=== PATIENT | male | born 1940 | race Caucasian/White ===

== ENCOUNTER 2017-02-10 19:49 | Inpatient (IN) | payer OTHER, MEDICARE ==
[~2017-02-10] VITALS: Ht 188 cm; Wt 81.6 kg
--- NOTE | 2017-02-10 19:53 | ED DYSPNEA/ASTHMA COMPLAINT ---
History of Present Illness General Chief Complaint: Dyspnea (COPD, CHF, Other) Stated Complaint: COPD EXACERBATION Source: patient, family, old records, EMS Exam Limitations: no limitations Vital Signs & Intake/Output Vital Signs & Intake/Output Vital Signs Date Time Temp Pulse Resp B/P B/P Pulse O2 O2 Flow FiO2 Mean Ox Delivery Rate 02/10 2235 99.1 92 22 131/69 96 Nasal 2.0L Cannula 02/10 2002 98 Nasal 2.0L Cannula 02/10 1954 98.5 108 20 142/77 96 Nasal 2.0L Cannula Allergies Coded Allergies: crab (SOFT SHELL CRAB - FACIAL SWELLING 02/10/17) Reconcile Medications Albuterol Sulfate 2.5 MG/3 ML (0.083 %) VIAL.NEB 1 Vial INH/SHERRY BID COPD ( Reported) Arformoterol Tartrate (Brovana) 15 MCG/2 ML VIAL.NEB 1 VIAL INH BID COPD ( Reported) Aspirin (Ecotrin*) 81 MG TABLET.DR 1 TAB PO DAILY HEART/BLOOD (Reported) Atorvastatin Calcium 40 MG TABLET 1 TAB PO DAILY CHOLESTEROL (Reported) Bisacodyl (Dulcolax) 5 MG TABLET.DR 3 TAB PO QPM GI (Reported) Budesonide 1 MG/2 ML AMPUL.NEB 1 VIAL INH BID COPD (Reported) Hydrocodone/Acetaminophen (Hydrocodon-Acetaminoph 7.5-325) 7.5 MG-325 MG TABLET 1 TAB PO PRN PAIN (Reported) Levofloxacin 500 MG TABLET 1 TAB PO DAILY ANTIBIOTIC (Reported) Oxybutynin Chloride (Unknown Strength) TABLET (Unknown Dose) PO AD UNKNOWN ( Reported) Pioglitazone HCl 45 MG TABLET 1 TAB PO DAILY DM (Reported) Prednisone 5 MG TABLET 1 TAB PO DAILY COPD (Reported) Roflumilast (Daliresp) 500 MCG TABLET 1 TAB PO DAILY COPD (Reported) Sitagliptin Phosphate (Januvia) 50 MG TABLET 1 TAB PO DAILY DM (Reported) Tiotropium [employer] (Spiriva) 18 MCG CAP.W.DEV 1 CAP INH DAILY COPD (Reported) Zolpidem Tartrate 10 MG TABLET 1 TAB PO QPM SLEEP (Reported) Triage Nurses Notes Reviewed? yes HPI: Patient has a known kidney stone and had a recent stent placed. Patient was prescribed Levaquin oxybutynin and Vicodin. Patient states that he read the information on the Vicodin and saw that it could cause difficulty breathing and he became concerned because he has COPD. Patient also noticed that he has been constipated and has had decreased urination. Patient also read the information on the Levaquin and saw that it can cause Achilles tendon rupture. Patient states his right Achilles tendon has been a little sore so that also made him concerned so he felt better if he stopped all of the medications that were prescribed. His last dose of anything was last night. Patient states his last bowel movement was 4 days ago. Patient is also noticed that he has had decreased urinary output. There is no nausea or vomiting. Patient does have a sharp stabbing pain in his left lower quadrant that is only present when he pushes on the area or when he coughs. There is no radiation. The pain is 0 out of 10 and less he coughs or presses on it at which point the pain increases to 6 out of 10. Patient uses oxygen at night. Patient has had increasing shortness of breath since yesterday. Patient denies any chest pain or chest tightness. There is no orthopnea. Today he needed his oxygen all day. Patient is complaining of dyspnea on exertion. Patient has been given 2 albuterol nebs as well as 125 mg of Solu-Medrol by EMS. Patient states that his breathing is much improved. Past History Travel History Traveled to [place] past 21 day No Medical History Any Pertinent Medical History? see below for history Respiratory: COPD Renal: nephrolithiasis Surgical History Surgical History: cystoscopy Psychosocial History Who do you live with Spouse What is your primary language Irish Tobacco Use: Quit >30 days ago ETOH Use: denies use Illicit Drug Use: denies illicit drug use Family History Hx Contributory? No Review of Systems Review of Systems Constitutional: Reports: see HPI, chills. EENTM: Reports: no symptoms. Respiratory: Reports: see HPI, short of breath, wheezing. Cardiovascular: Reports: no symptoms. GI: Reports: see HPI, abdominal pain, constipation. Genitourinary: Reports: no symptoms. Musculoskeletal: Reports: no symptoms. Skin: Reports: no symptoms. Neurological/Psychological: Reports: no symptoms. Hematologic/Endocrine: Reports: no symptoms. Immunologic/Allergic: Reports: no symptoms. All Other Systems: Reviewed and Negative Physical Exam Physical Exam General Appearance: well developed/nourished, alert, awake, anxious, moderate distress Head: atraumatic, normal appearance Eyes: Bilateral: PERRL, EOMI. Ears, Nose, Throat: normal pharynx, normal ENT inspection, hearing grossly normal Neck: normal inspection, supple, full range of motion, NO JVD Respiratory: decreased breath sounds, wheezing Cardiovascular: regular rate/rhythm, normal peripheral pulses Gastrointestinal: normal bowel sounds, soft, non-tender, no organomegaly Extremities: normal inspection, normal capillary refill, normal range of motion, no edema Neurologic/Psych: no motor/sensory deficits, awake, alert, oriented x 3, normal mood/affect Skin: intact, normal color, warm/dry Lymphatic: no anterior cervical thais Core Measures ACS in differential dx? No Severe Sepsis Present: No Septic Shock Present: No Progress Differential Diagnosis: AMI, bronchitis, COPD, pneumonia, pneumothorax Plan of Care: Orders Procedure Date/time Status Admit to inpatient 02/11 2352 Active Enema 02/10 2259 Active EKG 02/10 2017 Active ARTERIAL BLOOD GAS (GEN) 02/10 1954 Complete Telemetry/Saw Grinder 02/10 1954 Active URINALYSIS 02/10 1954 Complete TROPONIN LEVEL 02/10 1954 Complete LIPASE 02/10 1954 Complete COMPREHENSIVE METABOLIC PANEL 02/10 1954 Complete CBC WITHOUT DIFFERENTIAL 02/10 1954 Complete B-TYPE NATRIURETIC PEP (BNP) 02/10 1954 Complete AMYLASE 02/10 1954 Complete Current Medications Sig/Camille Start time Last Medication Dose Stop Time Status Admin Azithromycin 500 MG ONCE ONE 02/10 2345 UNVr (Zithromax) 02/11 0044 Sodium Chloride 250 ML (Normal Saline 0.9%) Ceftriaxone Sodium 1,000 MG ONCE ONE 02/10 2345 UNVr (Rocephin) 02/10 2346 Laboratory Tests 02/10/170: Urine Color BLDY H, Urine Clarity TURBD H, Urine pH 6.0, Ur Specific [place] 1.025, Urine Protein >=300 H, Urine Ketones TRACE H, Urine Nitrite NEG, Urine Bilirubin NEG@ICTO, Urine Urobilinogen 0.2, Ur Leukocyte Esterase MOD H, Ur Microscopic SEDIMENT EXAMINED, Urine RBC PACKD H, Urine WBC PACKD H, Ur Epithelial Cells MOD H, Urine Bacteria PACKD H, Urine Mucus MANY H, Micro UA Comment BUDDING YEAST H, Urine Hemoglobin LARGE H, Urine Glucose NEG 02/10/172004: Anion Gap 10, Estimated GFR > 60, BUN/Creatinine Ratio 16.0, Glucose 129 H, Calcium 8.7, Total Bilirubin 0.8, AST 33, ALT 39, Alkaline Phosphatase 87, Troponin I < 0.01, Urg-J-Ngqoigjitlf Pept 320 H, Total Protein 6.2 L, Albumin 3.5, Globulin 2.7, Albumin/Globulin Ratio 1.3, Amylase 30, Lipase 44, CBC w Diff NO MAN DIFF REQ, RBC 4.35 L, MCV 89.3, MCH 29.8, RDW 16.3 H, MPV 7.6, Gran % 78.4 H, Lymphocytes % 14.0 L, Monocytes % 6.1, Eosinophils % 1.1, Basophils % 0.4, Absolute Granulocytes 10.7 H, Absolute Lymphocytes 1.9, Absolute Monocytes 0.8 H, Absolute Eosinophils 0.2, Absolute Basophils 0.1, PUBS MCHC 33.3 02/10/17 2000: pH 7.42, pCO2 37, pO2 87, HCO3 24, ABG O2 Sat (Measured) 96.0, P-50 (Temp Corrected) N, Carboxyhemoglobin 0.3 L, O2 Concentration % 2L, Temperature 98.5, O2 Delivery Method NC, Phlebotomy Draw Site RIGHT RADIAL Diagnostic Imaging: Viewed by Me: Radiology Read. Discussed w/RAD: Radiology Read. CXR Impression: PATIENT: SONIDO HENRIQUEZ PRESENT AGE : 77 PATIENT ACCOUNT NO: [id number] : 39 LOCATION: [facility] ORDERING PHYSICIAN: KALANI DYSON MD SERVICE DATE: 02/10/17 EXAM TYPE: RAD - XRY-PORTABLE CHEST XRAY EXAMINATION: XR PORTABLE CHEST CLINICAL INFORMATION: Shortness of breath COMPARISON: Chest x-ray 04/10/2015 TECHNIQUE: Portable frontal portable view of the chest was obtained. 8:07 PM FINDINGS: Emphysematous hyperinflation of lungs. No acute change. No infiltrate. No pulmonary vascular congestion. No pneumothorax. The cardiac and the mediastinal contours are normal. There is vascular wall calcifications of aorta. IMPRESSION: Emphysematous hyperinflation of lungs. No acute abnormality. DICTATED BY: GUANAKO SOUZA MD DATE/TIME DICTATED:02/10/172051 AUTOMOTIVE BRAKE ADJUSTER:LORA DATE/ TIME TRANSCRIBED:02/10/172051 CONFIDENTIAL, DO NOT COPY WITHOUT APPROPRIATE AUTHORIZATION. <Electronically signed in Other Vendor System> SIGNED BY: GUANAKO SOUZA MD 02/10/172055 Initial ED EKG: NSR, nonspecific ST T wave chg Prior EKG: unchanged Rhythm Strip: normal sinus rhythm Comments: Patient became profoundly short of breath just moving to the commode. Patient's oxygen saturation dropped to 92% on 2 L and came back up to 95% on 3 L. Patient usually is only on oxygen at night. At this point patient will be admitted for COPD exacerbation. Departure Departure Disposition: STILL A PATIENT Condition: Guarded Clinical Impression Primary Impression: COPD exacerbation Secondary Impressions: Lower abdominal pain, unspecified Referrals: VINITA SIMMONS,SHANNON Bell Departure Forms: Customer Survey General Discharge Information Admission Note Spoke With: PABLITO CAMARILLO MD Documentation of Exam: Documentation of any treatments & extenuating circumstances including Concerns Regarding Discharge (functional status, medication knowledge or non-compliance, living conditions, etc.) that warrant an admission rather than observation: [IV steroids, nebulizers, IV antibiotics, pulmonary consultation] Critical Care Note Critical Care Note Critical Care Time: non-applicable
--- NOTE | 2017-02-10 20:00 | NUR ---
PT BIBA FROM HOME C/O COPD EXACERBATION. PER MEDIC PT WAS RESTING AT HOME WHEN HE FELT SOB. PT STATES THAT HE USES 2L NC AT HOME RESTING. PT ARRIVED ON 2L NC SAT 98%. PT STATES HE CANT WALK ANYWHERE WITHOUT GETTING SOB. PT ARRIVED A&OX3, PT STATES UNSTEADY ON FEET, FALL ABOUT 3 MONTHS AGO. RED WRIST BAND, SOCKS, AND SIGNED APPLIED TO PT AND RM. PT ARRIVED WITH [facility] IN WITH 125MG SOLU MEDROL IV ADMINISTERED ALONG WITH 2 ALBUTEROL TREATMENTS. THIS RN AND DR DYSON AT BEDSIDE FOR EVAL. RT BLANCHE AT BEDSIDE FOR ABG. PT PLACED ON MONITOR.
--- NOTE | 2017-02-10 20:17 | NUR ---
LABS DRAWN AND SENT BY THIS MST BLUE, SST X2, LAV X2, LAIRD
[2017-02-10 20:25] LABS: ABSOLUTE BASOPHIL COUNT 0.1 /CUMM (0.0-0.2); ABSOLUTE EOSINOPHIL COUNT 0.2 /CUMM (0.0-0.7); ABSOLUTE GRANULOCYTE CT 10.7 /CUMM (1.4-6.5); ABSOLUTE LYMPH COUNT 1.9 /CUMM (1.2-3.4); ABSOLUTE MONOCYTE COUNT 0.8 /CUMM (0.10-0.60); BASOPHIL % 0.4 % (0.0-2.0); EOSINOPHIL % 1.1 % (0-5); GRANULOCYTE % 78.4 % (42.2-75.2); HEMATOCRIT 38.9 % (42-52); MEAN CORPUSCULAR HGB 29.8 PG (27.0-31.0); MEAN CORPUSCULAR HGB CONC 33.3 G/DL (33.0-37.0); MEAN CORPUSCULAR VOLUME 89.3 FL (80.0-94.0); MEAN PLATELET VOLUME 7.6 FL (7.4-10.4); PLATELET COUNT 214 /CUMM (130-400); RBC DISTRIBUTION WIDTH 16.3 % (11.5-14.5); RED BLOOD CELL CT 4.35 /CUMM (4.70-6.10); WHITE BLOOD CELL COUNT 13.7 /CUMM (4.8-10.8)
--- NOTE | 2017-02-10 20:43 | NUR ---
PT GIVEN URINAL
--- NOTE | 2017-02-10 20:56 | RADIOLOGY REPORT ---
EXAMINATION: XR PORTABLE CHEST CLINICAL INFORMATION: Shortness of breath COMPARISON: Chest x-ray 04/10/2015 TECHNIQUE: Portable frontal portable view of the chest was obtained. 8:07 PM FINDINGS: Emphysematous hyperinflation of lungs. No acute change. No infiltrate. No pulmonary vascular congestion. No pneumothorax. The cardiac and the mediastinal contours are normal. There is vascular wall calcifications of aorta. IMPRESSION: Emphysematous hyperinflation of lungs. No acute abnormality.
[2017-02-10] MEDS ORDERED: ALBUTEROL2.5 MG/3 M INH/SOL (21:32)
[2017-02-10] MEDS ORDERED: SPIRIVA18 MCG INH (21:32)
[2017-02-10] MEDS ORDERED: BUDESONIDE1 MG/2 ML INH (21:33)
[2017-02-10] MEDS ORDERED: BROVANA15 MCG/21 INH (21:33)
[2017-02-10] MEDS ORDERED: DALIRESP500 MC1 PO (21:33)
[2017-02-10] MEDS ORDERED: PREDNISONE5 M1 PO (21:34)
[2017-02-10] MEDS ORDERED: PIOGLITAZONE HC45 M1 PO (21:34)
[2017-02-10] MEDS ORDERED: ATORVASTATIN CA40 M1 PO (21:34)
[2017-02-10] MEDS ORDERED: ZOLPIDEM TARTRA10 M1 PO (21:35)
[2017-02-10] MEDS ORDERED: DULCOLAX5 M1 PO (21:35)
[2017-02-10] MEDS ORDERED: ASPIRIN EC81 M1 PO (21:36)
[2017-02-10] MEDS ORDERED: DITROPAN XL5 M1 PO (21:37)
[2017-02-10] MEDS ORDERED: LEVOFLOXACIN500 M1 PO (21:38)
[2017-02-10] MEDS ORDERED: HYDROCODON-ACE1 EAC3 PO (21:40)
--- NOTE | 2017-02-10 21:40 | NUR ---
PT UNABLE TO URINATE AT THIS TIME. AWAITING URINE SPECIMEN
[2017-02-10] MEDS ORDERED: JANUVIA50 M1 PO (21:41)
--- NOTE | 2017-02-10 21:59 | NUR ---
PT MEDICATED WITH 1 TAB VICODIN PO PER EMAR ALONG WITH NS LITER #1 INFUSING A BOLUS
--- NOTE | 2017-02-10 22:29 | NUR ---
URINE TRIO SENT BY THIS RN
--- NOTE | 2017-02-10 22:57 | CT SCAN REPORT ---
EXAMINATION: CT ABDOMEN AND PELVIS WITH CONTRAST CLINICAL INFORMATION: Left lower quadrant pain. Hematuria. COMPARISON: Renal ultrasound 12/10/2016. CT scan abdomen and pelvis 08/21/2015. TECHNIQUE: Multidetector volumetric imaging was performed of the abdomen and pelvis before and after the IV administration of 95 mL of Optiray 320 intravenous contrast. Sagittal and coronal reformatted images were obtained on the technologist's workstation. DLP: 305.35 mGy-cm. FINDINGS: LUNG BASES: Emphysematous lucency of lungs. No infiltrate or pleural effusion. LIVER, GALLBLADDER, AND BILIARY TREE: The liver is normal in size, shape, and attenuation. No focal hepatic lesion or biliary ductal dilatation is present. The gallbladder is unremarkable with no evidence of radiopaque gallstones, gallbladder wall thickening, or obvious pericholecystic inflammatory changes. PANCREAS: Unremarkable. SPLEEN: Unremarkable. ADRENAL GLANDS: Unremarkable. KIDNEYS AND URETERS: Right Kidney: A 1 cm stone in the right ureteropelvic junction. The stone measures 1 cm. The stone measures 9.36 Hounsfield units. There is moderate hydronephrosis of the kidney with dilatation of renal pelvis and calyces. The distal right ureter is nondilated. No additional stone. There is a cortical cyst in the lower pole of right kidney measuring 1.8 cm. There is an adjacent 8 mm cortical cyst and 7 mm cortical cyst. Left Kidney: Double-J stent present in the left kidney. Stent extends from the upper pole calyx to the bladder. There is hydronephrosis of the left kidney with dilatation of renal pelvis and calyces in the left ureter. There is numerous stones in the left kidney. Largest in the lower pole measuring 1.7 cm. The stone has a density measurement of 878 Hounsfield units. There are multiple additional stones in the mid and lower pole of the kidney. There are a few tiny stones in the distal left ureter proximal to the ureterovesical junction. There were multiple cortical cysts in the left kidney. Largest in the mid lower pole posteriorly measuring 2 cm. There is thinning of the cortex at the lower pole of the left kidney. BLADDER: The bladder is distended. The bladder measures 17 x 12 x 14 cm. No stone in the bladder. There is a double-J stent in the left side of the dependent bladder. GASTROINTESTINAL TRACT: No acute change of the bowel. No bowel obstruction. No bowel wall thickening or edema. Moderate volume of stool in colon. The appendix is normal. Small bowel loops are unremarkable. ABDOMINAL WALL: No significant hernia is appreciated. LYMPH NODES: Normal. VASCULAR: Atherosclerotic vascular wall calcifications of the aorta, SMA and iliac vessels. PELVIC VISCERA: Prostate measures 4.9 cm transverse with coarse calcifications in the prostate. Prostate impresses into the bladder base. OSSEOUS STRUCTURES: Degenerative disc height narrowing lower thoracic, upper lumbar spine. Degenerative facet joint arthrosis at lower lumbar spine. IMPRESSION: There is hydronephrosis of both kidneys. There is a stone at the right ureteropelvic junction. Double-J stent present in the left kidney. Numerous stones in the left kidney and a few tiny stones in the distal left ureter proximal to the ureterovesical junction.
--- NOTE | 2017-02-10 23:00 | NUR ---
THIS RN ADMINISTERED A SOAP SUDS ENEMA, PT HAD SOME RELIEF AND WATERY STOOL, DR DYSON INFORMED.
--- NOTE | 2017-02-10 23:03 | NUR ---
DR DYSON IN FOR POC
--- NOTE | 2017-02-11 00:11 | NUR ---
THIS RN ESTABLISHED SITE #2 IV ACCESS IN RH #20. PT HAS 1G ROCEPHIN PER EMAR INFUSING AT 100ML/HR.
--- NOTE | 2017-02-11 00:18 | NUR ---
PT MEDICATED WITH 500MG ZITHRO INFUSING AT 250ML/HR. PT ALSO MEDICATED WITH 2MG MORPHINE PER EMAR INFUSING AT 150ML/HR IN A 50ML NS BAG.
--- NOTE | 2017-02-11 00:22 | NUR ---
2MG MORPHINE IV IN 50ML NS INFUSING AT 75ML/HR, STOPPED CURRENTLY FOR PT EXPERIENCING NAUSEA. PT MEDICATED WITH 4MG IV ZOFRAN PER EMAR. HOUSE STAFF IN FOR EVAL
--- NOTE | 2017-02-11 00:50 | NUR ---
THIS RN DISCUSSED THE CONTINUATION OF THE MORPHINE IV AND PT STATED HE WOULD RATHER NOT HAVE MORPHINE. THIS RN D/C'D MORPHINE INFUSION.
--- NOTE | 2017-02-11 00:50 | NUR ---
bed assignment 235-1
--- NOTE | 2017-02-11 01:06 | NUR ---
REPORT GIVEN TO ANTONINO LUNDY. PT READY FOR TRANSPORT.
[2017-02-11 01:56] VITALS: BP 130/60
--- NOTE | 2017-02-11 02:17 | History & Physical ---
JAIMIE MCMILLAN 02/11/17 0216: General Information and HPI MD Statement: I have seen and personally examined SONIDO HENRIQUEZ and documented this H&P. The patient is a 77 year old M who presented with a patient stated chief complaint of shortness of breath and left flank pain. Source of Information: patient, family Exam Limitations: no limitations History of Present Illness: This is a 77-year-old male with past medical history significant for nephrolithiasis, COPD on 2 L oxygen at night time, [id number] smoking history, constipation, type 2 diabetes mellitus, insomnia presented to emergency department with chief complaint of worsening shortness of breath and left low back pain for 5days. Of note patient reported history of bilateral kidney stones status post double J stent placement on left side for 16 mm stone on last Thursday02/06/17 at [facility]. He was discharged on Levaquin, oxybutynin, Vicodin. However he stopped taking Levaquin as he was scared about Achilles tendon rupture and he stopped Vicodin because of shortness of breath and constipation. Patient reported decreased urine output after stent placement. He also noticed blood in his urine since surgery. Also reported urgency and dysuria. Denied any fever, chills, nausea, vomiting. Also he complains left low back pain, 7 out of 10, increasing with cough, radiating to left lower quadrant. However left flank pain, dysuria, urgency has been subsiding since stent placement. He has follow-up appointment with urologist tomorrow morning 02/11/2017. And also reported worsening shortness of breath even with minimal exertion associated with cough and yellow colored sputum production. Denied any chest pain, racing of heart, fever and chills. Denies any sick contact or travel history. Off note patient completed prednisone taper the day before stent placement. Also patient received extra 40 mg IV steroid before the day of surgery. Patient complains of constipation from Vicodin. Last bowel movement was 4 days ago. He denies any nausea, vomiting, epigastric pain, headache, weakness or sensory changes, numbness or tingling sensation, gait changes. Denies any peripheral edema. Patient continues to smoke less than half pack per day. However he smoked one and half to 2 packs per day for 60 years. He quitted alcohol 10 years ago. Denies any illicit drug abuse. He lives with his and he is independent. [place] Dr. bah banquet steward and follows Dr. Lacy fonseca urologist at [facility]. Allergies/Medications Allergies: Coded Allergies: crab (SOFT SHELL CRAB - FACIAL SWELLING 02/10/17) Home Med list Albuterol Sulfate 2.5 MG/3 ML (0.083 %) VIAL.NEB 1 Vial INH/SHERRY BID COPD ( Reported) Arformoterol Tartrate (Brovana) 15 MCG/2 ML VIAL.NEB 1 VIAL INH BID COPD ( Reported) Aspirin (Ecotrin*) 81 MG TABLET.DR 1 TAB PO DAILY HEART/BLOOD (Reported) Atorvastatin Calcium 40 MG TABLET 1 TAB PO DAILY CHOLESTEROL (Reported) Bisacodyl (Dulcolax) 5 MG TABLET.DR 3 TAB PO QPM GI (Reported) Budesonide 1 MG/2 ML AMPUL.NEB 1 VIAL INH BID COPD (Reported) Hydrocodone/Acetaminophen (Hydrocodon-Acetaminoph 7.5-325) 7.5 MG-325 MG TABLET 1 TAB PO PRN PAIN (Reported) Levofloxacin 500 MG TABLET 1 TAB PO DAILY ANTIBIOTIC (Reported) Oxybutynin Chloride (Unknown Strength) TABLET (Unknown Dose) PO AD UNKNOWN ( Reported) Pioglitazone HCl 45 MG TABLET 1 TAB PO DAILY DM (Reported) Prednisone 5 MG TABLET 1 TAB PO DAILY COPD (Reported) Roflumilast (Daliresp) 500 MCG TABLET 1 TAB PO DAILY COPD (Reported) Sitagliptin Phosphate (Januvia) 50 MG TABLET 1 TAB PO DAILY DM (Reported) Tiotropium [place] (Spiriva) 18 MCG CAP.W.DEV 1 CAP INH DAILY COPD (Reported) Zolpidem Tartrate 10 MG TABLET 1 TAB PO QPM SLEEP (Reported) Compliance With Home Meds: GOOD Past History Travel History Traveled to [place] past 21 day No Medical History Blood Transfusion Hx: No Neurological: NONE EENT: allergies Cardiovascular: AFIB Respiratory: COPD Gastrointestinal: constipation Hepatic: NONE Renal: nephrolithiasis Musculoskeletal: falls Psychiatric: NONE Endocrine: diabetes Blood Disorders: NONE Cancer(s): basal cell carcinoma SQUAD LEADER/Reproductive: NONE Isolation History: Standard Surgical History Surgical History: cataract removal, cystoscopy Past Family/Social History Psychosocial History Where do you live? Home Services at Home: None Smoking Status: Current Everyday Smoker ETOH Use: denies use Illicit Drug Use: denies illicit drug use Review of Systems Review of Systems Constitutional: Denies: chills, diaphoresis, fever, malaise, weakness, unexplained weight loss. EENTM: Denies: see HPI. Cardiovascular: Denies: chest pain, edema, orthopena, palpitations, peripheral edema, syncope. Respiratory: Reports: cough, short of breath, sputum production. Denies: hemoptysis, orthopnea, stridor, wheezing. GI: Reports: abdominal pain, constipation, distention. Denies: bloating, diarrhea, bowel incontinence, melena, nausea, bloody stool, changes in stool, vomiting, steatorrhea. Genitourinary: Reports: dysuria, hematuria, pain, urgency. Denies: discharge, frequency. Musculoskeletal: Denies: back pain, gout, joint pain. Skin: Denies: see HPI. Neurological/Psychological: Denies: anxiety, ataxia, confusion, depressed, dementia, headache, numbness, tingling, tremors. Exam & Diagnostic Data Last 24 Hrs of Vital Signs/I&O Vital Signs Date Time Temp Pulse Resp B/P B/P Pulse O2 O2 Flow FiO2 Mean Ox Delivery Rate 02/11 0156 97.9 90 20 130/60 96 Nasal 2.0L Cannula 02/11 0146 95 Nasal 2.0L Cannula 02/11 0048 98.7 96 18 130/63 95 Nasal 2.0L Cannula 02/10 2235 99.1 92 22 131/69 96 Nasal 2.0L Cannula 02/10 2002 98 Nasal 2.0L Cannula 02/10 1954 98.5 108 20 142/77 96 Nasal 2.0L Cannula Intake & Output 02/11 0800 02/11 0000 02/10 1600 Intake Total Output Total Balance Patient 81.647 kg 81.193 kg Weight Weight Reported by Patient Reported by Patient Measurement Method Physical Exam General Appearance Alert, Oriented X3, Cooperative, No Acute Distress Skin No Rashes, No Breakdown HEENT Atraumatic, PERRLA, EOMI, Mucous Membr. moist/pink Neck Supple, No JVD Lymphatic Cervical nl Cardiovascular Regular Rate, Normal S1, Normal S2, No Murmurs Lungs decreased air entry bilaterally Abdomen Normal Bowel Sounds, Soft, left cva tenderness llq and suprapubic tenderness on palpation Neurological Strength at 5/5 X4 Ext, Normal Tone, Sensation Intact, Cranial Nerves 3-12 NL, Reflexes 2+ Extremities No Clubbing, No Cyanosis, No Edema Vascular Normal Pulses, Pulses Symmetrical Last 24 Hrs of Labs/Arsenio: Laboratory Tests 02/10/170: Urine Color BLDY H, Urine Clarity TURBD H, Urine pH 6.0, Ur Specific Moore 1.025, Urine Protein >=300 H, Urine Ketones TRACE H, Urine Nitrite NEG, Urine Bilirubin NEG@ICTO, Urine Urobilinogen 0.2, Ur Leukocyte Esterase MOD H, Ur Microscopic SEDIMENT EXAMINED, Urine RBC PACKD H, Urine WBC PACKD H, Ur Epithelial Cells MOD H, Urine Bacteria PACKD H, Urine Mucus MANY H, Micro UA Comment BUDDING YEAST H, Urine Hemoglobin LARGE H, Urine Glucose NEG 02/10/172004: Anion Gap 10, Estimated GFR > 60, BUN/Creatinine Ratio 16.0, Glucose 129 H, Calcium 8.7, Total Bilirubin 0.8, AST 33, ALT 39, Alkaline Phosphatase 87, Troponin I < 0.01, Tow-J-Nrkgqeuxfzs Pept 320 H, Total Protein 6.2 L, Albumin 3.5, Globulin 2.7, Albumin/Globulin Ratio 1.3, Amylase 30, Lipase 44, CBC w Diff NO MAN DIFF REQ, RBC 4.35 L, MCV 89.3, MCH 29.8, RDW 16.3 H, MPV 7.6, Gran % 78.4 H, Lymphocytes % 14.0 L, Monocytes % 6.1, Eosinophils % 1.1, Basophils % 0.4, Absolute Granulocytes 10.7 H, Absolute Lymphocytes 1.9, Absolute Monocytes 0.8 H, Absolute Eosinophils 0.2, Absolute Basophils 0.1, PUBS MCHC 33.3 02/10/171999: pH 7.42, pCO2 37, pO2 87, HCO3 24, ABG O2 Sat (Measured) 96.0, P-50 (Temp Corrected) N, Carboxyhemoglobin 0.3 L, O2 Concentration % 2L, Temperature 98.5, O2 Delivery Method NC, Phlebotomy Draw Site RIGHT RADIAL Microbiology 02/12 216 URINE ROUT: Urine Culture - ORD Assessment/Plan Assessment: This is a 77-year-old male with past medical history significant for nephrolithiasis, COPD on 2 L oxygen at night time, 80-bwrt-[id number] smoking history, constipation, type 2 diabetes mellitus, insomnia presented to emergency department with chief complaint of worsening shortness of breath and left low back pain for 5days. Of note patient reported history of bilateral kidney stones status post double J stent placement on left side for 16 mm stone on last Thursday02/06/17 at [facility]. Vitals on admission- afebrile, heart rate 18, respiratory rate 20, blood pressure 142/77, saturating at 96 on 2 L oxygen. Labs on admission- Leukocytosis 13.7, BEP normal. Urine analysis showed moderate esterases, packed WBC, RBC, bacteria and budding yeast, hemoglobin. ABGs-7.42/24/37. Chest x-ray showed emphysematous changes and hyperinflation of lungs CAT scan abdomen There is hydronephrosis of both kidneys. There is a stone at the right ureteropelvic junction. Double-J stent present in the left kidney. Numerous stones in the left kidney and a few tiny stones in the distal left ureter proximal to the ureterovesical junction. Problem list 1. COPD exacerbation 2. Urinary tract infection 3. Bilateral hydronephrosis with renal stones 4. Diabetes mellitus 5. Constipation 6. Insomnia 7. History of atrial fibrillation status post ablation. COPD exacerbation Patient presented with worsening shortness of breath associated with cough and sputum production. Denied any fever, chills, sick contacts, pleuritic chest pain. He is afebrile with WBC count 13,000 on admission. Chest x-ray showed emphysematous changes. No effusion, no consolidation. Off note patient completed prednisone taper the day before stent placement. Also patient received extra 40 mg IV steroid before the day of surgery. * Admit to general medical floor for further management. * Maintain oxygen saturation a bone 90% * Provide supplemental oxygen, patient is on oxygen at home 2 L at nighttime * Monitor vitals every shift * Total respiratory care * Albuterol and Atrovent as scheduled and needed * IV antibiotics-ceftriaxone both for COPD exacerbation and urine infection * IV methylprednisolone 40 mg every 12 hours * Mucinex for cough 600 mg twice a day * Incentive spirometry * Follow-up blood cultures * Sputum cultures * Notify Melissa Johnson MD about admission * smoking cessation counselled. Urinary tract infection Patient presented with bilateral kidney stones status post left double-J stent placement 5days ago. Patient complains of frequency, dysuria, blood in urine. Urine analysis positive for esterases, packed WBC, RBC, hemoglobin, bacteria and budding yeast. Afebrile with Leukocyte count 13,000 on admission. * Monitor vitals closely * Gentle IV hydration * Monitor kidney function tests * IV antibiotics ceftriaxone daily * Follow-up urine cultures * We'll consult ID Angelito Medina MD. Bilateral hydronephrosis with kidney stones Of note patient reported history of bilateral kidney stones status post double J stent placement on left side for 16 mm stone on last Thursday02/06/17 at [facility]. * CAT scan abdomen- There is hydronephrosis of both kidneys. There is a stone at the right ureteropelvic junction. Double-J stent present in the left kidney. Numerous stones in the left kidney and a few tiny stones in the distal left ureter proximal to the ureterovesical junction. * Urology consult. * Patient is nothing by mouth pending urologic procedure if necessary * obtain records from [facility] regarding urologic procedure * Patient was started on Levaquin however he discontinued it by himself as he was scared about achilles tendon rupture * We will place him on Foleys catheter to monitor urine output Diabetes mellitus Patient is on pioglitazone and Januvia at home We'll hold oral medications for now Accu-Cheks before meals and at bedtime On insulin sliding scale Insomnia Continue home medication zolpedam Constipation Bowel regimen with senna and docusate Continue home medication aspirin and statin Patient is DNR/DNI Pain pathway Tylenol, Dilaudid Patient is nothing by mouth DVT prophylaxis alps As Ranked By This Provider Problem List: 1. COPD exacerbation 2. Lower abdominal pain, unspecified Core Measures/Miscellaneous Acute Coronary Syndrome ACS Diagnosis: No Cerebrovascular Accident CVA/TIA Diagnosis: No Congestive Heart Failure CHF Diagnosis: No Venous Thromboembolism VTE Risk Factors: Age > 40 No [facility] VTE prophylaxis d/t: No contraindications No VTE Pharm Prophylaxis d/t: No contraindications VTE Diagnosis: No VTE Type: NONE VTE Confirmed by (Test): NONE Severe Sepsis Severe Sepsis Present: No Septic Shock Septic Shock Present: No Miscellaneous Documentation Attending Case Discussed With: PABLITO CAMARILLO MD Primary Care Physician: Melissa JOHNSON MD Patient sees these Specialists banquet steward urologist Level of Patient Care: General Medicine PABLITO CAMARILLO 02/11/17 0418: Attending Review Statement Attending Statement Attending MD Statement: examined this patient, discuss w/resident/PA/BATTER SCALER, agreed w/resident/PA/BATTER SCALER, reviewed EMR data (avail), reviewed images, amended to note Attending Assessment/Plan: CC: Shortness of breath PMH: COPD on nocturnal O2, multiple renal stone, DM, history of A. fib S/P ablation Patient underwent left ureteral stenting and stone removal 7 days back, was prescribed Levaquin and Vicodin. He was looking up the side effects, and he did not tolerate this medications were and stopped it by himself. Later on he started to notice worsening of shortness of breath, usually he has dyspnea on exertion but now he was getting shortness of breath at rest, requiring daytime oxygen. It was associated with cough and yellow sputum production. He recently finished short-term prednisone course and on chronically small dose prednisone. He was also noticing constipation after Vicodin and left lower quadrant and left flank pain, blood in urine and decreased urine output. Abdominal pain is much better after he received edema in ER. Vitals: Afebrile, tachycardic at presentation, RR 20, blood pressure 142/77, requiring 2 L by NC to saturate at 96%. On examination: A O 3, cooperative, thin built, mild respiratory distress, neck supple, JVD normal, no lymphadenopathy, mucosa moist, tongue coated, no focal neurological deficit, no dependent edema, no obvious skin rashes or inflammation CVS: S1-S2, RRR. RS: Diminished air entry bilaterally with prolonged expiration. Abdomen: Soft, mild tenderness left lower quadrant, mild tenderness left flank, ND, bowel sounds present. Labs: WBC 13.7, neutrophils 78%, hemoglobin 13.0, platelet 214, sodium 132, chloride 93, bicarbonate 28, BUN 16, creatinine 1.0, glucose 129, calcium 8.7, LFT unremarkable, proBNP 320 UA positive for moderate leukocyte esterase, packed WBC, RBC, budding yeast. AB.42/37/87/24 on 2 L CXR:Emphysematous hyperinflation of lungs. No acute abnormality. CT abdomen and pelvis:There is hydronephrosis of both kidneys. There is a stone at the right ureteropelvic junction. Double-J stent present in the left kidney. Numerous stones in the left kidney and a few tiny stones in the distal left ureter proximal to the ureterovesical junction. A and P Patient has increased oxygen use, not requiring daytime oxygen, desaturated while ambulating in ER. ABG does not show any CO2 retention. Probably patient having shallow breathing because of abdominal and flank pain. He received an enema for constipation in ER and symptomatically better for abdominal pain. Patient recently had urological procedure and now has budding yeast in urine. # COPD exacerbation # Complicated UTI # Bilateral hydronephrosis with bilateral renal stones # Constipation # History of diabetes # History of A. fib S/P ablation - Admit to general medicine floor - Urine culture - Continue O2 by nasal cannula - Continue IV ceftriaxone 1 g daily - Continue methylprednisolone 40 mg IV twice a day - TRC and albuterol Atrovent nebulizations scheduled and as required - Mucinex 600 mg by mouth twice a day - Bowel regimen with senna and docusate - Check d-dimer - Consult ID for budding yeast in urine and recent urological procedure - Consult urology for bilateral hydronephrosis and multiple calculi - Obtain records from his previous urology procedure - Nothing by mouth after midnight - Continue gentle hydration - Adequate pain control - Inform Dr. Johnson patient being here - Bah catheter, strict outputs - Continue sliding scale insulin for DM and hold pioglitazone and Januvia - Alps for DVT prophylaxis. MU MILLER 02/11/17 0452: Resident Review Statement Resident Statement: examined this patient, discussed with global marketing intern, agreed with global marketing intern, discussed with family Other Findings: Mr. Henriquez is a 77-year-old male with a significant past medical history of emphysema on 2 L of oxygen nocturnally [falls up with Dr. Johnson], type 2 diabetes, hyperlipidemia, bladder status post ablation approximately 30 years ago, recurrent nephrolithiasis who presents to [facility] department for dyspnea. Of note, the patient had a left ureteral stent placed on Thursday with Dr. Jose Armando Dennison ([facility]) at [facility] for a 16 mm left sided stone. He was placed on levofloxacin, oxybutynin and Vicodin, and as the patient was reading about the the possible side effects at home including Achilles tendon rupture and respiratory depression he became worried and came to the hospital emergency department as he does have a history of COPD. In addition to his dyspnea, he also complained of abdominal pain worse in the left lower quadrant, worse with deep inspiration and palpation, 4 days of constipation and decreased urinary output. He also complained of dysuria and urgency over the last 4 days which have been improving. Additionally since the ureteral stent placement, he has been complaining of hematuria. The remainder of the review of systems and physical exam as dictated above with focus on suprapubic enlargement (bladder) and tenderness to palpation, left lower quadrant tenderness on deep palpation and left CVA tenderness. Lung exam showed decreased air entry bilaterally, with some faint expiratory wheezes, loudest in the right lung base. Vitals temperature 98.5, heart rate 108, respiratory rate 20, BP 142/77 saturating 96% on 2 L. EKG revealed sinus tachycardia at 101 bpm. No other significant acute changes. [place] interval 152. QTC 446 ms. [place] was 90. Labs significant for an elevated white blood cell count of 13,700, H&H 13/30.9, platelets 214. Basic metabolic panel was unremarkable, BUNs/creatinine 16/1.0. ABG 7.42/37/87/24. Urinalysis was bloody and turbid, nitrite negative, leukocyte esterase positive, had multiple RBCs, white blood cells and had budding yeast. Chest x-ray revealed emphysematous changes without any acute abnormality. Abdominal pelvis CT revealed bilateral hydronephrosis with a 1cm right UPJ stone , multiple left stones with a double-J stent in the left ureter. Problem list/assessment and plan We will admit the patient to the general medicine floor for treatment of the following problems: Acute hypoxemic respiratory failure secondary to COPD exacerbation * At home, patient does not require [id number] oxygen therapy however is significantly dyspneic on exertion and is hypoxemic at rest in the hospital. * We will treat with TRC/Nebs with insentive spirometry * The patient was dosed with 125 mg of IV Solu-Medrol and we will continue 40mg BID with plan to taper to PO prednisone. * WE will also give mucinex 600mg BID. * Consider sputum cultures. * Continue O2 via nasal canula, and titrate down as tolerated with a goal oxygen saturation of greater than 92% * Please inform Dr. Johnson of the Mr. Ware admission in the am. Bilateral hydronephrosis and cystitis/funguria * 1 cm UPJ right without distal ureteral dilation and multiple stones in the left kidney, largest 1.7 cm in the lower pole with stent in place and multiple smaller stones with left ureter dilation. * The patient's prostate is not enlarged based on imaging, however does impress into the bladder base. * The patient's bladder is also distended, most likely secondary to his prostate , and we will place a Bah catheter to relieve his bladder outlet obstruction and hopefully some of the hydronephrosis. Of note, his BUN/creatinine are within normal limits. * We will also obtain a urology consult in the morning for possible right 1 cm nephrolithiasis intervention/ureteral stent placement. We will keep the patient nothing by mouth at midnight and avoid any NSAIDs/anticoagulants * The patient did not complete his course of antibiotics and given his recent instrumentation and leukocytosis, we will treat with IV ceftriaxone, 1 g daily. * We will also give tamsulosin and hydration with normal saline. * Also, given the finding of budding yeast on UA - ?candiduria, we will obtain an ID consult. Normally this finding wouldn't be worriesome, as or require treatment, but given his risk factors - recent instrumentation, DM and questionable obstruction with the finding of BL hydronephrosis, the risk of progression to candidemia is higher than patients w/o these risk factors. Given his recent instrumentation there is a grade IIIB recommendation by the IDSA to treat - consider PO fluconazole/flucytosine, or irrigation of the bladder with amphotericin B/IV amphotericin B. DM * we will hold the patient PO antihyperglycemics and start novolog sliding scale with TIDACHS FSGs. NPO DNR/DNI ALPS for dvt ppx pain pathway
--- NOTE | 2017-02-11 03:30 | NUR ---
NURSING NOTE: MULTIPLE FAILED ATTEMPTS TO INSERT HESS BY TWO RN'S. EXTREMELY PAINFUL FOR PATIENT. PT REFUSING THIRD ATTEMPT. MD WINSTON AWARE. PER , OK TO RETRY IN AM.
--- NOTE | 2017-02-11 04:19 | Admission Certification ---
Admission Certification Certification Statement - As attending physician, I certify that at the time of - admission, based on clinical presentation, severity of - symptoms, need for further diagnostic testing and - therapeutic interventions, and risk of adverse outcomes - without in-hospital treatment, in my clinical assessment, - this patient requires an acute hospital stay for a minimum - of two nights or longer. I have also considered psychsocial - factors such as support system, advanced age, financial - issues, cognitive issues, and failed out-patient treatments, - past re-admission history, safety of patient, and lack of - compliance as applicable. Specific rationale supporting this admission is: COPD exacerbation, complicated UTI
[2017-02-11 06:38] VITALS: BP 126/60
[2017-02-11 07:51] LABS: ABSOLUTE BASOPHIL COUNT 0 /CUMM (0.0-0.2); ABSOLUTE EOSINOPHIL COUNT 0 /CUMM (0.0-0.7); ABSOLUTE MONOCYTE COUNT 0.1 /CUMM (0.10-0.60); MEAN CORPUSCULAR HGB 29.8 PG (27.0-31.0)
[2017-02-11 08:26] LABS: ABSOLUTE GRANULOCYTE CT 8.5 /CUMM (1.4-6.5); ABSOLUTE LYMPH COUNT 0.4 /CUMM (1.2-3.4); BASOPHIL % 0 % (0.0-2.0); EOSINOPHIL % 0 % (0-5); MEAN CORPUSCULAR HGB CONC 33.7 G/DL (33.0-37.0); MEAN CORPUSCULAR VOLUME 88.4 FL (80.0-94.0); MEAN PLATELET VOLUME 7.9 FL (7.4-10.4); PLATELET COUNT 172 /CUMM (130-400); RBC DISTRIBUTION WIDTH 16.1 % (11.5-14.5); RED BLOOD CELL CT 3.67 /CUMM (4.70-6.10); WHITE BLOOD CELL COUNT 8.9 /CUMM (4.8-10.8)
[2017-02-11 08:30] LABS: HEMATOCRIT 32.5 % (42-52)
[2017-02-11 09:13] LABS: GRANULOCYTE % 95.3 % (42.2-75.2)
--- NOTE | 2017-02-11 10:52 | Cons- Pulmonary ---
PIETRO LEAL,DHARA 02/11/17 1052: General Information and HPI Consulting Request Date of Consult: 02/11/17 Requested By: Dr. Aponte Reason for Consult: COPD exacerbation Source of Information: patient, family, old records Exam Limitations: no limitations History of Present Illness: Mr. Henriquez is a 77-year-old gentleman whose medical issues include COPD requiring 2 L of oxygen at bedtime, continued nicotine use with a 60+ pack year smoking history, type 2 diabetes mellitus the presented to the emergency room yesterday for evaluation of shortness of breath. On Thursday, he underwent double ureteral stent placement for nephrolithiasis at [facility]. States that he went home the same day and since the weekend he has been having some suprapubic pain and tenderness in conjunction with hematuria. He was given Levaquin and hydrocodone by his urologist and he stopped it secondary to leg cramps as he read the contraindications which were Achilles tendinopathy and constipation respectively. States that at present he smokes about 5-6 cigarettes per day. And also complains of increased dyspnea since Thursday requiring him to use his oxygen at all times. Denies any fevers or chills however does admit to yellow productive sputum. He does have a sick contact at home, his is currently ill with a double ear infection. Is brought to the emergency room by ambulance, while in the emergency room he received 2 DuoNeb treatments and 125 mg IV Solu-Medrol. He had 2 unsuccessful Bah catheter placement attempts in the emergency room. At present his only complaint is suprapubic tenderness. Allergies/Medications Allergies: Coded Allergies: crab (SOFT SHELL CRAB - FACIAL SWELLING 02/10/17) Home Med List: Albuterol Sulfate 2.5 MG/3 ML (0.083 %) VIAL.NEB 1 Vial INH/SHERRY BID COPD ( Reported) Arformoterol Tartrate (Brovana) 15 MCG/2 ML VIAL.NEB 1 VIAL INH BID COPD ( Reported) Aspirin (Ecotrin*) 81 MG TABLET.DR 1 TAB PO DAILY HEART/BLOOD (Reported) Atorvastatin Calcium 40 MG TABLET 1 TAB PO DAILY CHOLESTEROL (Reported) Bisacodyl (Dulcolax) 5 MG TABLET.DR 3 TAB PO QPM GI (Reported) Budesonide 1 MG/2 ML AMPUL.NEB 1 VIAL INH BID COPD (Reported) Hydrocodone/Acetaminophen (Hydrocodon-Acetaminoph 7.5-325) 7.5 MG-325 MG TABLET 1 TAB PO PRN PAIN (Reported) Levofloxacin 500 MG TABLET 1 TAB PO DAILY ANTIBIOTIC (Reported) Oxybutynin Chloride (Unknown Strength) TABLET (Unknown Dose) PO AD UNKNOWN ( Reported) Pioglitazone HCl 45 MG TABLET 1 TAB PO DAILY DM (Reported) Prednisone 5 MG TABLET 1 TAB PO DAILY COPD (Reported) Roflumilast (Daliresp) 500 MCG TABLET 1 TAB PO DAILY COPD (Reported) Sitagliptin Phosphate (Januvia) 50 MG TABLET 1 TAB PO DAILY DM (Reported) Tiotropium [place] (Spiriva) 18 MCG CAP.W.DEV 1 CAP INH DAILY COPD (Reported) Zolpidem Tartrate 10 MG TABLET 1 TAB PO QPM SLEEP (Reported) Review of Systems Review of Systems Constitutional: Reports: see HPI. 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 Home Services at Home: None Smoking Status: Current Everyday Smoker ETOH Use: denies use Illicit Drug Use: denies illicit drug use Exam & Diagnostic Data Last 24 Hrs of Vital Signs/I&O Vital Signs Date Time Temp Pulse Resp B/P B/P Pulse O2 O2 Flow FiO2 Mean Ox Delivery Rate 02/11 1036 95 Nasal 2.0L Cannula 02/11 0947 97.9 82 20 126/60 02/11 0800 95 Nasal 2.0L Cannula 02/11 0638 97.9 82 20 126/60 97 Nasal 2.0L Cannula 02/11 0156 97.9 90 20 130/60 96 Nasal 2.0L Cannula 02/11 0146 95 Nasal 2.0L Cannula 02/11 0048 98.7 96 18 130/63 95 Nasal 2.0L Cannula 02/10 2235 99.1 92 22 131/69 96 Nasal 2.0L Cannula 02/10 2002 98 Nasal 2.0L Cannula 02/10 1954 98.5 108 20 142/77 96 Nasal 2.0L Cannula Intake & Output 02/11 1600 02/11 0800 02/11 0000 Intake Total 430 Output Total 50 Balance 380 Intake, IV 430 Number 0 Bowel Movements Output, Urine 50 Patient 180 lb 179 lb Weight Weight Reported by Patient Reported by Patient Measurement Method Physical Exam General Appearance: well developed/nourished, no apparent distress, alert Head: atraumatic, normal appearance Eyes: Bilateral: normal appearance, PERRL, EOMI. Ears, Nose, Throat: normal pharynx, normal ENT inspection Respiratory: expiratory wheezing bilaterally Cardiovascular: regular rate/rhythm Gastrointestinal: normal bowel sounds, soft, non-tender Back: normal inspection, normal range of motion Last 48 Hrs of Labs/Arsenio: Laboratory Tests 02/11/17 0635: Anion Gap 9, Estimated GFR > 60, BUN/Creatinine Ratio 23.3, D-Dimer 841 H, CBC w Diff NO MAN DIFF REQ, RBC 3.67 L, MCV 88.4, MCH 29.8, RDW 16.1 H, MPV 7.9, Gran % 95.3 H, Lymphocytes % 4.1 L, Monocytes % 0.6 L, Eosinophils % 0, Basophils % 0 L, Absolute Granulocytes 8.5 H, Absolute Lymphocytes 0.4 L, Absolute Monocytes 0.1 L, Absolute Eosinophils 0, Absolute Basophils 0, PUBS MCHC 33.7 02/10/172229: Urine Color BLDY H, Urine Clarity TURBD H, Urine pH 6.0, Ur Specific [place] 1.025, Urine Protein >=300 H, Urine Ketones TRACE H, Urine Nitrite NEG, Urine Bilirubin NEG@ICTO, Urine Urobilinogen 0.2, Ur Leukocyte Esterase MOD H, Ur Microscopic SEDIMENT EXAMINED, Urine RBC PACKD H, Urine WBC PACKD H, Ur Epithelial Cells MOD H, Urine Bacteria PACKD H, Urine Mucus MANY H, Micro UA Comment [place] H, Urine Hemoglobin LARGE H, Urine Glucose NEG 02/10/172004: Anion Gap 10, Estimated GFR > 60, BUN/Creatinine Ratio 16.0, Glucose 129 H, Calcium 8.7, Total Bilirubin 0.8, AST 33, ALT 39, Alkaline Phosphatase 87, Troponin I < 0.01, Rqj-P-Dwoqfecyxfx Pept 320 H, Total Protein 6.2 L, Albumin 3.5, Globulin 2.7, Albumin/Globulin Ratio 1.3, Amylase 30, Lipase 44, CBC w Diff NO MAN DIFF REQ, RBC 4.35 L, MCV 89.3, MCH 29.8, RDW 16.3 H, MPV 7.6, Gran % 78.4 H, Lymphocytes % 14.0 L, Monocytes % 6.1, Eosinophils % 1.1, Basophils % 0.4, Absolute Granulocytes 10.7 H, Absolute Lymphocytes 1.9, Absolute Monocytes 0.8 H, Absolute Eosinophils 0.2, Absolute Basophils 0.1, PUBS MCHC 33.3 02/10/17 2000: pH 7.42, pCO2 37, pO2 87, HCO3 24, ABG O2 Sat (Measured) 96.0, P-50 (Temp Corrected) N, Carboxyhemoglobin 0.3 L, O2 Concentration % 2L, Temperature 98.5, O2 Delivery Method NC, Phlebotomy Draw Site RIGHT RADIAL Diagnostic Data CXR Results PATIENT: SONIDO HENRIQUEZ PRESENT AGE: 77 PATIENT ACCOUNT NO: [id number] : 39 LOCATION: ER ORDERING PHYSICIAN: KALANI DYSON MD SERVICE DATE: 02/10/17 EXAM TYPE: RAD - XRY-PORTABLE CHEST XRAY EXAMINATION: XR PORTABLE CHEST CLINICAL INFORMATION: Shortness of breath COMPARISON: Chest x-ray 04/10/2015 TECHNIQUE: Portable frontal portable view of the chest was obtained. 8:07 PM FINDINGS: Emphysematous hyperinflation of lungs. No acute change. No infiltrate. No pulmonary vascular congestion. No pneumothorax. The cardiac and the mediastinal contours are normal. There is vascular wall calcifications of aorta. IMPRESSION: Emphysematous hyperinflation of lungs. No acute abnormality. DICTATED BY: GUANAKO SOUZA MD DATE/TIME DICTATED:02/10/172051 POCKET SETTER:LORA DATE/TIME TRANSCRIBED:02/10/172051 CONFIDENTIAL, DO NOT COPY WITHOUT APPROPRIATE AUTHORIZATION. <Electronically signed in Other Vendor System> SIGNED BY: GUANAKO SOUZA MD 02/10/172055 Other Results PATIENT: SONIDO HENRIQUEZ PRESENT AGE: 77 PATIENT ACCOUNT NO: [id number] : 39 LOCATION: ER ORDERING PHYSICIAN: KALANI DYSON MD SERVICE DATE: 02/10/17 EXAM TYPE: CAT - CT ABD & PELVIS W IV CONTRAST EXAMINATION: CT ABDOMEN AND PELVIS WITH CONTRAST CLINICAL INFORMATION: Left lower quadrant pain. Hematuria. COMPARISON: Renal ultrasound 12/10/2016. CT scan abdomen and pelvis 08/21/2015. TECHNIQUE: Multidetector volumetric imaging was performed of the abdomen and pelvis before and after the IV administration of 95 mL of Optiray 320 intravenous contrast. Sagittal and coronal reformatted images were obtained on the technologist's workstation. DLP: 305.35 mGy-cm. FINDINGS: LUNG BASES: Emphysematous lucency of lungs. No infiltrate or pleural effusion. LIVER, GALLBLADDER, AND BILIARY TREE: The liver is normal in size, shape, and attenuation. No focal hepatic lesion or biliary ductal dilatation is present. The gallbladder is unremarkable with no evidence of radiopaque gallstones, gallbladder wall thickening, or obvious pericholecystic inflammatory changes. PANCREAS: Unremarkable. SPLEEN: Unremarkable. ADRENAL GLANDS: Unremarkable. KIDNEYS AND URETERS: Right Kidney: A 1 cm stone in the right ureteropelvic junction. The stone measures 1 cm. The stone measures 9.36 Hounsfield units. There is moderate hydronephrosis of the kidney with dilatation of renal pelvis and calyces. The distal right ureter is nondilated. No additional stone. There is a cortical cyst in the lower pole of right kidney measuring 1.8 cm. There is an adjacent 8 mm cortical cyst and 7 mm cortical cyst. Left Kidney: Double-J stent present in the left kidney. Stent extends from the upper pole calyx to the bladder. There is hydronephrosis of the left kidney with dilatation of renal pelvis and calyces in the left ureter. There is numerous stones in the left kidney. Largest in the lower pole measuring 1.7 cm. The stone has a density measurement of 878 Hounsfield units. There are multiple additional stones in the mid and lower pole of the kidney. There are a few tiny stones in the distal left ureter proximal to the ureterovesical junction. There were multiple cortical cysts in the left kidney. Largest in the mid lower pole posteriorly measuring 2 cm. There is thinning of the cortex at the lower pole of the left kidney. BLADDER: The bladder is distended. The bladder measures 17 x 12 x 14 cm. No stone in the bladder. There is a double-J stent in the left side of the dependent bladder. GASTROINTESTINAL TRACT: No acute change of the bowel. No bowel obstruction. No bowel wall thickening or edema. Moderate volume of stool in colon. The appendix is normal. Small bowel loops are unremarkable. ABDOMINAL WALL: No significant hernia is appreciated. LYMPH NODES: Normal. VASCULAR: Atherosclerotic vascular wall calcifications of the aorta, SMA and iliac vessels. PELVIC VISCERA: Prostate measures 4.9 cm transverse with coarse calcifications in the prostate. Prostate impresses into the bladder base. OSSEOUS STRUCTURES: Degenerative disc height narrowing lower thoracic, upper lumbar spine. Degenerative facet joint arthrosis at lower lumbar spine. IMPRESSION: There is hydronephrosis of both kidneys. There is a stone at the right ureteropelvic junction. Double-J stent present in the left kidney. Numerous stones in the left kidney and a few tiny stones in the distal left ureter proximal to the ureterovesical junction. DICTATED BY: GUANAKO SOUZA MD DATE/TIME DICTATED:02/10/172231 POCKET SETTER:LORA DATE/TIME TRANSCRIBED:02/10/172231 CONFIDENTIAL, DO NOT COPY WITHOUT APPROPRIATE AUTHORIZATION. <Electronically signed in Other Vendor System> SIGNED BY: GUANAKO SOUZA MD 02/10/17 1112 Assessment/Plan Impression/Plan: Assessment- 1. COPD exacerbation, acute 2. Urinary retention, likely 2/2 recent urological surgery with double-J stent placement versus BPH 3. Bilateral hydronephrosis 4. Urinary tract infection 5. Leukocytosis, resolved 6. Hypertension 7. Hyperlipidemia 8. Diabetes mellitus 9. Nicotine dependance Plan- - Urgent urological consultation for Bah catheter placement - Follow urine culture - Continue IV Solu-Medrol 40 mg every 12 hrs - Accu-Cheks, given that he is on IV steroids and also does have a history of diabetes - Continue IV ceftriaxone for now - Continue Spiriva 1 puff daily - Obtain sputum culture if able to expectorate - Nicotine patch, cessation counseled - Albuterol nebulizer therapy every 4 hours while awake - Continue guaifenesin 600 mg by mouth every 12 - Aggressive bowel regiment as he is on narcotics - DVT prophylaxis at all times Consult Acknowledgment - Thank you for your consult request. JIMMIE LEAL,Melissa GRANDA 02/11/17 2271: Assessment/Plan Other Findings/Comments: I have personally seen and examined the patient and agree with the resident's assessment and plan as detailed above. The patient is a 77-year-old male well- known to me from outpatient visits. He has severe COPD requiring 2 L of nocturnal oxygen, with an active smoking history. He also has type 2 diabetes as well as a double ureteral stent placement for nephrolithiasis recently. The patient had been having suprapubic pain in conjunction with hematuria. He was prescribed Levaquin and hydrocodone by his urologist but stopped it secondary to side effects. In the emergency room, the patient was noted to have increased shortness of breath as well as increased wheezing. He had 2 unsuccessful Bah catheter placement attempts in the emergency room. He has had persistent suprapubic tenderness. At present, the patient has ongoing abdominal distention and superior tenderness. He has shortness of breath which is at his baseline. The plan will be for an urgent urological consultation for Bah catheter placement and management. We will continue IV Solu-Medrol 40 mg every 12 hours. We will monitor Accu-Cheks while on IV steroids. We will continue ceftriaxone for now. Stop Spiriva (causes urinary retention). Sputum cultures if able. Nicotine patch provided. We will continue albuterol neb treatments/TRC. Continue aggressive bowel regimen. DVT prophylaxis at all times. Thank you for the consult. Please call with any issues. Consult Acknowledgment - Thank you for your consult request.
--- NOTE | 2017-02-11 13:08 | PN- Att Addend ---
Attending Addendum Attending Brief Note Patient seen and examined. Lying in bed. Complain of lower abdominal pain. He complains of shortness of breath. He admits that his COPD has progressive the point where he is short of breath even at rest on occasion. He presented for evaluation overnight due to worsening of his respiratory symptoms. He reports feeling somewhat better this morning after therapy overnight. Presently fully catheter could not be placed by nursing staff despite different attempts. Vital Signs Date Time Temp Pulse Resp B/P B/P Pulse O2 O2 Flow FiO2 Mean Ox Delivery Rate 02/11 1051 Nasal 2.0L Cannula 02/11 1036 95 Nasal 2.0L Cannula 02/11 0947 97.9 82 20 126/60 02/11 0800 95 Nasal 2.0L Cannula 02/11 0638 97.9 82 20 126/60 97 Nasal 2.0L Cannula 02/11 0156 97.9 90 20 130/60 96 Nasal 2.0L Cannula 02/11 0146 95 Nasal 2.0L Cannula 02/11 0048 98.7 96 18 130/63 95 Nasal 2.0L Cannula 02/10 2235 99.1 92 22 131/69 96 Nasal 2.0L Cannula 02/10 2002 98 Nasal 2.0L Cannula 02/10 1954 98.5 108 20 142/77 96 Nasal 2.0L Cannula Gen. appearance: Well-developed Heart: S1-S2 regular Lungs: Diminished breath sounds bilaterally with mild expiratory rhonchi Abdomen: Distended particularly in the lower abdomen, firm to touch in the lower abdomen with what appears to be palpable urinary bladder, lower abdominal tenderness with no rebound, no guarding, normal bowel sounds Extremities: No pedal edema Laboratory Tests 02/11/17 0635: Anion Gap 9, Estimated GFR > 60, BUN/Creatinine Ratio 23.3, D-Dimer 841 H, CBC w Diff NO MAN DIFF REQ, RBC 3.67 L, MCV 88.4, MCH 29.8, RDW 16.1 H, MPV 7.9, Gran % 95.3 H, Lymphocytes % 4.1 L, Monocytes % 0.6 L, Eosinophils % 0, Basophils % 0 L, Absolute Granulocytes 8.5 H, Absolute Lymphocytes 0.4 L, Absolute Monocytes 0.1 L, Absolute Eosinophils 0, Absolute Basophils 0, PUBS MCHC 33.7 02/10/17 2230: Urine Color BLDY H, Urine Clarity TURBD H, Urine pH 6.0, Ur Specific [place] 1.025, Urine Protein >=300 H, Urine Ketones TRACE H, Urine Nitrite NEG, Urine Bilirubin NEG@ICTO, Urine Urobilinogen 0.2, Ur Leukocyte Esterase MOD H, Ur Microscopic SEDIMENT EXAMINED, Urine RBC PACKD H, Urine WBC PACKD H, Ur Epithelial Cells MOD H, Urine Bacteria PACKD H, Urine Mucus MANY H, Micro UA Comment [place] H, Urine Hemoglobin LARGE H, Urine Glucose NEG 02/10/172004: Anion Gap 10, Estimated GFR > 60, BUN/Creatinine Ratio 16.0, Glucose 129 H, Calcium 8.7, Total Bilirubin 0.8, AST 33, ALT 39, Alkaline Phosphatase 87, Troponin I < 0.01, [place]-F-Lizwdjfgzau Pept 320 H, Total Protein 6.2 L, Albumin 3.5, Globulin 2.7, Albumin/Globulin Ratio 1.3, Amylase 30, Lipase 44, CBC w Diff NO MAN DIFF REQ, RBC 4.35 L, MCV 89.3, MCH 29.8, RDW 16.3 H, MPV 7.6, Gran % 78.4 H, Lymphocytes % 14.0 L, Monocytes % 6.1, Eosinophils % 1.1, Basophils % 0.4, Absolute Granulocytes 10.7 H, Absolute Lymphocytes 1.9, Absolute Monocytes 0.8 H, Absolute Eosinophils 0.2, Absolute Basophils 0.1, PUBS MCHC 33.3 02/10/171999: pH 7.42, pCO2 37, pO2 87, HCO3 24, ABG O2 Sat (Measured) 96.0, P-50 (Temp Corrected) N, Carboxyhemoglobin 0.3 L, O2 Concentration % 2L, Temperature 98.5, O2 Delivery Method NC, Phlebotomy Draw Site RIGHT RADIAL Microbiology 02/12 216 URINE ROUT: Urine Culture - COLB Problems: 1. COPD exacerbation 2. Acute on chronic respiratory failure; patient is on intermittent oxygen at home. 3. Bladder outlet obstruction 4. Bilateral hydronephrosis status post placement of double-J stents in the left kidney. There is a stone at the right UPJ junction. 5. Anemia. Plan: -Portable bronchodilator therapy. He is currently on IV Solu-Medrol every 2 hours will continue this dose for now. -Urgent urology consultation has been placed for his urinary retention. -Analgesic therapy with IV Dilaudid for severe pain, IV Tylenol [id number] for moderate pain. He may also utilize oxycodone for breakthrough pain. -While Patient is on narcotics for pain control recommend a bowel regimen around -the-clock. Continue empiric antibody therapy with IV Rocephin. Hold off treatment for his pending urology evaluation. -His hemoglobin is acutely low compared to last month. He has no evidence of active bleeding. Check iron studies and stool guaiac.
[2017-02-11 14:26] VITALS: BP 140/82
--- NOTE | 2017-02-11 17:11 | Cons- Urology ---
General Information and HPI Consulting Request Date of Consult: 02/11/17 Requested By: KATHY MOSQUEDA M.D Reason for Consult: urinary retention Source of Information: patient, old records Exam Limitations: no limitations History of Present Illness: This is a 77-year-old male with a hx of COPD on 2 L oxygen at night, 90-pack- year smoking history, constipation, type 2 diabetes mellitus, insomnia and kidney stones who presented to [facility] ER with chief complaint of SOB and LLQ pain. Patient had had a left stent placed at [facility] for multiple stones on the left side on 02/06/17. He has had no pain on the right side. He was discharged on Levaquin, oxybutynin and vicodin. He self discontinued levaquin and vicodin. "Patient reported decreased urine output after stent placement. He also noticed blood in his urine since surgery. Also reported urgency and dysuria. Denied any fever, chills, nausea, vomiting. Also he complains left low back pain, 7 out of 10, increasing with cough, radiating to left lower quadrant. However left flank pain, dysuria, urgency has been subsiding since stent placement. He has follow-up appointment with urologist tomorrow morning 02/11/2017." He has only been able to void small amounts since his admission. Ane he continues to be constipated. Allergies/Medications Allergies: Coded Allergies: crab (SOFT SHELL CRAB - FACIAL SWELLING 02/10/17) Home Med List: Albuterol Sulfate 2.5 MG/3 ML (0.083 %) VIAL.NEB 1 Vial INH/SHERRY BID COPD ( Reported) Arformoterol Tartrate (Brovana) 15 MCG/2 ML VIAL.NEB 1 VIAL INH BID COPD ( Reported) Aspirin (Ecotrin*) 81 MG TABLET.DR 1 TAB PO DAILY HEART/BLOOD (Reported) Atorvastatin Calcium 40 MG TABLET 1 TAB PO DAILY CHOLESTEROL (Reported) Bisacodyl (Dulcolax) 5 MG TABLET.DR 3 TAB PO QPM GI (Reported) Budesonide 1 MG/2 ML AMPUL.NEB 1 VIAL INH BID COPD (Reported) Hydrocodone/Acetaminophen (Hydrocodon-Acetaminoph 7.5-325) 7.5 MG-325 MG TABLET 1 TAB PO PRN PAIN (Reported) Levofloxacin 500 MG TABLET 1 TAB PO DAILY ANTIBIOTIC (Reported) Oxybutynin Chloride (Unknown Strength) TABLET (Unknown Dose) PO AD UNKNOWN ( Reported) Pioglitazone HCl 45 MG TABLET 1 TAB PO DAILY DM (Reported) Prednisone 5 MG TABLET 1 TAB PO DAILY COPD (Reported) Roflumilast (Daliresp) 500 MCG TABLET 1 TAB PO DAILY COPD (Reported) Sitagliptin Phosphate (Januvia) 50 MG TABLET 1 TAB PO DAILY DM (Reported) Tiotropium [place] (Spiriva) 18 MCG CAP.W.DEV 1 CAP INH DAILY COPD (Reported) Zolpidem Tartrate 10 MG TABLET 1 TAB PO QPM SLEEP (Reported) Current Medications: Current Medications Sig/Camille Start time Last Medication Dose Route Stop Time Status Admin Acetaminophen 1,000 MG Q8 02/11 1400 AC 02/11 IV 1414 Acetaminophen 650 MG Q6P PRN 02/11 0215 DC PO Acetaminophen 1,000 MG Q6P PRN 02/11 0215 DC IV Acetaminophen/ 1 TAB ONCE ONE 02/10 2200 DC 02/10 Hydrocodone Bitart PO 02/10 2201 2200 Acetaminophen/ 0 .STK-MED ONE 02/10 2159 DC Hydrocodone Bitart PO Albuterol Sulfate 3 ML BID 02/11 1000 AC 02/11 INH 1034 Atorvastatin Calcium 40 MG 1700 02/11 1700 AC 02/11 PO 1647 Azithromycin 500 MG ONCE ONE 02/10 2345 DC 02/11 Sodium Chloride 250 ML IV 02/11 0044 0017 Bisacodyl 15 MG QPM 02/11 2200 AC PO Ceftriaxone Sodium 1,000 MG DAILY 02/11 1000 AC 02/11 IV 0947 Ceftriaxone Sodium 0 .STK-MED ONE 02/11 0001 DC .ROUTE Ceftriaxone Sodium 1,000 MG ONCE ONE 02/10 2345 DC 02/11 IV 02/10 2346 0013 Docusate Sodium 100 MG DAILY NEEDED PRN 02/12 0430 AC PO Docusate Sodium 100 MG DAILY NEEDED PRN 02/11 0430 AC 02/11 PO 02/12 0429 1647 Guaifenesin 600 MG Q12 02/11 0300 AC 02/11 PO 0947 Hydromorphone HCl 0.6 MG Q4P PRN 02/11 1015 AC 02/11 IV 1228 Hydromorphone HCl 1 MG ONCE ONE 02/11 0800 DC 02/11 IV 02/11 0801 0822 Hydromorphone HCl 0.4 MG ONCE ONE 02/11 0600 DC 0503 IV 02/11 0601 0631 Insulin Aspart 0 TIDAC 02/11 0800 AC 02/11 SC 1647 Lidocaine 10 ML ONCE ONE 02/11 1315 DC TOP 02/11 1316 Melatonin 3 MG ONCE ONE 02/11 0015 DC 05/03 PO 02/11 0016 0254 Methylprednisolone 40 MG BID 05/ 1000 AC 02/11 IV 0947 Morphine Sulfate 2 MG ONCE ONE 02/11 0015 DC 05 IV 02/11 0016 0017 Morphine Sulfate 0 .STK-MED ONE 02/11 0007 DC .ROUTE Nicotine 7 MG DAILY 02/11 1119 AC 02/11 TOP 1230 Ondansetron HCl 4 MG Q6P PRN 02/11 0215 AC IV Ondansetron HCl 4 MG ONCE ONE 02/11 0030 DC 02/11 IV 02/11 0031 0035 Ondansetron HCl 0 .STK-MED ONE 02/11 0024 DC .ROUTE Oxycodone HCl 5 MG Q6 PRN 02/11 1000 AC 02/11 PO 1033 Oxycodone/ 1 TAB Q6P PRN 02/11 0215 DC 02/11 Acetaminophen PO 0315 Patient Medication 1 ED .STK-MED ONE 02/11 1413 DC Teaching ED 02/11 1414 Senna/Docusate Sodium 2 TAB DAILY 02/12 1000 AC PO Senna/Docusate Sodium 2 TAB DAILY PRN 02/11 0430 AC PO 02/12 0959 Sodium Chloride 1,000 ML .[id number] 02/11 0200 DC 02/11 IV 02/11 1206 0254 Sodium Chloride 1,000 ML BOLUS ONE 02/10 2200 DC 05 IV 02/10 2259 2200 Tamsulosin HCl 0.4 MG DAILY 02/11 1000 AC 02/11 PO 0947 Tiotropium [place] 1 PUF DAILY 02/11 1000 DC 02/11 INH 0948 Zolpidem Tartrate 10 MG QPM 02/11 2200 AC PO Past History Medical History Blood Transfusion Hx: No Neurological: NONE EENT: allergies Cardiovascular: AFIB Respiratory: COPD Gastrointestinal: constipation Hepatic: NONE Renal: nephrolithiasis Musculoskeletal: falls Psychiatric: NONE Endocrine: diabetes Blood Disorders: NONE Cancer(s): 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 Home Who Do You Live With? spouse Services at Home: None Primary Language: Estonian Smoking Status: Current Everyday Smoker ETOH Use: denies use Illicit Drug Use: denies illicit drug use Functional Ability ADLs Independent: dressing. Ambulation: independent IADLs Independent: shopping, housework, finances, food prep, telephone, transportation , medication admin. Employment History Employment: Retired Review of Systems Review of Systems Constitutional: Denies: no symptoms. EENTM: Denies: no symptoms. Cardiovascular: Denies: no symptoms. Respiratory: Reports: short of breath. GI: Reports: constipation. Genitourinary: Reports: dysuria, frequency, hesitation, pain, urgency. Musculoskeletal: Reports: back pain. Skin: Denies: no symptoms. Neurological/Psychological: Denies: no symptoms. Hematologic/Endocrine: Denies: no symptoms. Immunologic/Allergic: Denies: no symptoms. Exam & Diagnostic Data Vital Signs and I&O Vital Signs Date Time Temp Pulse Resp B/P B/P Pulse O2 O2 Flow FiO2 Mean Ox Delivery Rate 02/11 1600 95 Nasal 2.0L Cannula 02/11 1426 97.8 68 20 140/82 97 02/11 1051 Nasal 2.0L Cannula 02/11 1036 95 Nasal 2.0L Cannula 02/11 0947 97.9 82 20 126/60 05/ 0800 95 Nasal 2.0L Cannula 02/11 0638 97.9 82 20 126/60 97 Nasal 2.0L Cannula 02/11 0156 97.9 90 20 130/60 96 Nasal 2.0L Cannula 02/11 0146 95 Nasal 2.0L Cannula / 0048 98.7 96 18 130/63 95 Nasal 2.0L Cannula 02/10 2235 99.1 92 22 131/69 96 Nasal 2.0L Cannula 02/10 2002 98 Nasal 2.0L Cannula 02/10 1954 98.5 108 20 142/77 96 Nasal 2.0L Cannula Intake & Output 02/11 1600 05/ 0800 05/03 0000 05/ 1600 / 0800 05/02 0000 Intake Total 720 430 Output Total 300 50 Balance 420 380 Intake, IV 600 430 Intake, Oral 120 Number 0 Bowel Movements Output, Urine 300 50 Patient 81.647 kg 81.193 kg Weight Weight Reported by Patient Reported by Patient Measurement Method Physical Exam: attempting to urinate and pass BMs. Abd distended. scout descended testes with no masses palpable. circ phallus with no abnormalities. no nunez in place. Procedure at bedside: Placed an 18fr coude catheter from the office Inserted without difficulty. Drained cola colored urine 1200cc. Physical Exam General Appearance: well developed/nourished, no apparent distress, alert, awake , comfortable Head: atraumatic, normal appearance Eyes: Bilateral: normal appearance. Ears, Nose, Throat: normal ENT inspection Neck: normal inspection Respiratory: no respiratory distress Gastrointestinal: normal bowel sounds, soft, non-tender, distention Rectal: deferred Back: normal inspection Extremities: normal inspection Neurologic/Psych: awake, alert, oriented x 3 Cranial Nerves: normal hearing, normal speech Skin: intact, normal color, warm/dry Reproductive: Normal male genitalia Last 24 Hours of Labs: Laboratory Tests 02/11 02/10 0635 2230 Chemistry Sodium (137 - 145 mmol/L) 135 L Potassium (3.5 - 5.1 mmol/L) 4.4 Chloride (98 - 107 mmol/L) 100 Carbon Dioxide (22 - 30 mmol/L) 25 Anion Gap (5 - 16) 9 BUN (9 - 20 mg/dL) 21 H Creatinine (0.7 - 1.2 mg/dL) 0.9 Estimated GFR (>60 ml/min) > 60 BUN/Creatinine Ratio (7 - 25 %) 23.3 Iron (49 - 181 ug/dL) 22 L TIBC (261 - 462 ug/dL) 218 L Ferritin (17.9 - 464 ng/mL) 114.0 Coagulation D-Dimer (70 - 232 ng/ml) 841 H Hematology CBC w Diff NO MAN DIFF REQ WBC (4.8 - 10.8 /CUMM) 8.9 RBC (4.70 - 6.10 /CUMM) 3.67 L Hgb (14.0 - 18.0 G/DL) 10.9 L Hct (42 - 52 %) 32.5 L MCV (80.0 - 94.0 FL) 88.4 MCH (27.0 - 31.0 PG) 29.8 RDW (11.5 - 14.5 %) 16.1 H Plt Count (130 - 400 /CUMM) 172 MPV (7.4 - 10.4 FL) 7.9 Gran % (42.2 - 75.2 %) 95.3 H Lymphocytes % (20.5 - 51.1 %) 4.1 L Monocytes % (1.7 - 9.3 %) 0.6 L Eosinophils % (0 - 5 %) 0 Basophils % (0.0 - 2.0 %) 0 L Absolute Granulocytes (1.4 - 6.5 /CUMM) 8.5 H Absolute Lymphocytes (1.2 - 3.4 /CUMM) 0.4 L Absolute Monocytes (0.10 - 0.60 /CUMM) 0.1 L Absolute Eosinophils (0.0 - 0.7 /CUMM) 0 Absolute Basophils (0.0 - 0.2 /CUMM) 0 PUBS MCHC (33.0 - 37.0 G/DL) 33.7 Urines Urine Color (YEL,AMB,STR) BLDY H Urine Clarity (CLEAR) TURBD H Urine pH (5.0 - 8.0) 6.0 Ur Specific [place] (1.001 - 1.035) 1.025 Urine Protein (NEG,<30 MG/DL) >=300 H Urine Ketones (NEG) TRACE H Urine Nitrite (NEG) NEG Urine Bilirubin (NEG) NEG@ICTO Urine Urobilinogen (0.1 - 1.0 EU/dl) 0.2 Ur Leukocyte Esterase (NEG) MOD H Ur Microscopic SEDIMENT EXAMINED Urine RBC (0 - 5 /HPF) PACKD H Urine WBC (0 - 2 /HPF) PACKD H Ur Epithelial Cells (NONE,FEW) MOD H Urine Bacteria (NEG/NONE) PACKD H Urine Mucus (FEW,NONE) MANY H Micro UA Comment BUDDING YEAST H Urine Hemoglobin (NEG) LARGE H Urine Glucose (N MG/DL) NEG 02 02/10 Blood Gas pH (7.35 - 7.45 PH) 7.42 pCO2 (35 - 45 TORR) 37 pO2 (80 - 100 TORR) 87 HCO3 (21 - 28 MEQ/L) 24 ABG O2 Sat (Measured) (>96.0 %) 96.0 P-50 (Temp Corrected) N Carboxyhemoglobin (1.5 - 5.0 %) 0.3 L O2 Concentration % 2L Temperature (97.0 - 100.0 FARH) 98.5 O2 Delivery Method NC Chemistry Sodium (137 - 145 mmol/L) 132 L Potassium (3.5 - 5.1 mmol/L) 3.7 Chloride (98 - 107 mmol/L) 93 L Carbon Dioxide (22 - 30 mmol/L) 28 Anion Gap (5 - 16) 10 BUN (9 - 20 mg/dL) 16 Creatinine (0.7 - 1.2 mg/dL) 1.0 Estimated GFR (>60 ml/min) > 60 BUN/Creatinine Ratio (7 - 25 %) 16.0 Glucose (65 - 99 mg/dL) 129 H Calcium (8.4 - 10.2 mg/dL) 8.7 Total Bilirubin (0.2 - 1.3 mg/dL) 0.8 AST (17 - 59 U/L) 33 ALT (21 - 72 U/L) 39 Alkaline Phosphatase (< 127 U/L) 87 Troponin I (<0.11 ng/ml) < 0.01 Aaf-L-Pdqeunktypk Pept (<125 pg/mL) 320 H Total Protein (6.3 - 8.2 g/dL) 6.2 L Albumin (3.5 - 5.0 g/dL) 3.5 Globulin (1.9 - 4.2 gm/dL) 2.7 Albumin/Globulin Ratio (1.1 - 2.2 %) 1.3 Amylase (30 - 110 U/L) 30 Lipase (23 - 300 U/L) 44 Hematology CBC w Diff NO MAN DIFF REQ WBC (4.8 - 10.8 /CUMM) 13.7 H RBC (4.70 - 6.10 /CUMM) 4.35 L Hgb (14.0 - 18.0 G/DL) 13.0 L Hct (42 - 52 %) 38.9 L MCV (80.0 - 94.0 FL) 89.3 MCH (27.0 - 31.0 PG) 29.8 RDW (11.5 - 14.5 %) 16.3 H Plt Count (130 - 400 /CUMM) 214 MPV (7.4 - 10.4 FL) 7.6 Gran % (42.2 - 75.2 %) 78.4 H Lymphocytes % (20.5 - 51.1 %) 14.0 L Monocytes % (1.7 - 9.3 %) 6.1 Eosinophils % (0 - 5 %) 1.1 Basophils % (0.0 - 2.0 %) 0.4 Absolute Granulocytes (1.4 - 6.5 /CUMM) 10.7 H Absolute Lymphocytes (1.2 - 3.4 /CUMM) 1.9 Absolute Monocytes (0.10 - 0.60 /CUMM) 0.8 H Absolute Eosinophils (0.0 - 0.7 /CUMM) 0.2 Absolute Basophils (0.0 - 0.2 /CUMM) 0.1 PUBS MCHC (33.0 - 37.0 G/DL) 33.3 Miscellaneous Phlebotomy Draw Site RIGHT RADIAL Imaging Results: KIDNEYS AND URETERS: Right Kidney: A 1 cm stone in the right ureteropelvic junction. The stone measures 1 cm. The stone measures 9.36 Hounsfield units. There is moderate hydronephrosis of the kidney with dilatation of renal pelvis and calyces. The distal right ureter is nondilated. No additional stone. There is a cortical cyst in the lower pole of right kidney measuring 1.8 cm. There is an adjacent 8 mm cortical cyst and 7 mm cortical cyst. Left Kidney: Double-J stent present in the left kidney. Stent extends from the upper pole calyx to the bladder. There is hydronephrosis of the left kidney with dilatation of renal pelvis and calyces in the left ureter. There is numerous stones in the left kidney. Largest in the lower pole measuring 1.7 cm. The stone has a density measurement of 878 Hounsfield units. There are multiple additional stones in the mid and lower pole of the kidney. There are a few tiny stones in the distal left ureter proximal to the ureterovesical junction. There were multiple cortical cysts in the left kidney. Largest in the mid lower pole posteriorly measuring 2 cm. There is thinning of the cortex at the lower pole of the left kidney. BLADDER: The bladder is distended. The bladder measures 17 x 12 x 14 cm. No stone in the bladder. There is a double-J stent in the left side of the dependent bladder. Assessment/Plan Assessment/Plan 77yo male with multiple med problems with bilateral kidney stones and BPH with LUTsx. PLaced a nunez catheter and drained 1200cc of cola colored urine. Cont nunez to gravity. Start flomax. Stent discomfort. No need for right stent at this time. He will follow up with his Urologist as an outpt. Discharge with nunez for trial of void with urologist and cont flomax. Consult Acknowledgment - Thank you for your consult request.
[2017-02-11 22:43] VITALS: BP 120/60
[2017-02-12 06:50] VITALS: BP 118/56
[2017-02-12 08:01] LABS: ABSOLUTE BASOPHIL COUNT 0 /CUMM (0.0-0.2); ABSOLUTE EOSINOPHIL COUNT 0 /CUMM (0.0-0.7); ABSOLUTE GRANULOCYTE CT 12.3 /CUMM (1.4-6.5); ABSOLUTE LYMPH COUNT 0.5 /CUMM (1.2-3.4); ABSOLUTE MONOCYTE COUNT 0.3 /CUMM (0.10-0.60); BASOPHIL % 0.1 % (0.0-2.0); EOSINOPHIL % 0 % (0-5); GRANULOCYTE % 94.1 % (42.2-75.2); HEMATOCRIT 32.7 % (42-52); MEAN CORPUSCULAR HGB 30.1 PG (27.0-31.0); MEAN CORPUSCULAR VOLUME 88.7 FL (80.0-94.0); MEAN PLATELET VOLUME 7.8 FL (7.4-10.4); PLATELET COUNT 187 /CUMM (130-400); RBC DISTRIBUTION WIDTH 15.6 % (11.5-14.5); RED BLOOD CELL CT 3.69 /CUMM (4.70-6.10)
--- NOTE | 2017-02-12 08:28 | PN- Student ---
Subjective Subjective: Patient notes that he is doing better today after catheter insertion. Notes shortness of breath on exertion when using commode. Is only getting out of bed to use commode. Denies shortness of breath at rest. Had bowel movement yesterday and this morning. Notes mild suprapubic pain. Denies fevers/chills. Current Medications Sig/Camille Start time Last Medication Dose Route Stop Time Status Admin Acetaminophen 1,000 MG Q8 02/11 1400 AC 02/12 IV 0600 Albuterol Sulfate 3 ML EVERY 4 HRS/AWAKE 02/11 2000 AC 02/12 INH 0807 Albuterol Sulfate 3 ML BID 02/11 1000 DC 02/11 INH 1034 Atorvastatin Calcium 40 MG 1700 02/11 1700 AC 02/11 PO 1647 Bisacodyl 15 MG QPM 02/11 2200 AC 02/11 PO 2206 Ceftriaxone Sodium 1,000 MG DAILY 02/11 1000 AC 02/12 IV 1022 Docusate Sodium 100 MG DAILY NEEDED PRN 02/12 0430 AC PO Docusate Sodium 100 MG DAILY NEEDED PRN 02/11 0430 DC 02/11 PO 02/12 0429 1647 Guaifenesin 600 MG Q12 02/11 0300 AC 02/12 PO 1021 Hydromorphone HCl 0.6 MG Q4P PRN 02/11 1015 AC 02/11 IV 1228 Insulin Aspart 0 TIDAC 02/11 0800 AC 02/12 SC 0815 Lidocaine 10 ML ONCE ONE 02/11 1315 DC TOP / 1316 Methylprednisolone 40 MG BID 02/11 1000 AC 02/12 IV 1021 Nicotine 7 MG DAILY 02/11 1119 AC 02/12 TOP 1022 Ondansetron HCl 4 MG Q6P PRN 02/11 0215 AC IV Oxycodone HCl 5 MG Q6 PRN 02/11 1000 AC 02/11 PO 1947 Patient Medication 1 ED .STK-MED ONE 02/11 1413 DC Teaching ED 02/11 1414 Senna/Docusate Sodium 2 TAB DAILY 02/12 1000 AC 02/12 PO 1021 Senna/Docusate Sodium 2 TAB DAILY PRN 02/11 0430 DC PO 02/12 0959 Sodium Chloride 1,000 ML .[id number] 02/11 0200 DC 0503 IV 03 1206 0254 Tamsulosin HCl 0.4 MG DAILY 02/11 1806 DC PO Tamsulosin HCl 0.4 MG DAILY 02/11 1000 AC 02/12 PO 1021 Tiotropium Jermyn 1 PUF DAILY 02/11 1000 DC 02/11 INH 0948 Zolpidem Tartrate 10 MG QPM 02/11 2200 AC 02/11 PO 2211 Objective Objective: Vital Signs Date Time Temp Pulse Resp B/P B/P Pulse O2 O2 Flow FiO2 Mean Ox Delivery Rate 02/12 0814 95 Nasal 2.0L Cannula 02/12 0650 97.4 107 20 118/56 95 05/ 0000 96 Nasal 2.0L Cannula 02/11 2243 97.9 101 20 120/60 96 Nasal Cannula 02/11 1825 94 Nasal 2.0L Cannula 02/11 1600 95 Nasal 2.0L Cannula 02/11 1426 97.8 68 20 140/82 97 Intake & Output 02/12 1600 02/12 0800 02/12 0000 Intake Total 360 840 Output Total 864 501 4167 Balance -100 -215 -1210 Intake, IV 120 120 Intake, Oral 240 720 Number 1 0 Bowel Movements Output, Urine 290 060 2215 Physical exam: General: alert and oriented, cooperative, in no acute distress, appears short of breath Heart: S1, S2, no murmurs, rubs, or gallops Lungs: rhonchi heard diffusely bilaterally, decreased air entry throughout, no wheezes heard Abdomen: soft, non-distended, mild suprapubic tenderness on palpation Extremities: no clubbing, cyanosis, edema Hematuria noted in Bah catheter. Results Results: Laboratory Tests 02/12/17 0618: CBC w Diff NO MAN DIFF REQ, RBC 3.69 L, MCV 88.7, MCH 30.1, RDW 15.6 H, MPV 7.8, Gran % 94.1 H, Lymphocytes % 3.7 L, Monocytes % 2.1, Eosinophils % 0, Basophils % 0.1, Absolute Granulocytes 12.3 H, Absolute Lymphocytes 0.5 L, Absolute Monocytes 0.3, Absolute Eosinophils 0, Absolute Basophils 0, PUBS MCHC 34.0 02/11/17 1800: Urinalysis LIGHT H, Urine Color BLDY H, Urine Clarity TURBD H, Urine pH 6.0, Ur Specific [place] 1.025, Urine Protein 100 H, Urine Ketones TRACE H, Urine Nitrite NEG, Urine Bilirubin NEG, Urine Urobilinogen 0.2, Ur Leukocyte Esterase MOD H, Ur Microscopic SEDIMENT EXAMINED, Urine RBC PACKD H, Urine WBC > 75 H, Ur Epithelial Cells FEW, Urine Bacteria MANY H, Granular Casts 10-15 H, Urine Mucus FEW, Micro UA Comment BUDDING YEAST H, Urine Hemoglobin LARGE H, Urine Glucose NEG 02/11/17 0635: Anion Gap 9, Estimated GFR > 60, BUN/Creatinine Ratio 23.3, Iron 22 L, TIBC 218 L, Ferritin 114.0, D-Dimer 841 H, CBC w Diff NO MAN DIFF REQ, RBC 3.67 L, MCV 88.4, MCH 29.8, RDW 16.1 H, MPV 7.9, Gran % 95.3 H, Lymphocytes % 4.1 L, Monocytes % 0.6 L, Eosinophils % 0, Basophils % 0 L, Absolute Granulocytes 8.5 H, Absolute Lymphocytes 0.4 L, Absolute Monocytes 0.1 L, Absolute Eosinophils 0, Absolute Basophils 0, PUBS MCHC 33.7 02/10/17 2230: Urine Color BLDY H, Urine Clarity TURBD H, Urine pH 6.0, Ur Specific [place] 1.025, Urine Protein >=300 H, Urine Ketones TRACE H, Urine Nitrite NEG, Urine Bilirubin NEG@ICTO, Urine Urobilinogen 0.2, Ur Leukocyte Esterase MOD H, Ur Microscopic SEDIMENT EXAMINED, Urine RBC PACKD H, Urine WBC PACKD H, Ur Epithelial Cells MOD H, Urine Bacteria PACKD H, Urine Mucus MANY H, Micro UA Comment BUDDING YEAST H, Urine Hemoglobin LARGE H, Urine Glucose NEG 02/10/172004: Anion Gap 10, Estimated GFR > 60, BUN/Creatinine Ratio 16.0, Glucose 129 H, Calcium 8.7, Total Bilirubin 0.8, AST 33, ALT 39, Alkaline Phosphatase 87, Troponin I < 0.01, Axy-O-Mwqkutjywww Pept 320 H, Total Protein 6.2 L, Albumin 3.5, Globulin 2.7, Albumin/Globulin Ratio 1.3, Amylase 30, Lipase 44, CBC w Diff NO MAN DIFF REQ, RBC 4.35 L, MCV 89.3, MCH 29.8, RDW 16.3 H, MPV 7.6, Gran % 78.4 H, Lymphocytes % 14.0 L, Monocytes % 6.1, Eosinophils % 1.1, Basophils % 0.4, Absolute Granulocytes 10.7 H, Absolute Lymphocytes 1.9, Absolute Monocytes 0.8 H, Absolute Eosinophils 0.2, Absolute Basophils 0.1, PUBS MCHC 33.3 02/10/17 2000: pH 7.42, pCO2 37, pO2 87, HCO3 24, ABG O2 Sat (Measured) 96.0, P-50 (Temp Corrected) N, Carboxyhemoglobin 0.3 L, O2 Concentration % 2L, Temperature 98.5, O2 Delivery Method NC, Phlebotomy Draw Site RIGHT RADIAL Microbiology 02/12 216 URINE ROUT: Urine Culture - COLB Chest x-ray: hyperinflation of lungs, with no acute changes, no infiltrate, no pulmonary vascular congestion. Abdomen/pelvis CT: hydronephrosis of both kidneys, a stone at the right ureteropelvic junction, numerous stones in the left kidney and a few small stones in the distal left ureter proximal to the ureterovesical junction. Assessment/Plan Assessment: This is a 77 year-old patient with PMH significant for nephrolithiasis s/p double J stent placement for 16mm stone on left side on 02/06/17 at [facility], COPD on 2L oxygen at night, 90 pack year smoking history, constipation, type II DM, and insomnia, who presented to the ED 2 days ago with a chief complaint of worsening shortness of breath and left flank pain for 5 days. After patient had stent placement on 02/06/17, had decreased urine output and hematuria, urgency, and dysuria. Urologist placed an 18fr coude catheter yesterday and drained cola-colored urine 1200cc. Since that time, patient notes decreased suprapubic pain. Patient continues to have shortness of breath on exertion, which is his baseline. Plan: For shortness of breath: -Continue IV methylprednisolone 40mg q12hrs -Continue tiotropium bromide 1 puff daily -Obtain sputum culture if able to expectorate -Albuterol nebulizer therapy q4hrs while awake -Continue guaifenesin 600mg q12 hours -Start high-flow oxygen via nasal cannula -Follow pulmonology recommendations For UTI and kidney stones: -Urine culture sent this morning -For pain: IV dilaudid 0.6mg as needed for severe pain, IV acetaminophen 1000mgmg q8hrs [id number]. Oxycodone 5mg q6hrs as needed for breakthrough pain. -Continue Bah catheter to gravity -Continue ceftriaxone 1000mg IV daily -Tamsulosin 0.4mg daily started -Follow urology recommendations. They currently recommend no need for right stent at this time. -Follow-up with urologist outpatient For constipation: -Qhxflp-hxi-qeutz bowel regimen started Home medications: zolpidem 10mg qpm, and atorvastatin 40mg daily.
--- NOTE | 2017-02-12 08:29 | PN- Housestaff ---
Subjective Follow-up For: Acute hypoxemic respiratory failure secondary to COPD exacerbation Bilateral hydronephrosis Hematuria Subjective: Seen and examined patient, after his nunez place he feels his pain from yesterday has improved tremendously. He continues to feel short of breath on minimal excertion. Denies fevers, chest pain. Review of Systems Constitutional: Denies: chills, diaphoresis, fever, malaise, weakness, unexplained weight loss. Cardiovascular: Denies: chest pain, edema, orthopena, palpitations, peripheral edema, syncope. Respiratory: Reports: short of breath. Denies: cough, hemoptysis, orthopnea, sputum production, stridor, wheezing. Objective Last 24 Hrs of Vital Signs/I&O Vital Signs Date Time Temp Pulse Resp B/P B/P Pulse O2 O2 Flow FiO2 Mean Ox Delivery Rate 02/12 0814 95 Nasal 2.0L Cannula 02/12 0650 97.4 107 20 118/56 95 05/ 0000 96 Nasal 2.0L Cannula 02/11 2243 97.9 101 20 120/60 96 Nasal Cannula 02/11 1825 94 Nasal 2.0L Cannula 02/11 1600 95 Nasal 2.0L Cannula 02/11 1426 97.8 68 20 140/82 97 Intake & Output 02/12 1600 02/12 0800 02/12 0000 Intake Total 360 840 Output Total 669 755 3309 Balance -100 -215 -1210 Intake, IV 120 120 Intake, Oral 240 720 Number 1 0 Bowel Movements Output, Urine [phone] Physical Exam General Appearance: Alert, Oriented X3, Cooperative, Mild Distress Cardiovascular: Regular Rate, Normal S1, Normal S2 Lungs: b/l decreased air entry Current Medications: Current Medications Sig/Camille Start time Last Medication Dose Route Stop Time Status Admin Acetaminophen 1,000 MG Q8 / 1400 AC 05/04 IV 0600 Albuterol Sulfate 3 ML EVERY 4 HRS/AWAKE / 2000 AC 02/12 INH 1144 Albuterol Sulfate 3 ML BID 02/11 1000 DC 02/11 INH 1034 Atorvastatin Calcium 40 MG 1700 05/03 1700 AC 05/03 PO 1647 Bisacodyl 15 MG QPM / 2200 AC 05/03 PO 2206 Ceftriaxone Sodium 1,000 MG DAILY / 1000 AC 05/04 IV 1022 Docusate Sodium 100 MG DAILY NEEDED PRN 02/12 0430 AC PO Docusate Sodium 100 MG DAILY NEEDED PRN 02/11 0430 DC 02/11 PO 02/12 0429 1647 Guaifenesin 600 MG Q12 02/11 0300 AC 02/12 PO 1021 Hydromorphone HCl 0.6 MG Q4P PRN 02/11 1015 AC 02/11 IV 1228 Insulin Aspart 0 TIDAC 02/11 0800 AC 02/12 SC 0815 Lidocaine 10 ML ONCE ONE 02/11 1315 DC TOP 02/11 1316 Methylprednisolone 40 MG BID 02/11 1000 AC 02/12 IV 1021 Nicotine 7 MG DAILY 02/11 1119 AC 02/12 TOP 1022 Ondansetron HCl 4 MG Q6P PRN 02/11 0215 AC IV Oxycodone HCl 5 MG Q6 PRN 02/11 1000 AC 02/11 PO 1947 Patient Medication 1 ED .STK-MED ONE 02/11 1413 DC Teaching ED 02/11 1414 Senna/Docusate Sodium 2 TAB DAILY 02/12 1000 AC 02/12 PO 1021 Senna/Docusate Sodium 2 TAB DAILY PRN 02/11 0430 DC PO 02/12 0959 Sodium Chloride 1,000 ML .[id number] 02/11 0200 DC 02/11 IV 02/11 1206 0254 Tamsulosin HCl 0.4 MG DAILY 02/11 1806 DC PO Tamsulosin HCl 0.4 MG DAILY 02/11 1000 AC 02/12 PO 1021 Tiotropium [place] 1 PUF DAILY 02/11 1000 DC 02/11 INH 0948 Zolpidem Tartrate 10 MG QPM 02/11 2200 AC 02/11 PO 2211 Last 24 Hrs of Lab/Arsenio Results Last 24 Hrs of Labs/Mics: Laboratory Tests 02/12/17 0618: CBC w Diff NO MAN DIFF REQ, RBC 3.69 L, MCV 88.7, MCH 30.1, RDW 15.6 H, MPV 7.8, Gran % 94.1 H, Lymphocytes % 3.7 L, Monocytes % 2.1, Eosinophils % 0, Basophils % 0.1, Absolute Granulocytes 12.3 H, Absolute Lymphocytes 0.5 L, Absolute Monocytes 0.3, Absolute Eosinophils 0, Absolute Basophils 0, PUBS MCHC 34.0 05/03/17 1800: Urinalysis LIGHT H, Urine Color BLDY H, Urine Clarity TURBD H, Urine pH 6.0, Ur Specific [place] 1.025, Urine Protein 100 H, Urine Ketones TRACE H, Urine Nitrite NEG, Urine Bilirubin NEG, Urine Urobilinogen 0.2, Ur Leukocyte Esterase MOD H, Ur Microscopic SEDIMENT EXAMINED, Urine RBC PACKD H, Urine WBC > 75 H, Ur Epithelial Cells FEW, Urine Bacteria MANY H, Granular Casts 10-15 H, Urine Mucus FEW, Micro UA Comment BUDDING YEAST H, Urine Hemoglobin LARGE H, Urine Glucose NEG Assessment/Plan Assessment: 77-year-old gentleman with past medical history of emphysema on 2 L of oxygen nocturnally, type 2 diabetes, hyperlipidemia, bladder ca status post ablation approximately 30 years ago, recurrent nephrolithiasis who presents [facility] for dyspnea. Had a left ureteral stent placed on Thursday with Dr. Jose Armando Dennison ([place]) at [facility] for a 16 mm left sided stone. Was given levofloxacin, oxybutynin and Vicodin. Stopped Levofloxacin on his own. Hospital day 2 Pain is better after nunez placement, continues to have hematuria. Shortness of breath on minimal excertion. problem list: acute on chronic respiratory failure ALTAMIRANO b/l hydronephrosis s/p left ureteral stent hematuria plan will place on high flow oxygen continue TRC with nebs, on IV solumedrol today Pulm on board, apprec recommendations continue with IV ceftriaxone day 2,UC sent today will f/up per urology no further stent placement at this time continue to monitor fingersticks, on SS continue home meds of ambien,lipitor,flomax, diabetic diet dvt ppx with mechanical alps DNR/DNI. Problem List: 1. COPD exacerbation 2. Lower abdominal pain, unspecified Pain Ratin Pain Location: na Pain Goal: Pain 4 or less Pain Plan: current regimen Tomorrow's Labs & Rationales: cbc
[2017-02-12 08:55] LABS: WHITE BLOOD CELL COUNT 13.1 /CUMM (4.8-10.8)
--- NOTE | 2017-02-12 09:02 | PN- Pulmonary ---
PIETRO LEAL,DHARA 02/12/17 0854: Subjective HPI/Critical Care Issues: Patient seen and examined. States that he is doing a lot better since the Nunez catheter was placed in by Dr. Zimmerman yesterday. His lower abdominal pain is much alleviated. He continues to be short of breath even while moving in bed. Objective Current Medications: Current Medications Sig/Camille Start time Last Medication Dose Route Stop Time Status Admin Acetaminophen 1,000 MG Q8 02/11 1400 AC 02/12 IV 0600 Acetaminophen 650 MG Q6P PRN 02/11 0215 DC PO Acetaminophen 1,000 MG Q6P PRN 02/11 0215 DC IV Albuterol Sulfate 3 ML EVERY 4 HRS/AWAKE 02/11 2000 AC 02/12 INH 0807 Albuterol Sulfate 3 ML BID 02/11 1000 DC 02/11 INH 1034 Atorvastatin Calcium 40 MG 1700 / 1700 AC 05/03 PO 1647 Bisacodyl 15 MG QPM / 2200 AC 02/11 PO 2206 Ceftriaxone Sodium 1,000 MG DAILY / 1000 AC 02/11 IV 0947 Docusate Sodium 100 MG DAILY NEEDED PRN 02/12 0430 AC PO Docusate Sodium 100 MG DAILY NEEDED PRN 02/11 0430 DC 05/03 PO 04 0429 1647 Guaifenesin 600 MG Q12 02/11 0300 AC 02/11 PO 2204 Hydromorphone HCl 0.6 MG Q4P PRN / 1015 AC 02/11 IV 1228 Insulin Aspart 0 TIDAC / 0800 AC 02/12 SC 0815 Lidocaine 10 ML ONCE ONE 02/11 1315 DC TOP 05 1316 Methylprednisolone 40 MG BID /03 1000 AC 05/03 IV 2203 Nicotine 7 MG DAILY / 1119 AC 02/11 TOP 1230 Ondansetron HCl 4 MG Q6P PRN 02/11 0215 AC IV Oxycodone HCl 5 MG Q6 PRN / 1000 AC / PO 1947 Oxycodone/ 1 TAB Q6P PRN 02/11 0215 DC 05/03 Acetaminophen PO 0315 Patient Medication 1 ED .STK-MED ONE 02/11 1413 DC Teaching ED 02/11 1414 Senna/Docusate Sodium 2 TAB DAILY 02/12 1000 AC PO Senna/Docusate Sodium 2 TAB DAILY PRN 02/11 0430 AC PO 02/12 0959 Sodium Chloride 1,000 ML .[id number] 02/11 0200 DC 02/11 IV 02/11 1206 0254 Tamsulosin HCl 0.4 MG DAILY 02/11 1806 DC PO Tamsulosin HCl 0.4 MG DAILY 02/11 1000 AC 02/11 PO 0947 Tiotropium [place] 1 PUF DAILY 02/11 1000 DC 02/11 INH 0948 Zolpidem Tartrate 10 MG QPM 02/11 2200 AC 02/11 PO 2211 Vital Signs & I&O Last 24 Hrs of Vitals and I&O: Vital Signs Date Time Temp Pulse Resp B/P B/P Pulse O2 O2 Flow FiO2 Mean Ox Delivery Rate 02/12 0814 95 Nasal 2.0L Cannula 02/12 0650 97.4 107 20 118/56 95 02/12 0000 96 Nasal 2.0L Cannula 02/11 2243 97.9 101 20 120/60 96 Nasal Cannula 02/11 1825 94 Nasal 2.0L Cannula 02/11 1600 95 Nasal 2.0L Cannula 02/11 1426 97.8 68 20 140/82 97 02/11 1051 Nasal 2.0L Cannula 02/11 1036 95 Nasal 2.0L Cannula 02/11 0947 97.9 82 20 126/60 Intake & Output 02/12 1600 02/12 0800 02/12 0000 Intake Total 360 840 Output Total 873 568 6381 Balance -100 -215 -1210 Intake, IV 120 120 Intake, Oral 240 720 Number 1 0 Bowel Movements Output, Urine [phone] Exam General Appearance: well developed/nourished, alert, awake, comfortable Head: atraumatic, normal appearance Ears, Nose, Throat: normal pharynx, normal ENT inspection Respiratory: chest non-tender, rhonchi, wheezing Cardiovascular: regular rate/rhythm Abdomen: normal bowel sounds, soft, non-tender Other Physical Findings: Nunez catheter in place, draining dark colored urine Impression/Plan Impression/Plan Impression/Plan: Assessment- 1. COPD exacerbation, acute 2. Urinary retention, currently a Nunez catheter is in place as per urology 3. Persistent dyspnea, his in office PFTs show severe obstructive lung disease, air-trapping, increased residual volume 4. Urinary tract infection 5. Leukocytosis 6. Hypertension 7. Hyperlipidemia 8. Diabetes mellitus 9. Nicotine dependance Plan- - Continue Nunez catheter as recommended by urology - Please ensure the urine culture is sent - Continue IV Solu-Medrol 40 mg every 12 hrs - Fasting blood sugar this morning was 193, ensure adequate insulin coverage - Continue IV ceftriaxone for now - Obtain sputum culture if able to expectorate - Nicotine patch, cessation counseled - Albuterol nebulizer therapy every 4 hours while awake - Continue guaifenesin 600 mg by mouth every 12 - Discontinue Spiriva - Aggressive bowel regiment as he is on narcotics - DVT prophylaxis at all times - In light of his persistent dyspnea, severe COPD, increased residual volume; he may benefit from high flow oxygen and closer monitoring in the ICU. This will be further discussed with Dr. Johnson. JIMMIE LEAL,Melissa [facility] 02/12/17 1147: Impression/Plan Impression/Plan Recommendations: I have personally seen and examined the patient and agree with the assessment and plan as detailed above. The patient has increased dyspnea and respiratory distress. He is short of breath with any exertion. He has no sigificant cough or sputum production. His abdominal pain is improved post nunez cath placement. Because of the patients WOB, we will start high flow oxygen to see if this helps. Otherwise, we will continue all supportive care.
[2017-02-12] MEDS ORDERED: FLOMAX0.4 M1 PO (09:44)
--- NOTE | 2017-02-12 10:59 | Discharge Summary ---
Visit Information Visit Dates Admission Date: 02/10/17 Discharge Date: 02/16/17 Hospital Course Course Attending Physician: KATHY MOSQUEDA M.D [facility]: Mr. Mathews is a 77-year-old gentleman whose medical issues include COPD requiring 2 L of oxygen at bedtime, continued nicotine use with a 60+ pack year smoking history, type 2 diabetes mellitus the presented to the emergency room yesterday for evaluation of shortness of breath. On Thursday, he underwent double ureteral stent placement for nephrolithiasis at [facility]. States that he went home the same day and since the weekend he has been having some suprapubic pain and tenderness in conjunction with hematuria. He was given Levaquin and hydrocodone by his urologist and he stopped it secondary to leg cramps as he read the contraindications which were Achilles tendinopathy and constipation respectively. States that at present he smokes about 5-6 cigarettes per day. And also complains of increased dyspnea since Thursday requiring him to use his oxygen at all times. Denies any fevers or chills however does admit to yellow productive sputum. He does have a sick contact at home, his is currently ill with a double ear infection. Is brought to the emergency room by ambulance, while in the emergency room he received 2 DuoNeb treatments and 125 mg IV Solu-Medrol. He had 2 unsuccessful Nunez catheter placement attempts in the emergency room. Urology eventually placed a nunez catheter, despite hematuria they did not opt to remove stent or begin CBI. He was treated with iv steroids, and inhalers. Switched to prednisone , with goal to slow taper down to his daily doseage of prednisone 5mg qd, that should continue indefinitely as per his analyst competitive intelligence. He was treated with ceftriaxone for a uti, and no longer requires antibiotics. He has severe endstage COPD, and redquired hi-eduardo oxygen for a short time. Now he is back at his baseline. 1. COPD exacerbation, acute on chronic respiratory failure 2. Urinary retention, likely 2/2 recent urological surgery with double-J stent placement versus BPH 3. Bilateral hydronephrosis 4. Urinary tract infection 5. Leukocytosis, resolved 6. Hypertension 7. Hyperlipidemia 8. Diabetes mellitus 9. Nicotine dependance Allergies: Coded Allergies: crab (SOFT SHELL CRAB - FACIAL SWELLING 02/10/17) Disposition Summary Disposition Principal Diagnosis: see above Additional Diagnosis: see above Discharge Disposition: str Discharge Instructions General Discharge Information Code Status: Do Not Resucitate/Intubat Patient's Diet: regular Patient's Activity: self limtied Follow-Up Instructions/Appts: Gena Johnson MD Medications at Discharge Discharge Medications: Stop taking the following medications: Tiotropium [place] (Spiriva) 18 MCG CAP.W.DEV Inhale through mouth DAILY Qty = 30 Levofloxacin (Levofloxacin) 500 MG TABLET ORAL DAILY Qty = 10 Continue taking these medications: Albuterol Sulfate (Albuterol Sulfate) 2.5 MG/3 ML (0.083 %) VIAL.NEB 1 Vial Inhale Solution TWICE DAILY Qty = 75 Comments: Last Taken:02/16/17 Time:11:47A.M Arformoterol Tartrate (Brovana) 15 MCG/2 ML VIAL.NEB 1 VIAL Inhale through mouth TWICE DAILY Qty = 120 Comments: NOT GIVEN THIS ADMISSION Budesonide (Budesonide) 1 MG/2 ML AMPUL.NEB 1 VIAL Inhale through mouth TWICE DAILY Qty = 60 Comments: Last Taken:NOT GIVEN THIS ADMISSION Time: Roflumilast (Daliresp) 500 MCG TABLET 1 Tablet ORAL DAILY Qty = 30 Comments: NOT GIVEN THIS ADMISSION Prednisone (Prednisone) 5 MG TABLET 1 Tablet ORAL DAILY Qty = 180 Comments: Last Taken:02/16/17 Time:9:53A.M Atorvastatin Calcium (Atorvastatin Calcium) 40 MG TABLET 1 Tablet ORAL DAILY Qty = 90 Comments: Last Taken:02/15/17 Time:4:31P.M Pioglitazone HCl (Pioglitazone HCl) 45 MG TABLET 1 Tablet ORAL DAILY Qty = 90 Comments: Last Taken:NOT GIVEN THIS ADMISSION Time: Zolpidem Tartrate (Zolpidem Tartrate) 10 MG TABLET 1 Tablet ORAL Every night Qty = 90 Comments: Last Taken:02/15/17 Time:10P.M Bisacodyl (Dulcolax) 5 MG TABLET. 3 Tablet ORAL Every night Comments: Last Taken:02/15/17 Time:10P.M Aspirin (Ecotrin*) 81 MG TABLET.DR 1 Tablet ORAL DAILY Comments: Last Taken:NOT GIVEN THIS ADMISSION Time: Oxybutynin Chloride (Ditropan XL) 5 MG TAB.ER.24 1 Tablet ORAL DAILY Comments: Last Taken:NOT GIVEN THIS ADMISSION Time: Hydrocodone/Acetaminophen (Hydrocodon-Acetaminoph 7.5-325) 7.5 MG-325 MG TABLET 1 Tablet ORAL as needed for PAIN Qty = 20 Comments: Last Taken:NOT GIVEN THIS ADMISSION Time: Sitagliptin Phosphate (Januvia) 50 MG TABLET 1 Tablet ORAL DAILY Qty = 30 Comments: Last Taken:NOT GIVEN THIS ADMISSION Time: Start taking the following new medications: Tamsulosin HCl (Flomax) 0.4 MG CAP.ER.24H 0.4 Milligram ORAL DAILY Qty = 30 No Refills Prednisone (Prednisone) 10 MG TABLET 0 ORAL TAPER Qty = 20 No Refills Instructions: TAPER BELOW: 4 TABS FOR 2 DAYS, 3 TABS FOR 2 DAYS, 2 TABS FOR 2 DAYS, 1 TAB FOR 2 DAYS; THEN STOP Comments: Last Taken:02/16/17 Time:9:53A.M Copies To: JIMMIE LEAL,Melissa GRANDA Attending MD Review Statement Documenting Attending: KATHY MOSQUEDA M.D Other Findings: I have reviewed the discharge summary
--- NOTE | 2017-02-12 11:57 | PN- Att Addend ---
Attending Addendum Attending Brief Note Patient seen and examined. Lying in bed. Not in any distress while at rest. He continues report dyspnea with mild exertion. Denies cough. Denies chest pain. Abdominal discomfort has markedly improved following placement of Bah catheter yesterday. Vital Signs Date Time Temp Pulse Resp B/P B/P Pulse O2 O2 Flow FiO2 Mean Ox Delivery Rate 02/12 0814 95 Nasal 2.0L Cannula 02/12 0650 97.4 107 20 118/56 95 02/12 0000 96 Nasal 2.0L Cannula 02/11 2243 97.9 101 20 120/60 96 Nasal Cannula 02/11 1825 94 Nasal 2.0L Cannula 02/11 1600 95 Nasal 2.0L Cannula 02/11 1426 97.8 68 20 140/82 97 Gen. appearance: Not in any respiratory distress while at rest. Heart: S1-S2 regular Lungs: Poor air entry bilaterally with mild rhonchi. Abdomen: Soft, nontender with normal bowel sounds. Foleycatheter in place. Extremities: No pedal edema neurologic: Alert and oriented 3 Laboratory Tests 02/12/17 0618: CBC w Diff NO MAN DIFF REQ, RBC 3.69 L, MCV 88.7, MCH 30.1, RDW 15.6 H, MPV 7.8, Gran % 94.1 H, Lymphocytes % 3.7 L, Monocytes % 2.1, Eosinophils % 0, Basophils % 0.1, Absolute Granulocytes 12.3 H, Absolute Lymphocytes 0.5 L, Absolute Monocytes 0.3, Absolute Eosinophils 0, Absolute Basophils 0, PUBS MCHC 34.0 02/11/17 1800: Urinalysis LIGHT H, Urine Color BLDY H, Urine Clarity TURBD H, Urine pH 6.0, Ur Specific [place] 1.025, Urine Protein 100 H, Urine Ketones TRACE H, Urine Nitrite NEG, Urine Bilirubin NEG, Urine Urobilinogen 0.2, Ur Leukocyte Esterase MOD H, Ur Microscopic SEDIMENT EXAMINED, Urine RBC PACKD H, Urine WBC > 75 H, Ur Epithelial Cells FEW, Urine Bacteria MANY H, Granular Casts 10-15 H, Urine Mucus FEW, Micro UA Comment BUDDING YEAST H, Urine Hemoglobin LARGE H, Urine Glucose NEG Problems: 1. COPD exacerbation 2. Acute on chronic respiratory failure; patient is on intermittent oxygen at home. 3. Bladder outlet obstruction 4. Bilateral hydronephrosis status post placement of double-J stents in the left kidney. There is a stone at the right UPJ junction. 5. Anemia. Plan: -His discussed in detail with patient's serging machine operator automatic Melissa Johnson MD. Due to evidence of air trapping on his prior pulmonary function tests, will receive a trial of positive pressure ventilation. ---We'll continue bronchodilator therapy. Follow-up with the pulmonary service regarding tapering his steroid therapy. -Bah catheter is currently draining grossly bloody urine. Urology service is currently not recommending continues bladder irrigation. Recommendations are for patient to follow-up with the urology service as an outpatient. Urology service has currently not recommended placing the stent in the right renal system. -Patient reports progressive worsening of his long-standing COPD. He reports a baseline be winded with only mild activity. Recommend consideration of goals of care discussion with the patient and his family by the pulmonary service. His CODE STATUS is currently DNR/DNI. -
[2017-02-12 14:06] VITALS: BP 140/80
[2017-02-12 22:14] VITALS: BP 128/50
[2017-02-13 06:37] VITALS: BP 130/50
--- NOTE | 2017-02-13 06:50 | PN- Housestaff ---
MANUELA ROQUE 02/13/17 0650: Subjective Follow-up For: Acute hypoxemic respiratory failure secondary to COPD exacerbation Bilateral hydronephrosis Hematuria Subjective: Seen and examined patient, endorses some minimal improvement on high flow oxgen. Has some abdominal pain. Did not have a bowel movement despite po senna and ducolax. Denies fevers, chest pain, palpitations. Review of Systems Constitutional: Denies: chills, diaphoresis, fever, malaise, weakness, unexplained weight loss. Cardiovascular: Denies: chest pain, edema, orthopena, palpitations, peripheral edema, syncope. Respiratory: Denies: cough, hemoptysis, orthopnea, short of breath, sputum production, stridor, wheezing. Objective Last 24 Hrs of Vital Signs/I&O Vital Signs Date Time Temp Pulse Resp B/P B/P Pulse O2 O2 Flow FiO2 Mean Ox Delivery Rate 02/13 0637 98.5 89 20 130/50 96 Nasal Cannula 02/13 0424 Nasal 30% Cannula 02/13 0058 95 Nasal 30% Cannula 02/13 0000 94 Nasal 30% Cannula 02/12 2221 94 Nasal 30% Cannula 02/12 2214 98.6 96 20 128/50 95 05/04 1935 97 Nasal 35% Cannula 02/12 1625 97 Nasal 35% Cannula 02/12 1600 Nasal 35% Cannula 02/12 1406 98.4 97 20 140/80 94 Room Air Intake & Output 02/13 1600 02/13 0800 02/13 0000 Intake Total 370 390 Output Total 900 575 Balance -530 -185 Intake, IV 130 150 Intake, Oral 240 240 Output, Urine 900 575 Physical Exam General Appearance: Alert, Oriented X3, Cooperative, No Acute Distress Cardiovascular: Regular Rate, Normal S1, Normal S2 Lungs: Clear to Auscultation, improved air entry b/l Abdomen: Normal Bowel Sounds, Soft, No Tenderness Extremities: No Cyanosis, No Edema Current Medications: Current Medications Sig/Camille Start time Last Medication Dose Route Stop Time Status Admin Acetaminophen 1,000 MG Q8 02/11 1400 AC 02/13 IV 0535 Albuterol Sulfate 3 ML EVERY 4 HRS/AWAKE 02/12 2000 AC 02/12 INH 2050 Atorvastatin Calcium 40 MG 1700 02/11 1700 AC 05/ PO 1705 Bisacodyl 10 MG ONCE ONE 05/05 0830 DC MD 02/13 0831 Bisacodyl 15 MG QPM 02/11 2200 AC 02/12 PO 2158 Ceftriaxone Sodium 1,000 MG DAILY 02/11 1000 AC 02/12 IV 1022 Docusate Sodium 100 MG DAILY NEEDED PRN 02/12 0430 AC 02/12 PO 2158 Guaifenesin 600 MG Q12 02/11 0300 AC 02/12 PO 2158 Hydromorphone HCl 0.6 MG Q4P PRN 02/11 1015 AC 02/11 IV 1228 Insulin Aspart 0 TIDAC 02/11 0800 AC 02/13 SC 0815 Methylprednisolone 40 MG BID 02/11 1000 AC 02/12 IV 2158 Nicotine 7 MG DAILY 02/11 1119 AC 02/12 TOP 1022 Ondansetron HCl 4 MG Q6P PRN 02/11 0215 AC IV Oxycodone HCl 5 MG Q6 PRN 02/11 1000 AC 02/12 PO 1203 Senna/Docusate Sodium 2 TAB DAILY 02/12 1000 AC 02/12 PO 1021 Senna/Docusate Sodium 2 TAB DAILY PRN 02/11 0430 DC PO 02/12 0959 Sodium Chloride 2 SPRAY Q4P PRN 02/12 2300 AC 02/13 LOS 0535 Tamsulosin HCl 0.4 MG DAILY 02/11 1000 AC 02/12 PO 1021 Zolpidem Tartrate 10 MG QPM 02/11 2200 AC 02/12 PO 2158 Last 24 Hrs of Lab/Arsenio Results Last 24 Hrs of Labs/Mics: Laboratory Tests 02/13/17 0623: CBC w Diff Pending, WBC Pending, RBC Pending, Hgb Pending, Hct Pending, MCV Pending, MCH Pending, RDW Pending, Plt Count Pending, MPV Pending, PUBS MCHC Pending Assessment/Plan Assessment: 77-year-old gentleman with past medical history of emphysema on 2 L of oxygen nocturnally, type 2 diabetes, hyperlipidemia, bladder ca status post ablation approximately 30 years ago, recurrent nephrolithiasis who presents to [facility] for dyspnea. Had a left ureteral stent placed on Thursday with Dr. Jose Armando Dennison ([place]) at [facility] for a 16 mm left sided stone. Was given levofloxacin, oxybutynin and Vicodin. Stopped Levofloxacin on his own. Hospital day 3 afebrile, stable VSS, on high flow Ox at 31%, continues to have hematuria. Reports constipation. problem list: acute on chronic respiratory failure ALTAMIRANO b/l hydronephrosis s/p left ureteral stent hematuria plan continue high flow oxygen continue TRC with nebs, on IV solumedrol today will transition to PO prednisone Pulm on board, apprec recommendations IV ceftriaxone day 3, afebrile, no uti symptoms, will follow off abx per urology no further stent placement at this time continue to monitor fingersticks, on SS continue home meds of ambien,lipitor,flomax, diabetic diet will give suppository ducolax dvt ppx with mechanical alps DNR/DNI. Problem List: 1. Lower abdominal pain, unspecified 2. COPD exacerbation Pain Ratin Pain Location: na Pain Goal: Pain 4 or less Pain Plan: current regimen Tomorrow's Labs & Rationales: CBC BOBBI LEAL,MIHAI 02/13/17 1535: Attending MD Review Statement Attending Statement Attending MD Statement: examined this patient, discuss w/resident/PA/ENGINEERING INSTRUCTOR, agreed w/resident/PA/ENGINEERING INSTRUCTOR, reviewed EMR data (avail) Attending Assessment/Plan: Patient appears well at rest but still becoming severely dyspneic with any activity. He reports being constipated with no BM in several days since his last enema. Still with hematuria. Hemodynamically stable, examined at bedside, labs reviewed. Plan - Continue Prednisone - Continue high flow oxygen, taper down as tolerated - Give single dose Lactulose for constipation, if no BM, then order enema - Follow pulmonary and urology recommendations - Continue CPAP PRN - Continue home medications - DVT PPx
--- NOTE | 2017-02-13 07:31 | PN- Student ---
Subjective Subjective: Patient notes that he is doing okay today, notes that he feels about the same compared to yesterday. He notes no shortness of breath at rest, but notes shortness of breath when using commode. Has not had a bowel movement since yesterday morning. Denies chest pain, fevers/chills. Current Medications Sig/Camille Start time Last Medication Dose Route Stop Time Status Admin Acetaminophen 1,000 MG Q8 02/11 1400 AC 02/13 IV 0535 Albuterol Sulfate 3 ML EVERY 4 HRS/AWAKE 02/11 2000 AC 02/13 INH 0838 Atorvastatin Calcium 40 MG 1700 02/11 1700 AC 02/12 PO 1705 Bisacodyl 10 MG ONCE ONE 02/13 0830 DC AL 02/13 0831 Bisacodyl 15 MG QPM 02/11 2200 AC 02/12 PO 2158 Ceftriaxone Sodium 1,000 MG DAILY 02/11 1000 AC 02/12 IV 1022 Docusate Sodium 100 MG DAILY NEEDED PRN 02/12 0430 AC 02/12 PO 2158 Guaifenesin 600 MG Q12 02/11 0300 AC 02/12 PO 2158 Hydromorphone HCl 0.6 MG Q4P PRN 02/11 1015 AC 02/11 IV 1228 Insulin Aspart 0 TIDAC 02/11 0800 AC 02/13 SC 0815 Methylprednisolone 40 MG BID 02/11 1000 AC 02/12 IV 2158 Nicotine 7 MG DAILY 02/11 1119 AC 02/12 TOP 1022 Ondansetron HCl 4 MG Q6P PRN 02/11 0215 AC IV Oxycodone HCl 5 MG Q6 PRN 02/11 1000 AC 02/12 PO 1203 Senna/Docusate Sodium 2 TAB DAILY 02/12 1000 AC 02/12 PO 1021 Senna/Docusate Sodium 2 TAB DAILY PRN 02/11 0430 DC PO 02/12 0959 Sodium Chloride 2 SPRAY Q4P PRN 02/12 2300 AC 02/13 LOS 0535 Tamsulosin HCl 0.4 MG DAILY 02/11 1000 AC 02/12 PO 1021 Zolpidem Tartrate 10 MG QPM 02/11 2200 AC 02/12 PO 2158 Objective Objective: Vital Signs Date Time Temp Pulse Resp B/P B/P Pulse O2 O2 Flow FiO2 Mean Ox Delivery Rate 02/13 0839 94 Nasal 30% Cannula 02/13 0637 98.5 89 20 130/50 96 Nasal Cannula 02/13 0424 Nasal 30% Cannula 02/13 0058 95 Nasal 30% Cannula 02/13 0000 94 Nasal 30% Cannula 02/12 2221 94 Nasal 30% Cannula 02/12 2214 98.6 96 20 128/50 95 02/12 1935 97 Nasal 35% Cannula 02/12 1625 97 Nasal 35% Cannula 02/12 1600 Nasal 35% Cannula 02/12 1406 98.4 97 20 140/80 94 Room Air Intake & Output 02/13 1600 02/13 0800 05 0000 Intake Total 370 390 Output Total 900 575 Balance -530 -185 Intake, IV 130 150 Intake, Oral 240 240 Output, Urine 900 575 Patient 180 lb Weight Physical Exam: General: alert and oriented, cooperative, in no acute distress Heart: S1, S1, no murmurs, rubs, or gallops Lung: rhonchi heard diffusely, decreased breath sounds bilaterally Abdomen: soft, no masses, mild suprapubic tenderness on palpation Back: mild tenderness of right flank on palpation Extremities: no clubbing, cyanosis, edema Currently on high-flow oxygen via nasal cannula at 31% Results Results: Laboratory Tests 02/13/17 0623: CBC w Diff Pending, WBC Pending, RBC Pending, Hgb Pending, Hct Pending, MCV Pending, MCH Pending, RDW Pending, Plt Count Pending, MPV Pending, PUBS MCHC Pending 02/12/17 0618: CBC w Diff NO MAN DIFF REQ, RBC 3.69 L, MCV 88.7, MCH 30.1, RDW 15.6 H, MPV 7.8, Gran % 94.1 H, Lymphocytes % 3.7 L, Monocytes % 2.1, Eosinophils % 0, Basophils % 0.1, Absolute Granulocytes 12.3 H, Absolute Lymphocytes 0.5 L, Absolute Monocytes 0.3, Absolute Eosinophils 0, Absolute Basophils 0, PUBS MCHC 34.0 02/11/17 1800: Urinalysis LIGHT H, Urine Color BLDY H, Urine Clarity TURBD H, Urine pH 6.0, Ur Specific [place] 1.025, Urine Protein 100 H, Urine Ketones TRACE H, Urine Nitrite NEG, Urine Bilirubin NEG, Urine Urobilinogen 0.2, Ur Leukocyte Esterase MOD H, Ur Microscopic SEDIMENT EXAMINED, Urine RBC PACKD H, Urine WBC > 75 H, Ur Epithelial Cells FEW, Urine Bacteria MANY H, Granular Casts 10-15 H, Urine Mucus FEW, Micro UA Comment [place] H, Urine Hemoglobin LARGE H, Urine Glucose NEG 02/11/17 0635: Anion Gap 9, Estimated GFR > 60, BUN/Creatinine Ratio 23.3, Iron 22 L, TIBC 218 L, Ferritin 114.0, D-Dimer 841 H, CBC w Diff NO MAN DIFF REQ, RBC 3.67 L, MCV 88.4, MCH 29.8, RDW 16.1 H, MPV 7.9, Gran % 95.3 H, Lymphocytes % 4.1 L, Monocytes % 0.6 L, Eosinophils % 0, Basophils % 0 L, Absolute Granulocytes 8.5 H, Absolute Lymphocytes 0.4 L, Absolute Monocytes 0.1 L, Absolute Eosinophils 0, Absolute Basophils 0, PUBS MCHC 33.7 02/10/17 2230: Urine Color BLDY H, Urine Clarity TURBD H, Urine pH 6.0, Ur Specific [place] 1.025, Urine Protein >=300 H, Urine Ketones TRACE H, Urine Nitrite NEG, Urine Bilirubin NEG@ICTO, Urine Urobilinogen 0.2, Ur Leukocyte Esterase MOD H, Ur Microscopic SEDIMENT EXAMINED, Urine RBC PACKD H, Urine WBC PACKD H, Ur Epithelial Cells MOD H, Urine Bacteria PACKD H, Urine Mucus MANY H, Micro UA Comment [place] H, Urine Hemoglobin LARGE H, Urine Glucose NEG 02/10/172004: Anion Gap 10, Estimated GFR > 60, BUN/Creatinine Ratio 16.0, Glucose 129 H, Calcium 8.7, Total Bilirubin 0.8, AST 33, ALT 39, Alkaline Phosphatase 87, Troponin I < 0.01, [id number]-[id number] Pept 320 H, Total Protein 6.2 L, Albumin 3.5, Globulin 2.7, Albumin/Globulin Ratio 1.3, Amylase 30, Lipase 44, CBC w Diff NO MAN DIFF REQ, RBC 4.35 L, MCV 89.3, MCH 29.8, RDW 16.3 H, MPV 7.6, Gran % 78.4 H, Lymphocytes % 14.0 L, Monocytes % 6.1, Eosinophils % 1.1, Basophils % 0.4, Absolute Granulocytes 10.7 H, Absolute Lymphocytes 1.9, Absolute Monocytes 0.8 H, Absolute Eosinophils 0.2, Absolute Basophils 0.1, PUBS MCHC 33.3 02/10/171999: pH 7.42, pCO2 37, pO2 87, HCO3 24, ABG O2 Sat (Measured) 96.0, P-50 (Temp Corrected) N, Carboxyhemoglobin 0.3 L, O2 Concentration % 2L, Temperature 98.5, O2 Delivery Method NC, Phlebotomy Draw Site RIGHT RADIAL Microbiology 02/12 216 URINE ROUT: Urine Culture - RECD -Urine culture growing >100,000 gram-positive cocci per microbiology lab Chest x-ray: hyperinflation of lungs with no acute changes and no infiltrate. No pulmonary vascular congestion. CT abdomen/pelvis: hydronephrosis of both kidneys, stone at right ureteropelvic junction, double-J stent present in left kidney. Numerous stones in the left kidney and small stones present in the distal left ureter proximal to the ureterovsical junction. Assessment/Plan Assessment: This is a 77 year-old patient with PMH significant for nephrolithiasis s/p double-J stent placement for 16mm stone on left side on 02/06/17 at [facility], COPD on 2L oxygen at night, 90 pack year smoking history, constipation, type II DM, and insomnia, who presented to the ED 3 days ago with a chief complaint of worsening shortness of breath and left flank pain for 5 days. After patient had stent placement, had decreased urine output and hematuria, urgency, and dysuria. Urologist placed an 18fr coude catheter 2 days ago and drained cola-colored urine 1200cc. Since that time, patient notes decreased suprapubic pain. Started on high-flow oxygen via nasal cannula yesterday. Patient's shortness of breath on exertion is his baseline- he notes that at home he gets short of breath when shaving and bathing. Plan: For shortness of breath: -Started on high-flow oxygen via nasal cannula at 31% -Continue IV methylprednisolone 40mg q12hrs -Obtain sputum culture if able to expectorate -Continue tiotropium bromide 1 puff daily -Albuterol nebulizer therapy q4hrs while awake -Continue guaifenesin 600mg q12hrs -Follow pulmonology recommendations For UTI and kidney stones: -Microbiology lab was called today regarding urine culture- growing >100,000 gram-positive cocci -On IV ceftriaxone 1000mg daily- consider discontinuing -Tamsulosin 0.4mg daily -For pain: IV dilaudid 0.6mg prn for severe pain, IV acetaminophen 1000mg q8hrs, oxycodone 5mg q6hrs prn. -Follow-up with urology outpatient For consitpation: [id number] bowel regimen. Suppository ordered this morning. DVT prophylaxis at all times. Continue home medications: zolpidem 10mg qpm, atorvastatin 40mg daily.
--- NOTE | 2017-02-13 07:51 | PN- Pulmonary ---
Subjective HPI/Critical Care Issues: Patient resting comfortably on high flow oxygen FiO2 0.3. Objective Current Medications: Current Medications Sig/Camille Start time Last Medication Dose Route Stop Time Status Admin Acetaminophen 1,000 MG Q8 02/11 1400 AC 02/13 IV 0535 Albuterol Sulfate 3 ML EVERY 4 HRS/AWAKE 02/11 2000 AC 02/12 INH 2050 Atorvastatin Calcium 40 MG 1700 / 1700 AC 02/12 PO 1705 Bisacodyl 15 MG QPM 02/11 2200 AC 02/12 PO 2158 Ceftriaxone Sodium 1,000 MG DAILY 02/11 1000 AC 02/12 IV 1022 Docusate Sodium 100 MG DAILY NEEDED PRN 02/12 0430 AC 02/12 PO 2158 Guaifenesin 600 MG Q12 02/11 0300 AC 02/12 PO 2158 Hydromorphone HCl 0.6 MG Q4P PRN 02/11 1015 AC 02/11 IV 1228 Insulin Aspart 0 TIDAC 02/11 0800 AC 02/12 SC 1705 Methylprednisolone 40 MG BID 02/11 1000 AC 02/12 IV 2158 Nicotine 7 MG DAILY 02/11 1119 AC 02/12 TOP 1022 Ondansetron HCl 4 MG Q6P PRN 02/11 0215 AC IV Oxycodone HCl 5 MG Q6 PRN 02/11 1000 AC 02/12 PO 1203 Senna/Docusate Sodium 2 TAB DAILY 02/12 1000 AC 02/12 PO 1021 Senna/Docusate Sodium 2 TAB DAILY PRN 02/11 0430 DC PO 02/12 0959 Sodium Chloride 2 SPRAY Q4P PRN 02/12 2300 AC 02/13 LOS 0535 Tamsulosin HCl 0.4 MG DAILY 02/11 1000 AC 02/12 PO 1021 Zolpidem Tartrate 10 MG QPM 02/11 2200 AC 02/12 PO 2158 Vital Signs & I&O Last 24 Hrs of Vitals and I&O: Vital Signs Date Time Temp Pulse Resp B/P B/P Pulse O2 O2 Flow FiO2 Mean Ox Delivery Rate 02/13 0637 98.5 89 20 130/50 96 Nasal Cannula 02/13 0424 Nasal 30% Cannula 02/13 0058 95 Nasal 30% Cannula 02/13 0000 94 Nasal 30% Cannula 02/12 2221 94 Nasal 30% Cannula 02/12 2214 98.6 96 20 128/50 95 05/04 1935 97 Nasal 35% Cannula / 1625 97 Nasal 35% Cannula / 1600 Nasal 35% Cannula / 1406 98.4 97 20 140/80 94 Room Air / 0814 95 Nasal 2.0L Cannula / 0800 Nasal 2.0L Cannula Intake & Output 02/13 0800 05/05 0000 05/04 1600 Intake Total 370 390 320 Output Total 900 575 850 Balance -530 -185 -530 Intake, IV 130 150 20 Intake, Oral 240 240 300 Number 2 Bowel Movements Output, Urine 900 575 850 Since saturation 95-96% exam of his chest shows diminished breath sounds there are no wheezes or crackles cardiac exam shows a regular S1 and S2 Bah remains in place with clear urine Impression/Plan Impression/Plan Impression/Plan: 77-year-old gentleman with severe oxygen-dependent COPD improved after decompression of his bladder with obstructive uropathy. Recommendations: Continue high flow oxygen for comfort FiO2 can be tapered. If he remains stable consider oral prednisone today. Physical therapy evaluation for possible need for short-term rehabilitation. Complete course of antibiotics.
[2017-02-13 08:46] LABS: ABSOLUTE BASOPHIL COUNT 0 /CUMM (0.0-0.2); ABSOLUTE EOSINOPHIL COUNT 0 /CUMM (0.0-0.7); ABSOLUTE GRANULOCYTE CT 7.8 /CUMM (1.4-6.5); ABSOLUTE LYMPH COUNT 0.4 /CUMM (1.2-3.4); ABSOLUTE MONOCYTE COUNT 0.3 /CUMM (0.10-0.60); BASOPHIL % 0 % (0.0-2.0); EOSINOPHIL % 0 % (0-5); HEMATOCRIT 31.3 % (42-52); MEAN CORPUSCULAR HGB 29.9 PG (27.0-31.0); MEAN CORPUSCULAR HGB CONC 33.6 G/DL (33.0-37.0); MEAN CORPUSCULAR VOLUME 88.9 FL (80.0-94.0); MEAN PLATELET VOLUME 7.8 FL (7.4-10.4); PLATELET COUNT 171 /CUMM (130-400); RBC DISTRIBUTION WIDTH 15.6 % (11.5-14.5); RED BLOOD CELL CT 3.52 /CUMM (4.70-6.10); WHITE BLOOD CELL COUNT 8.4 /CUMM (4.8-10.8)
[2017-02-13] MEDS ORDERED: PREDNISONE10 M2 PO (09:44)
--- NOTE | 2017-02-13 09:53 | Patient Discharge Instructions ---
Discharge Instructions General Discharge Information You were seen/treated for: SEVERE COPD Watch for these problems: WORSENING SHORTNESS OF BREATHE, CHEST PAIN, FEVER Diet Recommended Diet: Diabetic, Heart Healthy Activity Activity Self Limited: Yes Acute Coronary Syndrome Inclusion Criteria At DC or during hospital stay patient has or had the following: ACS DIAGNOSIS No Discharge Core Measures Meds if any: Prescribed or Continued at Discharge Meds if any: NOT Prescribed or Continued at Discharge Congestive Heart Failure Inclusion Criteria At DC or during hospital stay patient has or had the following: CHF DIAGNOSIS No Discharge Core Measures Meds if any: Prescribed or Continued at Discharge Meds if any: NOT Prescribed or Continued at Discharge Cerebrovascular accident Inclusion Criteria At DC or during hospital stay patient has or had the following: CVA/TIA Diagnosis No Discharge Core Measures Meds if any: Prescribed or Continued at Discharge Meds if any: NOT Prescribed or Continued at Discharge Venous thromboembolism Inclusion Criteria VTE Diagnosis No VTE Type NONE VTE Confirmed by (Test) NONE Discharge Core Measures - Per Current guidelines, there needs to be overlap - treatment for the first 5 days of Warfarin therapy. - If discharged on Warfarin prior to 5 days of - overlap therapy, the patient will need to be - assessed for post discharge needs including - *Post discharge parental anticoagulation - *Warfarin and/or parental anticoagulation education - *Follow up date to check INR post discharge At least 5 days overlap therapy as Inpatient No Meds if any: Prescribed or Continued at Discharge Note: Overlap Therapy is Warfarin and Anticoagulant Meds if any: NOT Prescribed or Continued at Discharge
--- NOTE | 2017-02-13 11:58 | NUR ---
Physical Therapy: Consult received and chart reviewed. Pt's is able to perform bed mobility, sit <> stand, and close commode transfers with supervision. Ambulation limited by respirtory status at this point. Acute skilled PT is not indicated. Pt will benefit from STR/Pulmonary rehab to maximize his endurance. Will not continue to follow. Thank you.
[2017-02-13 13:42] VITALS: BP 140/80
[2017-02-13 22:52] VITALS: BP 130/50
[2017-02-14 06:53] VITALS: BP 112/58
--- NOTE | 2017-02-14 08:15 | PN- Housestaff ---
Subjective Follow-up For: Shortness of breath Abdominal pain Subjective: seen and examined patient. Continues to feel very short of breath on minimal excertion. Denies fevers, chill, chest pain or abdominal pain. Had a bowel movement yesterday. Review of Systems Constitutional: Denies: chills, diaphoresis, fever, malaise, weakness, unexplained weight loss. Cardiovascular: Denies: chest pain, edema, orthopena, palpitations, peripheral edema, syncope. Respiratory: Reports: short of breath. Denies: cough, hemoptysis, orthopnea, sputum production, stridor, wheezing. Gastrointestinal: Denies: abdominal pain, bloating, constipation, diarrhea, distention, bowel incontinence, melena, nausea, bloody stool, changes in stool, vomiting, steatorrhea. Objective Last 24 Hrs of Vital Signs/I&O Vital Signs Date Time Temp Pulse Resp B/P B/P Pulse O2 O2 Flow FiO2 Mean Ox Delivery Rate / 0859 60 112/58 05/ 0836 93 Nasal 30% Cannula 02/14 0653 98.0 60 24 112/58 95 Nasal Cannula /06 0147 94 Nasal 30% Cannula 05/06 0000 93 Nasal 30% Cannula 05/05 2252 98.1 91 20 130/50 93 05/05 2224 96 Nasal 30% Cannula 05/05 1950 96 Nasal 30% Cannula 05/05 1602 94 Nasal 30% Cannula 05/05 1600 Nasal 30% Cannula 05/05 1342 97.7 68 20 140/80 98 05/05 1235 Nasal 30% Cannula 05/05 1225 Nasal 30% Cannula Intake & Output / 1600 /06 0800 05/06 0000 Intake Total 460 840 Output Total 1500 700 Balance -1040 140 Intake, IV 220 120 Intake, Oral 240 720 Number 0 1 Bowel Movements Output, Urine 1500 700 Physical Exam General Appearance: Alert, Oriented X3, Cooperative, No Acute Distress Cardiovascular: Regular Rate, Normal S1, Normal S2 Lungs: b/l decreased air entry with scattered wheezing Abdomen: Normal Bowel Sounds, Soft, No Tenderness Extremities: No Edema Current Medications: Current Medications Sig/Camille Start time Last Medication Dose Route Stop Time Status Admin Acetaminophen 1,000 MG Q8 02/11 1400 AC 05/06 IV 0543 Albuterol Sulfate 3 ML EVERY 4 HRS/AWAKE 02/11 2000 AC 02/14 INH 0834 Atorvastatin Calcium 40 MG 1700 05/03 1700 AC 05 PO 1747 Bisacodyl 15 MG QPM 05/ 2200 AC 05 PO 2143 Ceftriaxone Sodium 1,000 MG DAILY 05 1000 DC 05/04 IV 1022 Docusate Sodium 100 MG .STK-MED ONE 02/13 1148 DC PO 02/13 1149 Docusate Sodium 100 MG DAILY NEEDED PRN 02/12 0430 AC 02/13 PO 1157 Guaifenesin 600 MG Q12 02/11 0300 AC 05 PO 0859 Hydromorphone HCl 0.6 MG Q4P PRN 05 1015 DC 05 IV 1228 Insulin Aspart 0 TIDAC 02/11 0800 AC 02/13 SC 1746 Lactulose 20 GM ONCE ONE 02/13 1545 DC 02/13 PO 02/13 1546 1747 Methylprednisolone 40 MG BID / 1000 DC 05 IV 2158 Nicotine 7 MG DAILY 02/11 1119 AC 02/14 TOP 0859 Ondansetron HCl 4 MG Q6P PRN 02/11 0215 AC IV Oxycodone HCl 5 MG Q6 PRN 05/ 1000 AC 05 PO 0856 Patient Medication 1 ED .STK-MED ONE 02/13 1250 DC Teaching ED 02/13 1251 Polyethylene Glycol 17 GM DAILY 02/13 1545 AC 05 PO 0859 Prednisone 50 MG DAILY 02/13 1000 AC 05/ PO 0900 Senna/Docusate Sodium 2 TAB DAILY / 1000 AC 05 PO 0857 Sodium Chloride 2 SPRAY Q4P PRN 02/12 2300 AC 02/13 LOS 0535 Sodium Phosphate 1 UNIT ONCE PRN 02/13 1545 AC NE Tamsulosin HCl 0.4 MG DAILY 02/11 1000 AC 05/ PO 0859 Zolpidem Tartrate 10 MG QPM 02/11 2200 AC 05 PO 2145 Assessment/Plan Assessment: 77-year-old gentleman with past medical history of emphysema on 2 L of oxygen nocturnally, type 2 diabetes, hyperlipidemia, bladder ca status post ablation approximately 30 years ago, recurrent nephrolithiasis who [facility] for dyspnea. Had a left ureteral stent placed on Thursday with Dr. Jose Armando Dennison ([place]) at [facility] for a 16 mm left sided stone. Was given levofloxacin, oxybutynin and Vicodin. Stopped Levofloxacin on his own. Hospital day 4 afebrile, stable VSS, on high flow Ox at 31%, hematuria continuing to clear up, continues to be short of breath on very minimal activity problem list: acute on chronic respiratory failure Severe COPD ALTAMIRANO b/l hydronephrosis s/p left ureteral stent hematuria plan continue high flow oxygen continue TRC with nebs, on IV solumedrol today will transition to PO prednisone Pulm on board, apprec recommendations following off abx per urology no further stent placement at this time continue to monitor fingersticks, on SS continue home meds of ambien,lipitor,flomax, diabetic diet dvt ppx with mechanical alps DNR/DNI. Problem List: 1. Lower abdominal pain, unspecified 2. COPD exacerbation Pain Ratin Pain Location: Not applicable Pain Goal: Pain 4 or less Pain Plan: Current regimen Tomorrow's Labs & Rationales: cbc
--- NOTE | 2017-02-14 13:55 | PN- Att Addend ---
Attending Addendum Attending Brief Note Patient seen and examined. Lying in bed slowly eating his meal. He continues to complain of shortness of breath with minimal exertion. A report shortness of breath even while eating. His oral intake is diminished due to this. He reports shortness of breath even when moving to the cord. He states that he would rather be constipated than having to deal with moving to the commode and moving his bowels. On examination he has markedly diminished breath sounds bilaterally. No significant wheezing. Abdomen is soft and nontender. No peripheral edema. Bah catheter is in place draining pinkish urine. Problems: 1. Advanced COPD. 2. Acute on chronic respiratory failure; patient is on intermittent oxygen at home. 3. Bladder outlet obstruction 4. Bilateral hydronephrosis status post placement of double-J stents in the left kidney. There is a stone at the right UPJ junction. 5. Anemia. Plan: -His hematuria has markedly improved compared to earlier on this week. He is now draining pinkish urine. He is hemodynamically stable. He did drop his hemoglobin from baseline of about 13 down to 10. He currently appears stable. Repeat CBCs a.m. -Respiratory standpoint his markedly deconditioned. He does not appear to be in an acute flare of COPD are present. There is a possibility that this is his new baseline. He reports no significant improvement despite use of high flow oxygen. -We'll hold off discharge for now as patient does not appear medically stable to be transported to a retirement facility. -Continue supportive care. Continue bronchodilator therapy. Continue systemic steroid therapy with prednisone. -Patient wishes to have goals of care discussion with his traffic observer Dr. Marilyn Johnson.
[2017-02-14 15:21] VITALS: BP 128/62
[2017-02-14 22:30] VITALS: BP 115/75
[2017-02-15 06:30] VITALS: BP 142/78
--- NOTE | 2017-02-15 07:51 | PN- Housestaff ---
MANUELA ROQUE 02/15/17 0751: Subjective Follow-up For: Shortness of breath Abdominal pain Subjective: Seen and examined patient. His breathing remains the same. Minimal excertion makes him moderately short of breath. Denies fevers, chills, abdominal pain. In terms of his discharge he is expressing the wish to go home with services if possible rather than to [facility]. Explained that I would discuss with case management and let him know his options. Review of Systems Constitutional: Denies: chills, diaphoresis, fever, malaise, weakness, unexplained weight loss. Cardiovascular: Denies: chest pain, edema, orthopena, palpitations, peripheral edema, syncope. Respiratory: Reports: short of breath. Denies: cough, hemoptysis, orthopnea, sputum production, stridor, wheezing. Objective Last 24 Hrs of Vital Signs/I&O Vital Signs Date Time Temp Pulse Resp B/P B/P Pulse O2 O2 Flow FiO2 Mean Ox Delivery Rate 02/15 0851 80 142/78 02/15 0844 95 Nasal 1.5L Cannula 02/15 0630 98.2 80 20 142/78 96 Nasal 1.5L Cannula 02/15 0000 Nasal 1.5L Cannula 02/14 2230 98.8 86 20 115/75 95 Nasal 2.0L Cannula 02/14 1842 94 Nasal 1.5L Cannula 02/14 1700 97 Nasal 30% Cannula 02/14 1521 97.7 95 20 128/62 96 / 1206 93 Nasal 30% Cannula Intake & Output 02/15 1600 02/15 0800 05/ 0000 Intake Total 220 450 Output Total 1000 250 Balance -780 200 Intake, IV 100 Intake, Oral 120 450 Output, Urine 1000 250 Physical Exam General Appearance: Alert, Oriented X3, Cooperative, No Acute Distress Cardiovascular: Regular Rate, Normal S1, Normal S2 Lungs: b/l decreased breath sounds Abdomen: Normal Bowel Sounds, Soft, No Tenderness Current Medications: Current Medications Sig/Camille Start time Last Medication Dose Route Stop Time Status Admin Acetaminophen 1,000 MG Q8 05/03 1400 AC 05/07 IV 0544 Albuterol Sulfate 3 ML EVERY 4 HRS/AWAKE / 2000 AC 05/ INH 0842 Atorvastatin Calcium 40 MG 1700 05/ 1700 AC 05/06 PO 1759 Bisacodyl 15 MG QPM 02/11 2200 AC 02/14 PO 2148 Docusate Sodium 100 MG DAILY NEEDED PRN 02/12 0430 AC 02/13 PO 1157 Guaifenesin 600 MG Q12 02/11 0300 AC 02/15 PO 0851 Insulin Aspart 0 TIDAC 02/11 0800 AC 02/14 SC 1759 Nicotine 7 MG DAILY 02/11 1119 AC 02/15 TOP 0851 Ondansetron HCl 4 MG Q6P PRN 02/11 0215 AC IV Oxycodone HCl 5 MG Q6 PRN 02/11 1000 AC 02/15 PO 0901 Polyethylene Glycol 17 GM DAILY 02/13 1545 AC 02/14 PO 0859 Prednisone 50 MG DAILY 02/13 1000 AC 02/15 PO 0850 Senna/Docusate Sodium 2 TAB DAILY 02/12 1000 AC 02/14 PO 0857 Sodium Chloride 2 SPRAY Q4P PRN 02/12 2300 AC 02/13 LOS 0535 Sodium Phosphate 1 UNIT ONCE PRN 02/13 1545 AC MN Tamsulosin HCl 0.4 MG DAILY 02/11 1000 AC 02/15 PO 0851 Zolpidem Tartrate 10 MG QPM 02/11 2200 AC 02/14 PO 2149 Last 24 Hrs of Lab/Arsenio Results Last 24 Hrs of Labs/Mics: Laboratory Tests 02/15/17 0815: CBC w Diff Pending, WBC Pending, RBC Pending, Hgb Pending, Hct Pending, MCV Pending, MCH Pending, RDW Pending, Plt Count Pending, MPV Pending, PUBS MCHC Pending Assessment/Plan Assessment: 77-year-old gentleman with past medical history of emphysema on 2 L of oxygen nocturnally, type 2 diabetes, hyperlipidemia, bladder ca status post ablation approximately 30 years ago, recurrent nephrolithiasis who [facility] for dyspnea. Had a left ureteral stent placed on Thursday with Dr. Jose Armando Dennison ([place]) at [facility] for a 16 mm left sided stone. Was given levofloxacin, oxybutynin and Vicodin. Stopped Levofloxacin on his own. Hospital day 6 afebrile, stable VSS, on NC, continues to have hematuria, continues to be short of breath on very minimal activity problem list: acute on chronic respiratory failure End stage COPD ALTAMIRANO b/l hydronephrosis s/p left ureteral stent hematuria plan Continue supplemental Ox continue TRC with nebs, on PO prednisone 3 day taper Pulm on board, apprec recommendations following off abx per urology no further stent placement at this time continue to monitor fingersticks, on SS continue home meds of ambien,lipitor,flomax, diabetic diet dvt ppx with mechanical alps DNR/DNI. Problem List: 1. Lower abdominal pain, unspecified 2. COPD exacerbation Pain Ratin Pain Location: na Pain Goal: Pain 4 or less Pain Plan: current regimen Tomorrow's Labs & Rationales: none required KATHY MOSQUEDA MD 02/15/17 1213: Attending MD Review Statement Attending Statement Attending MD Statement: examined this patient, discuss w/resident/PA/WINDERMAN, agreed w/resident/PA/WINDERMAN, reviewed EMR data (avail), discussed with nursing, amended to note Attending Assessment/Plan: Patient seen and examined. Lying in bed and appears comfortable at rest. Continues complain of significant dyspnea with minimal exertion. He reports being significantly short of breath requiring about 20 minutes to recover after he got up to use the commode. He is currently maintaining saturation on nasal cannula. On examination and she remains very poor bilaterally with no added sounds. Patient is now reluctance to be discharged to long term facility as he does not believe there'll be any benefit from going there. He realizes that his disease process is quite advanced, likely to improve significantly more than his current baseline. He wishes to discuss further with his own boat washer Dr. Johnson. Recommendations: -Continue bronchodilator therapy. Continue prednisone therapy. -Patient to have goals of care discussion with his boat washer tomorrow -Disposition will be determined after above discussion.
[2017-02-15 09:29] LABS: ABSOLUTE BASOPHIL COUNT 0 /CUMM (0.0-0.2); ABSOLUTE EOSINOPHIL COUNT 0.3 /CUMM (0.0-0.7); ABSOLUTE GRANULOCYTE CT 10.1 /CUMM (1.4-6.5); ABSOLUTE MONOCYTE COUNT 0.8 /CUMM (0.10-0.60); BASOPHIL % 0.3 % (0.0-2.0); EOSINOPHIL % 2.5 % (0-5); GRANULOCYTE % 76.1 % (42.2-75.2); MEAN CORPUSCULAR HGB 29.7 PG (27.0-31.0); MEAN CORPUSCULAR HGB CONC 33.5 G/DL (33.0-37.0); MEAN CORPUSCULAR VOLUME 88.6 FL (80.0-94.0); MEAN PLATELET VOLUME 7.6 FL (7.4-10.4); PLATELET COUNT 229 /CUMM (130-400); RBC DISTRIBUTION WIDTH 15.5 % (11.5-14.5)
--- NOTE | 2017-02-15 09:58 | PN- Pulmonary ---
Subjective HPI/Critical Care Issues: Patient feels less short of breath is comfortable on nasal oxygen Objective Current Medications: Current Medications Sig/Camille Start time Last Medication Dose Route Stop Time Status Admin Acetaminophen 1,000 MG Q8 02/11 1400 AC 02/15 IV 0544 Albuterol Sulfate 3 ML EVERY 4 HRS/AWAKE 02/11 2000 AC 02/15 INH 0842 Atorvastatin Calcium 40 MG 1700 /03 1700 AC 02/14 PO 1759 Bisacodyl 15 MG QPM 02/11 2200 AC 02/14 PO 2148 Docusate Sodium 100 MG DAILY NEEDED PRN 02/12 0430 AC 02/13 PO 1157 Guaifenesin 600 MG Q12 02/11 0300 AC 02/15 PO 0851 Insulin Aspart 0 TIDAC 02/11 0800 AC 02/14 SC 1759 Nicotine 7 MG DAILY 02/11 1119 AC 02/15 TOP 0851 Ondansetron HCl 4 MG Q6P PRN 02/11 0215 AC IV Oxycodone HCl 5 MG Q6 PRN 02/11 1000 AC 02/15 PO 0901 Polyethylene Glycol 17 GM DAILY 02/13 1545 AC 02/14 PO 0859 Prednisone 50 MG DAILY 02/13 1000 AC 02/15 PO 0850 Senna/Docusate Sodium 2 TAB DAILY 02/12 1000 AC 02/14 PO 0857 Sodium Chloride 2 SPRAY Q4P PRN 02/12 2300 AC 02/13 LOS 0535 Sodium Phosphate 1 UNIT ONCE PRN 02/13 1545 AC ND Tamsulosin HCl 0.4 MG DAILY 02/11 1000 AC 02/15 PO 0851 Zolpidem Tartrate 10 MG QPM 02/11 2200 AC 02/14 PO 2149 Vital Signs & I&O Last 24 Hrs of Vitals and I&O: Vital Signs Date Time Temp Pulse Resp B/P B/P Pulse O2 O2 Flow FiO2 Mean Ox Delivery Rate 02/15 0851 80 142/78 05/ 0844 95 Nasal 1.5L Cannula 02/15 0630 98.2 80 20 142/78 96 Nasal 1.5L Cannula 02/15 0000 Nasal 1.5L Cannula 02/14 2230 98.8 86 20 115/75 95 Nasal 2.0L Cannula 02/14 1842 94 Nasal 1.5L Cannula 02/14 1700 97 Nasal 30% Cannula 02/14 1521 97.7 95 20 128/62 96 02/14 1206 93 Nasal 30% Cannula Intake & Output 02/15 1600 02/15 0800 02/15 0000 Intake Total 220 450 Output Total 1000 250 Balance -780 200 Intake, IV 100 Intake, Oral 120 450 Output, Urine 1000 250 Since saturation 1.5 L 95% exam of his chest diminished breath sounds cardiac exam regular S1 and S2 without murmurs Impression/Plan Impression/Plan Impression/Plan: 77-year-old gentleman with severe oxygen-dependent COPD improved after decompression of his bladder with obstructive uropathy. Recommendations: FiO2 can be tapered slow prednisone taper. Physical therapy evaluation for possible need for short-term rehabilitation. Complete course of antibiotics.
[2017-02-15 11:53] LABS: RED BLOOD CELL CT 4.41 /CUMM (4.70-6.10); WHITE BLOOD CELL COUNT 13.2 /CUMM (4.8-10.8)
[2017-02-15 11:54] LABS: HEMATOCRIT 39.1 % (42-52)
[2017-02-15 14:58] VITALS: BP 118/74
[2017-02-15 22:36] VITALS: BP 122/70
--- NOTE | 2017-02-16 06:33 | PN- Housestaff ---
MANUELA ROQUE 02/16/17 0633: Subjective Follow-up For: Shortness of breath Abdominal pain Review of Systems Constitutional: Denies: chills, diaphoresis, fever, malaise, weakness, unexplained weight loss. Objective Last 24 Hrs of Vital Signs/I&O Vital Signs Date Time Temp Pulse Resp B/P B/P Pulse O2 O2 Flow FiO2 Mean Ox Delivery Rate 02/16 0658 98.2 88 16 138/70 95 Nasal 2.0L Cannula 02/16 0000 Nasal 2.0L Cannula 02/15 2236 98.3 86 20 122/70 94 Room Air 02/15 1615 94 Nasal 1.5L Cannula 02/15 1600 Nasal 2.0L Cannula 02/15 1458 98.1 94 20 118/74 94 02/15 0851 80 142/78 02/15 0844 95 Nasal 1.5L Cannula 02/15 0800 95 Nasal 1.5L Cannula Intake & Output 02/16 0800 05/ 0000 02/15 1600 Intake Total 450 Output Total 700 801 700 Balance -700 -351 -700 Intake, Oral 450 Output, Stool 1 Output, Urine 700 800 700 Physical Exam General Appearance: Oriented X3, Cooperative, Mild Distress Cardiovascular: Normal S1, Normal S2 Lungs: b/l decreased air entry Current Medications: Current Medications Sig/Camille Start time Last Medication Dose Route Stop Time Status Admin Acetaminophen 1,000 MG Q8 / 1400 AC 02/16 IV 0635 Albuterol Sulfate 3 ML EVERY 4 HRS/AWAKE / 2000 AC 02/16 INH 1147 Atorvastatin Calcium 40 MG 1700 05/ 1700 AC 02/15 PO 1631 Bisacodyl 15 MG QPM / 2200 AC 02/15 PO 2201 Docusate Sodium 100 MG DAILY NEEDED PRN 02/12 0430 AC 02/13 PO 1157 Guaifenesin 600 MG Q12 / 0300 AC 02/16 PO 0953 Insulin Aspart 0 TIDAC 05/ 0800 AC 02/16 SC 1156 Nicotine 7 MG DAILY 02/11 1119 AC 02/16 TOP 0954 Ondansetron HCl 4 MG Q6P PRN / 0215 AC IV Oxycodone HCl 5 MG Q6 PRN 02/11 1000 AC 02/16 PO 0408 Polyethylene Glycol 17 GM DAILY 05/05 1545 AC 02/14 PO 0859 Prednisone 40 MG DAILY 02/16 1000 AC 02/16 PO 02/19 0000 0953 Prednisone 50 MG DAILY 02/13 1000 DC 02/15 PO 02/16 0000 0850 Senna/Docusate Sodium 2 TAB DAILY 02/12 1000 AC 02/16 PO 0953 Sodium Chloride 2 SPRAY Q4P PRN 02/12 2300 AC 02/13 LOS 0535 Sodium Phosphate 1 UNIT ONCE PRN 02/13 1545 AC NM Tamsulosin HCl 0.4 MG DAILY 02/11 1000 AC 02/16 PO 0954 Zolpidem Tartrate 10 MG QPM 02/11 2200 AC 02/15 PO 2201 Assessment/Plan Assessment: 77-year-old gentleman with past medical history of emphysema on 2 L of oxygen nocturnally, type 2 diabetes, hyperlipidemia, bladder ca status post ablation approximately 30 years ago, recurrent nephrolithiasis who [facility] for dyspnea. Had a left ureteral stent placed on Thursday with Dr. Jose Armando Dennison ([place]) at [facility] for a 16 mm left sided stone. Was given levofloxacin, oxybutynin and Vicodin. Stopped Levofloxacin on his own. Hospital day 7 afebrile, stable VSS, on NC, continues to have hematuria, continues to be short of breath on very minimal activity problem list: acute on chronic respiratory failure End stage COPD ALTAMIRANO b/l hydronephrosis s/p left ureteral stent hematuria plan Continue supplemental Ox continue TRC with nebs, on PO prednisone 3 day taper Pulm on board, apprec recommendations following off abx per urology no further stent placement at this time continue to monitor fingersticks, on SS continue home meds of ambien,lipitor,flomax, diabetic diet dvt ppx with mechanical alps DNR/DNI. Problem List: 1. COPD exacerbation 2. Lower abdominal pain, unspecified Pain Ratin Pain Location: NA Pain Goal: Pain 4 or less Pain Plan: current regimen Tomorrow's Labs & Rationales: none required KATHY MOSQUEDA MD 02/16/17 1207: Attending MD Review Statement Attending Statement Attending MD Statement: examined this patient, discuss w/resident/PA/POLE SHAVER, agreed w/resident/PA/POLE SHAVER, reviewed EMR data (avail), discussed with nursing, discussed with case mgmt, amended to note Attending Assessment/Plan: Resting comfortably. Not in acute distress at rest. No change from previous. Patient is currently willing to be discharged to retirement facility to optimize his health as much as possible. He has been encouraged to follow-up with his controls engineer Melissa Johnson MD as an outpatient when she returns for further discussion of goals of care. Patient will benefit from palliative care evaluation and future if he does not improve from his current status. He is to follow-up with the urology service as an outpatient for voiding trial per recommendations of urologist Dr. Zimmerman. He'll be discharged with Bah catheter in place due to his ongoing hematuria which is currently improving.
[2017-02-16 06:58] VITALS: BP 138/70
--- NOTE | 2017-02-16 09:34 | PN- Pulmonary ---
Subjective HPI/Critical Care Issues: Patient continues to have dyspnea on exertion is now willing to go to short-term rehabilitation Objective Current Medications: Current Medications Sig/Camille Start time Last Medication Dose Route Stop Time Status Admin Acetaminophen 1,000 MG Q8 02/11 1400 AC 02/16 IV 0635 Albuterol Sulfate 3 ML EVERY 4 HRS/AWAKE 02/11 2000 AC 02/16 INH 0811 Atorvastatin Calcium 40 MG 1700 05/ 1700 AC 02/15 PO 1631 Bisacodyl 15 MG QPM 02/11 2200 AC 02/15 PO 2201 Docusate Sodium 100 MG DAILY NEEDED PRN 02/12 0430 AC 02/13 PO 1157 Guaifenesin 600 MG Q12 02/11 0300 AC 02/15 PO 2201 Insulin Aspart 0 TIDAC 02/11 0800 AC 02/15 SC 1759 Nicotine 7 MG DAILY 02/11 1119 AC 02/15 TOP 0851 Ondansetron HCl 4 MG Q6P PRN 02/11 0215 AC IV Oxycodone HCl 5 MG Q6 PRN 02/11 1000 AC 02/16 PO 0408 Polyethylene Glycol 17 GM DAILY 02/13 1545 AC 02/14 PO 0859 Prednisone 40 MG DAILY 02/16 1000 AC PO 02/19 0000 Prednisone 50 MG DAILY 02/13 1000 DC 02/15 PO 02/16 0000 0850 Senna/Docusate Sodium 2 TAB DAILY 02/12 1000 AC 02/14 PO 0857 Sodium Chloride 2 SPRAY Q4P PRN 02/12 2300 AC 02/13 LOS 0535 Sodium Phosphate 1 UNIT ONCE PRN 02/13 1545 AC NV Tamsulosin HCl 0.4 MG DAILY 02/11 1000 AC 02/15 PO 0851 Zolpidem Tartrate 10 MG QPM 02/11 2200 AC 02/15 PO 2201 Vital Signs & I&O Last 24 Hrs of Vitals and I&O: Vital Signs Date Time Temp Pulse Resp B/P B/P Pulse O2 O2 Flow FiO2 Mean Ox Delivery Rate 02/16 0814 98 Nasal 2.0L Cannula 02/16 0658 98.2 88 16 138/70 95 Nasal 2.0L Cannula 02/16 0000 Nasal 2.0L Cannula 02/15 2236 98.3 86 20 122/70 94 Room Air 02/15 1615 94 Nasal 1.5L Cannula 02/15 1600 Nasal 2.0L Cannula 02/15 1458 98.1 94 20 118/74 94 Intake & Output 02/16 1600 02/16 0800 02/16 0000 Intake Total 320 450 Output Total 700 801 Balance -380 -351 Intake, IV 120 Intake, Oral 200 450 Output, Stool 1 Output, Urine 700 800 Oxygen saturation 2 L 98% exam of his chest shows diminished breath sounds are no wheezes cardiac exam shows regular S1 and S2 without murmurs Impression/Plan Impression/Plan Impression/Plan: 77-year-old gentleman with severe oxygen-dependent COPD improved after decompression of his bladder with obstructive uropathy. Recommendations: FiO2 can be tapered slow prednisone taper. Complete course of antibiotics. Patient willing to go to short-term rehabilitation with follow-up post discharge with Dr. Johnson
[2017-02-16 13:40] VITALS: BP 138/70
[2017-02-16 14:10] VITALS: BP 128/58
== END 2017-02-16 14:35 | DRG 189 ==
LOC: ERH 19:49 → ERHI 23:52 → 2NA 23:52 → ENRESERV 02-11 00:45 → 2NA 02-11 01:30 → ENPENDDIS 02-16 12:12 → 2NA 02-16 14:35
PROVIDERS: Emergency Medicine; Internal Medicine; Internal Medicine Cardiovascular Disease; ADMIT Internal Medicine
DX: J96.21 Acute and chronic respiratory failure with hypoxia (principal); N13.2 Hydronephrosis with renal and ureteral calculous obstruction; N39.0 Urinary tract infection, site not specified; J44.1 Chronic obstructive pulmonary disease with (acute) exacerbation; D64.9 Anemia, unspecified; E11.9 Type 2 diabetes mellitus without complications; R31.9 Hematuria, unspecified; Z79.84 Long term (current) use of oral hypoglycemic drugs; F17.210 Nicotine dependence, cigarettes, uncomplicated; N40.1 Benign prostatic hyperplasia with lower urinary tract symptoms; Z85.51 Personal history of malignant neoplasm of bladder; R39.15 Urgency of urination
CPT/HCPCS: 2NASP; ERO; 74177; 81001; 82436; 87086; 87088; 93005; 93010; 96361; 96374; 96375; J0131; J0696; J2405; J2920

== ENCOUNTER 2017-05-07 03:36 | Inpatient (IN) | payer OTHER, MEDICARE ==
[~2017-05-07] VITALS: Ht 190.5 cm; Wt 74.8 kg
[~2017-05-07 03:36] MED LIST: ALBUTEROL2.5 MG/3 M INH/SOL; ASPIRIN EC81 M1 PO; ATORVASTATIN CA40 M1 PO; BROVANA15 MCG/21 INH; BUDESONIDE1 MG/2 ML INH; DALIRESP500 MC1 PO; DITROPAN XL5 M1 PO; DULCOLAX5 M1 PO; FLOMAX0.4 M1 PO; HYDROCODON-ACE1 EAC3 PO; JANUVIA50 M1 PO; LEVOFLOXACIN500 M1 PO; PIOGLITAZONE HC45 M1 PO; PREDNISONE10 M2 PO; PREDNISONE5 M1 PO; SPIRIVA18 MCG INH; ZOLPIDEM TARTRA10 M1 PO
--- NOTE | 2017-05-07 03:44 | ED DYSPNEA/ASTHMA COMPLAINT ---
History of Present Illness General Chief Complaint: Dyspnea (COPD, CHF, Other) Stated Complaint: BIBA, DIFF BREATHING Source: patient Exam Limitations: clinical condition Vital Signs & Intake/Output Vital Signs & Intake/Output Vital Signs Date Time Temp Pulse Resp B/P B/P Pulse O2 O2 Flow FiO2 Mean Ox Delivery Rate 05/07 0513 100 Non 45% ReBreather 05/07 0349 98.2 111 24 101/51 100 Non 100% ReBreather Allergies Coded Allergies: crab (SOFT SHELL CRAB - FACIAL SWELLING 02/10/17) Reconcile Medications Albuterol Sulfate 2.5 MG/3 ML (0.083 %) VIAL.NEB 1 Vial INH/SHERRY BID COPD ( Reported) Arformoterol Tartrate (Brovana) 15 MCG/2 ML VIAL.NEB 1 VIAL INH BID COPD ( Reported) Aspirin (Ecotrin*) 81 MG TABLET.DR 1 TAB PO DAILY HEART/BLOOD (Reported) Atorvastatin Calcium 40 MG TABLET 1 TAB PO DAILY CHOLESTEROL (Reported) Bisacodyl (Dulcolax) 5 MG TABLET.DR 3 TAB PO QPM GI (Reported) Budesonide 1 MG/2 ML AMPUL.NEB 1 VIAL INH BID COPD (Reported) Hydrocodone/Acetaminophen (Hydrocodon-Acetaminoph 7.5-325) 7.5 MG-325 MG TABLET 1 TAB PO PRN PAIN (Reported) Oxybutynin Chloride (Ditropan XL) 5 MG TAB.ER.24 1 TAB PO DAILY INCONTINENCE (Reported) Pioglitazone HCl 45 MG TABLET 1 TAB PO DAILY DM (Reported) Prednisone 5 MG TABLET 1 TAB PO DAILY COPD (Reported) Prednisone 10 MG TABLET 0 PO TAPER copd TAPER BELOW: 4 TABS FOR 2 DAYS, 3 TABS FOR 2 DAYS, 2 TABS FOR 2 DAYS, 1 TAB FOR 2 DAYS; THEN STOP Roflumilast (Daliresp) 500 MCG TABLET 1 TAB PO DAILY COPD (Reported) Sitagliptin Phosphate (Januvia) 50 MG TABLET 1 TAB PO DAILY DM (Reported) Tamsulosin HCl (Flomax) 0.4 MG CAP.ER.24H 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 Zolpidem Tartrate 10 MG TABLET 1 TAB PO QPM SLEEP (Reported) Triage Nurses Notes Reviewed? yes Onset: Gradual Duration: hour(s): Timing: single episode today Severity: moderate Activities at Onset: none Prior Episodes/Possible Cause: occasional episodes Modifying Factors: Improves With: other (better w/ nebs). Associated Symptoms: cough, wheezing HPI: 77-year-old gentleman history of diabetes and COPD presents with several hours of cough wheezing and dyspnea. He called 911 as his dyspnea worsened. When the medics arrived they found him tripoding, cyanotic, unable to speak in complete sentences, with an O2 sat of 83%. His respiratory rate was in the 40s. He received Solu-Medrol 125 mg IV in the field as well as magnesium sulfate 2 g IV, and was placed on CPAP. Upon arrival to the emergency department, he states that he is feeling better. Past History Travel History Traveled to [facility] past 21 day No Medical History Any Pertinent Medical History? see below for history Neurological: NONE EENT: allergies Cardiovascular: AFIB Respiratory: COPD Gastrointestinal: constipation Hepatic: NONE Renal: nephrolithiasis Musculoskeletal: falls Psychiatric: NONE Endocrine: diabetes Blood Disorders: NONE Cancer(s): basal cell carcinoma RESEARCH SPEC/Reproductive: NONE History of MRSA: No History of VRE: No History of CDIFF: No Surgical History Surgical History: cataract removal, cystoscopy, N (stent placement for obstructio) Psychosocial History Who do you live with Spouse Services at Home None What is your primary language Yoruba Family History Hx Contributory? No Review of Systems Review of Systems Constitutional: Reports: no symptoms. EENTM: Reports: no symptoms. Respiratory: Reports: no symptoms. Cardiovascular: Reports: no symptoms. GI: Reports: no symptoms. Genitourinary: Reports: no symptoms. Musculoskeletal: Reports: no symptoms. Skin: Reports: no symptoms. Neurological/Psychological: Reports: no symptoms. Hematologic/Endocrine: Reports: no symptoms. Immunologic/Allergic: Reports: no symptoms. All Other Systems: Reviewed and Negative Physical Exam Physical Exam General Appearance: well developed/nourished, moderate distress Head: atraumatic, normal appearance Eyes: Bilateral: normal appearance. Ears, Nose, Throat: normal pharynx, normal ENT inspection Neck: normal inspection, supple, full range of motion Respiratory: respiratory distress, bilateral wheezing, accessory muscle use, prolonged expiratory phase. Cardiovascular: regular rate/rhythm Gastrointestinal: normal bowel sounds, soft, non-tender, no organomegaly Extremities: normal inspection Neurologic/Psych: no motor/sensory deficits, awake, alert, oriented x 3 Skin: intact, normal color, warm/dry Core Measures ACS in differential dx? No Severe Sepsis Present: No Septic Shock Present: No Progress Differential Diagnosis: asthma, bronchitis, CHF, COPD, pneumonia Plan of Care: Orders Procedure Date/time Status Nothing by Mouth 05/07 B Active Patient Data 05/07 515 Active Saline Lock 05/07 510 Active Misc Message 05/07 510 Active ED Holding Orders 05/07 510 Active Admit to inpatient 05/07 510 Active Vital Signs 05/07 510 Active Code Status 05/07 510 Active ARTERIAL BLOOD GAS (GEN) 05/07 348 Complete BLOOD CULTURE 05/07 345 Active LACTIC ACID 05/07 345 Complete BLOOD CULTURE 05/07 344 Active TROPONIN LEVEL 05/07 344 Complete COMPREHENSIVE METABOLIC PANEL 05/07 344 Complete CBC WITHOUT DIFFERENTIAL 05/07 344 Complete B-TYPE NATRIURETIC PEP (BNP) 05/07 344 Complete EKG 05/07 344 Active Laboratory Tests 05/07/17 0430: pH 7.40, pCO2 40, pO2 115 H, HCO3 24, ABG O2 Sat (Measured) 98.0, P-50 (Temp Corrected) Y, Carboxyhemoglobin 0.1 L, O2 Concentration % 45%, Temperature 98.2 , O2 Delivery Method V/M, Phlebotomy Draw Site RIGHT BRACHIAL 05/07/17334: Lactic Acid 1.9 05/07/17334: Anion Gap 12, Estimated GFR 42 L, BUN/Creatinine Ratio 18.1, Glucose 161 H, Calcium 8.6, Total Bilirubin 0.9, AST 29, ALT 31, Alkaline Phosphatase 188 H, Troponin I 0.02, Yav-S-Iiogxavnmbk Pept 872 H, Total Protein 6.1 L, Albumin 3.0 L, Globulin 3.1, Albumin/Globulin Ratio 1.0 L, CBC w Diff MAN DIFF ORDERED , RBC 4.68 L, MCV 88.2, MCH 28.6, RDW 16.1 H, MPV 7.9, Gran % 95.1 H, Lymphocytes % 3.2 L, Monocytes % 1.1 L, Eosinophils % 0.5, Basophils % 0.1, Absolute Granulocytes 20.1 H, Segmented Neutrophils 94 H, Band Neutrophils 3, Absolute Lymphocytes 0.7 L, Lymphocytes 1 L, Monocytes 2, Absolute Monocytes 0.2, Absolute Eosinophils 0.1, Absolute Basophils 0, Platelet Estimate ADEQUATE, Polychromasia 1+, Hypochromic-Microcytic 1+, Ovalocytes FEW, Elliptocytes FEW, PUBS MCHC 32.4 L, Fld Total RBCs Counted 100 Microbiology 05/07 350 BLOOD: Blood Culture - RECD 05/07 335 BLOOD: Blood Culture - RECD Diagnostic Imaging: Viewed by Me: Radiology Read. Discussed w/RAD: Radiology Read. CXR Impression: copd exacerbation... full report below Initial ED EKG: sinus tachycardia... background aberration. Comments: PATIENT: SONIDO HENRIQUEZ PRESENT AGE: 77 PATIENT ACCOUNT NO: [id number] : 39 LOCATION: [facility] ORDERING PHYSICIAN: ADELA GUARDADO MD SERVICE DATE: 05/07/17 EXAM TYPE: RAD - XRY-PORTABLE CHEST XRAY EXAMINATION: XR PORTABLE CHEST CLINICAL INFORMATION: Dyspnea COMPARISON: 02/10/2017 TECHNIQUE: Portable frontal view of the chest was obtained. FINDINGS: The lungs are hyperinflated, suspicious for underlying COPD. No focal consolidation is seen. No evidence of pneumothorax, pleural effusion, or overt pulmonary edema. Cardiac size is within normal limits. Calcification is present at the aortic arch. No acute osseous findings are seen. IMPRESSION: Hyperinflated lungs suspicious for underlying COPD. No acute findings identified. DICTATED BY: ALEXIS ARANA MD DATE/TIME DICTATED:05/07/17439 BLOWN FILM EXTRUSION OPERATOR:LORA DATE/TIME TRANSCRIBED:05/07/17439 CONFIDENTIAL, DO NOT COPY WITHOUT APPROPRIATE AUTHORIZATION. <Electronically signed in Other Vendor System> SIGNED BY: ALEXIS ARANA MD 05/07/17444 Departure Departure Disposition: STILL A PATIENT Condition: Stable Clinical Impression Primary Impression: Respiratory distress Secondary Impressions: COPD exacerbation Referrals: COURTNEY GAY MD (PCP/Family) Departure Forms: Customer Survey General Discharge Information Admission Note Spoke With: PABLITO CAMARILLO MD Documentation of Exam: Documentation of any treatments & extenuating circumstances including Concerns Regarding Discharge (functional status, medication knowledge or non-compliance, living conditions, etc.) that warrant an admission rather than observation: pt with hypoxia to 83% on room air, tachypnea, now improving after cpap/ solumedrol/magnesium in the field... pt improving, but still with 02 requirement. Pt merits 02 support, admission, iv steroinds/nebs/abx. Critical Care Note Critical Care Note Critical Care Time: 30-74 min Comments: CPAP continued in the ED for several minutes. He was successfully weaned off of CPAP to supplemental oxygen.
--- NOTE | 2017-05-07 03:45 | NUR ---
PT PLACED ON NRB AT 60%. O2 SAT REMAINS 100%. PT REPORTS "FEELING BETTER". SECOND IV EST #20 IN LAC. BLOOD OBTAINED AND SENT TO LAB -2 SETS OF CX, SST, LAV,BLUE,BUSH
--- NOTE | 2017-05-07 03:52 | NUR ---
PT BIBA C/O INCREASED DIFFICULTY BREATHING. PER EMS PT WOKE UP, WEARS 2L OF OXYGEN FOR SLEEP. UPON EMS ARRIVAL PT WAS TRIPODING, RR IN THE 40'S, GASPING FOR AIR, UPON EMS ARRIVAL PT 02 SAT IN THE 80'S. PT RECIEVED 125MG SOLUMEDROL, 2 DUO NEB TREATMENTS, 2 GRAMS OF MAGNESIUM. PT ARRIVES 100% ON C-PAP. AND RESPIRATORY AT BEDSIDE. PT SINUS TACH AT 125 ON RECORDING STUDIO SETUP WORKER.
--- NOTE | 2017-05-07 03:58 | NUR ---
RESPIRATORY THERAPY NOTE: CALLED TO ED FOR POSSIBLE BIPAP SETUP, PATIENT BIBA ON CPAP FOR INCREASED WOB & SOB, PLACED PATIENT ON 100% FIO2 VIA NRB & WENT TO RETRIEVE FFM/L INTERFACE, UPON RETURNING POX = 100% & PATIENT APPEARED MORE COMFORTABLE, FIO2 DECREASED TO 60% VIA PRB & THEN 45% VIA V/M, POX REMAINS @ 100%, ABG PENDING
--- NOTE | 2017-05-07 04:00 | NUR ---
PT PLACED ON 45% BY RESPIRATORY, CONTINUES TO READ 100% O2 SAT
[2017-05-07 04:08] LABS: ABSOLUTE BASOPHIL COUNT 0 /CUMM (0.0-0.2); ABSOLUTE EOSINOPHIL COUNT 0.1 /CUMM (0.0-0.7); ABSOLUTE GRANULOCYTE CT 20.1 /CUMM (1.4-6.5); ABSOLUTE LYMPH COUNT 0.7 /CUMM (1.2-3.4); ABSOLUTE MONOCYTE COUNT 0.2 /CUMM (0.10-0.60); BASOPHIL % 0.1 % (0.0-2.0); EOSINOPHIL % 0.5 % (0-5); GRANULOCYTE % 95.1 % (42.2-75.2); HEMATOCRIT 41.3 % (42-52); MEAN CORPUSCULAR HGB 28.6 PG (27.0-31.0); MEAN CORPUSCULAR HGB CONC 32.4 G/DL (33.0-37.0); MEAN CORPUSCULAR VOLUME 88.2 FL (80.0-94.0); MEAN PLATELET VOLUME 7.9 FL (7.4-10.4); PLATELET COUNT 238 /CUMM (130-400); RBC DISTRIBUTION WIDTH 16.1 % (11.5-14.5); RED BLOOD CELL CT 4.68 /CUMM (4.70-6.10); WHITE BLOOD CELL COUNT 21.2 /CUMM (4.8-10.8)
--- NOTE | 2017-05-07 04:14 | NUR ---
PT MEDICATED WITH 1G ROCEPHIN PER EMAR
--- NOTE | 2017-05-07 04:45 | RADIOLOGY REPORT ---
EXAMINATION: XR PORTABLE CHEST CLINICAL INFORMATION: Dyspnea COMPARISON: 02/10/2017 TECHNIQUE: Portable frontal view of the chest was obtained. FINDINGS: The lungs are hyperinflated, suspicious for underlying COPD. No focal consolidation is seen. No evidence of pneumothorax, pleural effusion, or overt pulmonary edema. Cardiac size is within normal limits. Calcification is present at the aortic arch. No acute osseous findings are seen. IMPRESSION: Hyperinflated lungs suspicious for underlying COPD. No acute findings identified.
--- NOTE | 2017-05-07 05:12 | NUR ---
PT MEDICATED WITH ZITHROMAX PER EMAR
--- NOTE | 2017-05-07 05:24 | History & Physical ---
KALANI MIGUEL MD 05/07/17 0524: General Information and HPI MD Statement: I have seen and personally examined SONIDO HENRIQUEZ and documented this H&P. The patient is a 77 year old M who presented with a patient stated chief complaint of [SOB]. Source of Information: patient, old records Exam Limitations: no limitations History of Present Illness: Pt is a 77 yo M BIBA to the ED for SOB. Pt has a pmh significant for a 90 pack year smoking hx, COPD on 2L of O2 at bedtime, DM, HLD, neprholithiasis s/p cystoscopy and stent placement, afib s/p ablation over 20 yrs ago. The pt repots that he went to bed at around 10 PM and woke up around 1230 AM (05/07/17), feeling extremely SOB. When EMS arrived they reported that the pt was tripoding, cyanotic, unable to speak in complete sentences, had a RR in the 40s, and had an O2 sat of 83%. He received solumedrol 125mg IV and mag sulfate 2g IV in the field and was placed on CPAP. He denies and chest pain, palpitation, cough, diziness, or lightheadedness while any of this was happenening, and states that by the time he reached the ED he was feeling much better. 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 spouse Services at Home: None Primary Language: Wallisian Functional Ability ADLs Independent: dressing. Ambulation: independent IADLs Independent: shopping, housework, finances, food prep, telephone, transportation , medication admin. Review of Systems Review of Systems Constitutional: Denies: chills, diaphoresis, fever. EENTM: Denies: blurred vision, visual changes, eye pain. Cardiovascular: Denies: chest pain, palpitations, syncope. Respiratory: Reports: short of breath, wheezing. Denies: cough. GI: Denies: abdominal pain, melena, nausea, bloody stool, vomiting. Genitourinary: Denies: dysuria, hematuria. Exam & Diagnostic Data Last 24 Hrs of Vital Signs/I&O Vital Signs Date Time Temp Pulse Resp B/P B/P Pulse O2 O2 Flow FiO2 Mean Ox Delivery Rate 05/07 0513 100 Non 45% ReBreather 05/07 0349 98.2 111 24 101/51 100 Non 100% ReBreather Intake & Output 05/07 0800 05/07 0000 05/06 1600 Intake Total 300 Output Total Balance 300 Intake, IV 300 Patient 135 lb Weight Weight Estimated Measurement Method Physical Exam General Appearance Alert, Oriented X3, Cooperative, No Acute Distress Skin No Rashes, No Breakdown, No Significant Lesion Skin Temp/Moisture Exam: Warm/Dry Sepsis Skin Exam (color): Normal for Ethnicity HEENT Atraumatic, PERRLA, EOMI, Mucous Membr. moist/pink Neck Supple, No LAD Cardiovascular Regular Rate, Normal S1, Normal S2, No Murmurs Lungs Clear to Auscultation, on nonrebreather mask, pt is using accessory muscles to breath Abdomen Normal Bowel Sounds, Soft, No Hepatospenomegaly, No Masses, mild ttp RUQ , negative mitchell's sign Neurological Normal Speech, Strength at 5/5 X4 Ext, Cranial Nerves 3-12 NL Extremities No Clubbing, No Cyanosis, No Edema, Normal Pulses, No Tenderness/ Swelling Vascular Normal Pulses, Pulses Symmetrical Sepsis Peripheral Pulse Location: Dorsalis Pedis Sepsis Peripheral Pulse Exam: Normal Sepsis Cap Refill Exam: <2 Sec Diagnostic Data EKG Results sinus tachycardia: 124 CXR Results Hyperinflated lungs suspicious for underlying COPD. No acute findings identified. Assessment/Plan Assessment: Pt is a 77 yo M BIBA to the ED for SOB. Pt has a pmh significant for a 90 pack year smoking hx, COPD on 2L of O2 at bedtime, DM, HLD, neprholithiasis s/p cystoscopy and stent placement, afib s/p ablation over 20 yrs ago. Treated with solumedrol 125mg IV and mag sulfate 2g IV in the field and was placed on CPAP. In the ED he was given IV rocephin and Zithromax. #acute COPD exacerbation ekg with sinus tachycardia makes ACS unlikely - admit to gen med - consult Pulm, Dr. Munguia - fu EKG and trop - trc/nebs - c/w IV azithromycin, solumedrol and rocephin - gentle IVF hydration #DM - [place] sliding scale - Diabetic diet #HLD - c/w lipitor #DVT prophylaxis - lovenox #code status full code As Ranked By This Provider Problem List: 1. COPD exacerbation Core Measures/Miscellaneous Acute Coronary Syndrome ACS Diagnosis: No Cerebrovascular Accident CVA/TIA Diagnosis: No Congestive Heart Failure CHF Diagnosis: No VTE (View Protocol) VTE Risk Factors: Age > 40, Smoking No Mech VTE prophylaxis d/t: No contraindications No VTE Pharm Prophylaxis d/t: No contraindications VTE Diagnosis: No VTE Type: NONE VTE Confirmed by (Test): NONE Sepsis (View Protocol) Severe Sepsis Present: No Septic Shock Septic Shock Present: No Miscellaneous Documentation Attending Case Discussed With: PABLITO CAMARILLO MD Primary Care Physician: COURTNEY GAY MD Patient sees these Specialists Dr. Johnson Level of Patient Care: General Medicine JASSI LEAL,DUSTIN 05/07/17 0632: Resident Review Statement Resident Statement: examined this patient, discussed with international organizer, agreed with international organizer, reviewed EMR data (avail), discussed with nursing, reviewed images Other Findings: 77-year-old male with past medical history of COPD on 2 L oxygen at home and 5 mg oral prednisone daily, actively smoking until 2 weeks ago 2 packs per day (60 +pack year history), diabetes mellitus type 2, hypertension, hyperlipidemia, history of atrial fibrillation status post ablation (>20 yrs ago) now in sinus rhythm, was brought in by ambulance after waking up this morning at 0030 hrs with complaints of shortness of breath. According to the EMS, he was unable to speak in full sentences and was in severe respiratory distress, tripoding, cyanotic, with oxygen saturation at 83% with RR in 40s. On route he was given oxygen, IV Solu-Medrol 125 mg, IV magnesium sulfate 2 g, and was placed on CPAP. In the ED, ABG was done which shows pH 7.4, pCo2 40, pO2 115, HCO3 24, sat 98%, while on O2 conc 45% via non-rebreather mask, temp 98.2 F. Patient's respiratory status had significantly improved in the ED, and during the course of interview he was able to speak in full sentences while on the mask, and seemed very comfortable. Of note, he was hospitalized 3 times in last 12 months, last one being in February, he has never been intubated or admitted in the ICU, and follows Melissa Johnson MD for pulmonary disease. On physical examination, he was comfortable, alert, oriented, speaking in full sentences, not in respiratory distress, no JVD, moist mucous membranes, barrel shaped chest, bilateral breath sounds heard equally, no wheeze was audible over lung cash, regular heart sounds appreciated, no murmur present, no leg swelling, and rest of examination was within normal limit. His EKG showed sinus tachycardia at 126, T-wave morphology was typical suggestive of ectopic foci, but was regular, WI 124, QRS 82, QTC 452, no ST-T changes. Laboratory value was significant for leukocytosis at 21.2 with 95% granulocytes, BUN/creatinine 29/1.6 baseline is 0.8, estimated GFR 42, trop 0.02 , proBNP 872, albumin 3.0, and rest of the lab values were within normal limit. Chest x-ray showed hyperinflated lungs suspicious for underlying COPD and no acute findings. He is currently being admitted in the general medical floor for management of following issues: #Acute exacerbation of COPD Patient's history along with acute development of symptoms is suggestive of AE of COPD. Although other differentials need to be ruled out as well. * Admit in general medical floor * Regular vitals and saturation monitoring * I&O charting * TRC nebulizations, to maintain saturation above 90% * Continue Roflumilast 500 g daily for COPD * IV ceftriaxone and IV azithromycin, considering infective cause of acute exacerbation * Follow blood culture, sputum culture, urinary legionella and strep antigens * IV Solu-Medrol 40 mg every 8 hours for now * Please consult Dr. Mago Johnson, which is his vending machine refiller * To rule out ACS, please follow-up troponin and EKG at 9:30 AM #VITALIY * Gentle hydration at 75 mL per hour, 1 L for now. * BladderScan to assess any obstruction/urinary retention * Renal ultrasound * Avoid nephrotoxic drugs #Diabetes mellitus Holding patient's home medication of pioglitazone and sitagliptin. Her CBC in BEP or near or very close to normal limits. Him on low-dose insulin sliding scale for now, and Accu-Cheks 3 times a day before meals and at bedtime. The need for long-acting insulin can be assessed after looking at his initial few glucose levels. #Will continue home meds, statin, oxybutinin, tamsulosin. #ASA was held since 3 weeks by Urologist for Hematuria. Need to reassess the situation to continue. #Patient doesn't take Bisacodyl anymore, so not continuing it. #Diet: Diabetic diet, consisting carbohydrate #DVT prophylaxis: subcutaneous heparin #CODE STATUS: full code PABLO LEAL,RENEE 05/07/17 1410: General Information and HPI Allergies/Medications Home Med list Albuterol Sulfate 2.5 MG/3 ML (0.083 %) VIAL.NEB 1 Vial INH/SHERRY BID COPD ( Reported) Arformoterol Tartrate (Brovana) 15 MCG/2 ML VIAL.NEB 1 VIAL INH BID COPD ( Reported) Atorvastatin Calcium 40 MG TABLET 1 TAB PO DAILY CHOLESTEROL (Reported) Bisacodyl (Dulcolax) 5 MG TABLET.DR 3 TAB PO QPM GI (Reported) Budesonide 1 MG/2 ML AMPUL.NEB 1 VIAL INH BID COPD (Reported) Hydrocodone/Acetaminophen (Hydrocodon-Acetaminoph 7.5-325) 7.5 MG-325 MG TABLET 1 TAB PO PRN PAIN (Reported) Oxybutynin Chloride (Ditropan XL) 5 MG TAB.ER.24 1 TAB PO DAILY INCONTINENCE (Reported) Pioglitazone HCl 45 MG TABLET 1 TAB PO DAILY DM (Reported) Prednisone 5 MG TABLET 1 TAB PO DAILY COPD (Reported) Prednisone 10 MG TABLET 0 PO TAPER copd TAPER BELOW: 4 TABS FOR 2 DAYS, 3 TABS FOR 2 DAYS, 2 TABS FOR 2 DAYS, 1 TAB FOR 2 DAYS; THEN STOP Prednisone 20 MG TABLET 1 TAB PO SEE ADMIN CRITERIA COPD Roflumilast (Daliresp) 500 MCG TABLET 1 TAB PO DAILY COPD (Reported) Sitagliptin Phosphate (Januvia) 50 MG TABLET 1 TAB PO DAILY DM (Reported) Tamsulosin HCl (Flomax) 0.4 MG CAP.ER.24H 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 Zolpidem Tartrate 10 MG TABLET 1 TAB PO QPM SLEEP (Reported) Attending MD Review Statement Attending Statement Attending MD Statement: examined this patient, discuss w/resident/PA/MARIONETTE PERFORMER, agreed w/resident/PA/MARIONETTE PERFORMER, reviewed EMR data (avail), discussed with nursing, reviewed images, amended to note Attending Assessment/Plan: 77-year-old male with past medical history significant for COPD on 2L of O2 at bedtime, DM, HLD, neprholithiasis s/p cystoscopy and stent placement, afib s/p ablation over 20 yrs ago, chronic resp failure, presented with increasing shortness of breath that started last night. He went to bed okay last night but then in the middle of the night he woke up feeling very short of breath. Patient uses breathing treatments with no effect. He called EMS and then arrived he was tripoding and was unable to speak in full sentences. Enroute to the emergency room, patient received IV steroids and magnesium. Patient denies having any fevers or chills. He denies any colored sputum production. Currently he is feeling much better. Chest x-ray negative for any infiltrate. Vital Signs Date Time Temp Pulse Resp B/P B/P Pulse O2 O2 Flow FiO2 Mean Ox Delivery Rate 05/07 0952 97.7 86 20 110/50 99 Venti Mask 45% 05/07 0930 96 Venti Mask 45% 05/07 0835 98.2 82 20 114/68 99 Venti Mask 45% 05/07 0712 84 22 111/61 98 Venti Mask 05/07 0513 100 Non 45% ReBreather 05/07 0349 98.2 111 24 101/51 100 Non 100% ReBreather on exam; aox3, nad. cv; s1,s2 rrr resp; decreased bs overall. abd; soft, nt, bs+ ext; no edema Laboratory Tests 05/07 05/07 05/07 05/07 0659 0645 0430 0335 Blood Gas pH (7.35 - 7.45 PH) 7.40 pCO2 (35 - 45 TORR) 40 pO2 (80 - 100 TORR) 115 H HCO3 (21 - 28 MEQ/L) 24 ABG O2 Sat (Measured) (>96.0 %) 98.0 P-50 (Temp Corrected) Y Carboxyhemoglobin (1.5 - 5.0 %) 0.1 L O2 Concentration % 45% Temperature (97.0 - 100.0 FARH) 98.2 O2 Delivery Method V/M Chemistry Lactic Acid (0.7 - 2.1 mmol/L) Cancelled 1.9 Troponin I (<0.11 ng/ml) 0.02 Miscellaneous Phlebotomy Draw Site RIGHT BRACHIAL 05/07 033 Chemistry Sodium (137 - 145 mmol/L) 139 Potassium (3.5 - 5.1 mmol/L) 3.8 Chloride (98 - 107 mmol/L) 100 Carbon Dioxide (22 - 30 mmol/L) 27 Anion Gap (5 - 16) 12 BUN (9 - 20 mg/dL) 29 H Creatinine (0.7 - 1.2 mg/dL) 1.6 H Estimated GFR (>60 ml/min) 42 L BUN/Creatinine Ratio (7 - 25 %) 18.1 Glucose (65 - 99 mg/dL) 161 H Calcium (8.4 - 10.2 mg/dL) 8.6 Total Bilirubin (0.2 - 1.3 mg/dL) 0.9 AST (17 - 59 U/L) 29 ALT (21 - 72 U/L) 31 Alkaline Phosphatase (< 127 U/L) 188 H Troponin I (<0.11 ng/ml) 0.02 Hot-O-Vyuvmxdwirp Pept (<125 pg/mL) 872 H Total Protein (6.3 - 8.2 g/dL) 6.1 L Albumin (3.5 - 5.0 g/dL) 3.0 L Globulin (1.9 - 4.2 gm/dL) 3.1 Albumin/Globulin Ratio (1.1 - 2.2 %) 1.0 L Hematology CBC w Diff MAN DIFF ORDERED WBC (4.8 - 10.8 /CUMM) 21.2 H RBC (4.70 - 6.10 /CUMM) 4.68 L Hgb (14.0 - 18.0 G/DL) 13.4 L Hct (42 - 52 %) 41.3 L MCV (80.0 - 94.0 FL) 88.2 MCH (27.0 - 31.0 PG) 28.6 RDW (11.5 - 14.5 %) 16.1 H Plt Count (130 - 400 /CUMM) 238 MPV (7.4 - 10.4 FL) 7.9 Gran % (42.2 - 75.2 %) 95.1 H Lymphocytes % (20.5 - 51.1 %) 3.2 L Monocytes % (1.7 - 9.3 %) 1.1 L Eosinophils % (0 - 5 %) 0.5 Basophils % (0.0 - 2.0 %) 0.1 Absolute Granulocytes (1.4 - 6.5 /CUMM) 20.1 H Segmented Neutrophils (42.2 - 75.2 %) 94 H Band Neutrophils (0.0 - 5.0 %) 3 Absolute Lymphocytes (1.2 - 3.4 /CUMM) 0.7 L Lymphocytes (20.5 - 51.1 %) 1 L Monocytes (1.7 - 9.3 %) 2 Absolute Monocytes (0.10 - 0.60 /CUMM) 0.2 Absolute Eosinophils (0.0 - 0.7 /CUMM) 0.1 Absolute Basophils (0.0 - 0.2 /CUMM) 0 Platelet Estimate (ADEQUATE) ADEQUATE Polychromasia 1+ Hypochromic-Microcytic 1+ Ovalocytes FEW Elliptocytes FEW PUBS MCHC (33.0 - 37.0 G/DL) 32.4 L Other Body Source Fld Total RBCs Counted (%) 100 CXR: IMPRESSION: Hyperinflated lungs suspicious for underlying COPD. No acute findings identified. Renal US: IMPRESSION: 1. Persistent mild left-sided hydronephrosis, most prominently affecting the lower pole calyces. Associated multiple calculi are seen in the lower pole of the left kidney. 2. Previously seen right-sided hydronephrosis has resolved. 3. Bilateral renal cysts. 4. Bladder calculi. 5. Enlarged and heterogeneous prostate gland. A/P; 77-year-old male with past medical history significant for COPD on 2L of O2 at bedtime, DM, HLD, neprholithiasis s/p cystoscopy and stent placement, afib s/ p ablation over 20 yrs ago, chronic resp failure, admitted with acute COPD exacerbation and acute bronchitis. Patient denies any urinary symptoms. Urinalysis is pending. Patient admitted to medicine floor. Will continue IV steroids, azithromycin TRC nebs. We'll follow-up on urinalysis. Pulm consult with Dr. Johnson. Continue the rest of the home medications and inhalers. DVT prophylaxis: Heparin subcutaneous. full code.
--- NOTE | 2017-05-07 05:52 | NUR ---
HOUSE STAFF AT BEDSIDE FOR PT EVAL
--- NOTE | 2017-05-07 06:15 | NUR ---
PT ASLEEP AT THIS TIME W/RR NOTED. NO COMPLAINTS OF SOB AT THIS TIME. PT REMAINS NSR ON BENCH ASSEMBLER BATTERY. 02 SAT 99% ON 45% MASK. WILL CTM.
--- NOTE | 2017-05-07 07:04 | NUR ---
REPEAT TROPONIN OBTAINED AND SENT TO LAB
--- NOTE | 2017-05-07 07:11 | NUR ---
PT MEDICATED WITH NS INFUSING PER EMAR
--- NOTE | 2017-05-07 07:22 | NUR ---
DIETARY CALLED FOR STAT CONSISTENT CARB 3 DIET
--- NOTE | 2017-05-07 08:36 | NUR ---
PT GIVEN BREAKFAST TRAY AND MEDICATED WITH I UNIT INSULIN DOCUMENTED
--- NOTE | 2017-05-07 09:02 | PN- Housestaff ---
Subjective Follow-up For: COPD exacerbation Subjective: I have seen and examined the patient. The patient was in ED lying in the bed watching television. He just had breakfast. He does not have any current complaints. He denies any fever, chest pain, palpitations. He wanted to know when you will be shifted upstairs to the medical floor. Review of Systems Constitutional: Denies: chills, fever, malaise. Cardiovascular: Denies: chest pain, palpitations. Gastrointestinal: Reports: no symptoms. Genitourinary: Reports: no symptoms. Objective Last 24 Hrs of Vital Signs/I&O Vital Signs Date Time Temp Pulse Resp B/P B/P Pulse O2 O2 Flow FiO2 Mean Ox Delivery Rate 05/07 0952 97.7 86 20 110/50 99 Venti Mask 45% 05/07 0930 96 Venti Mask 45% 05/07 0835 98.2 82 20 114/68 99 Venti Mask 45% 05/07 0712 84 22 111/61 98 Venti Mask 05/07 0513 100 Non 45% ReBreather 05/07 0349 98.2 111 24 101/51 100 Non 100% ReBreather Intake & Output 05/07 1600 05/07 0800 05/07 0000 Intake Total 300 Output Total Balance 300 Intake, IV 300 Patient 165 lb 135 lb Weight Weight Reported by Patient Estimated Measurement Method Physical Exam General Appearance: Alert, Oriented X3, Cooperative Skin: No Rashes, No Breakdown HEENT: Atraumatic Cardiovascular: Normal S1, Normal S2, No Murmurs Lungs: Clear to Auscultation, Normal Air Movement, barrel chest, decreased breath sounds no wheezing Abdomen: Normal Bowel Sounds, Soft, No Tenderness Neurological: Normal Speech Assessment/Plan Assessment: Assesment Pt is a 77 yo who presented the ED for SOB. Pt has a pmh significant for a 90 pack year smoking hx, COPD on 2L of O2 at bedtime, DM, HLD, neprholithiasis s/p cystoscopy and stent placement, afib s/p ablation over 20 yrs ago. Treated with solumedrol 125mg IV and mag sulfate 2g IV in the field and was placed on CPAP. ED workup Vitals 98.2, 101, 24, 101/51,100 Nonbreather Laboratory value was significant for leukocytosis at 21.2 with 95% granulocytes, BUN/creatinine 29/1.6 baseline is 0.8, estimated GFR 42, trop 0.02, proBNP 872, albumin 3.0, and rest of the lab values were within normal limit. Trops negative Chest x-ray showed hyperinflated lungs suspicious for underlying COPD and no acute findings. EKG showed sinus tachycardia at 126, T-wave morphology was typical suggestive of ectopic foci, but was regular, MA 124, QRS 82, QTC 452, no ST-T changes Plan: Acute exacerbation of COPD Patient's history along with acute development of symptoms is suggestive of AE of COPD. * TRC nebulizations, to maintain saturation above 90% * Continue Roflumilast 500 g daily for COPD * Discontinue IV ceftriaxone * Continue IV azithromycin * IV Solu-Medrol 40 mg every 8 hours for now, will shift to PO prednisone tomorrow * Consult placed with Dr. Mago Johnson awaiting recommendations * Blood culture, sputum culture, urinary legionella and strep antigens pending Increassed BUN n Cr patient came with BUN of 29 and creatinine of 1.6. His baseline is 0.9 * Renal U/s Persistent mild left-sided hydronephrosis, most prominently affecting the lower pole calyces. Associated multiple calculi are seen in the lower pole of the left kidney.Previously seen right-sided hydronephrosis has resolved.Bilateral renal cysts.Bladder calculi. Enlarged and heterogeneous prostate gland. * Will consider Uro consult tomorrow * Monitor BEP * Avoid nephrotoxic drugs * Gentle IV hydration NS 75ml/h 1 bag Diabetes mellitus Holding patient's home medication of pioglitazone and sitagliptin. His glucose in bep is very close to normal limits. * Low-dose insulin sliding scale for now * Accu-Cheks 3 times a day before meals and at bedtime. * The need for long-acting insulin can be assessed after looking at his initial few glucose levels. Hyperlipidemia * Continue lipitor Continue home medication * Continue oxybutinin * Continue tamsulosin. * ASA was held since 3 weeks by Urologist for Hematuria. Need to reassess the situation to continue. Problem List: 1. COPD exacerbation Pain Ratin Pain Location: none Pain Goal: Pain 4 or less Pain Plan: none Tomorrow's Labs & Rationales: cbc bep DVT/Prophylaxis: pharmacological, lovenox
[2017-05-07 09:52] VITALS: BP 110/50
--- NOTE | 2017-05-07 11:07 | ULTRASOUND REPORT ---
EXAMINATION: US RETROPERITONEAL COMPLETE (RENAL) CLINICAL INFORMATION: Acute kidney insufficiency. Rule out obstruction or kidney pathology. COMPARISON: CT scan of the abdomen and pelvis dated 02/10/2017. Renal ultrasound dated 12/10/2016. TECHNIQUE: Real-time imaging of the kidneys and bladder. FINDINGS: RIGHT KIDNEY: 13.9 x 7.1 x 6.5 cm (SAG x AP x TRV). The kidney is normal in size, contour, and echogenicity. Renal cortical thickness is normal. No calculi or suspicious focal parenchymal lesions. There is a partially exophytic 2.0 x 1.6 x 1.7 cm simple cyst in the lower pole of the right kidney. As seen on the CT scan, there is moderate right-sided hydronephrosis with dilatation of the renal collecting system, renal pelvis and proximal right ureter. The previously seen proximal right ureteral stone is not appreciated on this ultrasound. LEFT KIDNEY: 15.3 x 5.7 x 5.4 cm (SAG x AP x TRV). The kidney is normal in size, contour, and echogenicity. Renal cortical thickness is normal. No calculi or suspicious focal parenchymal lesions. There is persistent mild left-sided hydronephrosis, most marked in the lower pole. There is a 1.8 x 1.6 x 1.9 cm simple cyst in the mid left kidney, similar to prior exam. In the lower pole of the left kidney, a 4.2 x 2.1 x 3.4 cm cystic mass is seen, which when reviewing the prior ultrasound and CT scan is most consistent with a dilated collecting system rather than a parapelvic cyst. There are several calcifications seen in the lower pole of the left kidney, measuring 0.8, 0.9, and 1.3 cm in size, corresponding to the multiple calcifications seen on CT scan. Other calcifications seen in the mid left kidney on CT scan are less well appreciated on ultrasound. Also the left double-J ureteral stent seen on prior CT scan is not definitely visualized today on ultrasound. BLADDER: Well-distended. There are several echogenic layering foci seen within the dependent portions of the bladder with associated shadowing, consistent with multiple bladder calculi. Largest of these calculi is in the right side of the bladder base, measuring 1.5 cm in diameter. Bilateral ureteral jets are demonstrated. Prevoid and postvoid bladder volumes are not assessed. PROSTATE GLAND: Heterogeneous, mildly enlarged, measuring 5.5 x 4.3 x 5.3 cm. Prostate gland impresses upon the bladder base. IMPRESSION: 1. Persistent mild left-sided hydronephrosis, most prominently affecting the lower pole calyces. Associated multiple calculi are seen in the lower pole of the left kidney. 2. Previously seen right-sided hydronephrosis has resolved. 3. Bilateral renal cysts. 4. Bladder calculi. 5. Enlarged and heterogeneous prostate gland.
[2017-05-07 15:07] VITALS: BP 110/50
--- NOTE | 2017-05-07 20:49 | NUR ---
INFORMED BY PT THAT HE HAD JUST STARTED TAKING LINZESS AT HOME FOR CONSTIPATION WITH GOOD RESULTS AND IS REQUESTING FOR IT TO BE STARTED HERE. PT IS UNSURE OF THE DOSAGE BUT SAYS HE CAN GET INFORMATION FROM HIS . TEXT SENT TO [employer] SUPERVISOR KALANI MIGUEL.
[2017-05-07 22:36] VITALS: BP 108/54
[2017-05-08 06:55] VITALS: BP 100/60
--- NOTE | 2017-05-08 07:36 | PN- Housestaff ---
See Addendum Subjective Follow-up For: COPD exacerbation Increased creatinine and BUN Subjective: I have seen and examined the patient. The patient was lying comfortably in bed and watching television. He feels that he is improving. He still complains of cough and sometimes gets short of breath. He follows up with Melissa Johnson MD for his COPD. He hasn't had a bowel movement yet. There are no problems with urination. There are no urinary symptoms. There is no fever chest pain or palpitations. There were no overnight acute events. Review of Systems Constitutional: Denies: diaphoresis, fever. Respiratory: Reports: cough, short of breath. Gastrointestinal: Denies: constipation. Genitourinary: Reports: no symptoms. Objective Last 24 Hrs of Vital Signs/I&O Vital Signs Date Time Temp Pulse Resp B/P B/P Pulse O2 O2 Flow FiO2 Mean Ox Delivery Rate 05/08 0846 98 Nasal 2.0L Cannula 05/08 0655 97.8 82 20 100/60 93 Nasal 4.0L Cannula 05/08 0000 Nasal 2.0L Cannula 05/07 2351 Nasal 2.0L Cannula 05/07 2236 97.5 68 20 108/54 95 Nasal 2.0L Cannula 05/07 1507 98.1 90 20 110/50 97 Room Air 05/07 1455 82 108/62 Intake & Output 05/08 1600 05/08 0800 05/08 0000 Intake Total 600 600 Output Total 300 300 Balance 300 300 Intake, IV 600 600 Output, Urine 300 300 Physical Exam General Appearance: Alert, Oriented X3, Cooperative, No Acute Distress Skin: No Rashes, No Breakdown Neck: No JVD Cardiovascular: Normal S1, Normal S2, No Murmurs, barrell chest, barrel chest, decreased breath sounds no wheezing Lungs: Clear to Auscultation, Normal Air Movement, barrel chest, decreased breath sounds no wheezing Abdomen: Normal Bowel Sounds, Soft, No Tenderness Neurological: Normal Speech Current Medications: Current Medications Sig/Camille Start time Last Medication Dose Route Stop Time Status Admin Albuterol Sulfate 3 ML TID 05/08 1000 AC 05/08 INH 0843 Atorvastatin Calcium 40 MG DAILY 05/07 1000 05/07 PO 1453 Azithromycin 500 MG 0400 05/08 0400 AC 05/08 Sodium Chloride 250 ML IV 0413 Ceftriaxone Sodium 1,000 MG 05/08 0400 CAN IV Heparin Sodium 5,000 UNIT Q8 05/07 0600 AC 05/08 (Porcine) SC 0609 Insulin Aspart 0 TIDAC 05/07 0800 AC 05/08 SC 0820 Ipratropium Bradley 2.5 ML TID 05/08 1000 AC 05/08 INH 0843 Methylprednisolone 40 MG Q8 05/07 1400 AC 05/08 IV 0609 Oxybutynin Chloride 5 MG BID 05/07 1000 AC 05/07 PO 2154 Roflumilast 500 MCG DAILY 05/07 1000 AC 05/07 PO 1455 Sitagliptin Phosphate 50 MG DAILY 05/08 1037 AC PO Sodium Chloride 1,000 ML Q13H 05/07 1545 DC 05/07 IV 05/08 0444 1751 Sodium Chloride 1,000 ML .[id number] 05/07 0545 DC 05/07 IV 05/07 1940 0712 Tamsulosin HCl 0.4 MG DAILY 05/07 1000 AC 05/07 PO 1455 Trazodone HCl 50 MG .STK-MED ONE 05/07 2326 DC PO 05/07 2327 Trazodone HCl 12.5 MG AT BEDTIME 05/07 2230 AC PO Last 24 Hrs of Lab/Arsenio Results Last 24 Hrs of Labs/Mics: Laboratory Tests 05/08/17 0740: Anion Gap 8, Estimated GFR 39 L, BUN/Creatinine Ratio 25.9 H, CBC w Diff NO MAN DIFF REQ, RBC 4.12 L, MCV 87.2, MCH 28.8, RDW 16.0 H, MPV 8.3, Gran % 96.1 H, Lymphocytes % 1.7 L, Monocytes % 1.2 L, Eosinophils % 1.0, Basophils % 0 L, Absolute Granulocytes 19.5 H, Absolute Lymphocytes 0.3 L, Absolute Monocytes 0.2, Absolute Eosinophils 0.2, Absolute Basophils 0, PUBS MCHC 33.0 Assessment/Plan Assessment: Assesment Pt is a 77 yo who presented the ED for SOB. Pt has a pmh significant for a 90 pack year smoking hx, COPD on 2L of O2 at bedtime, DM, HLD, neprholithiasis s/p cystoscopy and stent placement, afib s/p ablation over 20 yrs ago. Treated with solumedrol 125mg IV and mag sulfate 2g IV in the field and was placed on CPAP. ED workup Vitals 98.2, 101, 24, 101/51,100 Nonbreather Laboratory value was significant for leukocytosis at 21.2 with 95% granulocytes, BUN/creatinine 29/1.6 baseline is 0.8, estimated GFR 42, trop 0.02, proBNP 872, albumin 3.0, and rest of the lab values were within normal limit. Trops negative Chest x-ray showed hyperinflated lungs suspicious for underlying COPD and no acute findings. EKG showed sinus tachycardia at 126, T-wave morphology was typical suggestive of ectopic foci, but was regular, NM 124, QRS 82, QTC 452, no ST-T changes Plan: Acute exacerbation of COPD Patient's history along with acute development of symptoms is suggestive of AE of COPD. * TRC nebulizations, to maintain saturation above 90% * Continue Roflumilast 500 g daily for COPD * Continue IV azithromycin 2/5 day * IV Solu-Medrol 40 mg every 8 hours for now * Appreciate Dr. Mago Johnson recommendations * Incentive spirometry. * Blood culture, sputum culture, urinary legionella and strep antigens pending Nephrolithiasis with Bilateral hydronephrosis. Patient has history of bilateral hydronephrosis with nephrolithiasis. He came with BUN of 29 and creatinine of 1.6. His baseline is 0.9 * Renal U/s Persistent mild left-sided hydronephrosis, most prominently affecting the lower pole calyces. Associated multiple calculi are seen in the lower pole of the left kidney.Previously seen right-sided hydronephrosis has resolved.Bilateral renal cysts.Bladder calculi. Enlarged and heterogeneous prostate gland. * Urology consult has been placed. Awaiting the recommendation. * CT abdomen pelvis without contrast order placed * Avoid nephrotoxic drugs * Cr was increased to 1.7 BUN has increased to 44 * Monitor BEP * ASA was held since 3 weeks by Urologist for Hematuria Diabetes mellitus Holding patient's home medication of pioglitazone and sitagliptin. His most recent fingerstick glucose is 249. Note patient is on IV Solu-Medrol Q8 * Insulin sliding scale for now * Accu-Cheks 3 times a day before meals and at bedtime. * We have started patient on home dose of Januvia 50 MG po daily Hyperlipidemia * Continue lipitor Continue home medication * Continue oxybutinin * Continue tamsulosin. Problem List: 1. COPD exacerbation Pain Ratin Pain Location: none Pain Goal: Pain 4 or less Pain Plan: none Tomorrow's Labs & Rationales: cbc bep bep
[2017-05-08 08:19] LABS: ABSOLUTE BASOPHIL COUNT 0 /CUMM (0.0-0.2); ABSOLUTE LYMPH COUNT 0.3 /CUMM (1.2-3.4); BASOPHIL % 0 % (0.0-2.0); MEAN PLATELET VOLUME 8.3 FL (7.4-10.4)
--- NOTE | 2017-05-08 08:23 | Cons- Pulmonary ---
General Information and HPI Consulting Request Date of Consult: 05/07/17 Requested By: Dr. Mckinley Reason for Consult: AECOPD Source of Information: patient, old records Exam Limitations: no limitations History of Present Illness: The patient is a 77-year-old male well-known to me from previous outpatient visits and hospitalizations. The patient has a long history of COPD, and a 90 year pack history of smoking. He is oxygen dependent. The patient also has a history of diabetes, hyperlipidemia, nephrolithiasis with bilateral hydro- nephrosis, and atrial fibrillation status post ablation over 20 years ago. The patient called 911 after he experienced increased shortness of breath, chest congestion and sputum production. When EMS arrived, the patient was tripoding, cyanotic and unable to speak in complete sentences. His respiratory rate was in the 40s with an oxygen saturation of 83%. The patient was given IV Solu-Medrol 125 mg as well as magnesium sulfate and placed on nasal CPAP. The patient has significantly improved since that point, noting he is less short of breath and is feeling better overall. He denies any fever, chills, chest pain, nausea or vomiting. He continues to have dyspnea with any significant exertion. There are no other events reported. Allergies/Medications Allergies: Coded Allergies: crab (SOFT SHELL CRAB - FACIAL SWELLING 02/10/17) Home Med List: Albuterol Sulfate 2.5 MG/3 ML (0.083 %) VIAL.NEB 1 Vial INH/SHERRY BID COPD ( Reported) Arformoterol Tartrate (Brovana) 15 MCG/2 ML VIAL.NEB 1 VIAL INH BID COPD ( Reported) Aspirin (Ecotrin*) 81 MG TABLET.DR 1 TAB PO DAILY HEART/BLOOD (Reported) Atorvastatin Calcium 40 MG TABLET 1 TAB PO DAILY CHOLESTEROL (Reported) Bisacodyl (Dulcolax) 5 MG TABLET.DR 3 TAB PO QPM GI (Reported) Budesonide 1 MG/2 ML AMPUL.NEB 1 VIAL INH BID COPD (Reported) Hydrocodone/Acetaminophen (Hydrocodon-Acetaminoph 7.5-325) 7.5 MG-325 MG TABLET 1 TAB PO PRN PAIN (Reported) Oxybutynin Chloride (Ditropan XL) 5 MG TAB.ER.24 1 TAB PO DAILY INCONTINENCE (Reported) Pioglitazone HCl 45 MG TABLET 1 TAB PO DAILY DM (Reported) Prednisone 5 MG TABLET 1 TAB PO DAILY COPD (Reported) Prednisone 10 MG TABLET 0 PO TAPER copd TAPER BELOW: 4 TABS FOR 2 DAYS, 3 TABS FOR 2 DAYS, 2 TABS FOR 2 DAYS, 1 TAB FOR 2 DAYS; THEN STOP Roflumilast (Daliresp) 500 MCG TABLET 1 TAB PO DAILY COPD (Reported) Sitagliptin Phosphate (Januvia) 50 MG TABLET 1 TAB PO DAILY DM (Reported) Tamsulosin HCl (Flomax) 0.4 MG CAP.ER.24H 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 Zolpidem Tartrate 10 MG TABLET 1 TAB PO QPM SLEEP (Reported) Review of Systems Review of Systems All Other Systems: Reviewed and Negative Past History Travel History Traveled to [place] past 21 day No Medical History Neurological: NONE EENT: allergies Cardiovascular: AFIB Respiratory: COPD Gastrointestinal: constipation Hepatic: NONE Renal: nephrolithiasis Musculoskeletal: falls Psychiatric: NONE Endocrine: diabetes Blood Disorders: NONE Cancer(s): basal cell carcinoma FINANCE ASSISTANT/Reproductive: NONE Surgical History Surgical History: none (stent placement for obstructio), cataract removal, cystoscopy Psychosocial History Who Do You Live With? spouse Services at Home: None Primary Language: Indonesian Smoking Status: Current Everyday Smoker Functional Ability ADLs Independent: dressing. Ambulation: independent IADLs Independent: shopping, housework, finances, food prep, telephone, transportation , medication admin. Exam & Diagnostic Data Last 24 Hrs of Vital Signs/I&O Vital Signs Date Time Temp Pulse Resp B/P B/P Pulse O2 O2 Flow FiO2 Mean Ox Delivery Rate 05/08 0655 97.8 82 20 100/60 93 Nasal 4.0L Cannula 05/08 0000 Nasal 2.0L Cannula 05/07 2351 Nasal 2.0L Cannula 05/07 2236 97.5 68 20 108/54 95 Nasal 2.0L Cannula 05/07 1507 98.1 90 20 110/50 97 Room Air 05/07 1455 82 108/62 05/07 0952 97.7 86 20 110/50 99 Venti Mask 45% 05/07 0930 96 Venti Mask 45% 05/07 0835 98.2 82 20 114/68 99 Venti Mask 45% Intake & Output 05/08 1600 05/08 0800 05/08 0000 Intake Total 600 600 Output Total 300 300 Balance 300 300 Intake, IV 600 600 Output, Urine 300 300 Physical Exam General Appearance: no apparent distress, alert, awake, comfortable Head: atraumatic, normal appearance Eyes: Bilateral: PERRL. Neck: supple Respiratory: no respiratory distress, decreased breath sounds Cardiovascular: regular rate/rhythm Gastrointestinal: normal bowel sounds, soft, non-tender Extremities: no edema Skin: intact, normal color, warm/dry Last 48 Hrs of Labs/Arsenio: Laboratory Tests 05/08/17 0740: Sodium Pending, Potassium Pending, Chloride Pending, Carbon Dioxide Pending, Anion Gap Pending, BUN Pending, Creatinine Pending, BUN/Creatinine Ratio Pending , CBC w Diff Pending, WBC Pending, RBC Pending, Hgb Pending, Hct Pending, MCV Pending, MCH Pending, RDW Pending, Plt Count Pending, MPV Pending, PUBS MCHC Pending 05/07/17 0659: Troponin I 0.02 05/07/17 0645: Lactic Acid Cancelled 05/07/17 0430: pH 7.40, pCO2 40, pO2 115 H, HCO3 24, ABG O2 Sat (Measured) 98.0, P-50 (Temp Corrected) Y, Carboxyhemoglobin 0.1 L, O2 Concentration % 45%, Temperature 98.2 , O2 Delivery Method V/M, Phlebotomy Draw Site RIGHT BRACHIAL 05/07/17 0335: Lactic Acid 1.9 05/07/17 0335: Anion Gap 12, Estimated GFR 42 L, BUN/Creatinine Ratio 18.1, Glucose 161 H, Calcium 8.6, Total Bilirubin 0.9, AST 29, ALT 31, Alkaline Phosphatase 188 H, Troponin I 0.02, Ybh-M-Aggxsyfmlfs Pept 872 H, Total Protein 6.1 L, Albumin 3.0 L, Globulin 3.1, Albumin/Globulin Ratio 1.0 L, CBC w Diff MAN DIFF ORDERED , RBC 4.68 L, MCV 88.2, MCH 28.6, RDW 16.1 H, MPV 7.9, Gran % 95.1 H, Lymphocytes % 3.2 L, Monocytes % 1.1 L, Eosinophils % 0.5, Basophils % 0.1, Absolute Granulocytes 20.1 H, Segmented Neutrophils 94 H, Band Neutrophils 3, Absolute Lymphocytes 0.7 L, Lymphocytes 1 L, Monocytes 2, Absolute Monocytes 0.2, Absolute Eosinophils 0.1, Absolute Basophils 0, Platelet Estimate ADEQUATE, Polychromasia 1+, Hypochromic-Microcytic 1+, Ovalocytes FEW, Elliptocytes FEW, PUBS MCHC 32.4 L, Fld Total RBCs Counted 100 Assessment/Plan Impression/Plan: 1. AECOPD. 2. Elevated WBC count, likely secondary to steroid therapy. 3. Tobacco use disorder. 4. History of AF, s/p ablation over 20 years ago. 5. Bilateral hydronephrosis, chronic indwelling nunez catheter. 5. Chronic anemia. Recommendations: * Continue nebulizer treatments/total respiratory care. * Continue azithromycin, complete a 5 day course. * IV Solu-Medrol 40 mg every 8 hours to continue. * Incentive spirometry. * Out of bed to chair. Increase activity. * DVT prophylaxis at all times. * Continue all supportive care. Consult Acknowledgment - Thank you for your consult request.
[2017-05-08 08:58] LABS: ABSOLUTE EOSINOPHIL COUNT 0.2 /CUMM (0.0-0.7); ABSOLUTE GRANULOCYTE CT 19.5 /CUMM (1.4-6.5); ABSOLUTE MONOCYTE COUNT 0.2 /CUMM (0.10-0.60); MEAN CORPUSCULAR HGB 28.8 PG (27.0-31.0); MEAN CORPUSCULAR VOLUME 87.2 FL (80.0-94.0); PLATELET COUNT 244 /CUMM (130-400); RED BLOOD CELL CT 4.12 /CUMM (4.70-6.10); WHITE BLOOD CELL COUNT 20.2 /CUMM (4.8-10.8)
[2017-05-08 09:12] LABS: HEMATOCRIT 35.9 % (42-52)
[2017-05-08 09:27] LABS: GRANULOCYTE % 96.1 % (42.2-75.2)
--- NOTE | 2017-05-08 11:04 | Patient Discharge Instructions ---
Discharge Instructions General Discharge Information You were seen/treated for: COPD EXCERCABATION ureteral stone Fungemia Watch for these problems: Fever Increasing shortness of breath. Urinary symptoms Special Instructions: Please follow-up with your PCP Please follow-up with Melissa Johnson MD Please follow-up with urology for stent placement Please finish her steroid taper Your urologist held your ASA please follow up with him/her regarding restarting it. Please take your antifungal pill as directed Diet Recommended Diet: Diabetic Activity Activity Self Limited: Yes Acute Coronary Syndrome Inclusion Criteria At DC or during hospital stay patient has or had the following: ACS DIAGNOSIS No Discharge Core Measures Meds if any: Prescribed or Continued at Discharge Meds if any: NOT Prescribed or Continued at Discharge Congestive Heart Failure Inclusion Criteria At DC or during hospital stay patient has or had the following: CHF DIAGNOSIS No Discharge Core Measures Meds if any: Prescribed or Continued at Discharge Meds if any: NOT Prescribed or Continued at Discharge Cerebrovascular accident Inclusion Criteria At DC or during hospital stay patient has or had the following: CVA/TIA Diagnosis No Discharge Core Measures Meds if any: Prescribed or Continued at Discharge Meds if any: NOT Prescribed or Continued at Discharge Venous thromboembolism Inclusion Criteria VTE Diagnosis No VTE Type NONE VTE Confirmed by (Test) NONE Discharge Core Measures - Per Current guidelines, there needs to be overlap - treatment for the first 5 days of Warfarin therapy. - If discharged on Warfarin prior to 5 days of - overlap therapy, the patient will need to be - assessed for post discharge needs including - *Post discharge parental anticoagulation - *Warfarin and/or parental anticoagulation education - *Follow up date to check INR post discharge At least 5 days overlap therapy as Inpatient No Meds if any: Prescribed or Continued at Discharge Note: Overlap Therapy is Warfarin and Anticoagulant Meds if any: NOT Prescribed or Continued at Discharge
--- NOTE | 2017-05-08 11:10 | Discharge Summary ---
Visit Information Visit Dates Admission Date: 05/07/17 Discharge Date: 05/11/2017 Hospital Course Course Attending Physician: RENEE SHAH MD Primary Care Physician: COURTNEY GAY MD Consulting Request: 1 Consulting Specialty: Pulmonary Disease Consulting Request: 2 Consulting Specialty: Urology Hospital Course: Pt is a 77 yo who presented the ED for SOB. Pt has a pmh significant for a 90 pack year smoking hx, COPD on 2L of O2 at bedtime, DM, HLD, neprholithiasis s/p cystoscopy and stent placement, afib s/p ablation over 20 yrs ago. When EMS arrived they reported that the pt was tripoding, cyanotic, unable to speak in complete sentences, had a RR in the 40s, and had an O2 sat of 83%. Treated with solumedrol 125mg IV and mag sulfate 2g IV in the field and was placed on CPAP. The patient was admitted to general medicine floor for further treatment and monitoring. ED workup Vitals 98.2, 101, 24, 101/51,100 Nonbreather Laboratory value was significant for leukocytosis at 21.2 with 95% granulocytes, BUN/creatinine 29/1.6 baseline is 0.8, estimated GFR 42, trop 0.02, proBNP 872, albumin 3.0, and rest of the lab values were within normal limit. Trops negative Chest x-ray showed hyperinflated lungs suspicious for underlying COPD and no acute findings. EKG showed sinus tachycardia at 126, T-wave morphology was typical suggestive of ectopic foci, but was regular, GA 124, QRS 82, QTC 452, no ST-T changes The patient was treated for following conditions. Acute exacerbation of COPD Patient's history along with acute development of symptoms is suggestive of AE of COPD. * TRC nebulizations, to maintain saturation above 90% * Continue Roflumilast 500 g daily for COPD * Continue albuterol inhaler and Brovana * Patient completed Course of azithromycin * Initially on IV steroids being discharged on oral prednisone, continue steroid taper * Urinary legonella and strep antigen negative * Follow-up with Melissa Johnson MD Nephrolithiasis, hydronephrosis with UTI with yeast patient came with BUN of 29 and creatinine of 1.6. His baseline is 0.9. His creatinine BUN remained elevated likely due to postrenal causes, see ultrasound and CAT scan findings in pertinent data. * Fungemia of urologic origin-- patient was afebrile on presentation with leukocytosis. His blood cultures 2 and urine cultures are positive for Concetta albicans * Dr. uGerra recommended to have cystoscopy with right ureteral stent placement to relieve partial obstruction of right ureter. * The patient was reluctant to undergo the process over here and wanted to follow up with his urologist in [place] * Patient is initially started on IV fluconazole. Continue Fluconazole 400 mg po every 48 hours; 14 day course of treatment Diabetes mellitus continue home medication * Continue Januvia * Continue pioglitazone Hyperlipidemia * Continue lipitor Continue home medication * Continue oxybutinin * Continue tamsulosin. * ASA was held since 3 weeks by Urologist for Hematuria. Allergies: Coded Allergies: crab (SOFT SHELL CRAB - FACIAL SWELLING 02/10/17) Pertinent Lab Results: Chest x-ray May 07 negative Renal ultrasound May 07 revealed persistent bilateral hydronephrosis with multiple calculi in the lower pole of the left kidney, bladder calculi and an enlarged prostate. CT of the abdomen and pelvis May 08 revealed a slight increase in the right sided hydronephrosis due to a downward migration of the previously seen proximal right ureteral calcification into the distal right ureter and a nonobstructing calcification in the distal left ureter with additional calculi seen in the left side of the bladder near the UV junction. Disposition Summary Disposition Principal Diagnosis: COPD exacerbation Fungemia UTI Additional Diagnosis: Hydronephrosis and nephrolithiasis Discharge Disposition: home or self care Discharge Instructions General Discharge Information Code Status: Full Code Patient's Diet: Diabetic Patient's Activity: As tolerated Follow-Up Instructions/Appts: Follow-up with your PCP Follow-up with Melissa Johnson MD Follow-up with urology Complaint prednisone taper Medications at Discharge Discharge Medications: Stop taking the following medications: Prednisone (Prednisone) 5 MG TABLET ORAL DAILY Qty = 180 Prednisone (Prednisone) 10 MG TABLET ORAL TAPER Qty = 20 Continue taking these medications: Albuterol Sulfate (Albuterol Sulfate) 2.5 MG/3 ML (0.083 %) VIAL.NEB 1 Vial Inhale Solution TWICE DAILY Qty = 75 Comments: Last Taken:05/11/17 Time:1:30 PM Arformoterol Tartrate (Brovana) 15 MCG/2 ML VIAL.NEB 1 VIAL Inhale through mouth TWICE DAILY Qty = 120 Comments: NOT GIVEN THIS ADMISSION Budesonide (Budesonide) 1 MG/2 ML AMPUL.NEB 1 VIAL Inhale through mouth TWICE DAILY Qty = 60 Comments: Last Taken:NOT GIVEN THIS ADMISSION Time: Roflumilast (Daliresp) 500 MCG TABLET 1 Tablet ORAL DAILY Qty = 30 Comments: Last Taken:05/11/17 Time:9:30 AM Atorvastatin Calcium (Atorvastatin Calcium) 40 MG TABLET 1 Tablet ORAL DAILY Qty = 90 Comments: Last Taken:05/11/17 Time:9:30 AM Pioglitazone HCl (Pioglitazone HCl) 45 MG TABLET 1 Tablet ORAL DAILY Qty = 90 Comments: Last Taken:NOT GIVEN THIS ADMISSION Time: Zolpidem Tartrate (Zolpidem Tartrate) 10 MG TABLET 1 Tablet ORAL Every night Qty = 90 Comments: NOT GIVEN IN HOSPITAL Bisacodyl (Dulcolax) 5 MG TABLET.DR 3 Tablet ORAL Every night Comments: NOT GIVEN IN HOSPITAL Oxybutynin Chloride (Ditropan XL) 5 MG TAB.ER.24 1 Tablet ORAL DAILY Comments: Last Taken:NOT GIVEN THIS ADMISSION Time: Hydrocodone/Acetaminophen (Hydrocodon-Acetaminoph 7.5-325) 7.5 MG-325 MG TABLET 1 Tablet ORAL as needed for PAIN Qty = 20 Comments: Last Taken:NOT GIVEN THIS ADMISSION Time: Sitagliptin Phosphate (Januvia) 50 MG TABLET 1 Tablet ORAL DAILY Qty = 30 Comments: Last Taken:05/11/17 Time:9:30 AM Tamsulosin HCl (Flomax) 0.4 MG CAP.ER.24H 0.4 Milligram ORAL DAILY Qty = 30 Comments: Last Taken:05/11/17 Time:9:30 AM Start taking the following new medications: Fluconazole (Fluconazole) 200 MG TABLET 2 Tablet ORAL EVERY 48 HOURS (Every 2 days) Qty = 14 No Refills Comments: NOT GIVEN IN HOSPITAL Prednisone (Prednisone) 20 MG TABLET 1 Tablet ORAL SEE INSTRUCTIONS Qty = 15 No Refills Comments: 05/11-05/13- 40 mg daily (2 tab) 05/14-05/16- 30 mg daily (1.5 tab) 05/17-05/19- 20 mg daily (1 tab) 05/20-05/22- 10 mg daily (.5 tab) 40 MG GIVEN 05/11/17 @ 5:00PM Copies To: VICTOR HUGO LEAL,COURTNEY Max
--- NOTE | 2017-05-08 14:00 | NUR ---
NURSING NOTE: PATIENT TRANSPORTED TO CT SCAN VIA STREACHER @ 1330 AND RETURNED @ 1410. A&O X 3 WITH NO C/O PAIN OR DISCOMFORT.
[2017-05-08 15:26] VITALS: BP 108/62
[2017-05-08] MEDS ORDERED: PREDNISONE20 M1 PO (15:56)
[2017-05-08] MEDS ORDERED: AZITHROMYCIN250 M1 PO (16:06)
--- NOTE | 2017-05-08 19:30 | Cons- Urology ---
General Information and HPI Consulting Request Date of Consult: 05/08/17 Requested By: RENEE Dye MD Reason for Consult: elevated creatinine and mild R hydro on ultrasound Source of Information: patient, old records Exam Limitations: no limitations History of Present Illness: This patient has a hx of urinary stone and has multiple medical problems including oxygen-dependent COPD and DM. He was admitted with shortness of breath and found to have a creatinine of 1.7. Renal ultrasound showed mild to moderate R hydronephrosis and a ? of mild L hydronephrosis. Urine is suspicious for UTI. He denies any flank pain. He is followed by a urologist, Dr Perez, in [place]. He has had multiple stone procedures including several recently. He had a L ureteral stent in place which was removed a few weeks ago. Allergies/Medications Allergies: Coded Allergies: crab (SOFT SHELL CRAB - FACIAL SWELLING 02/10/17) Home Med List: Albuterol Sulfate 2.5 MG/3 ML (0.083 %) VIAL.NEB 1 Vial INH/SHERRY BID COPD ( Reported) Arformoterol Tartrate (Brovana) 15 MCG/2 ML VIAL.NEB 1 VIAL INH BID COPD ( Reported) Atorvastatin Calcium 40 MG TABLET 1 TAB PO DAILY CHOLESTEROL (Reported) Azithromycin 250 MG TABLET 1 DP PO AD COPD Bisacodyl (Dulcolax) 5 MG TABLET.DR 3 TAB PO QPM GI (Reported) Budesonide 1 MG/2 ML AMPUL.NEB 1 VIAL INH BID COPD (Reported) Hydrocodone/Acetaminophen (Hydrocodon-Acetaminoph 7.5-325) 7.5 MG-325 MG TABLET 1 TAB PO PRN PAIN (Reported) Oxybutynin Chloride (Ditropan XL) 5 MG TAB.ER.24 1 TAB PO DAILY INCONTINENCE (Reported) Pioglitazone HCl 45 MG TABLET 1 TAB PO DAILY DM (Reported) Prednisone 5 MG TABLET 1 TAB PO DAILY COPD (Reported) Prednisone 10 MG TABLET 0 PO TAPER copd TAPER BELOW: 4 TABS FOR 2 DAYS, 3 TABS FOR 2 DAYS, 2 TABS FOR 2 DAYS, 1 TAB FOR 2 DAYS; THEN STOP Prednisone 20 MG TABLET 1 TAB PO SEE ADMIN CRITERIA COPD Roflumilast (Daliresp) 500 MCG TABLET 1 TAB PO DAILY COPD (Reported) Sitagliptin Phosphate (Januvia) 50 MG TABLET 1 TAB PO DAILY DM (Reported) Tamsulosin HCl (Flomax) 0.4 MG CAP.ER.24H 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 Zolpidem Tartrate 10 MG TABLET 1 TAB PO QPM SLEEP (Reported) Current Medications: Current Medications Sig/Camille Start time Last Medication Dose Route Stop Time Status Admin Albuterol Sulfate 3 ML TID 05/08 1000 AC 05/08 INH 1652 Atorvastatin Calcium 40 MG DAILY 05/07 1000 AC 05/08 PO 1122 Azithromycin 500 MG 0400 05/08 0400 AC 05/08 Sodium Chloride 250 ML IV 05/10 0459 0413 Heparin Sodium 5,000 UNIT Q8 05/07 0600 AC 05/08 (Porcine) SC 1400 Insulin Aspart 0 TIDAC 05/07 0800 AC 05/08 SC 1800 Ipratropium [place] 2.5 ML TID 05/08 1000 AC 05/08 INH 1654 Melatonin 5 MG AT BEDTIME 05/08 2200 AC PO Methylprednisolone 40 MG Q8 05/07 1400 AC 05/08 IV 1400 Oxybutynin Chloride 5 MG BID 05/07 1000 AC 05/08 PO 1122 Polyethylene Glycol 17 GM DAILY 05/08 1058 AC 05/08 PO 1241 Roflumilast 500 MCG DAILY 05/07 1000 AC 05/08 PO 1121 Sitagliptin Phosphate 50 MG DAILY 05/08 1037 AC 05/08 PO 1128 Sodium Chloride 1,000 ML Q13H 05/07 1545 DC 05/07 IV 05/08 0444 1751 Sodium Chloride 1,000 ML .[id number] 05/07 0545 DC 05/07 IV 05/07 1940 0712 Tamsulosin HCl 0.4 MG DAILY 05/07 1000 AC 05/08 PO 1124 Trazodone HCl 50 MG .STK-MED ONE 05/07 2326 DC PO 05/07 2327 Trazodone HCl 12.5 MG AT BEDTIME 05/07 2230 DC PO Past History Medical History Neurological: NONE EENT: allergies Cardiovascular: AFIB Respiratory: COPD Gastrointestinal: constipation Hepatic: NONE Renal: nephrolithiasis Musculoskeletal: falls Psychiatric: NONE Endocrine: diabetes Blood Disorders: NONE Cancer(s): basal cell carcinoma [employer]/Reproductive: NONE Surgical History Pertinent Surgical History: none (stent placement for obstructio), cataract removal, cystoscopy Psychosocial History Who Do You Live With? spouse Services at Home: None Primary Language: Georgian Smoking Status: Current Everyday Smoker Functional Ability ADLs Independent: dressing. Ambulation: independent IADLs Independent: shopping, housework, finances, food prep, telephone, transportation , medication admin. Exam & Diagnostic Data Vital Signs and I&O Vital Signs Date Time Temp Pulse Resp B/P B/P Pulse O2 O2 Flow FiO2 Mean Ox Delivery Rate 05/08 1526 97.4 78 16 108/62 94 Nasal 4.0L Cannula 05/08 1124 82 100/60 05/08 0846 98 Nasal 2.0L Cannula 05/08 0800 97 Nasal 2.0L Cannula 05/08 0655 97.8 82 20 100/60 93 Nasal 4.0L Cannula 05/08 0000 Nasal 2.0L Cannula 05/07 2351 Nasal 2.0L Cannula 05/07 2236 97.5 68 20 108/54 95 Nasal 2.0L Cannula Intake & Output 05/08 1600 05/08 0800 05/08 0000 05/07 1600 05/07 0800 05/07 0000 Intake Total 1095 600 600 695 300 Output Total 300 300 Balance 1095 300 300 695 300 Intake, IV 375 600 600 300 Intake, Oral 720 320 Intake, 375 TPN/PPN Number 2 0 Bowel Movements Output, Urine 300 300 Patient 165 lb 135 lb Weight Weight Reported by Patient Estimated Measurement Method No acute distress Back: no CVA tenderness Abd: soft and non tender. Genitalia: normal male Laboratory Tests 05/08 05/08 1410 1410 Urines Urine Color (YEL,AMB,STR) YEL Urine Clarity (CLEAR) HAZY H Urine pH (5.0 - 8.0) 6.0 Ur Specific [place] (1.001 - 1.035) 1.020 Urine Protein (NEG,<30 MG/DL) TRACE H Urine Ketones (NEG) NEG Urine Nitrite (NEG) NEG Urine Bilirubin (NEG) NEG Urine Urobilinogen (0.1 - 1.0 EU/dl) 0.2 Ur Leukocyte Esterase (NEG) MOD H Ur Microscopic SEDIMENT EXAMINED Urine RBC (0 - 5 /HPF) 10-15 H Urine WBC (0 - 2 /HPF) 50-75 H Ur Epithelial Cells (NONE,FEW) RARE Urine Bacteria (NEG/NONE) MANY H Micro UA Comment MORE INFO: H Urine Hemoglobin (NEG) LARGE H Ur Random Creatinine (mg/dL) 70.1 Ur Random Sodium (30 - 90 mmol/L) 28 L Ur Random Potassium (mmol/L) 23.4 Fraction Sodium Excret (<1% %) 0.5 Urine Glucose (N MG/DL) >=1000 H 05/08 0740 Chemistry Sodium (137 - 145 mmol/L) 133 L Potassium (3.5 - 5.1 mmol/L) 4.6 Chloride (98 - 107 mmol/L) 100 Carbon Dioxide (22 - 30 mmol/L) 25 Anion Gap (5 - 16) 8 BUN (9 - 20 mg/dL) 44 H Creatinine (0.7 - 1.2 mg/dL) 1.7 H Estimated GFR (>60 ml/min) 39 L BUN/Creatinine Ratio (7 - 25 %) 25.9 H Hematology CBC w Diff NO MAN DIFF REQ WBC (4.8 - 10.8 /CUMM) 20.2 H RBC (4.70 - 6.10 /CUMM) 4.12 L Hgb (14.0 - 18.0 G/DL) 11.9 L Hct (42 - 52 %) 35.9 L MCV (80.0 - 94.0 FL) 87.2 MCH (27.0 - 31.0 PG) 28.8 RDW (11.5 - 14.5 %) 16.0 H Plt Count (130 - 400 /CUMM) 244 MPV (7.4 - 10.4 FL) 8.3 Gran % (42.2 - 75.2 %) 96.1 H Lymphocytes % (20.5 - 51.1 %) 1.7 L Monocytes % (1.7 - 9.3 %) 1.2 L Eosinophils % (0 - 5 %) 1.0 Basophils % (0.0 - 2.0 %) 0 L Absolute Granulocytes (1.4 - 6.5 /CUMM) 19.5 H Absolute Lymphocytes (1.2 - 3.4 /CUMM) 0.3 L Absolute Monocytes (0.10 - 0.60 /CUMM) 0.2 Absolute Eosinophils (0.0 - 0.7 /CUMM) 0.2 Absolute Basophils (0.0 - 0.2 /CUMM) 0 PUBS MCHC (33.0 - 37.0 G/DL) 33.[address] of abd and pelvis not read yet. On my review findings are: Several non obstructing L renal stones. Mild to moderate R hydronephrosis with an 8 mm stone in the R ureter at about the level of the iliac vessels. This stone was present on CT in 02/2017 but was more proximal. A few small stones in bladder. Urine C&S pending Assessment/Plan Assessment/Plan Imp: 1. R ureteral stone with partial obstruction. Asymptomatic but with elevated creatinine 2. UTI 3. Non obstructing L renal and bladder stones 4. Medical issues including DM and oxygen-dependent COPD Plan: 1. Would consider broadening abx coverage, possibly to include ceftriaxone 2. f/u urine C&S 3. If creatinine doesn't improve may need R ureteral stent Consult Acknowledgment - Thank you for your consult request.
--- NOTE | 2017-05-08 20:10 | CT SCAN REPORT ---
EXAMINATION: CT ABDOMEN AND PELVIS WITHOUT CONTRAST CLINICAL INFORMATION: Nephrolithiasis. Increasing creatinine level. COMPARISON: CT scan of the abdomen and pelvis dated 02/10/2017 and 08/21/2015 and 02/23/2015. TECHNIQUE: Multidetector volumetric imaging was performed from the superior aspect of the liver through the pubic symphysis. Sagittal and coronal reformatted images were obtained on the technologist workstation. DLP: 366.95 mGy-cm. FINDINGS: LUNG BASES: Moderate centrilobular and paraseptal emphysema seen in the included lung bases. Interval development of trace bilateral pleural effusions, greater on the right side than the left. LIVER, GALLBLADDER, AND BILIARY TREE: The liver is normal in size, shape, and attenuation. No focal hepatic lesion on noncontrast imaging. No biliary ductal dilatation is present. The gallbladder is decompressed and suboptimally assessed. No definite calcified gallstones are seen. PANCREAS, SPLEEN, ADRENAL GLANDS: Pancreas diffusely atrophic and otherwise unremarkable. Spleen and adrenal glands unremarkable on noncontrast imaging. KIDNEYS, URETERS, AND BLADDER: Interval slight increase in right-sided hydroureteronephrosis is seen with dilatation of the renal collecting system, renal pelvis, proximal and mid ureter down to the mid pelvis level, where a 1.1 x 0.7 cm obstructing densely calcified stone is seen (series 2, image 59), measuring 911.4 Hounsfield units. This calculus had previously been seen in the proximal right ureter. There is circumferential thickening of the dilated proximal and mid right ureter down to the level of these calcification. The ureter distal to the calcification is decompressed and unremarkable. The left kidney is decompressed with no hydronephrosis seen. There is, however, a 0.6 x 0.3 cm densely calcified stone with mean attenuation values of 618 Hounsfield units (series 2, image 70) seen in the distal left ureter, approximately 1 cm proximal to the ureterovesical junction. Several additional calcifications are seen in the left side of the dependent portions of the bladder, measuring up to 0.8 x 0.3 cm with mean attenuation values of up to 750 Hounsfield units (series 2, image 72). These calculi likely represent downward migration of the previously seen left renal pelvic calcifications. The bladder is otherwise unremarkable. In the lower pole of the left kidney, a 3.6 x 3.6 cm diameter parapelvic cyst with multiple nodular wall calcifications is again seen, unchanged from 02/10/2017 but larger and with increased nodular wall calcifications compared to 08/21/2015 where the overall cyst size was 3.1 x 3.1 cm. Additional simple appearing 0.9 and 1.7 cm cysts are seen in the mid left kidney (series 2, images 27 and 31 and 1.5 cm cyst in the upper pole of the left kidney (series 2, image 22), similar to the previous studies. There is a partially exophytic 1.3 cm cyst in the lower pole of the right kidney, similar to the previous exam. Bilateral mild perinephric stranding persists. The previously seen left-sided double-J ureteral stent is no longer visualized. GASTROINTESTINAL TRACT: The small and large bowel are decompressed. A few scattered colonic diverticula are seen without evidence of acute diverticulitis. There may be small appendicoliths within the appendix (series 602, image 49 and 53). The appendix is otherwise unremarkable. ABDOMINAL WALL: No significant hernia is appreciated. LYMPH NODES, VASCULAR: No adenopathy is seen. Ectasia of the abdominal aorta with dense atherosclerotic calcifications are seen, which also involve the origins of the celiac axis and renal arteries and extend into the iliac arteries. PELVIC VISCERA: Prostate gland impresses upon the bladder base and is mildly enlarged, measuring 4.0 x 4.5 cm. Prostatic calcifications are noted. Seminal vesicles bilaterally are symmetric and unremarkable. OSSEOUS STRUCTURES: Mild degenerative disc disease in the lower thoracic/upper lumbar spine and at L3-L4 is again seen, unchanged. IMPRESSION: 1. Interval slight increase in right-sided hydroureteronephrosis due to a downward migration of previously seen proximal right ureteral calcification into the distal right ureter. 2. Nonobstructing calcification in the distal left ureter, just proximal to the ureterovesical junction. Additional calculi seen in the left side of the bladder near the ureterovesical junction. These findings represent downward migration of previously seen calcification in the renal pelvis. 3. Complex cystic mass in the lower pole of the left kidney, unchanged compared to prior exam but increased in size compared to 08/21/2015. This mass is incompletely characterized without the benefit of intravenous contrast and is not fully characterized on recent ultrasound. Given the patient's decreasing renal function, further assessment with contrast-enhanced MRI scan would not be possible and assessment with contrast-enhanced CT scan may not be useful given the dense calcifications. Therefore, continued attention on short interval follow-up in 6 months is recommended. 4. Moderate emphysema. 5. Interval development of trace bilateral pleural effusions, right greater than left. 6. Bilateral renal cysts. 7. Dense atherosclerotic vascular disease.
[2017-05-08 21:57] VITALS: BP 112/50
[2017-05-09 06:44] VITALS: BP 114/52
[2017-05-09 08:28] LABS: ABSOLUTE BASOPHIL COUNT 0 /CUMM (0.0-0.2); ABSOLUTE EOSINOPHIL COUNT 0 /CUMM (0.0-0.7); ABSOLUTE GRANULOCYTE CT 17.4 /CUMM (1.4-6.5); ABSOLUTE LYMPH COUNT 0.2 /CUMM (1.2-3.4); ABSOLUTE MONOCYTE COUNT 0.3 /CUMM (0.10-0.60); BASOPHIL % 0 % (0.0-2.0); EOSINOPHIL % 0 % (0-5); GRANULOCYTE % 97.3 % (42.2-75.2); HEMATOCRIT 35.7 % (42-52); MEAN CORPUSCULAR HGB 29.1 PG (27.0-31.0); MEAN CORPUSCULAR HGB CONC 33.2 G/DL (33.0-37.0); MEAN CORPUSCULAR VOLUME 87.8 FL (80.0-94.0); MEAN PLATELET VOLUME 8.1 FL (7.4-10.4); PLATELET COUNT 263 /CUMM (130-400); RBC DISTRIBUTION WIDTH 15.6 % (11.5-14.5); RED BLOOD CELL CT 4.06 /CUMM (4.70-6.10); WHITE BLOOD CELL COUNT 17.9 /CUMM (4.8-10.8)
--- NOTE | 2017-05-09 09:11 | PN- Pulmonary ---
Subjective HPI/Critical Care Issues: Patient continues to have dyspnea on exertion oxygen saturations are excellent Objective Current Medications: Current Medications Sig/Camille Start time Last Medication Dose Route Stop Time Status Admin Albuterol Sulfate 3 ML TID 05/08 1000 AC 05/09 INH 0047 Atorvastatin Calcium 40 MG DAILY 05/07 1000 AC 05/08 PO 1122 Azithromycin 500 MG 0400 05/08 0400 AC 05/09 Sodium Chloride 250 ML IV 05/10 0459 0326 Ceftriaxone Sodium 1,000 MG DAILY 05/09 1000 AC IV Heparin Sodium 5,000 UNIT Q8 05/07 0600 AC 05/09 (Porcine) SC 0509 Insulin Aspart 0 TIDAC 05/07 0800 AC 05/09 SC 0805 Ipratropium [place] 2.5 ML TID 05/08 1000 AC 05/09 INH 0047 Melatonin 5 MG AT BEDTIME 05/08 2200 AC 05/08 PO 2117 Methylprednisolone 40 MG Q8 05/07 1400 AC 05/09 IV 0509 Oxybutynin Chloride 5 MG BID 05/07 1000 AC 05/08 PO 2117 Polyethylene Glycol 17 GM DAILY 05/08 1058 AC 05/08 PO 1241 Roflumilast 500 MCG DAILY 05/07 1000 AC 05/08 PO 1121 Sitagliptin Phosphate 50 MG DAILY 05/08 1037 AC 05/08 PO 1128 Tamsulosin HCl 0.4 MG DAILY 05/07 1000 AC 05/08 PO 1124 Trazodone HCl 12.5 MG AT BEDTIME 05/07 2230 DC PO Vital Signs & I&O Last 24 Hrs of Vitals and I&O: Vital Signs Date Time Temp Pulse Resp B/P B/P Pulse O2 O2 Flow FiO2 Mean Ox Delivery Rate 05/09 0644 98.2 84 20 114/52 98 05/09 0107 96 Nasal 2.0L Cannula 05/08 2333 94 Nasal 2.0L Cannula 05/08 2157 98.1 88 20 112/50 97 Nasal 2.0L Cannula 05/08 1947 98 Nasal 2.0L Cannula 05/08 1526 97.4 78 16 108/62 94 Nasal 4.0L Cannula 05/08 1124 82 100/60 Intake & Output 05/09 1600 05/09 0800 05/09 0000 Intake Total 540 500 Output Total 300 Balance 240 500 Intake, IV 300 20 Intake, Oral 240 480 Number 1 Bowel Movements Output, Urine 300 Since saturation 2 L 98% exam of his chest diminished breath sounds there are no wheezes cardiac exam shows normal S1 and S2 without murmurs Impression/Plan Impression/Plan Impression/Plan: 77-year-old gentleman with severe COPD admitted with increased shortness breath. He has leukocytosis evidence of nephrolithiasis with hydronephrosis and abnormal urinalysis of concern for urologic infection. Recommendations: Continue IV steroids. Follow-up urine culture blood cultures and CBCs. Taper FiO2 his saturations allow further management of possible urologic infection and hydronephrosis per urology and primary care team
--- NOTE | 2017-05-09 13:30 | NUR ---
NURSING NOTE: PT REFUSING BED ALARM AT PRESENT. PT A&O, AMBULATING WITH STEADY GAIT, AND CALLS FOR ASSIST. WILL CONTINUE TO MONITOR.
[2017-05-09 14:29] VITALS: BP 122/64
--- NOTE | 2017-05-09 16:26 | PN- Att Addend ---
See Addendum Attending Addendum Attending Brief Note Mr. Mathews was seen by me. Chart reviewed Vital Signs Date Time Temp Pulse Resp B/P B/P Pulse O2 O2 Flow FiO2 Mean Ox Delivery Rate 05/09 1429 98.1 75 20 122/64 92 Nasal Cannula 05/09 0938 82 116/58 05/09 0800 94 Nasal 2.0L Cannula 05/09 0644 98.2 84 20 114/52 98 05/09 0107 96 Nasal 2.0L Cannula 05/08 2333 94 Nasal 2.0L Cannula 05/08 2157 98.1 88 20 112/50 97 Nasal 2.0L Cannula 05/08 1947 98 Nasal 2.0L Cannula Intake & Output 05/09 1600 05/09 0800 05/09 0000 Intake Total 600 540 500 Output Total 450 300 Balance 150 240 500 Intake, IV 300 20 Intake, Oral 600 240 480 Number 1 1 Bowel Movements Output, Urine 450 300 VS: 92% 2 L NC GEN: Laboratory Tests 05/09/17 0734: Anion Gap 8, Estimated GFR 42 L, BUN/Creatinine Ratio 30.0 H, CBC w Diff NO MAN DIFF REQ, RBC 4.06 L, MCV 87.8, MCH 29.1, RDW 15.6 H, MPV 8.1, Gran % 97.3 H, Lymphocytes % 1.1 L, Monocytes % 1.6 L, Eosinophils % 0, Basophils % 0 L, Absolute Granulocytes 17.4 H, Absolute Lymphocytes 0.2 L, Absolute Monocytes 0.3, Absolute Eosinophils 0, Absolute Basophils 0, PUBS MCHC 33.2 A/P: Mr. Lopez is a 77-year-old gentleman with PMHx: DM, HLP nephrolithiasis s/p cystoscopy and sten, afib s/p ablation, CHF, a/w acute COPD exacerbation. Also found to have nephrolithiasis with hydronephrosis and abnormal urinalysis of concern for urologic infection. Pulm -- appreciate pulm input -- plan to cont IV steroids, O2 support Urology: UTI, non obstructing calculus -- Cr slowly improving -- appreciate Urology input -- cont IV abx -- f/u Urology recs Rest of the plan as pre resident's note
[2017-05-09 22:12] VITALS: BP 100/44
[2017-05-10 06:36] VITALS: BP 122/50
[2017-05-10 09:13] LABS: ABSOLUTE BASOPHIL COUNT 0 /CUMM (0.0-0.2); ABSOLUTE EOSINOPHIL COUNT 0 /CUMM (0.0-0.7); ABSOLUTE GRANULOCYTE CT 12.8 /CUMM (1.4-6.5); ABSOLUTE LYMPH COUNT 0.4 /CUMM (1.2-3.4); ABSOLUTE MONOCYTE COUNT 0.3 /CUMM (0.10-0.60); BASOPHIL % 0 % (0.0-2.0); EOSINOPHIL % 0 % (0-5); GRANULOCYTE % 94.5 % (42.2-75.2); HEMATOCRIT 37.7 % (42-52); MEAN CORPUSCULAR HGB 28.5 PG (27.0-31.0); MEAN CORPUSCULAR HGB CONC 32.4 G/DL (33.0-37.0); MEAN PLATELET VOLUME 8.2 FL (7.4-10.4); PLATELET COUNT 271 /CUMM (130-400); RBC DISTRIBUTION WIDTH 16.1 % (11.5-14.5); RED BLOOD CELL CT 4.28 /CUMM (4.70-6.10); WHITE BLOOD CELL COUNT 13.6 /CUMM (4.8-10.8)
--- NOTE | 2017-05-10 12:18 | PN- Housestaff ---
JOHN LEAL,[facility] 05/10/17 1218: Subjective Follow-up For: COPD Subjective: I seen and examined the patient. The patient was lying comfortably in the bed. He was using 2 L nasal cannula oxygen. He said he wanted to go home. He wanted follow-up with urology on outpatient basis. There were no complaints of fever chills chest pain or palpitations. There were no overnight acute events. Review of Systems Constitutional: Denies: see HPI. Objective Last 24 Hrs of Vital Signs/I&O Vital Signs Date Time Temp Pulse Resp B/P B/P Pulse O2 O2 Flow FiO2 Mean Ox Delivery Rate 05/10 1600 Nasal 2.0L Cannula 05/10 1440 98.1 90 20 118/58 94 Nasal 2.0L Cannula 05/10 1002 69 122/50 05/10 0929 95 Nasal 2.0L Cannula 05/10 0636 98.0 69 20 122/50 98 Nasal 2.0L Cannula 05/10 0000 Nasal 2.0L Cannula 05/09 2212 98.9 89 21 100/44 95 Nasal 2.0L Cannula 05/09 1935 97 Nasal 2.0L Cannula Intake & Output 05/10 1600 05/10 0800 05/10 0000 Intake Total 800 400 480 Output Total 800 Balance 800 400 -320 Intake, IV 280 Intake, Oral 800 120 480 Number 1 Bowel Movements Output, Urine 800 Physical Exam General Appearance: Alert, Oriented X3, Cooperative, No Acute Distress HEENT: Atraumatic Cardiovascular: Normal S1, Normal S2, No Murmurs Lungs: , decreased breath sounds no wheezing Abdomen: Normal Bowel Sounds, Soft, No Tenderness Neurological: Normal Speech Assessment/Plan Assessment: Assesment Pt is a 77 yo who presented the ED for SOB. Pt has a pmh significant for a 90 pack year smoking hx, COPD on 2L of O2 at bedtime, DM, HLD, neprholithiasis s/p cystoscopy and stent placement, afib s/p ablation over 20 yrs ago. Treated with solumedrol 125mg IV and mag sulfate 2g IV in the field and was placed on CPAP. ED workup Vitals 98.2, 101, 24, 101/51,100 Nonbreather Laboratory value was significant for leukocytosis at 21.2 with 95% granulocytes, BUN/creatinine 29/1.6 baseline is 0.8, estimated GFR 42, trop 0.02, proBNP 872, albumin 3.0, and rest of the lab values were within normal limit. Trops negative Chest x-ray showed hyperinflated lungs suspicious for underlying COPD and no acute findings. EKG showed sinus tachycardia at 126, T-wave morphology was typical suggestive of ectopic foci, but was regular, LA 124, QRS 82, QTC 452, no ST-T changes CT results 1. Interval slight increase in right-sided hydroureteronephrosis due to a downward migration of previously seen proximal right ureteral calcification into the distal right ureter. 2. Nonobstructing calcification in the distal left ureter, just proximal to the ureterovesical junction. Additional calculi seen in the left side of the bladder near the ureterovesical junction. These findings represent downward migration of previously seen calcification in the renal pelvis. 3. Complex cystic mass in the lower pole of the left kidney, unchanged compared to prior exam but increased in size compared to 08/21/2015. This mass is incompletely characterized without the benefit of intravenous contrast and is not fully characterized on recent ultrasound. Given the patient's decreasing renal function, further assessment with contrast-enhanced MRI scan would not be possible and assessment with contrast-enhanced CT scan may not be useful given the dense calcifications. Therefore, continued attention on short interval follow-up in 6 months is recommended. 4. Moderate emphysema. 5. Interval development of trace bilateral pleural effusions, right greater than left. 6. Bilateral renal cysts. 7. Dense atherosclerotic vascular disease. Plan: Acute exacerbation of COPD with chron resp failure Patient's history along with acute development of symptoms is suggestive of AE of COPD. * TRC nebulizations, to maintain saturation above 90% * Continue Roflumilast 500 g daily for COPD * IV azithromycin 3 days course complete * IV Solu-Medrol 40 mg every 12 hours, will change to PO tomorrowndations * Incentive spirometry. * urinary legionella and strep antigens NEGATIVE Fub UTI with Nephrolithiasis and Bilateral hydronephrosis. Patient has history of bilateral hydronephrosis with nephrolithiasis. He came with BUN of 29 and creatinine of 1.6. His baseline is 0.9 today Cr 1.6 BUN has increased to 47 and K is 5.3. * UA was positive for moderate leukoesterase many bacteria and 50-75 urine WBCs * CT abdomen pelvis results above (Non obstructing L renal and bladder stones and R ureteral stone with partial obstruction) * Avoid nephrotoxic drugs * Monitor BEP * ASA was held since 3 weeks by Urologist for Hematuria * Rocephin 1 g daily IV * If creatinine doesn't improve may need R ureteral stent * Blood culture is positive for yeast most likely from the urological source, patient has been started on IV fluconazole * Urine culture is also growing yeast Diabetes mellitus Holding patient's home medication of pioglitazone and sitagliptin. His most recent fingerstick glucose is 249. Note patient is on IV Solu-Medrol Q8 * Insulin sliding scale for now * Accu-Cheks 3 times a day before meals and at bedtime. * We have started patient on home dose of Januvia 50 MG po daily Hyperlipidemia * Continue lipitor Continue home medication * Continue oxybutinin * Continue tamsulosin. Problem List: 1. COPD exacerbation Pain Ratin Pain Location: none Pain Goal: Pain 4 or less Pain Plan: none Tomorrow's Labs & Rationales: cbc bep DVT/Prophylaxis: pharmacological Consulting Request: Consulting Specialty: Urology KANDICE LEAL,AMIR 05/10/17 1532: Attending MD Review Statement Attending Statement Attending MD Statement: examined this patient, discuss w/resident/PA/REMOTE MEDICAL CODER, agreed w/resident/PA/REMOTE MEDICAL CODER, reviewed EMR data (avail) Attending Assessment/Plan: Mr. Lopez is a 77-year-old gentleman with PMHx: DM, HLP nephrolithiasis s/p cystoscopy and sten, afib s/p ablation, CHF, a/w acute COPD exacerbation. Also found to have nephrolithiasis with hydronephrosis and abnormal urinalysis. --VSS, WBC trending down, Cr stable, however, bld Cx positive for yeast-likely Urological source. --will start IV Fluconazole --cont other meds --rest of the plan as per resident's note
[2017-05-10 14:40] VITALS: BP 118/58
[2017-05-10 23:04] VITALS: BP 120/60
[2017-05-11 06:44] VITALS: BP 130/52
--- NOTE | 2017-05-11 07:14 | PN- Urology ---
Subjective Subjective: No acute distress Objective Vital Signs and I&Os Vital Signs Date Time Temp Pulse Resp B/P B/P Pulse O2 O2 Flow FiO2 Mean Ox Delivery Rate 05/11 0644 97.5 68 20 130/52 94 05/11 0433 97 Nasal 2.0L Cannula 05/11 0000 96 Nasal 2.0L Cannula 05/10 2304 98.0 87 21 120/60 96 Nasal 2.0L Cannula 05/10 1835 97 Nasal 2.0L Cannula 05/10 1600 Nasal 2.0L Cannula 05/10 1440 98.1 90 20 118/58 94 Nasal 2.0L Cannula 05/10 1002 69 122/50 05/10 0929 95 Nasal 2.0L Cannula Intake & Output 05/11 0800 05/11 0000 05/10 1600 05/10 0800 05/10 0000 05/09 1600 Intake Total 250 680 800 400 480 600 Output Total 400 500 800 450 Balance -150 180 800 400 -320 150 Intake, IV 10 200 280 Intake, Oral 240 480 800 120 480 600 Number 0 1 1 Bowel Movements Output, Urine 400 500 800 450 Back: No CVA tenderness Abd: soft and non tender Urine C&S positive for yeast creat stable at 1.6 Laboratory Tests 05/10 0800 Chemistry Sodium (137 - 145 mmol/L) 135 L Potassium (3.5 - 5.1 mmol/L) 5.3 H Chloride (98 - 107 mmol/L) 101 Carbon Dioxide (22 - 30 mmol/L) 26 Anion Gap (5 - 16) 7 BUN (9 - 20 mg/dL) 47 H Creatinine (0.7 - 1.2 mg/dL) 1.6 H Estimated GFR (>60 ml/min) 42 L BUN/Creatinine Ratio (7 - 25 %) 29.4 H Hematology CBC w Diff NO MAN DIFF REQ WBC (4.8 - 10.8 /CUMM) 13.6 H RBC (4.70 - 6.10 /CUMM) 4.28 L Hgb (14.0 - 18.0 G/DL) 12.2 L Hct (42 - 52 %) 37.7 L MCV (80.0 - 94.0 FL) 88.0 MCH (27.0 - 31.0 PG) 28.5 RDW (11.5 - 14.5 %) 16.1 H Plt Count (130 - 400 /CUMM) 271 MPV (7.4 - 10.4 FL) 8.2 Gran % (42.2 - 75.2 %) 94.5 H Lymphocytes % (20.5 - 51.1 %) 3.2 L Monocytes % (1.7 - 9.3 %) 2.3 Eosinophils % (0 - 5 %) 0 Basophils % (0.0 - 2.0 %) 0 L Absolute Granulocytes (1.4 - 6.5 /CUMM) 12.8 H Absolute Lymphocytes (1.2 - 3.4 /CUMM) 0.4 L Absolute Monocytes (0.10 - 0.60 /CUMM) 0.3 Absolute Eosinophils (0.0 - 0.7 /CUMM) 0 Absolute Basophils (0.0 - 0.2 /CUMM) 0 PUBS MCHC (33.0 - 37.0 G/DL) 32.4 L Assessment/Plan Assessment/Plan Imp: 1. UTI with yeast and with positive blood C&S 2. R distal ureteral stone with upstream hydronephrosis 3. Elevated creatinine of 1.6 Plan: 1. In view of the above, I recommended that he have cysto and R ureteral stent placement to relieve was appears to be partial obstruction of R ureter. However he wants his urologist to evaluate him and perform any procedures if needed. Therefore if patient to be discharged would place on po fluconazole and he should f/u with his urologist immediately after discharge
--- NOTE | 2017-05-11 09:03 | PN- Housestaff ---
JOHN LEAL,[facility] 05/11/17 0903: Subjective Follow-up For: COPD fungemia Subjective: Have seen and examined the patient. The patient was lying comfortably in the bed. The patient wanted to be discharged today. Dr. Guerra recommended cystoscopy, right ureteral stent placement patient wanted to follow up with his urologist out pt in [place] [facility]. no n/v/d no fever.no acute overnight event Review of Systems Constitutional: Reports: see HPI. Objective Last 24 Hrs of Vital Signs/I&O Vital Signs Date Time Temp Pulse Resp B/P B/P Pulse O2 O2 Flow FiO2 Mean Ox Delivery Rate 05/11 1511 98.1 80 20 120/60 96 Nasal 2.0L Cannula 05/11 0947 98 Nasal 2.0L Cannula 05/11 0937 68 130/52 05/11 0800 94 Nasal 2.0L Cannula 05/11 0644 97.5 68 20 130/52 94 05/11 0433 97 Nasal 2.0L Cannula 05/11 0000 96 Nasal 2.0L Cannula 05/10 2304 98.0 87 21 120/60 96 Nasal 2.0L Cannula Intake & Output 05/11 1600 05/11 0800 05/11 0000 Intake Total 1000 250 680 Output Total 400 400 500 Balance 600 -150 180 Intake, IV 10 200 Intake, Oral 1000 240 480 Number 1 0 Bowel Movements Output, Urine 400 400 500 Physical Exam General Appearance: Alert, Oriented X3, Cooperative, No Acute Distress Cardiovascular: Normal S1, Normal S2, No Murmurs Abdomen: Normal Bowel Sounds, Soft, No Tenderness Neurological: Normal Speech Extremities: No Tenderness/Swelling Current Medications: Current Medications Sig/Camille Start time Last Medication Dose Route Stop Time Status Admin Acetaminophen 650 MG Q6-PRN PRN 05/09 2145 DCD 05/09 PO 2151 Albuterol Sulfate 3 ML TID 05/08 1000 DCD 05/11 INH 1341 Atorvastatin Calcium 40 MG DAILY 05/07 1000 DCD 05/11 PO 0937 Ceftriaxone Sodium 1,000 MG DAILY 05/09 1000 DCD 05/11 IV 0936 Fluconazole 200 MG 1600 05/10 1600 DCD 05/10 Sodium Chloride 100 ML IV 1732 Heparin Sodium 5,000 UNIT Q8 05/07 0600 DCD 05/11 (Porcine) SC 1315 Insulin Aspart 0 TIDAC 05/07 0800 DCD 05/11 SC 1151 Ipratropium Rolfe 2.5 ML TID 05/08 1000 DCD 05/11 INH 1341 Melatonin 5 MG AT BEDTIME 05/080 DCD 05/10 PO 2121 Methylprednisolone 40 MG Q12 05/09 2200 DC 05/11 IV 0936 Oxybutynin Chloride 5 MG BID 05/07 1000 DCD 05/11 PO 0936 Polyethylene Glycol 17 GM DAILY 05/08 1058 DCD 05/11 PO 0937 Prednisone 40 MG ONCE ONE 05/11 1430 DC 05/11 PO 05/11 1431 1708 Roflumilast 500 MCG DAILY 05/07 1000 DCD 05/11 PO 0936 Sitagliptin Phosphate 50 MG DAILY 05/08 1037 DCD 05/11 PO 0937 Tamsulosin HCl 0.4 MG DAILY 05/07 1000 DCD 05/11 PO 0937 Last 24 Hrs of Lab/Arsenio Results Last 24 Hrs of Labs/Mics: Laboratory Tests 05/11/17 0700: Anion Gap 6, Estimated GFR 39 L, BUN/Creatinine Ratio 26.5 H, CBC w Diff NO MAN DIFF REQ, RBC 3.98 L, MCV 87.0, MCH 28.9, RDW 15.5 H, MPV 8.5, Gran % 94.3 H, Lymphocytes % 2.7 L, Monocytes % 3.0, Eosinophils % 0, Basophils % 0 L, Absolute Granulocytes 12.1 H, Absolute Lymphocytes 0.4 L, Absolute Monocytes 0.4, Absolute Eosinophils 0, Absolute Basophils 0, PUBS MCHC 33.2 Assessment/Plan Assessment: Pt is a 77 yo who presented the ED for SOB. Pt has a pmh significant for a 90 pack year smoking hx, COPD on 2L of O2 at bedtime, DM, HLD, neprholithiasis s/p cystoscopy and stent placement, afib s/p ablation over 20 yrs ago. When EMS arrived they reported that the pt was tripoding, cyanotic, unable to speak in complete sentences, had a RR in the 40s, and had an O2 sat of 83%. Treated with solumedrol 125mg IV and mag sulfate 2g IV in the field and was placed on CPAP. The patient was admitted to general medicine floor for further treatment and monitoring. ED workup Vitals 98.2, 101, 24, 101/51,100 Nonbreather Laboratory value was significant for leukocytosis at 21.2 with 95% granulocytes, BUN/creatinine 29/1.6 baseline is 0.8, estimated GFR 42, trop 0.02, proBNP 872, albumin 3.0, and rest of the lab values were within normal limit. Trops negative Chest x-ray showed hyperinflated lungs suspicious for underlying COPD and no acute findings. EKG showed sinus tachycardia at 126, T-wave morphology was typical suggestive of ectopic foci, but was regular, IL 124, QRS 82, QTC 452, no ST-T changes Chest x-ray May 07 negative Renal ultrasound May 07 revealed persistent bilateral hydronephrosis with multiple calculi in the lower pole of the left kidney, bladder calculi and an enlarged prostate. CT of the abdomen and pelvis May 08 revealed a slight increase in the right sided hydronephrosis due to a downward migration of the previously seen proximal right ureteral calcification into the distal right ureter and a nonobstructing calcification in the distal left ureter with additional calculi seen in the left side of the bladder near the UV junction. ------- The patient was treated for following conditions. Acute exacerbation of COPD Patient's history along with acute development of symptoms is suggestive of AE of COPD. * TRC nebulizations, to maintain saturation above 90% * Continue Roflumilast 500 g daily for COPD * Continue albuterol inhaler and Brovana * Patient completed Course of azithromycin * Initially on IV steroids being discharged on oral prednisone, continue steroid taper * Urinary legonella and strep antigen negative * Follow-up with Melissa Johnson MD Nephrolithiasis, hydronephrosis with UTI with yeast patient came with BUN of 29 and creatinine of 1.6. His baseline is 0.9. His creatinine BUN remained elevated likely due to postrenal causes, see ultrasound and CAT scan findings in pertinent data. * Fungemia of urologic origin-- patient was afebrile on presentation with leukocytosis. His blood cultures 2 and urine cultures are positive for Concetta albicans * Dr. Guerra recommended to have cystoscopy with right ureteral stent placement to relieve partial obstruction of right ureter. * The patient was reluctant to undergo the process over here and wanted to follow up with his urologist in [place] * Patient is initially started on IV fluconazole. Continue Fluconazole 400 mg po every 48 hours; 14 day course of treatment Diabetes mellitus continue home medication * Continue Januvia * Continue pioglitazone Hyperlipidemia * Continue lipitor Continue home medication * Continue oxybutinin * Continue tamsulosin. * ASA was held since 3 weeks by Urologist for Hematuria Problem List: 1. COPD exacerbation Pain Ratin Pain Location: none Pain Goal: Pain 4 or less Pain Plan: none Tomorrow's Labs & Rationales: d/c Consulting Request: Consulting Specialty: Urology PABLO LEAL,[facility] 05/11/17 1651: Attending MD Review Statement Attending Statement Attending MD Statement: examined this patient, discuss w/resident/PA/PUTTY AND CAULKING SUPERVISOR, agreed w/resident/PA/PUTTY AND CAULKING SUPERVISOR, reviewed EMR data (avail), discussed with nursing, discussed with case mgmt, reviewed images, amended to note Attending Assessment/Plan: Patient seen and examined, feels okay. Denies any pain. Breathing is back to baseline. Patient has developed fungemia with Concetta. Patient was seen by urology and the recommending cystoscopy with stent but patient would like to follow-up with his own urologist. Patient was also seen by infectious cc and the recommendation is to continue by mouth fluconazole for total of 2 week course. Patient to follow with his urologist. Antibiotics will be discontinued and patient will be discharged on oral fluconazole.
[2017-05-11 09:35] LABS: ABSOLUTE BASOPHIL COUNT 0 /CUMM (0.0-0.2); ABSOLUTE EOSINOPHIL COUNT 0 /CUMM (0.0-0.7); ABSOLUTE GRANULOCYTE CT 12.1 /CUMM (1.4-6.5); ABSOLUTE LYMPH COUNT 0.4 /CUMM (1.2-3.4); ABSOLUTE MONOCYTE COUNT 0.4 /CUMM (0.10-0.60); BASOPHIL % 0 % (0.0-2.0); EOSINOPHIL % 0 % (0-5); HEMATOCRIT 34.6 % (42-52); MEAN CORPUSCULAR HGB 28.9 PG (27.0-31.0); MEAN CORPUSCULAR HGB CONC 33.2 G/DL (33.0-37.0); MEAN PLATELET VOLUME 8.5 FL (7.4-10.4); PLATELET COUNT 218 /CUMM (130-400); RBC DISTRIBUTION WIDTH 15.5 % (11.5-14.5); RED BLOOD CELL CT 3.98 /CUMM (4.70-6.10); WHITE BLOOD CELL COUNT 12.9 /CUMM (4.8-10.8)
[2017-05-11 10:17] LABS: GRANULOCYTE % 94.3 % (42.2-75.2)
--- NOTE | 2017-05-11 10:47 | PN- Pulmonary ---
Subjective HPI/Critical Care Issues: The patient is awake and alert. He reports feeling improved overall. His shortness of breath has significantly improved. The patient was noted to have a UTI with yeast and a positive blood culture. He also has a right distal ureteral stone with upstream hydronephrosis and an elevated creatinine of 1.6. Intervention was recommended by urology and the patient is considering this. Objective Current Medications: Current Medications Sig/Camille Start time Last Medication Dose Route Stop Time Status Admin Acetaminophen 650 MG Q6-PRN PRN 05/09 2145 AC 05/09 PO 2151 Albuterol Sulfate 3 ML TID 05/08 1000 AC 05/11 INH 0944 Atorvastatin Calcium 40 MG DAILY 05/07 1000 AC 05/11 PO 0937 Ceftriaxone Sodium 1,000 MG DAILY 05/09 1000 AC 05/11 IV 0936 Fluconazole 200 MG 1600 05/10 1600 AC 05/10 Sodium Chloride 100 ML IV 1732 Heparin Sodium 5,000 UNIT Q8 05/07 0600 AC 05/11 (Porcine) SC 0525 Insulin Aspart 0 TIDAC 05/07 0800 AC 05/11 SC 0812 Ipratropium [place] 2.5 ML TID 05/08 1000 AC 05/11 INH 0944 Melatonin 5 MG AT BEDTIME 05/08 2200 AC 05/10 PO 2121 Methylprednisolone 40 MG Q12 05/09 2200 AC 05/11 IV 0936 Oxybutynin Chloride 5 MG BID 05/07 1000 AC 05/11 PO 0936 Polyethylene Glycol 17 GM DAILY 05/08 1058 AC 05/11 PO 0937 Promethazine HCl 12.5 MG ONCE ONE 05/10 1615 DC 05/10 IV 05/10 1616 1659 Roflumilast 500 MCG DAILY 05/07 1000 AC 05/11 PO 0936 Sitagliptin Phosphate 50 MG DAILY 05/08 1037 AC 05/11 PO 0937 Tamsulosin HCl 0.4 MG DAILY 05/07 1000 AC 05/11 PO 0937 Vital Signs & I&O Last 24 Hrs of Vitals and I&O: Vital Signs Date Time Temp Pulse Resp B/P B/P Pulse O2 O2 Flow FiO2 Mean Ox Delivery Rate 05/11 0947 98 Nasal 2.0L Cannula 05/11 0937 68 130/52 05/11 0644 97.5 68 20 130/52 94 05/11 0433 97 Nasal 2.0L Cannula 07/31 0000 96 Nasal 2.0L Cannula 05/10 2304 98.0 87 21 120/60 96 Nasal 2.0L Cannula 05/10 1835 97 Nasal 2.0L Cannula 05/10 1600 Nasal 2.0L Cannula 05/10 1440 98.1 90 20 118/58 94 Nasal 2.0L Cannula Intake & Output 05/11 1600 05/11 0800 05/11 0000 Intake Total 250 680 Output Total 400 500 Balance -150 180 Intake, IV 10 200 Intake, Oral 240 480 Number 0 Bowel Movements Output, Urine 400 500 Physical Exam General Appearance: no apparent distress, alert, awake, comfortable Head: atraumatic, normal appearance Eyes: Bilateral: PERRL. Neck: supple Respiratory: no respiratory distress, decreased breath sounds Cardiovascular: regular rate/rhythm Gastrointestinal: normal bowel sounds, soft, non-tender Extremities: no edema Skin: intact, normal color, warm/dry Results Last 24 Hrs of Lab Results: Laboratory Tests 05/11/17 0700: Anion Gap 6, Estimated GFR 39 L, BUN/Creatinine Ratio 26.5 H, CBC w Diff NO MAN DIFF REQ, RBC 3.98 L, MCV 87.0, MCH 28.9, RDW 15.5 H, MPV 8.5, Gran % 94.3 H, Lymphocytes % 2.7 L, Monocytes % 3.0, Eosinophils % 0, Basophils % 0 L, Absolute Granulocytes 12.1 H, Absolute Lymphocytes 0.4 L, Absolute Monocytes 0.4, Absolute Eosinophils 0, Absolute Basophils 0, PUBS MCHC 33.2 Impression/Plan Impression/Plan Impression/Plan: 1. AECOPD. 2. Elevated WBC count secondary to steroids and UTI. 3. Tobacco use disorder. 4. History of AF, s/p ablation over 20 years ago. 5. Bilateral hydronephrosis. 5. Chronic anemia. 6. Concetta bacteremia with evidence of nephrolithiasis and hydronephrosis. Recommendations: * Consider ID input. * Continue fluconazole and ceftriaxone for now. * Change to prednisone 40 mg daily. Discontinue IV Solu-Medrol. * Continue nebulizer treatments/total respiratory care.. * Incentive spirometry. * Out of bed to chair. Increase activity. * DVT prophylaxis at all times. * Follow up urology recommendations. * Continue all supportive care.
[2017-05-11 15:11] VITALS: BP 120/60
[2017-05-11] MEDS ORDERED: FLUCONAZOLE200 M1 PO ×2 (15:50→15:56)
[2017-05-11] MEDS ORDERED: PREDNISONE20 M1 PO (15:56)
--- NOTE | 2017-05-11 16:22 | Cons- Infect Disease ---
General Information and HPI Consulting Request Date of Consult: 05/11/17 Requested By: RENEE SHAH MD Reason for Consult: Candidemia Source of Information: patient, old records History of Present Illness: This is a 77-year-old man with a history of COPD, maintained on 2 L of oxygen at bedtime and 5 mg of prednisone daily, diabetes, atrial fibrillation, status post ablation over 20 years prior to admission, nephrolithiasis, status post multiple lithotripsies and stents in [place], most recently 3 months prior to admission , at which time he underwent placement of a left ureteral stent, with removal of the stent after several weeks, last hospitalized at [facility] several days after the stent placement with an exacerbation of COPD, at which time he was found to have candiduria, admitted on May 07 after presenting to the emergency room with the acute onset of shortness of breath. On admission he was afebrile. Laboratory data revealed a white blood cell count of 21,000, BUN/creatinine 29 and 1.6, alkaline phosphatase 188. Chest x-ray was negative. Renal ultrasound revealed persistent bilateral hydronephrosis with multiple calculi in the lower pole of the left kidney, bladder calculi and an enlarged prostate. He was begun on IV Solumedrol and Ceftriaxone and Azithromycin. CT of the abdomen and pelvis on May 08 revealed a slight increase in the right sided hydronephrosis due to a downward migration of the previously seen proximal right ureteral calcification into the distal right ureter and a nonobstructing calcification in the distal left ureter with additional calculi seen in the left side of the bladder near the UV junction. His respiratory status improved. He has remained afebrile on the steroids and his white blood count has decreased. On May 10 blood cultures discontinued, he was begun on Fluconazole and continued on the Ceftriaxone. Presently he offers no complaints. His respiratory status has returned to baseline and he has no urinary complaints. Allergies/Medications Allergies: Coded Allergies: crab (SOFT SHELL CRAB - FACIAL SWELLING 02/10/17) Home Med List: Albuterol Sulfate 2.5 MG/3 ML (0.083 %) VIAL.NEB 1 Vial INH/SHERRY BID COPD ( Reported) Arformoterol Tartrate (Brovana) 15 MCG/2 ML VIAL.NEB 1 VIAL INH BID COPD ( Reported) Atorvastatin Calcium 40 MG TABLET 1 TAB PO DAILY CHOLESTEROL (Reported) Bisacodyl (Dulcolax) 5 MG TABLET.DR 3 TAB PO QPM GI (Reported) Budesonide 1 MG/2 ML AMPUL.NEB 1 VIAL INH BID COPD (Reported) Fluconazole 200 MG TABLET 2 TAB PO Q48 FUNGUS IN BLOOD Hydrocodone/Acetaminophen (Hydrocodon-Acetaminoph 7.5-325) 7.5 MG-325 MG TABLET 1 TAB PO PRN PAIN (Reported) Oxybutynin Chloride (Ditropan XL) 5 MG TAB.ER.24 1 TAB PO DAILY INCONTINENCE (Reported) Pioglitazone HCl 45 MG TABLET 1 TAB PO DAILY DM (Reported) Prednisone 5 MG TABLET 1 TAB PO DAILY COPD (Reported) Prednisone 10 MG TABLET 0 PO TAPER copd TAPER BELOW: 4 TABS FOR 2 DAYS, 3 TABS FOR 2 DAYS, 2 TABS FOR 2 DAYS, 1 TAB FOR 2 DAYS; THEN STOP Prednisone 20 MG TABLET 1 TAB PO SEE ADMIN CRITERIA COPD Roflumilast (Daliresp) 500 MCG TABLET 1 TAB PO DAILY COPD (Reported) Sitagliptin Phosphate (Januvia) 50 MG TABLET 1 TAB PO DAILY DM (Reported) Tamsulosin HCl (Flomax) 0.4 MG CAP.ER.24H 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 Zolpidem Tartrate 10 MG TABLET 1 TAB PO QPM SLEEP (Reported) Past History Travel History Traveled to [place] past 21 day No Medical History Neurological: NONE EENT: allergies Cardiovascular: AFIB Respiratory: COPD Gastrointestinal: constipation Hepatic: NONE Renal: nephrolithiasis Musculoskeletal: falls Psychiatric: NONE Endocrine: diabetes Blood Disorders: NONE 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 spouse Services at Home: None Primary Language: Maltese Smoking Status: Current Everyday Smoker Functional Ability ADLs Independent: dressing. Ambulation: independent IADLs Independent: shopping, housework, finances, food prep, telephone, transportation , medication admin. Review of Systems Review of Systems All Other Systems: Reviewed and Negative Exam & Diagnostic Data Last 24 Hrs of Vital Signs/I&O Vital Signs Date Time Temp Pulse Resp B/P B/P Pulse O2 O2 Flow FiO2 Mean Ox Delivery Rate 05/11 1511 98.1 80 20 120/60 96 Nasal 2.0L Cannula 05/11 0947 98 Nasal 2.0L Cannula 05/11 0937 68 130/52 05/11 0644 97.5 68 20 130/52 94 05/11 0433 97 Nasal 2.0L Cannula 05/11 0000 96 Nasal 2.0L Cannula 05/10 2304 98.0 87 21 120/60 96 Nasal 2.0L Cannula 05/10 1835 97 Nasal 2.0L Cannula Intake & Output 05/11 1600 05/11 0800 05/11 0000 Intake Total 250 680 Output Total 400 500 Balance -150 180 Intake, IV 10 200 Intake, Oral 240 480 Number 0 Bowel Movements Output, Urine 400 500 Physical Exam Other Physical Findings: Afebrile on steroids. He is awake and alert in no acute distress. Skin reveals no rash. HEENT negative. Neck is supple with no adenopathy. Lungs decreased breath sounds bilaterally. Heart regular rhythm with no murmur. Abdomen is soft, nontender with positive bowel sounds. Back mild left CVA tenderness. Extremities no cyanosis, clubbing or edema. Neuro is without focality. Last 24 Hours of Lab Results: Laboratory Tests 05/11 07 Chemistry Sodium (137 - 145 mmol/L) 133 L Potassium (3.5 - 5.1 mmol/L) 5.0 Chloride (98 - 107 mmol/L) 101 Carbon Dioxide (22 - 30 mmol/L) 26 Anion Gap (5 - 16) 6 BUN (9 - 20 mg/dL) 45 H Creatinine (0.7 - 1.2 mg/dL) 1.7 H Estimated GFR (>60 ml/min) 39 L BUN/Creatinine Ratio (7 - 25 %) 26.5 H Hematology CBC w Diff NO MAN DIFF REQ WBC (4.8 - 10.8 /CUMM) 12.9 H RBC (4.70 - 6.10 /CUMM) 3.98 L Hgb (14.0 - 18.0 G/DL) 11.5 L Hct (42 - 52 %) 34.6 L MCV (80.0 - 94.0 FL) 87.0 MCH (27.0 - 31.0 PG) 28.9 RDW (11.5 - 14.5 %) 15.5 H Plt Count (130 - 400 /CUMM) 218 MPV (7.4 - 10.4 FL) 8.5 Gran % (42.2 - 75.2 %) 94.3 H Lymphocytes % (20.5 - 51.1 %) 2.7 L Monocytes % (1.7 - 9.3 %) 3.0 Eosinophils % (0 - 5 %) 0 Basophils % (0.0 - 2.0 %) 0 L Absolute Granulocytes (1.4 - 6.5 /CUMM) 12.1 H Absolute Lymphocytes (1.2 - 3.4 /CUMM) 0.4 L Absolute Monocytes (0.10 - 0.60 /CUMM) 0.4 Absolute Eosinophils (0.0 - 0.7 /CUMM) 0 Absolute Basophils (0.0 - 0.2 /CUMM) 0 PUBS MCHC (33.0 - 37.0 G/DL) 33.2 Last 24 Hours of Arsenio Results: Blood cultures 2 May 07 positive for Concetta albicans Urine culture May 08 greater than 100,000 colonies of yeast Urine strep pneumo antigen and Legionella antigen May 08 negative Diagnostic Data Recent Imaging Findings: Chest x-ray May 07 negative Renal ultrasound May 07 revealed persistent bilateral hydronephrosis with multiple calculi in the lower pole of the left kidney, bladder calculi and an enlarged prostate. CT of the abdomen and pelvis May 08 revealed a slight increase in the right sided hydronephrosis due to a downward migration of the previously seen proximal right ureteral calcification into the distal right ureter and a nonobstructing calcification in the distal left ureter with additional calculi seen in the left side of the bladder near the UV junction. Assessment/Plan Assessment/Plan Impression: This is a 77-year-old man with a history of COPD, maintained on 2 L of oxygen and 5 mg of prednisone daily, diabetes, atrial fibrillation, status post ablation, and nephrolithiasis, status post left ureteral stent placement 3 months prior to admission, with subsequent removal of the stent, admitted on May 07 with the acute onset of shortness of breath, felt to represent an exacerbation of COPD, found to be afebrile with leukocytosis and with blood cultures 2 and urine culture positive for Concetta albicans. His clinical picture is consistent with sepsis of urologic origin and, while his respiratory symptoms could represent an exacerbation of COPD, it is possible that they were a manifestation of his sepsis. His renal failure persists and, though it could be secondary to sepsis, I suspect that it is secondary to the obstruction of his right kidney seen on the recent CT scan. Urology recommendations noted and agree that he should undergo cystoscopy and right ureteral stent placement to relieve this obstruction. He is reluctant to undergo this here and would prefer that it be done in [place] by his urologist. His candidemia can be treated with po Fluconazole to complete a two-week course of treatment. Suggestion: 1. Would advocate for imminent cystoscopy and placement of a right ureteral stent per Urology 2. Discontinue Ceftriaxone 3. Continue Fluconazole but would change to 400 mg po every 48 hours to plan on a 14 day course of treatment Consult Acknowledgment - Thank you for your consult request.
== END 2017-05-11 18:58 | disposition home health service (06) | DRG 190 ==
LOC: ERH 03:36 → 2NB 05:10 → ERHI 05:10 → ENTRNSPT 08:50 → ENRESERV 08:50 → EDTRNSPT 08:55 → EDTRNSPTSTS 08:55 → 2NB 09:10 → EDTRNSPT 09:29 → CMPTRNSPT 09:36 → 2NB 10:43 → ENPENDDIS 05-11 16:50 → 2NB 05-11 18:58
PROVIDERS: Internal Medicine; Pediatrics; Student in an Organized Health Care Education/Training Program; ADMIT Hospitalist
DX: J44.0 Chronic obstructive pulmonary disease with (acute) lower respiratory infection (principal); B37.7 Candidal sepsis; J96.10 Chronic respiratory failure, unspecified whether with hypoxia or hypercapnia; Z99.81 Dependence on supplemental oxygen; N13.2 Hydronephrosis with renal and ureteral calculous obstruction; I48.2 Chronic atrial fibrillation; J20.9 Acute bronchitis, unspecified; B37.49 Other urogenital candidiasis; J44.1 Chronic obstructive pulmonary disease with (acute) exacerbation; E11.9 Type 2 diabetes mellitus without complications; I10 Essential (primary) hypertension; F17.210 Nicotine dependence, cigarettes, uncomplicated; E78.5 Hyperlipidemia, unspecified; N21.0 Calculus in bladder; Z85.828 Personal history of other malignant neoplasm of skin
CPT/HCPCS: 2NBSP; 84133; 84300; 36415; 74176; 76775; 81001; 82436; 82570; 87040; 87070; 87071; 87086; 87088; 87449; 87450; 93005; 93010; 96374; 96375; 99291; J0456; J0696; J1450; J1644; J2550; J2920; J3101; J7040

== ENCOUNTER 2017-10-14 18:11 | Inpatient (IN) | payer OTHER ==
[~2017-10-14] VITALS: Ht 190.5 cm; Wt 74.0 kg
[~2017-10-14 18:11] MED LIST changes: +AZITHROMYCIN250 M1 PO; +COLON HERBAL C1 EACH PO; +DIFLUCAN200 M1 PO; +ELIQUIS5 M1 PO; +FLUCONAZOLE200 M1 PO; +LINZESS290 MC1 PO; +PREDNISONE20 M1 PO; +TRAZODONE HCL50 M1 PO
--- NOTE | 2017-10-14 18:16 | ED DYSPNEA/ASTHMA COMPLAINT ---
History of Present Illness General Chief Complaint: Dyspnea (COPD, CHF, Other) Stated Complaint: BIBA FOR DIFF BREATHING Source: patient Exam Limitations: no limitations Vital Signs & Intake/Output Vital Signs & Intake/Output Vital Signs Date Time Temp Pulse Resp B/P B/P Pulse O2 O2 Flow FiO2 Mean Ox Delivery Rate 10/14 1900 92 18 138/65 95 Room Air 10/14 1849 102.9 10/14 1821 95 Room Air 10/14 1819 95 10/14 181 102.9 110 20 136/60 95 Room Air Allergies Coded Allergies: crab (SOFT SHELL CRAB - FACIAL SWELLING 02/10/17) Reconcile Medications Albuterol Sulfate 2.5 MG/3 ML (0.083 %) VIAL.NEB 1 Vial INH/SHERRY BID COPD ( Reported) Apixaban (Eliquis) 5 MG TABLET 1 TAB PO BID BLOOD THINNER (Reported) Arformoterol Tartrate (Brovana) 15 MCG/2 ML VIAL.NEB 1 VIAL INH BID COPD ( Reported) Atorvastatin Calcium 40 MG TABLET 1 TAB PO DAILY CHOLESTEROL (Reported) Bisacodyl (Dulcolax) 5 MG TABLET.DR 3 TAB PO QPM GI (Reported) Budesonide (Unknown Strength) AMPUL.NEB 1 INH BID COPD (Reported) Fluconazole (Diflucan) 200 MG TABLET 2 TAB PO DAILY Fungal Infection . Herbal Drugs (Colon Herbal Cleanser) (Unknown Strength) CAPSULE (Unknown Dose) PO DAILY PROBIOTIC (Reported) Linaclotide (Linzess) 290 MCG CAPSULE 1 CAP PO DAILY GI (Reported) Pioglitazone HCl 45 MG TABLET 1 TAB PO DAILY DM (Reported) Prednisone 10 MG TABLET 1 TAB PO DAILY COPD .on 07/17-07/18: take 4 on 07/19-07/21: take 3 on 07/22-07/24: take 2 on 07/25-07/27: take 1 Roflumilast (Daliresp) 500 MCG TABLET 1 TAB PO DAILY COPD (Reported) Sitagliptin Phosphate (Januvia) 50 MG TABLET 1 TAB PO DAILY DM (Reported) Tamsulosin HCl (Flomax) 0.4 MG CAP.ER.24H 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 Tiotropium [place] (Spiriva) 18 MCG CAP.W.DEV 1 CAP INH DAILY COPD (Reported) Trazodone HCl 50 MG TABLET 2 TAB PO QPM MENTAL HEALTH/SLEEP (Reported) Zolpidem Tartrate 10 MG TABLET 1 TAB PO QPM SLEEP (Reported) Triage Nurses Notes Reviewed? yes Onset: Abrupt Duration: day(s): (4-5), constant, continues in ED Timing: recent history Severity: moderate, severe Activities at Onset: none HPI: 77-year-old male comes into the emergency room for further evaluation of increasing shortness of breath with cough. Symptoms have been going on for the past 4-5 days. Symptoms have gotten progressively worse. Associated chills. Some associated vomiting. Nothing seems to make the symptoms better. Patient comes in for further evaluation. (Hector Badillo) Past History Travel History Traveled to [place] past 21 day No Medical History Any Pertinent Medical History? 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 No (Hector Badillo) Review of Systems Review of Systems Constitutional: Reports: see HPI. EENTM: Reports: no symptoms. Respiratory: Reports: see HPI. Cardiovascular: Reports: no symptoms. GI: Reports: no symptoms. Genitourinary: Reports: no symptoms. Musculoskeletal: Reports: no symptoms. Skin: Reports: no symptoms. Neurological/Psychological: Reports: no symptoms. Hematologic/Endocrine: Reports: no symptoms. Immunologic/Allergic: Reports: no symptoms. All Other Systems: Reviewed and Negative (Hector Badillo) Physical Exam Physical Exam General Appearance: well developed/nourished, alert, awake, mild distress Head: atraumatic Eyes: Bilateral: normal appearance, EOMI. Ears, Nose, Throat: normal ENT inspection, hearing grossly normal Neck: normal inspection Respiratory: decreased breath sounds, respiratory distress (mild) Cardiovascular: regular rate/rhythm Extremities: normal inspection Neurologic/Psych: awake, alert, oriented x 3 Skin: intact, normal color Core Measures ACS in differential dx? Yes CVA/TIA Diagnosis No Sepsis Present: No Sepsis Focused Exam Completed? No (Gregorio CARLOS,Hector) Progress Differential Diagnosis: asthma, AMI, bronchitis, CHF, COPD, musculoskeletal pain , pericarditis, pulmonary embolism, pneumonia, pneumothorax, influenza, Plan of Care: Orders Procedure Date/time Status LACTIC ACID 10/14 2114 Active Patient Data 10/14 2007 Active Discontinue Telemetry/Monitor 10/14 1814 Active RAPID VIRAL INFLUENZA A 10/14 1814 Complete BLOOD CULTURE 10/14 1814 Active TROPONIN LEVEL 10/14 1814 Complete LACTIC ACID 10/14 1814 Complete COMPREHENSIVE METABOLIC PANEL 10/14 1814 Complete CBC WITHOUT DIFFERENTIAL 10/14 1814 Complete EKG 10/14 1811 Active Current Medications Sig/Camille Start time Last Medication Dose Stop Time Status Admin Azithromycin 500 MG ONCE ONE 10/14 1944 AC (Zithromax) 10/14 2043 Sodium Chloride 250 ML (Normal Saline 0.9%) Laboratory Tests 10/14/17 184: Anion Gap 10, Estimated GFR 45 L, BUN/Creatinine Ratio 18.7, Glucose 208 H, Lactic Acid 2.0, Calcium 9.0, Total Bilirubin 0.6, AST 20, ALT 27, Alkaline Phosphatase 82, Troponin I 0.03, Total Protein 6.6, Albumin 3.6, Globulin 3.0, Albumin/Globulin Ratio 1.2, CBC w Diff NO MAN DIFF REQ, RBC 4.41 L, MCV 86.0, MCH 29.5, RDW 14.6 H, MPV 9.0, Gran % 81.9 H, Lymphocytes % 10.5 L, Monocytes % 6.9, Eosinophils % 0.5, Basophils % 0.2, Absolute Granulocytes 11.7 H, Absolute Lymphocytes 1.5, Absolute Monocytes 1.0 H, Absolute Eosinophils 0.1, Absolute Basophils 0, PUBS MCHC 34.3 Microbiology 10/14 1915 BLOOD: Blood Culture - RECD 10/14 1842 BLOOD: Blood Culture - RECD 10/14 1834 NASOPHARYN: Influenza Virus A & B Rapid Smear - COMP Diagnostic Imaging: Viewed by Me: Radiology Read. Discussed w/RAD: Radiology Read. Radiology Impression: PATIENT: SONIDO HENRIQUEZ PRESENT AGE: 77 PATIENT ACCOUNT NO: [id number] : 39 LOCATION: [facility] ORDERING PHYSICIAN: Hector CARLOS SERVICE DATE: 10/14/17 EXAM TYPE : RAD - XRY-PORTABLE CHEST XRAY EXAMINATION: XR PORTABLE CHEST CLINICAL INFORMATION: Shortness of breath COMPARISON: Chest x-ray from 07/10/2017. Screening chest CT from 11/27/2016. TECHNIQUE: Portable frontal view of the chest was obtained. FINDINGS: The lungs remain hyperinflated. The cardiomediastinal silhouette is stable without cardiomegaly. There is calcification at the aortic arch. Accounting for some stable opacity appearing to relate to epicardial fat in the left base there may be some superimposed patchy left basilar opacity. No evidence of pulmonary edema. No definitive pleural effusion. No pneumothorax. There are degenerative changes of the spine partially visualized. No acute osseous abnormality is evident. IMPRESSION: Stable hyperinflation compatible with underlying emphysema. Possible patchy airspace opacity in the left base, superimposed on opacity related to prominence of the epicardial fat. DICTATED BY: Ananth Narvaez MD DATE/TIME DICTATED:10/14/171858 WARPER FIXER:LORA DATE/TIME TRANSCRIBED:10/14/171858 CONFIDENTIAL, DO NOT COPY WITHOUT APPROPRIATE AUTHORIZATION. <Electronically signed in Other Vendor System> SIGNED BY: Ananth Narvaez MD 10/14/171906 Initial ED EKG: normal sinus rhythm, rate (91) (Hector Badillo) Departure Departure Disposition: STILL A PATIENT Condition: Stable Clinical Impression Primary Impression: Left lower lobe pneumonia Secondary Impressions: Hypoxia Referrals: Martin Frazier MD (PCP/Family) Departure Forms: Customer Survey General Discharge Information Admission Note Spoke With: Gene Adams MD Documentation of Exam: Documentation of any treatments & extenuating circumstances including Concerns Regarding Discharge (functional status, medication knowledge or non-compliance, living conditions, etc.) that warrant an admission rather than observation: Patient will require IV fluids. IV antibiotics. Pulmonary consultation. Supplemental oxygen. Febrile 102.9. White count 14,000. Medically not safe for discharge. (Hector Badillo) PA/INSURANCE SALES SPECIALIST Co-Sign Statement Statement: ED Attending supervision documentation- x I saw and evaluated the patient. I have also reviewed all the pertinent lab results and diagnostic results. I agree with the findings and the plan of care as documented in the PA's/INSURANCE SALES SPECIALIST's documentation. SOB, fever, LLL infiltrate. Admit pneumonia [] I have reviewed the ED Record and agree with the PA's/INSURANCE SALES SPECIALIST's documentation. [] Additions or exceptions (if any) to the PAs/INSURANCE SALES SPECIALIST's note and plan are summarized below: [] (Gisel LEAL,César) Critical Care Note Critical Care Note Critical Care Time: non-applicable (Hector Badillo)
--- NOTE | 2017-10-14 19:07 | RADIOLOGY REPORT ---
EXAMINATION: XR PORTABLE CHEST CLINICAL INFORMATION: Shortness of breath COMPARISON: Chest x-ray from 07/10/2017. Screening chest CT from 11/27/2016. TECHNIQUE: Portable frontal view of the chest was obtained. FINDINGS: The lungs remain hyperinflated. The cardiomediastinal silhouette is stable without cardiomegaly. There is calcification at the aortic arch. Accounting for some stable opacity appearing to relate to epicardial fat in the left base there may be some superimposed patchy left basilar opacity. No evidence of pulmonary edema. No definitive pleural effusion. No pneumothorax. There are degenerative changes of the spine partially visualized. No acute osseous abnormality is evident. IMPRESSION: Stable hyperinflation compatible with underlying emphysema. Possible patchy airspace opacity in the left base, superimposed on opacity related to prominence of the epicardial fat.
[2017-10-14 19:14] LABS: ABSOLUTE BASOPHIL COUNT 0 /CUMM (0.0-0.2); ABSOLUTE EOSINOPHIL COUNT 0.1 /CUMM (0.0-0.7); ABSOLUTE GRANULOCYTE CT 11.7 /CUMM (1.4-6.5); ABSOLUTE LYMPH COUNT 1.5 /CUMM (1.2-3.4); BASOPHIL % 0.2 % (0.0-2.0); EOSINOPHIL % 0.5 % (0-5); GRANULOCYTE % 81.9 % (42.2-75.2); HEMATOCRIT 37.9 % (42-52); MEAN CORPUSCULAR HGB 29.5 PG (27.0-31.0); MEAN CORPUSCULAR HGB CONC 34.3 G/DL (33.0-37.0); PLATELET COUNT 209 /CUMM (130-400); RBC DISTRIBUTION WIDTH 14.6 % (11.5-14.5); RED BLOOD CELL CT 4.41 /CUMM (4.70-6.10); WHITE BLOOD CELL COUNT 14.3 /CUMM (4.8-10.8)
[2017-10-14] MEDS ORDERED: ELIQUIS5 M1 PO (19:22)
[2017-10-14] MEDS ORDERED: BUDESONIDE0.5 MG/21 INH/SOL (20:35)
[2017-10-14] MEDS ORDERED: PROAIR HFA8.5 GM INH (20:35)
--- NOTE | 2017-10-14 20:39 | History & Physical ---
Ángela LEAL,[facility] 10/14/172037: General Information and HPI MD Statement: I have seen and personally examined SONIDO HENRIQUEZ and documented this H&P. The patient is a 77 year old M who presented with a patient stated chief complaint of [Dyspnea]. Source of Information: patient, family Exam Limitations: no limitations History of Present Illness: Mr. Henriquez is a 71-year-old gentleman with past medical history significant for COPD(on 2 L of oxygen at night), atrial fibrillation status post ablation, UTIs, nephrolithiasis, hydronephrosis status post lithotripsy and stent placement, history of candidemia secondary to urologic origin, recently admitted to the [facility] for dyspnea secondary to possible PE/COPD exacerbation and candidemia status post stent placement for right-sided UVJ calculus( completed 28 days course of fluconazole), presents to the ER with shortness of breath and productive cough for the past 4-5 days. According to the patient, he has progressively worse shortness of breath even at rest and has a productive cough but is unsure about the color of sputum. Denies any fever but has occasional chills. Denies any chest pain, palpitations, orthopnea, peripheral edema, sick contacts, recent travel, nausea, vomiting, diarrhea or abdominal pain. 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 spouse Services at Home: None Primary Language: Lao Smoking Status: Former Smoker (1.5 PPD x 65yrs,quit 8 M ago) ETOH Use: occasional use Illicit Drug Use: denies illicit drug use Functional Ability ADLs Independent: dressing. Ambulation: independent IADLs Independent: shopping, housework, finances, food prep, telephone, transportation , medication admin. Review of Systems Review of Systems Constitutional: Reports: no symptoms. EENTM: Reports: no symptoms. Cardiovascular: Reports: no symptoms. Respiratory: Reports: cough, short of breath, sputum production. GI: Reports: constipation. Genitourinary: Reports: no symptoms. Musculoskeletal: Reports: no symptoms. Skin: Reports: no symptoms. Neurological/Psychological: Reports: no symptoms. Hematologic/Endocrine: Reports: no symptoms. Immunologic/Allergic: Reports: no symptoms. All Other Systems: Reviewed and Negative Exam & Diagnostic Data Last 24 Hrs of Vital Signs/I&O Vital Signs Date Time Temp Pulse Resp B/P B/P Pulse O2 O2 Flow FiO2 Mean Ox Delivery Rate 10/15 0017 Room Air 10/15 0004 98.1 82 18 100/60 92 Room Air 10/14 2231 98.8 79 18 105/58 96 Room Air 10/14 2047 98.4 10/14 1900 92 18 138/65 95 Room Air 10/14 1849 102.9 10/14 1821 95 Room Air 10/14 1819 95 10/14 1819 102.9 110 20 136/60 95 Room Air Intake & Output 10/15 0800 10/15 0000 10/14 1600 Intake Total Output Total 200 Balance -200 Output, Urine 200 Patient 163 lb 165 lb Weight Weight Bed scale Reported by Patient Measurement Method Physical Exam General Appearance Alert, Oriented X3, Cooperative, No Acute Distress Skin No Rashes, No Breakdown HEENT Atraumatic, PERRLA, EOMI Neck Supple, No JVD, No thryomegaly Cardiovascular Regular Rate, Normal S1, Normal S2 Lungs decreased breath sounds bilaterally Abdomen Normal Bowel Sounds, Soft, No Tenderness Extremities No Clubbing, No Cyanosis, No Edema, Normal Pulses Last 24 Hrs of Labs/Arsenio: Laboratory Tests 10/15/17 0045: Urinalysis LIGHT H, Urine Color YEL, Urine Clarity CLDY H, Urine pH 6.0, Ur Specific [place] 1.020, Urine Protein 100 H, Urine Ketones TRACE H, Urine Nitrite NEG, Urine Bilirubin NEG, Urine Urobilinogen 0.2, Ur Leukocyte Esterase MOD H, Ur Microscopic SEDIMENT EXAMINED, Urine RBC >75 H, Urine WBC 10-15 H, Urine Bacteria FEW H, Micro UA Comment [place] H, Urine Hemoglobin LARGE H, Urine Glucose 250 H 10/14/171: Urine Color Cancelled, Urine Clarity Cancelled, Urine pH Cancelled, Ur Specific [place] Cancelled, Urine Protein Cancelled, Urine Ketones Cancelled, Urine Nitrite Cancelled, Urine Bilirubin Cancelled, Urine Urobilinogen Cancelled, Ur Leukocyte Esterase Cancelled, Ur Microscopic Cancelled, Urine Hemoglobin Cancelled, Urine Glucose Cancelled 10/14/17 211: Lactic Acid 0.7 10/14/171842: Anion Gap 10, Estimated GFR 45 L, BUN/Creatinine Ratio 18.7, Glucose 208 H, Lactic Acid 2.0, Calcium 9.0, Total Bilirubin 0.6, AST 20, ALT 27, Alkaline Phosphatase 82, Troponin I 0.03, Total Protein 6.6, Albumin 3.6, Globulin 3.0, Albumin/Globulin Ratio 1.2, CBC w Diff NO MAN DIFF REQ, RBC 4.41 L, MCV 86.0, MCH 29.5, RDW 14.6 H, MPV 9.0, Gran % 81.9 H, Lymphocytes % 10.5 L, Monocytes % 6.9, Eosinophils % 0.5, Basophils % 0.2, Absolute Granulocytes 11.7 H, Absolute Lymphocytes 1.5, Absolute Monocytes 1.0 H, Absolute Eosinophils 0.1, Absolute Basophils 0, PUBS MCHC 34.3 Microbiology 10/15 44 URINE ROUT: Legionella Antigen - COMP 10/15 44 URINE ROUT: Streptococcus pneumoniae Antigen (M - COMP 10/14 2037 LOWER RESP: Respiratory Culture - ORD 10/14 2037 LOWER RESP: Gram Stain - ORD 10/14 191 BLOOD: Blood Culture - RECD 10/14 1842 BLOOD: Blood Culture - RECD 10/14 183 NASOPHARYN: Influenza Virus A & B Rapid Smear - COMP Diagnostic Data EKG Results Heart rate 91 Pacemaker spikes or artifacts CXR Results IMPRESSION: Stable hyperinflation compatible with underlying emphysema. Possible patchy airspace opacity in the left base, superimposed on opacity related to prominence of the epicardial fat. Assessment/Plan Assessment: Mr. Henriquez is a 71-year-old gentleman with past medical history significant for COPD(on 2 L of oxygen at night), atrial fibrillation status post ablation, UTIs, nephrolithiasis, hydronephrosis status post lithotripsy and stent placement, history of candidemia secondary to urologic origin, recently admitted to the [facility] for dyspnea secondary to possible PE/COPD exacerbation and candidemia status post stent placement for right-sided UVJ calculus( completed 28 days course of fluconazole), presents to the ER with shortness of breath and productive cough for the past 4-5 days. A/P; 1. Sepsis secondary to Community-acquired pneumonia; Patient meets SIRS criteria(febrile, tachycardic), has a white blood cell count of 14.3 and chest x -ray shows possible patchy airspace opacity in the left base. - We'll start the patient on IV ceftriaxone and azithromycin - Follow-up blood cultures - Urine strep and Legionella antigen 2. VITALIY; - Urinalysis is positive for blood and leukocyte esterase. - We'll obtain CT abdomen and pelvis - Urine culture - Continue gentle hydration - We will hold off on antibiotics for now as the patient is asymptomatic. 3. Diabetes - Will hold oral hypoglycemic agents - Insulin sliding scale and Accu-Cheks. 4. Chronic medical conditions - Continue home medications DVT prophylaxis; patient is on Eliquis Patient is full code As Ranked By This Provider Problem List: 1. Left lower lobe pneumonia 2. Sepsis Core Measures/Misc (06/28) Acute Coronary Syndrome ACS Diagnosis: No Congestive Heart Failure Congestive Heart Failure Diagnosis No Cerebrovascular Accident CVA/TIA Diagnosis: No VTE (View Protocol) VTE Risk Factors Age>40 No Mechanical VTE Prophylaxis d/t N/A MechProphylax Ordered No VTE Pharm Prophylaxis d/t NA PharmProphylax ordered Sepsis (View protocol) Sepsis Present: Yes Sofya Zarco 10/15/17 0420: General Information and HPI Allergies/Medications Home Med list Albuterol Sulfate 2.5 MG/3 ML (0.083 %) VIAL.NEB 1 Vial INH/SHERRY BID COPD ( Reported) Albuterol Sulfate (Proair Hfa) 90 MCG HFA.AER.AD 2 PUF INH Q4H PRN RESP ( Reported) Apixaban (Eliquis) 5 MG TABLET 1 TAB PO BID BLOOD THINNER (Reported) Arformoterol Tartrate (Brovana) 15 MCG/2 ML VIAL.NEB 1 VIAL INH BID COPD ( Reported) Atorvastatin Calcium 40 MG TABLET 1 TAB PO DAILY hyperlipidemia (Reported) Atorvastatin Calcium 40 MG TABLET 1 TAB PO DAILY CHOLESTEROL (Reported) Budesonide 0.5 MG/2 ML AMPUL.NEB 1 Vial INH/SHERRY BID RESP. 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 Tiotropium [place] (Spiriva) 18 MCG CAP.W.DEV 1 CAP INH DAILY COPD (Reported) Trazodone HCl 50 MG TABLET 2 TAB PO QPM MENTAL HEALTH/SLEEP (Reported) Resident Review Statement Resident Statement: examined this patient, discussed with management internship Other Findings: Pt is a 71-year-old gentleman with past medical history significant for COPD on 2 L of nocturnal oxygen history of atrial fibrillation status post ablation, atrial fibrillation status post ablation, UTIs, nephrolithiasis, hydronephrosis status post lithotripsy and stent placement, history of candidemia secondary to urologic origin, recently admitted to [facility] in July 2017 for acute respiratory distress secondary to possible PE/COPD exacerbation and sepsis of urological origin secondary to candidemia status post stent placement for right-sided UVJ calculus presented to the ER with chief complaints of worsening shortness of breath and productive cough. As per patient, he has been having shortness of breath mostly at rest for the last 5 days associated with productive cough and chills, denied any fevers / palpitations. Denied any sick contacts or recent travels. His appetite remained poor. Denied any nausea vomiting and abdominal discomfort. Reported off-and-on blood in the urine without any burning micturition/frequency. As mentioned above patient was recently admitted in [facility] in July for sepsis of urological origin from candidemia, he completed 28 day course of fluconazole. Patient was advised to follow-up with real estate account executive(to rule out candidemia endophthalmitis), but apparently patient didn't follow-up. Didn't follow-up with any urologist. Initial vitals on admission temperature 102.9, pulse 110, respiratory rate 20, blood pressure 136/60 on room air On examination : General Appearance: well developed/nourished, Alert, Oriented X3, Cooperative, No Acute Distress HEENT :Atraumatic, PERRLA, EOMI, dry mucous membranes Neck: Supple, No JVD, Carotid bruits.Normal inspection, full range of motion Respiratory: decreased breath sounds in left luung cash. Cardiovascular: regular rate/rhythm. No murmurs Gastrointestinal: Normal Bowel Sounds, Soft, w/o tenderness. Back: normal inspection Extremities: normal range of motion Neurologic/Psych: Speech ,normal mood/affect. memory intact grossly intact. Skin: intact, normal color. Pertinent labs leukocytosis without any evidence of bandemia, H&H 13.0/37.9 elevated RDW 14.6 Hyponatremia 132, elevated BUN and creatinine 28/1.5(baseline) 1.2, lactic acid levels normal Chest x-ray:Stable hyperinflation compatible with underlying emphysema. Possible patchy airspace opacity in the left base, superimposed on opacity related to prominence of the epicardial fat. Problem list Acute respiratory distress with sepsis due to community acquired pneumonia Hematuria(sepsis of urological origin secondary to candidemia status post stent placement for right-sided UVJ calculus) History of COPD on nocturnal 2 L of oxygen through nasal cannula History of tar-dqgrcdy-pldfgbdcl diabetes mellitus History of atrial fibrillation status post ablation History of hyperlipidemia Plan Acute respiratory distress with sepsis due to community acquired pneumonia * Admit the patient [facility] floor. * Continue IV ceftriaxone and azithromycin. Blood and urine cultures obtained urine Legionella and strep pneumo antigens * Continue IV hydration. * Monitor vitals every 4 hours * Watch for any hemodynamic instability. Hematuria with VITALIY (history of sepsis of urological origin secondary to candidemia status post stent placement for right-sided UVJ calculus): * Urinalysis positive blood(large hemoglobin )and leukocyte esterase. * We will obtain CT abdomen and pelvis without contrast to rule out any underlying renal pathology. * Continue gentle hydration. History of COPD on nocturnal 2 L of oxygen through nasal cannula * Continue nocturnal oxygen * Continue budesonide and Spiriva. * Confirmed from the (patient has been taking 10 mg of prednisone prescribed by Dr. Johnson for COPD for a couple of months now), his in the morning if patient has been actually prescribed maintenance dose of prednisone. History of aml-scixhto-ozhfxjxcn diabetes mellitus * Hold oral hypoglycemics * Start patient on NovoLog sliding scale per Accu-Cheks. History of atrial fibrillation status post ablation * Continue elliquis History of hyperlipidemia * Continue atorvastatin DVT prophylaxis :leanneiqutoñito Fsad-pt-uljdrpap pain controlled with Tylenol Patient is full Gene Adams 10/15/17 0604: Attending MD Review Statement Attending Statement Attending MD Statement: examined this patient, discuss w/resident/PA/ICE PULLER, agreed w/resident/PA/ICE PULLER, reviewed EMR data (avail), reviewed images, amended to note Attending Assessment/Plan: CC: Shortness of breath PMH: HFpEF, mild aortic stenosis, moderate pulmonary hypertension, COPD on nighttime 2 L nasal cannula oxygen, DM, HLD, history of nephrolithiasis S/P ureteral stenting, A. fib S/P ablation, BPH, history of candidemia Patient presented in ER from home for worsening of shortness of breath over 5 day duration associated with cough with yellow colored sputum production. Dyspnea is at rest and is on exertion, patient is mostly bedbound and lethargic, endorses chills but no fever, denies chest pain, palpitations, any recent travels, any leg swellings, orthopnea. Patient has poor appetite. He is a poor historian and does not recall all the details of his medical history and suggest to call his . Patient says that he completed his antibiotics for his recent yeast infection, did not follow-up with real estate account executive, has been getting intermittent blurred in urine. He followed up with urologist first week of September and was suggest a follow-up again next month. Vitals: T max 102.9, pulse 110, RR 20, blood pressure 136/60, saturating 95% on room air on exam: A O 3, cooperative, no acute distress, neck supple, JVD normal, no lymphadenopathy, mucosa dry, no focal neurological deficit, no dependent edema, no obvious skin rashes or inflammation CVS: S1-S2, RRR. RS: Clear to auscultate bilaterally. Abdomen: Soft, NT, ND, bowel sounds present. Labs: WBC 14.3, hemoglobin 13.0, hematocrit 37.9, platelet 209, neutrophils 81%, sodium 132, potassium 4.3, chloride 96, bicarbonate 26, BUN 28, creatinine 1.5, glucose 208, calcium 9.0, anion gap 10, lactate 2, LFT unremarkable, troponin 0.03 CXR: Stable hyperinflation compatible with underlying emphysema. Possible patchy airspace opacity in the left base, superimposed on opacity related to prominence of the epicardial fat. Assessment and plan 77-year-old male with extensive past medical history presented in ER for 5-6 day duration of shortness of breath, productive cough and chills. Denies any sick contacts, flulike symptoms, long travels, orthopnea, leg swellings. He is found to have significant fever, tachycardia in ER. Examination shows mild dehydration but no other significant findings even on auscultation of his lungs there is markedly decreased air entry but no wheezing or crackles. Patient found to have leukocytosis, mildly elevated creatinine and chest x-ray suggestive of pneumonia. Given his symptomatology labs and chest x-ray, this appears to be pneumonia. Given his recurrent kidney stones, current blood in urine any UTI, hydronephrosis or pyelonephritis should be ruled out. + Sepsis secondary to Left lower lobe pneumonia + Hematuria: Rule out UTI + History of COPD, HFpEF, mild aortic stenosis, moderate pulmonary hypertension, COPD on nighttime 2 L nasal cannula oxygen, DM, HLD, history of nephrolithiasis S/P ureteral stenting, A. fib S/P ablation, BPH, history of candidemia - Admit to general medicine - Follow-up blood culture, UA urine culture and sputum culture, urine strep antigen - Continue IV fluids - Serial lactate - TRC nebs - IV ceftriaxone and azithromycin - Hold oral hypoglycemics, continue sliding scale and basal insulin - Obtain CT abdomen and pelvis without IV contrast - Continue home medications
[2017-10-14] MEDS ORDERED: PREDNISONE10 M2 PO (23:34)
[2017-10-15 00:04] VITALS: BP 100/60
[2017-10-15] MEDS ORDERED: ATORVASTATIN CA40 M1 PO (04:17)
--- NOTE | 2017-10-15 06:06 | Admission Certification ---
Admission Certification Certification Statement - As attending physician, I certify that at the time of - admission, based on clinical presentation, severity of - symptoms, need for further diagnostic testing and - therapeutic interventions, and risk of adverse outcomes - without in-hospital treatment, in my clinical assessment, - this patient requires an acute hospital stay for a minimum - of two nights or longer. I have also considered psychsocial - factors such as support system, advanced age, financial - issues, cognitive issues, and failed out-patient treatments, - past re-admission history, safety of patient, and lack of - compliance as applicable. Specific rationale supporting this admission is: Left lower lobe pneumonia
[2017-10-15 06:42] VITALS: BP 110/60
--- NOTE | 2017-10-15 07:31 | PN- Housestaff ---
[facility] Subjective Follow-up For: Sepsis due to Community acquired pneumonia. Acute on chronic kidney injury Microscopic hematuria. Subjective: No overnight events. Patient remained afebrile overnight. Seen and examined this morning. Patient denied any chest pain, chills, fever, nausea, vomiting, abdominal pain and dysuria. Patient reported that he is using 2 units of oxygen during nighttime. Patient reported exertional dyspnea.I spoke to her this afternoon and she told me that he skipped two evening doses of eliquis other leach he is regular in taking his meds. Review of Systems Constitutional: Reports: no symptoms. EENTM: Reports: no symptoms. Cardiovascular: Reports: no symptoms. Respiratory: Reports: short of breath. Gastrointestinal: Reports: no symptoms. Genitourinary: Reports: no symptoms. Musculoskeletal: Reports: no symptoms. Neurological/Psychological: Reports: no symptoms. Objective Last 24 Hrs of Vital Signs/I&O Vital Signs Date Time Temp Pulse Resp B/P B/P Pulse O2 O2 Flow FiO2 Mean Ox Delivery Rate 10/15 1019 94 Room Air Room Air 10/15 0914 Room Air Room Air 10/15 0642 98.5 75 20 110/60 98 Room Air 10/15 0017 Room Air 10/15 0004 98.1 82 18 100/60 92 Room Air 10/14 2231 98.8 79 18 105/58 96 Room Air 10/14 2047 98.4 10/14 1900 92 18 138/65 95 Room Air 10/14 1849 102.9 10/14 1821 95 Room Air 10/14 1819 95 10/14 1819 102.9 110 20 136/60 95 Room Air Intake & Output 10/15 1600 10/15 0800 10/15 0000 Intake Total 600 Output Total 400 Balance 200 Intake, IV 600 Output, Urine 400 Patient 163 lb 165 lb Weight Weight Bed scale Reported by Patient Measurement Method Physical Exam General Appearance: Alert, Oriented X3, Cooperative, No Acute Distress Skin Temp/Moisture Exam: Warm/Dry HEENT: Atraumatic, PERRLA, EOMI Neck: Supple Cardiovascular: Normal S1, Normal S2 Lungs: Clear to Auscultation Abdomen: Soft, No Tenderness Neurological: Normal Speech, Strength at 5/5 X4 Ext, Normal Tone, Sensation Intact Extremities: No Cyanosis, No Edema Assessment/Plan Assessment: 71-year-old gentleman with past medical history significant for COPD on 2 L of nocturnal oxygen history of atrial fibrillation status post ablation, heart failure with preserved ejection fraction, pulmonary hypertension, mild aortic stenosis, UTIs, nephrolithiasis, hydronephrosis status post lithotripsy and stent placement, history of candidemia secondary to urologic origin, recently admitted to [facility] in July 2017 for acute respiratory distress secondary to possible PE/COPD exacerbation and sepsis of urological origin secondary to candidemia status post stent placement for right-sided UVJ calculus presented to the ER with chief complaints of worsening shortness of breath and productive cough. We will admit the patient on general medicine floor to treat the pneumonia. Sepsis secondary to community-acquired pneumonia: -Patient is meeting the criteria of sepsis including temperature 102.9, pulse 110 and WBC count 14.3 on admission with source of infection is suspicion of pneumonia on chest x-ray. -Azithromycin IV and ceftriaxone -TRC nebulization as needed. -Oxygen supplementation to keep the saturation above 92%. -Gentle IV hydration. -Legionella and strep urine antigen. -Lactic acid is already trended down. Acute on chronic kidney injury and microscopic hematuria: -Patient history of urinary tract infection due to candidemia and also having history of right ureteric stent placement. -Gentle IV hydration -Avoid nephrotoxic medication -We will follow input and output. -We'll follow the results of CT scan of abdomen and pelvis to rule out any cause of hematuria. History of COPD: -Patient is using 2 L of oxygen at home usually at nighttime. -We'll change symbicort to pulmicort as recommended by pulmnologist. -TRC nebulization as needed. -Confirmed from the (patient has been taking 10 mg of prednisone prescribed by Dr. Johnson for COPD for a couple of months now), his in the morning if patient has been actually prescribed maintenance dose of prednisone. -We will start prednison 40mg as recommended by Dr. Johnson. History of diabetes: -We'll hold the oral hypoglycemic medications. -Accu-Cheks -Insulin NovoLog according to sliding scale. History of Atrial fibrillation status post ablation: -We will continue Eliquis -I spoke to her this afternoon (10/15/17) and she told me that he skipped two evening doses of eliquis other leach he is regular in taking his meds. H/O HFpEF: -Last echo is showing ejection fraction more than 65% with stage II diastolic heart failure. History of hyperlipidemia: -We will continue Lipitor DVT prophylaxis: Patient is already on Eliquis CODE STATUS: Full code Problem List: 1. Sepsis 2. CAP (community acquired pneumonia) 3. Utomh-jb-lwdtyzt kidney injury Pain Ratin Pain Location: none Pain Goal: Remain pain free Pain Plan: tylenol for mild pain Tomorrow's Labs & Rationales: cbc/bep Gabriel Pavon MD 10/15/17 1904: Attending MD Review Statement Attending Statement Attending MD Statement: examined this patient, discuss w/resident/PA/DUMPER BAILER OPERATOR, agreed w/resident/PA/DUMPER BAILER OPERATOR, reviewed EMR data (avail), reviewed images, amended to note Attending Assessment/Plan: The patient was seen and discussed with house staff. Appreciate Pulmonary evaluation. Remains afebrile on IV Ceftriaxone/Zithromax. Will continue antibiotics. Steroids and inhalers as per Pulmonary. Encourage po intake.
[2017-10-15 08:20] LABS: ABSOLUTE BASOPHIL COUNT 0 /CUMM (0.0-0.2); ABSOLUTE EOSINOPHIL COUNT 0 /CUMM (0.0-0.7); ABSOLUTE GRANULOCYTE CT 8.2 /CUMM (1.4-6.5); ABSOLUTE LYMPH COUNT 0.7 /CUMM (1.2-3.4); ABSOLUTE MONOCYTE COUNT 0.1 /CUMM (0.10-0.60); BASOPHIL % 0.1 % (0.0-2.0); EOSINOPHIL % 0 % (0-5); HEMATOCRIT 33.6 % (42-52); MEAN CORPUSCULAR HGB 29.4 PG (27.0-31.0); MEAN CORPUSCULAR VOLUME 86.5 FL (80.0-94.0); MEAN PLATELET VOLUME 8.2 FL (7.4-10.4); PLATELET COUNT 182 /CUMM (130-400); RBC DISTRIBUTION WIDTH 14.8 % (11.5-14.5); RED BLOOD CELL CT 3.88 /CUMM (4.70-6.10)
[2017-10-15 09:11] LABS: GRANULOCYTE % 90.8 % (42.2-75.2)
--- NOTE | 2017-10-15 09:16 | Cons- Pulmonary ---
General Information and HPI Consulting Request Date of Consult: 10/15/17 Requested By: Dr. Velazquez Reason for Consult: Pneumonia Source of Information: patient, old records Exam Limitations: no limitations History of Present Illness: The patient is a 77-year-old male well-known to me from previous outpatient visits and hospitalizations. The patient has a long history of COPD, and a 90 year pack history of smoking. He is oxygen dependent. The patient also has a history of diabetes, hyperlipidemia, nephrolithiasis with bilateral hydro- nephrosis status post lithotripsy and stent placement, history of candidemia secondary to urologic origin, recurrent UTIs, and atrial fibrillation (on Eliquis) status post ablation over 20 years ago. The patient presented to the emergency department with several days of increased shortness of breath associated with a congested cough. He is not aware of the color of the sputum. The patient has had no appetite and has had failure to thrive. He is unaware of any fevers. He has had occasional chills. He has no chest pain, palpitations, peripheral edema, nausea, vomiting or abdominal complaints. CXR demonstrated patchy airspace disease at the left base suggestive of pneumonia. The patient was pancultured and started on empiric ceftriaxone and azithromycin. The patient is also on nebs/TRC. He reports feeling improved since admission. Allergies/Medications Allergies: Coded Allergies: crab (SOFT SHELL CRAB - FACIAL SWELLING 02/10/17) Home Med List: Albuterol Sulfate 2.5 MG/3 ML (0.083 %) VIAL.NEB 1 Vial INH/SHERRY BID COPD ( Reported) Albuterol Sulfate (Proair Hfa) 90 MCG HFA.AER.AD 2 PUF INH Q4H PRN RESP ( Reported) Apixaban (Eliquis) 5 MG TABLET 1 TAB PO BID BLOOD THINNER (Reported) Arformoterol Tartrate (Brovana) 15 MCG/2 ML VIAL.NEB 1 VIAL INH BID COPD ( Reported) Atorvastatin Calcium 40 MG TABLET 1 TAB PO DAILY hyperlipidemia (Reported) Atorvastatin Calcium 40 MG TABLET 1 TAB PO DAILY CHOLESTEROL (Reported) Budesonide 0.5 MG/2 ML AMPUL.NEB 1 Vial INH/SHERRY BID RESP. 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 Tiotropium [place] (Spiriva) 18 MCG CAP.W.DEV 1 CAP INH DAILY COPD (Reported) Trazodone HCl 50 MG TABLET 2 TAB PO QPM MENTAL HEALTH/SLEEP (Reported) Current Medications: Current Medications Sig/Camille Start time Last Medication Dose Route Stop Time Status Admin Acetaminophen 650 MG Q6P PRN 10/14 2044 AC PO Acetaminophen 1,000 MG Q6P PRN 10/14 2044 AC IV Acetaminophen 0 .STK-MED ONE 10/14 1844 DC IV Acetaminophen 1,000 MG ONCE ONE 10/14 1814 DC 10/14 N/A 1 UNIT IV 10/14 1828 184 Albuterol Sulfate 3 ML ONCE ONE 10/14 1814 DC 10/14 INH 10/14 1815 181 Albuterol Sulfate 3 ML ONCE ONE 10/14 181 DC INH 10/14 181 Albuterol Sulfate 3 ML ONCE ONE 10/14 1814 DC INH 10/14 181 Apixaban 5 MG BID 10/15 1000 AC PO Atorvastatin Calcium 40 MG 1700 10/15 1700 AC PO Atorvastatin Calcium 40 MG 1700 10/15 1700 AC PO Azithromycin 500 MG DAILY 10/15 1000 AC Sodium Chloride 250 ML IV Azithromycin 500 MG ONCE ONE 10/14 1944 DC 10/14 Sodium Chloride 250 ML IV 10/14 2043 2136 Budesonide/ 2 PUF BID 10/15 1000 AC Formoterol Fumarate INH Ceftriaxone Sodium 1,000 MG DAILY 10/15 1000 AC IV Ceftriaxone Sodium 0 .STK-MED ONE 10/14 2147 DC .ROUTE Ceftriaxone Sodium 1,000 MG ONCE ONE 10/14 1944 DC 10/14 IV 10/14 Insulin Aspart 0 TIDAC/HS 10/15 0800 AC SC Methylprednisolone 0 .STK-MED ONE 10/14 1844 DC .ROUTE Methylprednisolone 125 MG ONCE ONE 10/14 1814 DC 10/14 IV 10/14 1815 1850 Oxycodone HCl 5 MG Q8P PRN 10/14 2044 AC PO Roflumilast 500 MCG DAILY 10/15 1000 AC PO Sodium Chloride 1,000 ML Q13H 10/140 AC 10/14 IV 2203 Sodium Chloride 1,000 ML BOLUS ONE 10/14 1845 DC 10/14 IV 10/14 1944 1850 Tiotropium [place] 1 PUF DAILY 10/15 1000 AC INH Review of Systems Review of Systems All Other Systems: Reviewed and Negative Past History Travel History Traveled to [place] past 21 day No Medical History Blood Transfusion Hx: No Neurological: NONE EENT: allergies Cardiovascular: AFIB Respiratory: COPD Gastrointestinal: constipation Hepatic: NONE Renal: nephrolithiasis Musculoskeletal: falls Psychiatric: NONE Endocrine: diabetes Blood Disorders: NONE Cancer(s): basal cell carcinoma 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 Home Who Do You Live With? spouse Services at Home: None Primary Language: Irish Smoking Status: Former Smoker (1.5 PPD x 65yrs,quit 8 M ago) ETOH Use: occasional use Illicit Drug Use: denies illicit drug use Functional Ability ADLs Independent: dressing. Ambulation: independent IADLs Independent: shopping, housework, finances, food prep, telephone, transportation , medication admin. Exam & Diagnostic Data Last 24 Hrs of Vital Signs/I&O Vital Signs Date Time Temp Pulse Resp B/P B/P Pulse O2 O2 Flow FiO2 Mean Ox Delivery Rate 10/15 0542 98.5 75 20 110/60 98 Room Air 10/15 0017 Room Air 10/15 0004 98.1 82 18 100/60 92 Room Air 10/14 2230 98.8 79 18 105/58 96 Room Air 10/14 2046 98.4 10/14 1900 92 18 138/65 95 Room Air 10/14 184 102.9 10/14 1821 95 Room Air 10/14 181 95 10/14 181 102.9 110 20 136/60 95 Room Air Intake & Output 10/15 1600 10/15 0800 10/15 0000 Intake Total 600 Output Total 400 Balance 200 Intake, IV 600 Output, Urine 400 Patient 163 lb 165 lb Weight Weight Bed scale Reported by Patient Measurement Method Physical Exam General Appearance: alert, awake, mild distress Head: atraumatic, normal appearance Neck: supple Respiratory: quiet respiration, decreased breath sounds, rhonchi, wheezing Cardiovascular: S1 + S2, heart sounds distant Gastrointestinal: normal bowel sounds, soft, non-tender Extremities: no edema Skin: intact, normal color, warm/dry Last 48 Hrs of Labs/Arsenio: Laboratory Tests 10/15/17 0647: Anion Gap 8, Estimated GFR 53 L, BUN/Creatinine Ratio 23.8, CBC w Diff Pending, WBC Pending, RBC Pending, Hgb Pending, Hct Pending, MCV Pending, MCH Pending, RDW Pending, Plt Count Pending, MPV Pending, Gran % Pending, Lymphocytes % Pending, Monocytes % Pending, Eosinophils % Pending, Basophils % Pending, Absolute Granulocytes Pending, Absolute Lymphocytes Pending, Absolute Monocytes Pending, Absolute Eosinophils Pending, Absolute Basophils Pending, PUBS MCHC Pending 10/15/17 0045: Urinalysis LIGHT H, Urine Color YEL, Urine Clarity CLDY H, Urine pH 6.0, Ur Specific [place] 1.020, Urine Protein 100 H, Urine Ketones TRACE H, Urine Nitrite NEG, Urine Bilirubin NEG, Urine Urobilinogen 0.2, Ur Leukocyte Esterase MOD H, Ur Microscopic SEDIMENT EXAMINED, Urine RBC >75 H, Urine WBC 10-15 H, Urine Bacteria FEW H, Micro UA Comment BUDDING YEAST H, Urine Hemoglobin LARGE H, Urine Glucose 250 H 10/14/17 215: Urine Color Cancelled, Urine Clarity Cancelled, Urine pH Cancelled, Ur Specific [place] Cancelled, Urine Protein Cancelled, Urine Ketones Cancelled, Urine Nitrite Cancelled, Urine Bilirubin Cancelled, Urine Urobilinogen Cancelled, Ur Leukocyte Esterase Cancelled, Ur Microscopic Cancelled, Urine Hemoglobin Cancelled, Urine Glucose Cancelled 10/14/17 2112: Lactic Acid 0.7 10/14/17 1843: Anion Gap 10, Estimated GFR 45 L, BUN/Creatinine Ratio 18.7, Glucose 208 H, Lactic Acid 2.0, Calcium 9.0, Total Bilirubin 0.6, AST 20, ALT 27, Alkaline Phosphatase 82, Troponin I 0.03, Total Protein 6.6, Albumin 3.6, Globulin 3.0, Albumin/Globulin Ratio 1.2, CBC w Diff NO MAN DIFF REQ, RBC 4.41 L, MCV 86.0, MCH 29.5, RDW 14.6 H, MPV 9.0, Gran % 81.9 H, Lymphocytes % 10.5 L, Monocytes % 6.9, Eosinophils % 0.5, Basophils % 0.2, Absolute Granulocytes 11.7 H, Absolute Lymphocytes 1.5, Absolute Monocytes 1.0 H, Absolute Eosinophils 0.1, Absolute Basophils 0, PUBS MCHC 34.3 10/14/17 1815: Virus Culture Pending Microbiology 10/15 44 URINE ROUT: Legionella Antigen - COMP 10/15 44 URINE ROUT: Streptococcus pneumoniae Antigen (M - COMP 10/14 183 NASOPHARYN: Influenza Virus A & B Rapid Smear - COMP Assessment/Plan Impression/Plan: 1. Acute pneumonia. 2. Stage IV COPD - on chronic steroid therapy. 3. Chronic respiratory failure. 4. Recurrent UTIs, nephrolithiasis and hydronephrosis with stent placement. 5. History of atrial fibrillation, on Eliquis. Recommendations: * TRC consult done - discussed with respiratory. * Stop Symbicort. * Start Pulmicort nebulizer treatments BID. * Continue Spiriva and Daliresp. * Follow up CT scan results - not yet done. * Ensure sputum is sent for culture - not yet sent. * Start prednisone 40 mg daily, will taper off slowly. * Continue Eliquis for DVT prophylaxis. * Continue all supportive care. * Thank you for the consult, will follow along with you and provide further recommendations as necessary. Consult Acknowledgment - Thank you for your consult request.
--- NOTE | 2017-10-15 10:03 | CT SCAN REPORT ---
EXAMINATION: CT ABDOMEN AND PELVIS WITHOUT CONTRAST CLINICAL INFORMATION: Blood in urine. Rule out hydronephrosis/obstruction. COMPARISON: CT scan of the abdomen and pelvis dated 07/11/2017. TECHNIQUE: Multidetector volumetric imaging was performed from the superior aspect of the liver through the pubic symphysis. Sagittal and coronal reformatted images were obtained on the technologist workstation. DLP: 283.23 mGy-cm. FINDINGS: LUNG BASES: Moderate centrilobular and severe paraseptal emphysematous changes seen in the lung bases bilaterally with minimal dependent atelectatic changes seen. Mild coronary artery calcifications partially included. LIVER, GALLBLADDER, AND BILIARY TREE: The liver is normal in size, shape, and attenuation. No focal hepatic lesion on noncontrast imaging. No biliary ductal dilatation is present. The gallbladder is unremarkable with no evidence of radiopaque gallstones, gallbladder wall thickening, or obvious pericholecystic inflammatory changes. PANCREAS: Diffusely atrophic and otherwise grossly unremarkable on noncontrast study. SPLEEN, ADRENAL GLANDS: Unremarkable on noncontrast imaging. KIDNEYS AND URETERS: The kidneys are normal in size, shape, and attenuation. There is mild right-sided hydronephrosis with a double-J right ureteral stent seen in place, extending from the renal pelvis down into the bladder. Adjacent to the stent at the ureterovesical junction, a 0.7 x 0.4 cm calcification with mean attenuation values of 811 Hounsfield units is seen, unchanged from the prior exam. No additional right ureteral or right renal calculi are seen. In the lower pole of the right kidney, a 1.6 x 1.2 cm simple cyst is seen, unchanged. There are several calcifications again seen in the left renal pelvis and in the lower pole calyces of the left kidney, measuring up to 1.1 x 0.6 cm in size with mean attenuation values measuring up to 1018 Hounsfield units, unchanged. Mild perinephric stranding is again noted, nonspecific. In the lower pole of the left kidney, a parapelvic 3.5 x 2.7 cm cyst is seen, similar to the prior exam with thin discontinuous peripheral rim calcification noted. Additional 1.6 cm and 0.9 cm mid left renal cysts and 1 cm upper pole left renal cyst are unchanged. BLADDER: The bladder is partially distended and aside from the calcification described above in the right ureterovesical junction shows no additional calculi. Distal pigtail of the right double-J ureteral stent is seen in the bladder. No bladder wall thickening or pericystic edema/stranding seen. PELVIC VISCERA: Unremarkable. GASTROINTESTINAL TRACT: The small and large bowel are unremarkable. The appendix is not seen. ABDOMINAL WALL: No significant hernia is appreciated. LYMPH NODES, VASCULAR: Severe atherosclerotic calcifications of the aorta and branch vessels seen. No significant abdominal or pelvic adenopathy or free fluid collection noted. OSSEOUS STRUCTURES: Moderate vertebral endplate spurring seen at L1-L2 and mild vertebral spondylosis at the remaining lumbar levels. Mild degenerative changes in both hip joints. IMPRESSION: 1. No significant change in densely calcified calcification at the right ureterovesical junction, now projected adjacent to the right double-J ureteral stent. Improvement in the degree of right-sided hydronephrosis is seen though there is persistent mild right hydronephrosis is seen. 2. No significant change in mid and lower pole left renal densely calcified calculi. No left sided hydroureteronephrosis. 3. Bilateral renal cysts again seen, unchanged. 4. Moderate to severe emphysematous changes in the lung bases. 5. Prominent atherosclerotic aortic calcifications.
[2017-10-15 14:40] VITALS: BP 108/58
[2017-10-15 22:52] VITALS: BP 102/48
[2017-10-16 06:35] VITALS: BP 120/64
--- NOTE | 2017-10-16 07:07 | PN- Housestaff ---
[facility]: Subjective Follow-up For: Sepsis due to Community acquired pneumonia. Acute on chronic kidney injury Microscopic hematuria. Blood culture +ve with yeast Subjective: No overnight events. Patient remained afebrile. Seen and examined this morning. He denied any chest pain, chills, fever, palpitation, lightheadedness, abdominal pain and dysuria. Patient reported exertional dyspnea and intermittent cough but is not bringing any sputum. Patient is on 2 nights of oxygen and maintaining saturation 96%. His appetite is poor. Review of Systems Constitutional: Reports: no symptoms. EENTM: Reports: no symptoms. Cardiovascular: Reports: no symptoms. Respiratory: Reports: cough, short of breath. Gastrointestinal: Reports: see HPI. Genitourinary: Reports: no symptoms. Musculoskeletal: Reports: see HPI. Neurological/Psychological: Reports: no symptoms. Objective Last 24 Hrs of Vital Signs/I&O Vital Signs Date Time Temp Pulse Resp B/P B/P Pulse O2 O2 Flow FiO2 Mean Ox Delivery Rate 10/16 0901 96 Nasal 2.0L Cannula 10/16 0635 98.4 89 20 120/64 96 Nasal Cannula 10/16 0000 Room Air 10/15 2252 97.5 80 20 102/48 92 Room Air 10/15 2118 93 Room Air Room Air 10/15 1600 90 Room Air 10/15 1440 97.6 89 18 108/58 90 Room Air Intake & Output 10/16 1600 10/16 0800 10/16 0000 Intake Total 600 1200 Output Total 700 375 Balance -100 825 Intake, IV 600 600 Intake, Oral 600 Number 0 Bowel Movements Output, Urine 700 375 Physical Exam General Appearance: Alert, Oriented X3, Cooperative Skin Temp/Moisture Exam: Warm/Dry HEENT: Atraumatic, PERRLA, EOMI Neck: Supple Cardiovascular: Normal S1, Normal S2 Lungs: Decreased breath sounds b/l Abdomen: Soft, No Tenderness Neurological: Normal Speech, Strength at 5/5 X4 Ext, Normal Tone, Sensation Intact Extremities: No Edema Assessment/Plan Assessment: 71-year-old gentleman with past medical history significant for COPD on 2 L of nocturnal oxygen history of atrial fibrillation status post ablation, heart failure with preserved ejection fraction, pulmonary hypertension, mild aortic stenosis, UTIs, nephrolithiasis, hydronephrosis status post lithotripsy and stent placement, history of candidemia secondary to urologic origin, recently admitted to in July 2017 for acute respiratory distress secondary to possible PE/COPD exacerbation and sepsis of urological origin secondary to candidemia status post stent placement for right-sided UVJ calculus presented to the ER with chief complaints of worsening shortness of breath and productive cough. We will admit the patient on general medicine floor to treat the pneumonia. Sepsis secondary to community-acquired pneumonia: -Patient is meeting the criteria of sepsis including temperature 102.9, pulse 110 and WBC count 14.3 on admission with source of infection is suspicion of pneumonia on chest x-ray. -Azithromycin IV and ceftriaxone -TRC nebulization as needed. -Oxygen supplementation to keep the saturation above 92%. -Gentle IV hydration. -Legionella and strep urine antigen. -Lactic acid is already trended down. -History WBC count is normal and he is afebrile now. His blood culture is growing yeast. He has previous history of growing yeast in blood and urine and was treated with fluconazole.. -We will follow urine cultures -We will follow the ID recommendations Acute on chronic kidney injury and microscopic hematuria:(resolved) -Patient history of urinary tract infection due to candidemia and also having history of right ureteric stent placement. -Gentle IV hydration -Avoid nephrotoxic medication -We will follow input and output. -We'll follow the results of CT scan of abdomen and pelvis to rule out any cause of hematuria. -Patient's creatinine level is 1.0 today. His kidney function has improved. History of COPD: -Patient is using 2 L of oxygen at home usually at nighttime. -We'll change symbicort to pulmicort as recommended by pulmnologist. -TRC nebulization as needed. -Confirmed from the (patient has been taking 10 mg of prednisone prescribed by Dr. Johnson for COPD for a couple of months now), his in the morning if patient has been actually prescribed maintenance dose of prednisone. -We will start prednison 40mg as recommended by Dr. Johnson. History of diabetes: -We'll hold the oral hypoglycemic medications. -Accu-Cheks -Insulin NovoLog according to sliding scale. History of Atrial fibrillation status post ablation: -We will continue Eliquis -I spoke to her this afternoon (10/15/17) and she told me that he skipped two evening doses of eliquis other leach he is regular in taking his meds. H/O HFpEF: -Last echo is showing ejection fraction more than 65% with stage II diastolic heart failure. History of hyperlipidemia: -We will continue Lipitor DVT prophylaxis: Patient is already on Eliquis CODE STATUS: Full code Problem List: 1. [place]yr-ge-eqkkuwk kidney injury 2. CAP (community acquired pneumonia) 3. Sepsis Pain Ratin Pain Location: none Pain Goal: Remain pain free Pain Plan: tylenol for mild pain Tomorrow's Labs & Rationales: bep/cbc Zuleyka Velazquez MD 10/16/17 1123: Attending MD Review Statement Attending Statement Attending MD Statement: examined this patient, discuss w/resident/PA/MORTGAGE LOAN OFFICER, agreed w/resident/PA/MORTGAGE LOAN OFFICER, reviewed EMR data (avail) Attending Assessment/Plan: 77M PMH HFpEF, mild aortic stenosis, moderate pulmonary hypertension, COPD on nighttime 2 L nasal cannula oxygen, DM, HLD, history of nephrolithiasis S/P ureteral stenting, A. fib S/P ablation, BPH, history of candidemia on recent prolonged Fluconazole admitted with shortness of breath, productive cough in the setting of sepsis secondary to LLL pneumonia. Today patient is still short of breath but slightly improved. His cough is persistent. Still requiring 2L NC. WBC up to 14 today, but patient is on increased dose of Prednisone. Blood culture growing yeast. 1. Sepsis secondary to LLL pneumonia 2. Candidemia 3. Acute on chronic hypoxemic respiratory failure Plan - Continue on general medicine - Continue Ceftriaxone and Azithromycin - Obtain ID consult for yeast in blood culture - Send sputum culture - Follow blood cultures - Continue Prednisone - Follow pulmonary recommendations - Continue home medications - Eliquis for afib and DVT PPx
--- NOTE | 2017-10-16 09:26 | PN- Pulmonary ---
Subjective HPI/Critical Care Issues: The patient continues to feel weak. He has ongoing shortness of breath with minimal exertion. He is ambulating to the bathroom but otherwise is staying in bed. He has an ongoing cough, however his sputum is now clear. His blood culture was positive for yeast. Objective Current Medications: Current Medications Sig/Camille Start time Last Medication Dose Route Stop Time Status Admin Acetaminophen 650 MG Q6P PRN 10/14 2044 AC PO Acetaminophen 1,000 MG Q6P PRN 10/14 204 AC IV Albuterol Sulfate 3 ML EVERY 4 HRS/AWAKE 10/15 1200 AC 10/16 INH 0850 Apixaban 5 MG BID 10/15 1000 AC 10/15 PO 2034 Atorvastatin Calcium 40 MG 1700 10/15 1700 AC 10/15 PO 1702 Atorvastatin Calcium 40 MG 1700 10/15 1700 AC PO Azithromycin 500 MG DAILY 10/15 1000 AC 10/15 Sodium Chloride 250 ML IV 1105 Budesonide 0.5 MG BID 10/15 2200 AC 10/16 INH 0850 Budesonide/ 2 PUF BID 10/15 1000 DC 10/15 Formoterol Fumarate INH 1105 Ceftriaxone Sodium 1,000 MG DAILY 10/15 1000 AC 10/15 IV 1116 Insulin Aspart 0 TIDAC/HS 10/15 0800 AC 10/15 SC 2135 Melatonin 3 MG AT BEDTIME 10/15 2200 AC 10/15 PO 2034 Oxycodone HCl 5 MG Q8P PRN 10/14 204 AC PO Polyethylene Glycol 17 GM DAILY 10/15 1732 AC 10/15 PO 2034 Prednisone 40 MG DAILY 10/15 1040 AC 10/15 PO 1409 Roflumilast 500 MCG DAILY 10/15 1000 AC 10/15 PO 1104 Senna 187 MG AT BEDTIME 10/15 2200 AC 10/15 PO 2033 Sodium Chloride 1,000 ML Q13H 10/14 2200 AC 10/16 IV 0257 Tiotropium [place] 1 PUF DAILY 10/15 1000 AC 10/15 INH 1102 Vital Signs & I&O Last 24 Hrs of Vitals and I&O: Vital Signs Date Time Temp Pulse Resp B/P B/P Pulse O2 O2 Flow FiO2 Mean Ox Delivery Rate 10/16 0901 96 Nasal 2.0L Cannula 10/16 0635 98.4 89 20 120/64 96 Nasal Cannula 10/16 0000 Room Air 10/15 2252 97.5 80 20 102/48 92 Room Air 10/15 2118 93 Room Air Room Air 10/15 1600 90 Room Air 10/15 1440 97.6 89 18 108/58 90 Room Air 10/15 1019 94 Room Air Room Air Intake & Output 10/16 1600 10/16 0800 10/16 0000 Intake Total 600 1200 Output Total 700 375 Balance -100 825 Intake, IV 600 600 Intake, Oral 600 Number 0 Bowel Movements Output, Urine 700 375 Physical Exam General Appearance: alert, awake, mild distress Head: atraumatic, normal appearance Neck: supple Respiratory: quiet respiration, decreased breath sounds, rhonchi, wheezing Cardiovascular: S1 + S2, heart sounds distant Gastrointestinal: normal bowel sounds, soft, non-tender Extremities: no edema Skin: intact, normal color, warm/dry Results Last 24 Hrs of Lab Results: Laboratory Tests 10/16/17 0844: Sodium Pending, Potassium Pending, Chloride Pending, Carbon Dioxide Pending, Anion Gap Pending, BUN Pending, Creatinine Pending, BUN/Creatinine Ratio Pending , CBC w Diff Pending, WBC Pending, RBC Pending, Hgb Pending, Hct Pending, MCV Pending, MCH Pending, RDW Pending, Plt Count Pending, MPV Pending, PUBS MCHC Pending Diagnostic Data CT Scan Findings: 1. No significant change in densely calcified calcification at the right ureterovesical junction, now projected adjacent to the right double-J ureteral stent. Improvement in the degree of right-sided hydronephrosis is seen though there is persistent mild right hydronephrosis is seen. 2. No significant change in mid and lower pole left renal densely calcified calculi. No left sided hydroureteronephrosis. 3. Bilateral renal cysts again seen, unchanged. 4. Moderate to severe emphysematous changes in the lung bases. 5. Prominent atherosclerotic aortic calcifications. Impression/Plan Impression/Plan Impression/Plan: 1. Acute pneumonia. 2. Stage IV COPD/severe emphysema - on chronic steroid therapy. 3. Chronic respiratory failure. 4. Recurrent UTIs, nephrolithiasis and hydronephrosis with stent placement. 5. History of atrial fibrillation, on Eliquis. 6. Depression? Recommendations: * Consult ID for positive blood cultures (yeast) despite recent prolonged anti fungal therapy. * Continue ceftriaxone and azithromycin for treatment of pneumonia. * TRC for nebulizer treatments - to continue. * Continue Pulmicort nebulizer treatments BID. * Continue Spiriva and Daliresp. * Ensure sputum is sent for culture - not yet sent. Needs to be reordered. * Start prednisone 40 mg daily, will taper off slowly. * Continue Eliquis for DVT prophylaxis. * PT consult for ambulation/out of bed to chair. * Consider psychiatry consult for possible depression. * Continue all supportive care.
[2017-10-16 09:33] LABS: ABSOLUTE BASOPHIL COUNT 0 /CUMM (0.0-0.2); ABSOLUTE EOSINOPHIL COUNT 0 /CUMM (0.0-0.7); ABSOLUTE LYMPH COUNT 1.3 /CUMM (1.2-3.4); ABSOLUTE MONOCYTE COUNT 0.7 /CUMM (0.10-0.60); BASOPHIL % 0.1 % (0.0-2.0); EOSINOPHIL % 0.1 % (0-5); HEMATOCRIT 33.5 % (42-52)
[2017-10-16 09:49] LABS: ABSOLUTE GRANULOCYTE CT 12.5 /CUMM (1.4-6.5); MEAN CORPUSCULAR HGB 29.3 PG (27.0-31.0); MEAN CORPUSCULAR HGB CONC 33.8 G/DL (33.0-37.0); MEAN CORPUSCULAR VOLUME 86.6 FL (80.0-94.0); MEAN PLATELET VOLUME 8.4 FL (7.4-10.4); PLATELET COUNT 213 /CUMM (130-400); RBC DISTRIBUTION WIDTH 14.8 % (11.5-14.5); RED BLOOD CELL CT 3.87 /CUMM (4.70-6.10)
[2017-10-16 09:53] LABS: WHITE BLOOD CELL COUNT 14.6 /CUMM (4.8-10.8)
[2017-10-16 10:55] LABS: GRANULOCYTE % 86.1 % (42.2-75.2)
--- NOTE | 2017-10-16 14:34 | Cons- Infect Disease ---
General Information and HPI Consulting Request Date of Consult: 10/16/17 Requested By: Zuleyka Velazquez MD Reason for Consult: Positive blood cultures for yeast Source of Information: patient, old records History of Present Illness: This is a 77-year-old man with a history of COPD, maintained on 2 L of oxygen and 5 mg of Prednisone daily, diabetes, atrial fibrillation, status post ablation over 20 years prior to admission, and nephrolithiasis, status post multiple lithotripsies and stents, mostly in [place], hospitalized 5 months prior to admission with candidemia in the setting of bilateral hydronephrosis and nephrolithiasis, treated with Fluconazole and discharged with plans for urologic intervention at [place], which apparently never occurred, readmitted 3 months prior to admission with recurrent candidemia, with a CT scan revealing right hydronephrosis secondary to an obstructing calculus of the right UVJ, at which time he underwent placement of a right double-J ureteral stent and treatment with a 4 week course of Fluconazole, admitted on October 14 with several days of anorexia, weakness and increased shortness of breath associated with occasional chills but with no dysuria or back pain. On admission he was febrile to 102.9. Laboratory data revealed a white blood cell count of 14,000, BUN/creatinine 28 and 1.5, with normal liver enzymes. Urinalysis greater than 75 RBCs/10-15 WBCs. Chest x-ray revealed a possible patchy airspace opacity at the left base. CT of the abdomen and pelvis revealed a densely calcified calcification at the right UVJ, with improving but persistent right hydronephrosis. He was begun on Ceftriaxone and Azithromycin and an increased dose of Prednisone. He defervesced and his white blood cell count initially decreased, but it increased today. This morning one blood culture was reported positive for yeast. Unfortunately no urine culture was submitted. He continues to feel weak with no change in his usual shortness of breath. He notes a minimal cough. He notes minimal dysuria and no back pain. Allergies/Medications Allergies: Coded Allergies: crab (SOFT SHELL CRAB - FACIAL SWELLING 02/10/17) Home Med List: Albuterol Sulfate 2.5 MG/3 ML (0.083 %) VIAL.NEB 1 Vial INH/SHERRY BID COPD ( Reported) Albuterol Sulfate (Proair Hfa) 90 MCG HFA.AER.AD 2 PUF INH Q4H PRN RESP ( Reported) Apixaban (Eliquis) 5 MG TABLET 1 TAB PO BID BLOOD THINNER (Reported) Arformoterol Tartrate (Brovana) 15 MCG/2 ML VIAL.NEB 1 VIAL INH BID COPD ( Reported) Atorvastatin Calcium 40 MG TABLET 1 TAB PO DAILY hyperlipidemia (Reported) Atorvastatin Calcium 40 MG TABLET 1 TAB PO DAILY CHOLESTEROL (Reported) Budesonide 0.5 MG/2 ML AMPUL.NEB 1 Vial INH/SHERRY BID RESP. 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 Tiotropium [place] (Spiriva) 18 MCG CAP.W.DEV 1 CAP INH DAILY COPD (Reported) Trazodone HCl 50 MG TABLET 2 TAB PO QPM MENTAL HEALTH/SLEEP (Reported) Past History Travel History Traveled to [place] past 21 day No Medical History Blood Transfusion Hx: No Neurological: NONE EENT: allergies Cardiovascular: AFIB Respiratory: COPD Gastrointestinal: constipation Hepatic: NONE Renal: nephrolithiasis Musculoskeletal: falls Psychiatric: NONE Endocrine: diabetes Blood Disorders: NONE Cancer(s): basal cell carcinoma [employer] T[employer]ER/Reproductive: NONE History of MRSA: No History of VRE: No History of CDIFF: No Isolation History: Standard Surgical History Surgical History: cataract removal, cystoscopy, status post lithotripsies and stent placements Psychosocial History Where Do You Live? Home Who Do You Live With? spouse Services at Home: None Primary Language: Setswana Smoking Status: Former Smoker (1.5 PPD x 65yrs,quit 8 M ago) ETOH Use: occasional use Illicit Drug Use: denies illicit drug use Functional Ability ADLs Independent: dressing. Ambulation: independent IADLs Independent: shopping, housework, finances, food prep, telephone, transportation , medication admin. Review of Systems Review of Systems All Other Systems: Reviewed and Negative Exam & Diagnostic Data Last 24 Hrs of Vital Signs/I&O Vital Signs Date Time Temp Pulse Resp B/P B/P Pulse O2 O2 Flow FiO2 Mean Ox Delivery Rate 10/16 0901 96 Nasal 2.0L Cannula 10/16 0635 98.4 89 20 120/64 96 Nasal Cannula 10/16 0000 Room Air 10/15 2252 97.5 80 20 102/48 92 Room Air 10/15 2118 93 Room Air Room Air 10/15 1600 90 Room Air 10/15 1440 97.6 89 18 108/58 90 Room Air Intake & Output 10/16 1600 10/16 0800 10/16 0000 Intake Total 600 1200 Output Total 700 375 Balance -100 825 Intake, IV 600 600 Intake, Oral 600 Number 0 Bowel Movements Output, Urine 700 375 Physical Exam Other Physical Findings: Afebrile on steroids. He is weak appearing but awake and alert in no acute distress. Skin reveals no rash. HEENT negative. Neck is supple with no adenopathy. Lungs are clear. Heart regular rhythm with no murmur. Abdomen is soft, nontender with positive bowel sounds. Back no CVA tenderness. Extremities no cyanosis, clubbing or edema. Neuro is without focality. Last 24 Hours of Lab Results: Laboratory Tests 10/16 08 Chemistry Sodium (137 - 145 mmol/L) 136 L Potassium (3.5 - 5.1 mmol/L) 4.2 Chloride (98 - 107 mmol/L) 104 Carbon Dioxide (22 - 30 mmol/L) 25 Anion Gap (5 - 16) 6 BUN (9 - 20 mg/dL) 29 H Creatinine (0.7 - 1.2 mg/dL) 1.0 Estimated GFR (>60 ml/min) > 60 BUN/Creatinine Ratio (7 - 25 %) 29.0 H Hematology CBC w Diff NO MAN DIFF REQ WBC (4.8 - 10.8 /CUMM) 14.6 H RBC (4.70 - 6.10 /CUMM) 3.87 L Hgb (14.0 - 18.0 G/DL) 11.3 L Hct (42 - 52 %) 33.5 L MCV (80.0 - 94.0 FL) 86.6 MCH (27.0 - 31.0 PG) 29.3 RDW (11.5 - 14.5 %) 14.8 H Plt Count (130 - 400 /CUMM) 213 MPV (7.4 - 10.4 FL) 8.4 Gran % (42.2 - 75.2 %) 86.1 H Lymphocytes % (20.5 - 51.1 %) 8.9 L Monocytes % (1.7 - 9.3 %) 4.8 Eosinophils % (0 - 5 %) 0.1 Basophils % (0.0 - 2.0 %) 0.1 Absolute Granulocytes (1.4 - 6.5 /CUMM) 12.5 H Absolute Lymphocytes (1.2 - 3.4 /CUMM) 1.3 Absolute Monocytes (0.10 - 0.60 /CUMM) 0.7 H Absolute Eosinophils (0.0 - 0.7 /CUMM) 0 Absolute Basophils (0.0 - 0.2 /CUMM) 0 PUBS MCHC (33.0 - 37.0 G/DL) 33.8 Last 24 Hours of Arsenio Results: Blood cultures October 14 positive for yeast Rapid flu swab October 14 negative Urine strep pneumo antigen and Legionella antigen October 15 negative Diagnostic Data Recent Imaging Findings: Chest x-ray revealed a possible patchy airspace opacity at the left base. CT of the abdomen and pelvis revealed a densely calcified calcification at the right UVJ, with improving but persistent right hydronephrosis. Assessment/Plan Assessment/Plan Impression: This is a 77-year-old man with a history of COPD, maintained on 2 L of oxygen and 5 mg of Prednisone daily, diabetes, atrial fibrillation, status post ablation over 20 years prior to admission, and nephrolithiasis, status post multiple lithotripsies and stents, status post 2 episodes of candidemia in the past 5 months, most recently 3 months prior to admission, at which time he underwent placement of a right double-J ureteral stent for a right hydronephrosis secondary to an obstructing calculus and treatment with a 4 week course of Fluconazole, admitted on October 14 with several days of anorexia, weakness and increased shortness of breath associated with occasional chills, found to be febrile with a leukocytosis, pyuria and candiduria and now found to have 2 positive blood cultures for yeast. This most likely represents a recurrent candidemia of urologic origin, possibly secondary to an infection of the stent and related to the persistent obstruction of the right ureter, though it appears to be somewhat improved on the CT scan. He will likely require removal and replacement of the stent as well as eventual lithotripsy. With regard to treatment he can be started on Fluconazole but the possibility of a resistant organism must be considered given his recent prolonged course with this antimicrobial. I am not convinced he has pneumonia and, therefore, do not feel he requires antibiotics for this. Suggestion: 1. Add a urine culture to his recent urinalysis 2. Follow-up final blood and urine cultures 3. Urology evaluation 4. Discontinue Ceftriaxone And Azithromycin 5. Begin Fluconazole 800 mg po today, followed by 400 mg po every 24 hours Consult Acknowledgment - Thank you for your consult request.
[2017-10-16 14:36] VITALS: BP 100/60
--- NOTE | 2017-10-16 16:47 | Cons- Psychiatry ---
Psychiatric Consult Date of Consult: 10/16/17 Reason for Consult: "Depression" History of Present Illness: 77 M to the ED 10/14/17 @ 1815 with a CC of worsening SOB. 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 He has a recent history of UTI due to candidemia and history of right uremic stent. He is on maintenance dosing of prednisone, per the H&P. Allergies: Coded Allergies: crab (SOFT SHELL CRAB - FACIAL SWELLING 02/10/17) Current Medications: Current Medications Sig/Camille Start time Last Medication Dose Route Stop Time Status Admin Acetaminophen 650 MG Q6P PRN 10/14 2044 AC PO Acetaminophen 1,000 MG Q6P PRN 10/14 2044 AC IV Albuterol Sulfate 3 ML EVERY 4 HRS/AWAKE 10/15 1200 AC 10/16 INH 1251 Apixaban 5 MG BID 10/15 1000 AC 10/16 PO 1149 Atorvastatin Calcium 40 MG 1700 10/15 1700 AC 10/15 PO 1702 Atorvastatin Calcium 40 MG 1700 10/15 1700 AC PO Azithromycin 500 MG DAILY 10/15 1000 DC 10/16 Sodium Chloride 250 ML IV 1146 Budesonide 0.5 MG BID 10/15 2200 AC 10/16 INH 0850 Ceftriaxone Sodium 1,000 MG DAILY 10/15 1000 DC 10/16 IV 1201 Fluconazole 400 MG DAILY 10/17 1000 AC PO Fluconazole 800 MG ONCE ONE 10/16 1500 DC PO 10/16 1501 Insulin Aspart 0 TIDAC/HS 10/15 0800 AC 10/16 SC 1315 Melatonin 3 MG AT BEDTIME 10/15 2200 AC 10/15 PO 2034 Oxycodone HCl 5 MG Q8P PRN 10/14 2045 AC PO Polyethylene Glycol 17 GM DAILY 10/15 1732 AC 10/16 PO 1148 Prednisone 40 MG DAILY 10/15 1040 AC 10/16 PO 1148 Roflumilast 500 MCG DAILY 10/15 1000 AC 10/16 PO 1149 Senna 187 MG AT BEDTIME 10/15 2200 AC 10/15 PO 2033 Sodium Chloride 1,000 ML Q13H 10/14 2200 AC 10/16 IV 0257 Tiotropium [place] 1 PUF DAILY 10/15 1000 AC 10/16 INH 1146 Past History Past Medical History Neurological: NONE EENT: allergies Cardiovascular: AFIB Respiratory: COPD Gastrointestinal: constipation Hepatic: NONE Renal: nephrolithiasis Musculoskeletal: falls Psychiatric: NONE Endocrine: diabetes Blood Disorders: NONE Cancer(s): basal cell carcinoma [employer] C[employer] SERVICES/Reproductive: NONE Past Surgical History Surgical History: cataract removal, cystoscopy, status post lithotripsies and stent placements Psychosocial History Strengths/Capabilities: Motivated for treatment. Supportive spouse Physical Limitations (Interventions): Difficulty with ambulation due to SOB. He is essentially wheelchair bound, per nursing. Psychiatric Treatment History Psych Treatment Psychiatric Treatment No Diagnosis: F32.9 Major depressive d/o with some anxious distress. Risk Factors: age (under 24/over 65), chronic/serious med cond., male Substance Use/Abuse History Drug Use/Abuse Substances Used/Abused No Assessment/Plan Mental Status Orientation: Person, Place, Situation Affect: Constricted Speech: Soft Neuro-vegetative: Appetite Decreased, Energy Decreased, Sleep Disturbance Mental Status Exam: Alert and oriented. Denies current AH or VH, and presents no bower delusions. He reports a history of visual hallucinations, the last 3 weeks ago, with vague report of shadows. Sleep is usually 6 hours, interrupted; he cannot tell if he feels rested. While he has been sleeping during the day here in the hospital, and the last week he was at home, he is generally awake during the day. He describes low energy, but no loss of interest in things he likes to do. Appetite is poor, "I have no appetite." Depression scaled at 3/10, anxiety 3/10; 10 is the worst. He denies hopelessness , helplessness, worthlessness or guilty feelings. He denies use of alcohol, street drugs, including cannabis. He denies SI or HI, and without history of suicide attempt. "I'm too much of a chicken. I have had times when I thought that it would not be the worst thing in the world [if I .]" He lives at home with his supportive , has 3 supportive daughters and 7 grandkids. 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 Collateral: 1. Dr. Johnson, pulmonology, reports he has been becoming progressively debilitated. He never feels better, despite improvement in his respiratory status. He used to be more lively, but since quitting a heavy smoking habit within the last year, he has become more unwilling to get up and will not get out of bed. He is geting wheelchair dependent, and states that he cannot walk 5 steps without SOB. 2. Nursing reports that the patient will not do much for self-care, including washing his face, citing worsening SOB when washing his face. Lab Results: Laboratory Tests 10/16 10/15 0844 0647 Chemistry Sodium (137 - 145 mmol/L) 136 L 135 L Potassium (3.5 - 5.1 mmol/L) 4.2 4.5 Chloride (98 - 107 mmol/L) 104 103 Carbon Dioxide (22 - 30 mmol/L) 25 24 Anion Gap (5 - 16) 6 8 BUN (9 - 20 mg/dL) 29 H 31 H Creatinine (0.7 - 1.2 mg/dL) 1.0 1.3 H Estimated GFR (>60 ml/min) > 60 53 L BUN/Creatinine Ratio (7 - 25 %) 29.0 H 23.8 Hematology CBC w Diff NO MAN DIFF REQ NO MAN DIFF REQ WBC (4.8 - 10.8 /CUMM) 14.6 H 9.0 RBC (4.70 - 6.10 /CUMM) 3.87 L 3.88 L Hgb (14.0 - 18.0 G/DL) 11.3 L 11.4 L Hct (42 - 52 %) 33.5 L 33.6 L MCV (80.0 - 94.0 FL) 86.6 86.5 MCH (27.0 - 31.0 PG) 29.3 29.4 RDW (11.5 - 14.5 %) 14.8 H 14.8 H Plt Count (130 - 400 /CUMM) 213 182 MPV (7.4 - 10.4 FL) 8.4 8.2 Gran % (42.2 - 75.2 %) 86.1 H 90.8 H Lymphocytes % (20.5 - 51.1 %) 8.9 L 8.0 L Monocytes % (1.7 - 9.3 %) 4.8 1.1 L Eosinophils % (0 - 5 %) 0.1 0 Basophils % (0.0 - 2.0 %) 0.1 0.1 Absolute Granulocytes (1.4 - 6.5 /CUMM) 12.5 H 8.2 H Absolute Lymphocytes (1.2 - 3.4 /CUMM) 1.3 0.7 L Absolute Monocytes (0.10 - 0.60 /CUMM) 0.7 H 0.1 Absolute Eosinophils (0.0 - 0.7 /CUMM) 0 0 Absolute Basophils (0.0 - 0.2 /CUMM) 0 0 PUBS MCHC (33.0 - 37.0 G/DL) 33.8 34.0 10/15 10/14 10/14 0045 2151 2112 Chemistry Lactic Acid (0.7 - 2.1 mmol/L) 0.7 Urines Urinalysis LIGHT H Urine Color (YEL,AMB,STR) YEL Cancelled Urine Clarity (CLEAR) CLDY H Cancelled Urine pH (5.0 - 8.0) 6.0 Cancelled Ur Specific [place] (1.001 - 1.035) 1.020 Cancelled Urine Protein (NEG,<30 MG/DL) 100 H Cancelled Urine Ketones (NEG) TRACE H Cancelled Urine Nitrite (NEG) NEG Cancelled Urine Bilirubin (NEG) NEG Cancelled Urine Urobilinogen (0.1 - 1.0 EU/dl) 0.2 Cancelled Ur Leukocyte Esterase (NEG) MOD H Cancelled Ur Microscopic SEDIMENT EXAMINED Cancelled Urine RBC (0 - 5 /HPF) >75 H Urine WBC (0 - 2 /HPF) 10-15 H Urine Bacteria (NEG/NONE) FEW H Micro UA Comment BUDDING YEAST H Urine Hemoglobin (NEG) LARGE H Cancelled Urine Glucose (N MG/DL) 250 H Cancelled 10/14 10/14 1843 1815 Chemistry Sodium (137 - 145 mmol/L) 132 L Potassium (3.5 - 5.1 mmol/L) 4.3 Chloride (98 - 107 mmol/L) 96 L Carbon Dioxide (22 - 30 mmol/L) 26 Anion Gap (5 - 16) 10 BUN (9 - 20 mg/dL) 28 H Creatinine (0.7 - 1.2 mg/dL) 1.5 H Estimated GFR (>60 ml/min) 45 L BUN/Creatinine Ratio (7 - 25 %) 18.7 Glucose (65 - 99 mg/dL) 208 H Lactic Acid (0.7 - 2.1 mmol/L) 2.0 Calcium (8.4 - 10.2 mg/dL) 9.0 Total Bilirubin (0.2 - 1.3 mg/dL) 0.6 AST (17 - 59 U/L) 20 ALT (21 - 72 U/L) 27 Alkaline Phosphatase (< 127 U/L) 82 Troponin I (<0.11 ng/ml) 0.03 Total Protein (6.3 - 8.2 g/dL) 6.6 Albumin (3.5 - 5.0 g/dL) 3.6 Globulin (1.9 - 4.2 gm/dL) 3.0 Albumin/Globulin Ratio (1.1 - 2.2 %) 1.2 Hematology CBC w Diff NO MAN DIFF REQ WBC (4.8 - 10.8 /CUMM) 14.3 H RBC (4.70 - 6.10 /CUMM) 4.41 L Hgb (14.0 - 18.0 G/DL) 13.0 L Hct (42 - 52 %) 37.9 L MCV (80.0 - 94.0 FL) 86.0 MCH (27.0 - 31.0 PG) 29.5 RDW (11.5 - 14.5 %) 14.6 H Plt Count (130 - 400 /CUMM) 209 MPV (7.4 - 10.4 FL) 9.0 Gran % (42.2 - 75.2 %) 81.9 H Lymphocytes % (20.5 - 51.1 %) 10.5 L Monocytes % (1.7 - 9.3 %) 6.9 Eosinophils % (0 - 5 %) 0.5 Basophils % (0.0 - 2.0 %) 0.2 Absolute Granulocytes (1.4 - 6.5 /CUMM) 11.7 H Absolute Lymphocytes (1.2 - 3.4 /CUMM) 1.5 Absolute Monocytes (0.10 - 0.60 /CUMM) 1.0 H Absolute Eosinophils (0.0 - 0.7 /CUMM) 0.1 Absolute Basophils (0.0 - 0.2 /CUMM) 0 PUBS MCHC (33.0 - 37.0 G/DL) 34.3 Serology Virus Culture Pending Diffential Diagnosis: Depression Anxiety Impression: The patient would benefit from evaluation at outpatient psychiatry for mood disorder. He is being treated for several infections which may be obscuring his mood, but he has enough neurovegetative and affective signs to suggest depression. He reports some anxiety worrying about his breathing. The patient is willing to come to [facility]. Labs and EKG reviewed. Provisional Treatment Plan: 1. We will get the patient an intake appointment for outpatient psychiatry on 10/19/16, when the office reopens. If the patient is discharged over the weekend. Please ask the receiving facility, the patient or his support system to call and make an appointment, . Our office is at [address] [place] [address]. The facility is wheel chair accessible. 2. Please order laboratory studies that may impact mood, such as thyroid, testosterone, vitamin B12, vitamin D. 3. No medication recommendations at this time, as it is difficult to evaluate his mood while he is so medically ill. 4. Please avoid benzodiazepines, unless absolutely necessary for severe anxiety. These can increase the risk for fall or fracture, and can depress respiratory drive. 5. SSRI medications may worsen the current hyponatremia and may prolong QTc. If the patient is still in the hospital on 10/19/17, we will revisit. Please reconsult if other matters arise.
--- NOTE | 2017-10-16 19:24 | Cons- Urology ---
General Information and HPI Consulting Request Date of Consult: 10/16/17 Requested By: Zuleyka Velazquez MD Reason for Consult: Candidemia, R UVJ stone, indwelling R ureteral stent, L renal calculi, hematuria Source of Information: patient, family, old records Exam Limitations: no limitations History of Present Illness: This patient has received most of his previous urologic care in [place]. On a previous admission here he was found to have candidemia and an obstructing R distal ureteral stone. He underwent R ureteral stent insertion under light sedation. He was treated with fluconazole at that time. The stent is almost due to be changed He was admitted with weakness and difficulty breathing. He has a long hx of COPD. Blood cultures are positive for yeast and he has been started on fluconazole again. A CT of the abd and pelvis shows no hydronephrosis, the R ureteral stent in appropriate postion, the R UVJ stone still in place and some non obstructing L renal calculi. He has also had some hematuria which is not abnormal with an indwelling ureteral stent Allergies/Medications Allergies: Coded Allergies: crab (SOFT SHELL CRAB - FACIAL SWELLING 02/10/17) Home Med List: Albuterol Sulfate 2.5 MG/3 ML (0.083 %) VIAL.NEB 1 Vial INH/SHERRY BID COPD ( Reported) Albuterol Sulfate (Proair Hfa) 90 MCG HFA.AER.AD 2 PUF INH Q4H PRN RESP ( Reported) Apixaban (Eliquis) 5 MG TABLET 1 TAB PO BID BLOOD THINNER (Reported) Arformoterol Tartrate (Brovana) 15 MCG/2 ML VIAL.NEB 1 VIAL INH BID COPD ( Reported) Atorvastatin Calcium 40 MG TABLET 1 TAB PO DAILY hyperlipidemia (Reported) Atorvastatin Calcium 40 MG TABLET 1 TAB PO DAILY CHOLESTEROL (Reported) Budesonide 0.5 MG/2 ML AMPUL.NEB 1 Vial INH/SHERRY BID RESP. 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 Tiotropium [place] (Spiriva) 18 MCG CAP.W.DEV 1 CAP INH DAILY COPD (Reported) Trazodone HCl 50 MG TABLET 2 TAB PO QPM MENTAL HEALTH/SLEEP (Reported) Current Medications: Current Medications Sig/Camille Start time Last Medication Dose Route Stop Time Status Admin Acetaminophen 650 MG Q6P PRN 10/14 2044 AC PO Acetaminophen 1,000 MG Q6P PRN 10/14 2044 AC IV Albuterol Sulfate 3 ML EVERY 4 HRS/AWAKE 10/15 1200 AC 10/16 INH 1615 Apixaban 5 MG BID 10/15 1000 AC 10/16 PO 1149 Atorvastatin Calcium 40 MG 1700 10/15 1700 AC 10/16 PO 1752 Atorvastatin Calcium 40 MG 1700 10/15 1700 AC PO Azithromycin 500 MG DAILY 10/15 1000 DC 10/16 Sodium Chloride 250 ML IV 1146 Budesonide 0.5 MG BID 10/15 2200 AC 10/16 INH 1615 Ceftriaxone Sodium 1,000 MG DAILY 10/15 1000 DC 10/16 IV 1201 Fluconazole 400 MG DAILY 10/17 1000 AC PO Fluconazole 800 MG ONCE ONE 10/16 1500 DC 10/16 PO 10/16 1501 1750 Insulin Aspart 0 TIDAC/HS 10/15 0800 AC 10/16 SC 1812 Melatonin 3 MG AT BEDTIME 10/15 2200 AC 10/15 PO 2034 Oxycodone HCl 5 MG Q8P PRN 10/14 2044 AC PO Polyethylene Glycol 17 GM DAILY 10/15 1732 AC 10/16 PO 1148 Prednisone 40 MG DAILY 10/15 1040 AC 10/16 PO 1148 Roflumilast 500 MCG DAILY 10/15 1000 AC 10/16 PO 1149 Senna 187 MG AT BEDTIME 10/15 2200 AC 10/15 PO 2033 Sodium Chloride 1,000 ML Q13H 10/14 2200 AC 10/16 IV 1811 Tiotropium [place] 1 PUF DAILY 10/15 1000 AC 10/16 INH 1146 Past History Medical History Blood Transfusion Hx: No Neurological: NONE EENT: allergies Cardiovascular: AFIB Respiratory: COPD Gastrointestinal: constipation Hepatic: NONE Renal: nephrolithiasis Musculoskeletal: falls Psychiatric: NONE Endocrine: diabetes Blood Disorders: NONE Cancer(s): basal cell carcinoma 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 Home Who Do You Live With? spouse Services at Home: None Primary Language: Bur[place]ian Smoking Status: Former Smoker (1.5 PPD x 65yrs,quit 8 M ago) ETOH Use: occasional use Illicit Drug Use: denies illicit drug use Functional Ability ADLs Independent: dressing. Ambulation: independent IADLs Independent: shopping, housework, finances, food prep, telephone, transportation , medication admin. Exam & Diagnostic Data Vital Signs and I&O Vital Signs Date Time Temp Pulse Resp B/P B/P Pulse O2 O2 Flow FiO2 Mean Ox Delivery Rate 10/16 1615 96 Nasal 2.0L Cannula 10/16 1436 98.0 88 20 100/60 97 Nasal 2.0L Cannula 10/16 0901 96 Nasal 2.0L Cannula 10/16 0800 98 Nasal 2.0L Cannula 10/16 0635 98.4 89 20 120/64 96 Nasal Cannula 10/16 0000 Room Air 10/15 2252 97.5 80 20 102/48 92 Room Air 10/15 2118 93 Room Air Room Air Intake & Output 10/16 1600 10/16 0810/16 0000 10/15 1600 10/15 0700 10/15 0000 Intake Total 4758 181 6709 1170 600 Output Total 500 700 375 450 400 Balance 670 -100 825 720 200 Intake, IV 450 600 600 450 600 Intake, Oral 720 600 720 Number 0 Bowel Movements Output, Urine 500 700 375 450 400 Patient 163 lb 165 lb Weight Weight Bed scale Reported by Patient Measurement Method Lying in bed with nasal oxygen in place Back: No CVA tenderness Abd: soft and non tender Genitalia: normal male Laboratory Tests 10/16 843 Chemistry Sodium (137 - 145 mmol/L) 136 L Potassium (3.5 - 5.1 mmol/L) 4.2 Chloride (98 - 107 mmol/L) 104 Carbon Dioxide (22 - 30 mmol/L) 25 Anion Gap (5 - 16) 6 BUN (9 - 20 mg/dL) 29 H Creatinine (0.7 - 1.2 mg/dL) 1.0 Estimated GFR (>60 ml/min) > 60 BUN/Creatinine Ratio (7 - 25 %) 29.0 H Vitamin B12 (239 - 931 pg/mL) 317 25-OH Vitamin D Total (30 - 100 ng/ml) Pending TSH (0.270 - 4.200 uIU/mL) 0.286 Total Testosterone (71.8 - 623 ng/dL) 52.8 L Hematology CBC w Diff NO MAN DIFF REQ WBC (4.8 - 10.8 /CUMM) 14.6 H RBC (4.70 - 6.10 /CUMM) 3.87 L Hgb (14.0 - 18.0 G/DL) 11.3 L Hct (42 - 52 %) 33.5 L MCV (80.0 - 94.0 FL) 86.6 MCH (27.0 - 31.0 PG) 29.3 RDW (11.5 - 14.5 %) 14.8 H Plt Count (130 - 400 /CUMM) 213 MPV (7.4 - 10.4 FL) 8.4 Gran % (42.2 - 75.2 %) 86.1 H Lymphocytes % (20.5 - 51.1 %) 8.9 L Monocytes % (1.7 - 9.3 %) 4.8 Eosinophils % (0 - 5 %) 0.1 Basophils % (0.0 - 2.0 %) 0.1 Absolute Granulocytes (1.4 - 6.5 /CUMM) 12.5 H Absolute Lymphocytes (1.2 - 3.4 /CUMM) 1.3 Absolute Monocytes (0.10 - 0.60 /CUMM) 0.7 H Absolute Eosinophils (0.0 - 0.7 /CUMM) 0 Absolute Basophils (0.0 - 0.2 /CUMM) 0 PUBS MCHC (33.0 - 37.0 G/DL) 33.8 Assessment/Plan Assessment/Plan Imp: 1. Candidemia. Probable urologic source 2. R UVJ stone with indwelling R ureteral stent and no hydronephrosis 3. Non obstructing L renal calculi 4. Severe COPD Plan: 1. Agree with fluconazole 2. Urine culture 3. Optimum urologic management would be R ureteroscopy, laser litho of R ureteral stone and exchange of R ureteral stent with subsequent removal of the stent a few days later. This usually requires general anesthesia but can be done under spinal. Could attempt with IV sedation but may not be possible with sedation only. 4. If pulmonary feels he is reasonable risk for above will add on for Thursday assuming patient does well over weekend. Would await their comments on anesthesia risk 5. Acute UTI would be contraindication to above procedure in which case change of ureteral stent could be done 6. Would hold eloquis in case patient has procedure Thursday with spinal anesthesia Consult Acknowledgment - Thank you for your consult request.
[2017-10-16 22:16] VITALS: BP 104/50
--- NOTE | 2017-10-17 06:56 | PN- Housestaff ---
Joel Charles 10/17/17 0656: Subjective Follow-up For: Sepsis due to Community acquired pneumonia. Acute on chronic kidney injury Microscopic hematuria. Blood culture +ve with yeast Subjective: Patient was seen and examined today. Patient alert, awake, oriented. He stated that his breathing is not that significantly improve comparing with yesterday, he still reporting low appetite. He is afebrile, and 2 L nasal cannula oxygen oxygen saturation more than 95%. Blood pressure within acceptable limit. Review of Systems Constitutional: Reports: weakness. Denies: chills, fever. Cardiovascular: Denies: chest pain, palpitations, peripheral edema. Respiratory: Denies: cough, short of breath, wheezing. Gastrointestinal: Denies: abdominal pain, constipation, nausea, vomiting. Genitourinary: Denies: pain. Objective Last 24 Hrs of Vital Signs/I&O Vital Signs Date Time Temp Pulse Resp B/P B/P Pulse O2 O2 Flow FiO2 Mean Ox Delivery Rate 10/17 0857 98 Nasal 2.0L Cannula 10/17 799 96 Nasal 2.0L Cannula 10/17 0700 97.6 86 22 121/69 99 Nasal 2.0L Cannula 10/17 0000 Nasal 2.0L Cannula 10/16 2216 97.9 88 20 104/50 96 Nasal 2.0L Cannula 10/16 1615 96 Nasal 2.0L Cannula 10/16 1436 98.0 88 20 100/60 97 Nasal 2.0L Cannula Intake & Output 10/17 1600 10/17 0800 10/17 0000 Intake Total 840 420 Output Total 325 600 Balance 515 -180 Intake, IV 600 300 Intake, Oral 240 120 Output, Urine 325 600 Physical Exam General Appearance: Alert, Oriented X3, Cooperative, No Acute Distress HEENT: PERRLA, EOMI Neck: Supple Cardiovascular: Normal S1, Normal S2 Lungs: Normal Air Movement Abdomen: Normal Bowel Sounds, Soft, No Tenderness Extremities: No Cyanosis, No Edema Current Medications: Current Medications Sig/Camille Start time Last Medication Dose Route Stop Time Status Admin Acetaminophen 650 MG Q6P PRN 10/14 2044 AC PO Acetaminophen 1,000 MG Q6P PRN 10/14 2044 AC IV Albuterol Sulfate 3 ML EVERY 4 HRS/AWAKE 10/15 1200 AC 10/17 INH 0855 Apixaban 5 MG BID 10/15 1000 AC 10/16 PO 2146 Atorvastatin Calcium 40 MG 1700 10/15 1700 AC 10/16 PO 1752 Atorvastatin Calcium 40 MG 1700 10/15 1700 AC PO Azithromycin 500 MG DAILY 10/15 1000 DC 10/16 Sodium Chloride 250 ML IV 1146 Budesonide 0.5 MG BID 10/15 2200 AC 10/17 INH 0855 Ceftriaxone Sodium 1,000 MG DAILY 10/15 1000 DC 10/16 IV 1201 Fluconazole 400 MG DAILY 10/17 1000 AC PO Fluconazole 800 MG ONCE ONE 10/16 1500 DC 10/16 PO 10/16 1501 1750 Insulin Aspart 0 TIDAC/HS 10/15 0800 AC 10/16 SC 2146 Melatonin 3 MG AT BEDTIME 10/15 2200 AC 10/16 PO 2146 Oxycodone HCl 5 MG Q8P PRN 10/14 2045 AC PO Polyethylene Glycol 17 GM DAILY 10/15 1732 AC 10/16 PO 1148 Prednisone 40 MG DAILY 10/15 1040 AC 10/16 PO 1148 Roflumilast 500 MCG DAILY 10/15 1000 AC 10/16 PO 1149 Senna 187 MG AT BEDTIME 10/15 2200 AC 10/16 PO 2146 Sodium Chloride 1,000 ML Q13H 10/14 2200 AC 10/16 IV 1811 Tiotropium [place] 1 PUF DAILY 10/15 1000 AC 10/16 INH 1146 Last 24 Hrs of Lab/Arsenio Results Last 24 Hrs of Labs/Mics: Laboratory Tests 10/17/17 0702: Anion Gap 7, Estimated GFR > 60, BUN/Creatinine Ratio 21.1, CBC w Diff Pending, WBC Pending, RBC Pending, Hgb Pending, Hct Pending, MCV Pending, MCH Pending, RDW Pending, Plt Count Pending, MPV Pending, Gran % Pending, Lymphocytes % Pending, Monocytes % Pending, Eosinophils % Pending, Basophils % Pending, Absolute Granulocytes Pending, Absolute Lymphocytes Pending, Absolute Monocytes Pending, Absolute Eosinophils Pending, Absolute Basophils Pending, PUBS MCHC Pending Microbiology 10/16 2119 URINE ROUT: Urine Culture - RES 10/16 1430 LOWER RESP: Respiratory Culture - COLB 10/16 143 LOWER RESP: Gram Stain - COLB Assessment/Plan Assessment: 71-year-old gentleman with past medical history significant for COPD on 2 L of nocturnal oxygen history of atrial fibrillation status post ablation, heart failure with preserved ejection fraction, pulmonary hypertension, mild aortic stenosis, UTIs, nephrolithiasis, hydronephrosis status post lithotripsy and stent placement, history of candidemia secondary to urologic origin, recently admitted to [facility] in July 2017 for acute respiratory distress secondary to possible PE/COPD exacerbation and sepsis of urological origin secondary to candidemia status post stent placement for right-sided UVJ calculus presented to the ER with chief complaints of worsening shortness of breath and productive cough. We will admit the patient on general medicine floor to treat the pneumonia. Sepsis secondary to community-acquired pneumonia/candidemia: -His urine culture grow yeast will follow final result along with a blood culture sensitivity and specificity. -We will continue fluconazole 400 mg 24-hour -We will follow the ID recommendations Acute on chronic kidney injury and microscopic hematuria: -Urologist request appeals specialist preop clearance for possible Thursday procedure as the patient will need anesthesia((R ureteroscopy, laser litho of R ureteral stone and exchange of R ureteral stent with subsequent removal of the stent a few days later.)) History of COPD: -Patient is using 2 L of oxygen at home usually at nighttime. -Admit to new pulmicort as recommended by pulmnologist. -Continue TRC nebulization as needed. -Continue prednison 40mg as recommended by Dr. Johnson. History of diabetes: -We'll hold the oral hypoglycemic medications. -Accu-Cheks -Insulin NovoLog according to sliding scale. History of Atrial fibrillation status post ablation: -We will continue Eliquis H/O HFpEF: -Last echo is showing ejection fraction more than 65% with stage II diastolic heart failure. History of hyperlipidemia: -We will continue Lipitor DVT prophylaxis: Patient is already on Eliquis CODE STATUS: Full code Problem List: 1. [id number] kidney injury 2. CAP (community acquired pneumonia) 3. Sepsis Pain Ratin Pain Location: 0 Pain Goal: Remain pain free Pain Plan: SAME Tomorrow's Labs & Rationales: Gabriel Palomares MD 10/17/17 1561: Attending Review Statement Attending Statement Attending Statement: examined this patient, discuss w/resident/PA/MANAGED SERVICES SALES CONSULTANT, agreed w/resident/PA/MANAGED SERVICES SALES CONSULTANT, reviewed EMR data (avail), reviewed images, amended to note Attending Assessment/Plan: The patient was seen and discussed with house staff. Urology input appreciated. Considering possible lithotripsy. The patient is on Eliquis for afib and will need to come off for procedure. Urology note indicates possible spinal anesthesia? He did receive dose of Eliquis this morning and will hold and place on heparin drip (without bolus). Will discuss further with urology requirements for lithotripsy. Continue treatment for Candidemia as per ID.
[2017-10-17 07:00] VITALS: BP 121/69
[2017-10-17 08:06] LABS: ABSOLUTE BASOPHIL COUNT 0 /CUMM (0.0-0.2); ABSOLUTE EOSINOPHIL COUNT 0 /CUMM (0.0-0.7); ABSOLUTE GRANULOCYTE CT 9.6 /CUMM (1.4-6.5); ABSOLUTE MONOCYTE COUNT 0.5 /CUMM (0.10-0.60); BASOPHIL % 0 % (0.0-2.0); EOSINOPHIL % 0.3 % (0-5); HEMATOCRIT 30.1 % (42-52); MEAN CORPUSCULAR HGB 29.2 PG (27.0-31.0); MEAN PLATELET VOLUME 7.9 FL (7.4-10.4); PLATELET COUNT 184 /CUMM (130-400); RBC DISTRIBUTION WIDTH 14.9 % (11.5-14.5)
[2017-10-17 09:44] LABS: WHITE BLOOD CELL COUNT 11.2 /CUMM (4.8-10.8)
--- NOTE | 2017-10-17 13:24 | PN- Pulmonary ---
Subjective HPI/Critical Care Issues: Patient seen and examined this morning. He appears to be improving back toward his respiratory baseline however he is having some pain secondary to nephrolithiasis. He is having his kidney stones addressed on Thursday. Objective Current Medications: Current Medications Sig/Camille Start time Last Medication Dose Route Stop Time Status Admin Acetaminophen 650 MG Q6P PRN 10/14 2044 AC PO Acetaminophen 1,000 MG Q6P PRN 10/14 2044 AC IV Albuterol Sulfate 3 ML EVERY 4 HRS/AWAKE 10/15 1200 AC 10/17 INH 1209 Apixaban 5 MG BID 10/15 1000 AC 10/17 PO 1152 Atorvastatin Calcium 40 MG 1700 10/15 1700 AC 10/16 PO 1752 Atorvastatin Calcium 40 MG 1700 10/15 1700 AC PO Azithromycin 500 MG DAILY 10/15 1000 DC 10/16 Sodium Chloride 250 ML IV 1146 Budesonide 0.5 MG BID 10/15 2200 AC 10/17 INH 0855 Ceftriaxone Sodium 1,000 MG DAILY 10/15 1000 DC 10/16 IV 1201 Fluconazole 400 MG DAILY 10/17 1000 AC 10/17 PO 1153 Fluconazole 800 MG ONCE ONE 10/16 1500 DC 10/16 PO 10/16 1501 1750 Insulin Aspart 0 TIDAC/HS 10/15 0800 AC 10/17 SC 1314 Melatonin 3 MG AT BEDTIME 10/15 2200 AC 10/16 PO 2146 Oxycodone HCl 5 MG Q8P PRN 10/14 2044 AC PO Polyethylene Glycol 17 GM DAILY 10/15 1732 AC 10/17 PO 1149 Prednisone 40 MG DAILY 10/15 1040 AC 10/17 PO 1152 Roflumilast 500 MCG DAILY 10/15 1000 AC 10/17 PO 1152 Senna 187 MG AT BEDTIME 10/15 2200 AC 10/16 PO 2146 Sodium Chloride 1,000 ML Q13H 10/14 2200 AC 10/16 IV 1811 Tiotropium [place] 1 PUF DAILY 10/15 1000 AC 10/17 INH 1149 Vital Signs & I&O Last 24 Hrs of Vitals and I&O: Vital Signs Date Time Temp Pulse Resp B/P B/P Pulse O2 O2 Flow FiO2 Mean Ox Delivery Rate 10/17 856 98 Nasal 2.0L Cannula 10/17 799 96 Nasal 2.0L Cannula 10/17 699 97.6 86 22 121/69 99 Nasal 2.0L Cannula 10/17 0000 Nasal 2.0L Cannula 10/16 2216 97.9 88 20 104/50 96 Nasal 2.0L Cannula 10/16 1615 96 Nasal 2.0L Cannula 10/16 1436 98.0 88 20 100/60 97 Nasal 2.0L Cannula Intake & Output 10/17 1600 10/17 0800 10/17 0000 Intake Total 840 420 Output Total 450 325 600 Balance -450 515 -180 Intake, IV 600 300 Intake, Oral 240 120 Output, Urine 450 325 600 Exam Other Physical Findings: Generally - Awake, alert and comfortable without distress Head and neck - normocephalic, atraumatic, EOMI grossly intact Cardiovascular - S1, S2, no murmurs, rubs or gallops Lungs - minor bibasilar rhonchi Abdomen - Bowel sounds positive, soft, non-tender Extremities - without edema Results Last 24 Hrs of Lab Results: Laboratory Tests 10/17/17 0702: Anion Gap 7, Estimated GFR > 60, BUN/Creatinine Ratio 21.1, CBC w Diff NO MAN DIFF REQ, RBC 3.50 L, MCV 86.0, MCH 29.2, RDW 14.9 H, MPV 7.9, Gran % 86.0 H, Lymphocytes % 9.0 L, Monocytes % 4.7, Eosinophils % 0.3, Basophils % 0, Absolute Granulocytes 9.6 H, Absolute Lymphocytes 1.0 L, Absolute Monocytes 0.5, Absolute Eosinophils 0, Absolute Basophils 0, PUBS MCHC 34.0 Impression/Plan Impression/Plan Impression/Plan: Impressoin 77 year old man * COPD with an acute exacerbation improved * pna * nephrolithiasis Plan -await urology input -cont steroid taper -f/u ID recommendations -trc/nebs -cont respiratory meds -Eliquis for a.fib DVT prophylaxis at all times
[2017-10-17 14:55] VITALS: BP 124/58
[2017-10-17 23:11] VITALS: BP 111/67
[2017-10-18 06:11] LABS: ABSOLUTE BASOPHIL COUNT 0 /CUMM (0.0-0.2); ABSOLUTE EOSINOPHIL COUNT 0 /CUMM (0.0-0.7); ABSOLUTE GRANULOCYTE CT 8.4 /CUMM (1.4-6.5); ABSOLUTE LYMPH COUNT 1.1 /CUMM (1.2-3.4); ABSOLUTE MONOCYTE COUNT 0.6 /CUMM (0.10-0.60); BASOPHIL % 0.2 % (0.0-2.0); EOSINOPHIL % 0.4 % (0-5); GRANULOCYTE % 82.8 % (42.2-75.2); HEMATOCRIT 31.6 % (42-52); MEAN CORPUSCULAR HGB 28.9 PG (27.0-31.0); MEAN CORPUSCULAR HGB CONC 33.5 G/DL (33.0-37.0); MEAN CORPUSCULAR VOLUME 86.2 FL (80.0-94.0); MEAN PLATELET VOLUME 7.5 FL (7.4-10.4); PLATELET COUNT 220 /CUMM (130-400); RBC DISTRIBUTION WIDTH 14.7 % (11.5-14.5); RED BLOOD CELL CT 3.67 /CUMM (4.70-6.10); WHITE BLOOD CELL COUNT 10.1 /CUMM (4.8-10.8)
[2017-10-18 06:25] LABS: PTT 81 SEC (25-37)
[2017-10-18 06:55] VITALS: BP 128/61
--- NOTE | 2017-10-18 07:09 | PN- Housestaff ---
[facility]: Subjective Follow-up For: Sepsis due to Community acquired pneumonia/Candidemia. Acute on chronic kidney injury Microscopic hematuria. Blood and urine culture +ve with yeast Subjective: No overnight events. Patient remained afebrile overnight. Seen and examined this morning. He denied any chest pain, nausea, vomiting, chills, fever, palpitation, abdominal pain and dysuria. Patient is using 2 L of oxygen maintaining saturation 96%. Patient still has exertional dyspnea. Patient also reported having low energy and he is feeling tired but he denied any suicidal ideation possibly due to depression. We'll follow the psychiatry recommendations for depression. Patient is going tender diabetic and in urine and blood. Review of Systems Constitutional: Reports: see HPI. EENTM: Reports: no symptoms. Cardiovascular: Reports: no symptoms. Respiratory: Reports: short of breath. Gastrointestinal: Reports: no symptoms. Genitourinary: Reports: no symptoms. Musculoskeletal: Reports: see HPI. Neurological/Psychological: Reports: see HPI. Objective Last 24 Hrs of Vital Signs/I&O Vital Signs Date Time Temp Pulse Resp B/P B/P Pulse O2 O2 Flow FiO2 Mean Ox Delivery Rate 10/18 0818 96 Room Air 10/18 0655 99.0 76 20 128/61 96 Nasal 2.0L Cannula 10/18 0000 Nasal 2.0L Cannula 10/17 2311 97.8 78 20 111/67 100 Nasal 2.0L Cannula 10/17 2031 96 Room Air 10/17 1455 97.8 78 20 124/58 95 Room Air Intake & Output 10/18 1600 10/18 0800 10/18 0000 Intake Total 1108 Output Total 700 Balance 408 Intake, IV 1108 Output, Urine 700 Physical Exam General Appearance: Alert, Oriented X3, Cooperative Skin Temp/Moisture Exam: Warm/Dry HEENT: Atraumatic, PERRLA, EOMI Neck: Supple Cardiovascular: Normal S1, Normal S2 Lungs: Decreased breath sounds b/l Abdomen: Soft, No Tenderness Neurological: Normal Speech, Strength at 5/5 X4 Ext, Normal Tone Extremities: No Edema Assessment/Plan Assessment: 71-year-old gentleman with past medical history significant for COPD on 2 L of nocturnal oxygen history of atrial fibrillation status post ablation, heart failure with preserved ejection fraction, pulmonary hypertension, mild aortic stenosis, UTIs, nephrolithiasis, hydronephrosis status post lithotripsy and stent placement, history of candidemia secondary to urologic origin, recently admitted to [facility] in July 2017 for acute respiratory distress secondary to possible PE/COPD exacerbation and sepsis of urological origin secondary to candidemia status post stent placement for right-sided UVJ calculus presented to the ER with chief complaints of worsening shortness of breath and productive cough. We will admit the patient on general medicine floor to treat the pneumonia. Sepsis secondary to community-acquired pneumonia/candidemia: -Initially there was a suspicion of mild acquired pneumonia as patient having opacity on chest x-ray. Patient received antibiotics to cover for pneumonia. Later on his urine and blood cultures came positive for and identification. Patient was previously treated for Concetta albicans with fluconazole. This time patient's symptoms probably due to Candidemia again. -We will continue fluconazole 400 mg daily. -We will follow the ID recommendations. Acute on chronic kidney injury with microscopic hematuria: -Patient's acute on chronic kidney injury has resolved as his creatinine level is 0.9. -Patient has history of recurrent ureteric stone for which stent placement was done in the past. Considering patient's complain of microscopic hematuria probably due to stone and he is going and albicans in urine maybe he needs removal placement of new Stant. -We will follow the urology recommendations. They recommended to do the procedure on Thursday possibly stent placement STENT removal but the need pulmonology clearance because the procedure will be done in general anesthesia origin spinal. -We discontinued his Eliquis yesterday and patient is on IV heparin as possibly he is going for procedure tomorrow. -We will keep him nothing by mouth on Thursday midnight. History of COPD: -Patient is using 2 L of oxygen at home usually at nighttime. -Admit to new pulmicort as recommended by pulmnologist. -Continue TRC nebulization as needed. -Continue prednison 40mg as recommended by Dr. Johnson. History of diabetes: -We'll hold the oral hypoglycemic medications. -Accu-Cheks -Insulin NovoLog according to sliding scale. History of Atrial fibrillation status post ablation: -We will continue Eliquis -We are holding his Eliquis and keep the patient on IV heparin for the procedure.(10/18/17) H/O HFpEF: -Last echo is showing ejection fraction more than 65% with stage II diastolic heart failure. History of hyperlipidemia: -We will continue Lipitor DVT prophylaxis: Patient is already on Eliquis CODE STATUS: Full code Problem List: 1. Gknyx-dg-zusnkab kidney injury 2. CAP (community acquired pneumonia) 3. Sepsis Pain Ratin Pain Location: one Pain Goal: Remain pain free Pain Plan: tylenol for mild pain Tomorrow's Labs & Rationales: bep/cbc Gabriel Pavon MD 10/18/17 2001: Attending MD Review Statement Attending Statement Attending MD Statement: examined this patient, discuss w/resident/PA/NARROW FABRIC CALENDERER, agreed w/resident/PA/NARROW FABRIC CALENDERER, discussed with family, reviewed EMR data (avail), discussed with nursing, amended to note Attending Assessment/Plan: The patient was seen and discussed with house staff. Eliquis on hold and on heparin drip anticipating possible lithotrhipsy. Will need to claify with pulmonary and urology. Last dose of Eliquis was 1/6 in morning. Patient is concerned that with last lithotripsy he required nunez catheter for more than 1 month. He was advised to discuss with Urology tomorrow. ID follow-up appreciated and will continue Fluconazole.
--- NOTE | 2017-10-18 10:13 | PN- Infect Dx ---
Subjective Subjective: Afebrile on steroids. He complains of shortness of breath. He denies dysuria but complains of voiding in small amounts. Objective Last 24 Hrs of Vital Signs/I&O Vital Signs Date Time Temp Pulse Resp B/P B/P Pulse O2 O2 Flow FiO2 Mean Ox Delivery Rate 10/18 0818 96 Room Air 10/18 0655 99.0 76 20 128/61 96 Nasal 2.0L Cannula 10/18 0000 Nasal 2.0L Cannula 10/17 2311 97.8 78 20 111/67 100 Nasal 2.0L Cannula 10/17 2031 96 Room Air 10/17 1455 97.8 78 20 124/58 95 Room Air Intake & Output 10/18 1600 10/18 0800 10/18 0000 Intake Total 1108 Output Total 700 Balance 408 Intake, IV 1108 Output, Urine 700 Physical Exam Other Physical Findings: He appears mildly short of breath Lungs diffuse rhonchi Heart regular rhythm with no murmur Abdomen is soft, nontender with positive bowel sounds Back no CVA tenderness Extremities no cyanosis, clubbing or edema Results Last 24 Hours of Lab Results: Laboratory Tests 10/18 0550 Chemistry Sodium (137 - 145 mmol/L) 139 Potassium (3.5 - 5.1 mmol/L) 3.7 Chloride (98 - 107 mmol/L) 107 Carbon Dioxide (22 - 30 mmol/L) 26 Anion Gap (5 - 16) 6 BUN (9 - 20 mg/dL) 12 Creatinine (0.7 - 1.2 mg/dL) 0.9 Estimated GFR (>60 ml/min) > 60 BUN/Creatinine Ratio (7 - 25 %) 13.3 Coagulation APTT (25 - 37 SEC) 81 H Hematology CBC w Diff NO MAN DIFF REQ WBC (4.8 - 10.8 /CUMM) 10.1 RBC (4.70 - 6.10 /CUMM) 3.67 L Hgb (14.0 - 18.0 G/DL) 10.6 L Hct (42 - 52 %) 31.6 L MCV (80.0 - 94.0 FL) 86.2 MCH (27.0 - 31.0 PG) 28.9 RDW (11.5 - 14.5 %) 14.7 H Plt Count (130 - 400 /CUMM) 220 MPV (7.4 - 10.4 FL) 7.5 Gran % (42.2 - 75.2 %) 82.8 H Lymphocytes % (20.5 - 51.1 %) 10.5 L Monocytes % (1.7 - 9.3 %) 6.1 Eosinophils % (0 - 5 %) 0.4 Basophils % (0.0 - 2.0 %) 0.2 Absolute Granulocytes (1.4 - 6.5 /CUMM) 8.4 H Absolute Lymphocytes (1.2 - 3.4 /CUMM) 1.1 L Absolute Monocytes (0.10 - 0.60 /CUMM) 0.6 Absolute Eosinophils (0.0 - 0.7 /CUMM) 0 Absolute Basophils (0.0 - 0.2 /CUMM) 0 PUBS MCHC (33.0 - 37.0 G/DL) 33.5 Last 24 Hours of Arsenio Results: Blood cultures October 14 positive for Concetta albicans Urine culture October 15 greater than 100,000 colonies of yeast Urine culture October 16 greater than 100,000 colonies of yeast Assessment/Plan Impression: Stable with temperatures and white blood cell count normal (on steroids) on Fluconazole Day 2 of treatment for candidemia of urologic origin, possibly secondary to an infected stent, with persistent, though improved, obstruction of the right ureter on the recent CT scan. He has been evaluated by Urology, with plans for possible right ureteroscopy, laser lithotripsy of the right ureteral stone and exchange of the right ureteral stent tomorrow if his respiratory status permits. Suggestion: 1. Await possible urologic intervention tomorrow 2. Further management of his steroids per Pulmonary 3. Continue Fluconazole
--- NOTE | 2017-10-18 12:03 | PN- Pulmonary ---
Subjective HPI/Critical Care Issues: Patient seen and examined this morning. He is awaiting for an evaluation of his kidney stones tomorrow. Respiratory leach his status intermittent and he has occasional shortness of breath. Objective Current Medications: Current Medications Sig/Camille Start time Last Medication Dose Route Stop Time Status Admin Acetaminophen 650 MG Q6P PRN 10/14 2044 AC PO Acetaminophen 1,000 MG Q6P PRN 10/14 204 AC IV Albuterol Sulfate 3 ML EVERY 4 HRS/AWAKE 10/15 1200 AC 10/18 INH 1154 Apixaban 5 MG BID 10/15 1000 DC 10/17 PO 1152 Atorvastatin Calcium 40 MG 1700 10/15 1700 AC 10/17 PO 1800 Atorvastatin Calcium 40 MG 1700 10/15 1700 AC PO Budesonide 0.5 MG BID 10/15 2200 AC 10/18 INH 0813 Fluconazole 400 MG DAILY 10/17 1000 AC 10/18 PO 1003 Heparin Sodium 25,000 UNIT Q24H 10/18 0000 AC 10/17 (Porcine) IV 2355 Sodium Chloride 500 ML Heparin Sodium 25,000 UNIT Q24H 10/17 1615 DC (Porcine) IV Sodium Chloride 500 ML Insulin Aspart 0 TIDAC/HS 10/15 0800 AC 10/17 SC 2154 Melatonin 3 MG AT BEDTIME 10/15 2200 AC 10/17 PO 2240 Oxycodone HCl 5 MG Q8P PRN 10/14 2044 AC PO Polyethylene Glycol 17 GM DAILY 10/15 1732 AC 10/18 PO 1003 Prednisone 40 MG DAILY 10/15 1040 AC 10/18 PO 1004 Roflumilast 500 MCG DAILY 10/15 1000 AC 10/18 PO 1003 Senna 187 MG AT BEDTIME 10/15 2200 AC 10/17 PO 2240 Sodium Chloride 1,000 ML Q13H 10/14 2200 AC 10/17 IV 2047 Tiotropium [place] 1 PUF DAILY 10/15 1000 AC 10/18 INH 1003 Vital Signs & I&O Last 24 Hrs of Vitals and I&O: Vital Signs Date Time Temp Pulse Resp B/P B/P Pulse O2 O2 Flow FiO2 Mean Ox Delivery Rate 10/18 0818 96 Room Air 10/18 0655 99.0 76 20 128/61 96 Nasal 2.0L Cannula 10/18 0000 Nasal 2.0L Cannula 10/17 2311 97.8 78 20 111/67 100 Nasal 2.0L Cannula 10/17 2030 96 Room Air 10/17 1455 97.8 78 20 124/58 95 Room Air Intake & Output 10/18 1600 10/18 0800 10/18 0000 Intake Total 1108 Output Total 700 Balance 408 Intake, IV 1108 Output, Urine 700 Exam Other Physical Findings: Generally - Awake, alert and comfortable without distress Head and neck - normocephalic, atraumatic, EOMI grossly intact Cardiovascular - S1, S2, no murmurs, rubs or gallops Lungs - minor bibasilar rhonchi Abdomen - Bowel sounds positive, soft, non-tender Extremities - without edema Results Last 24 Hrs of Lab Results: Laboratory Tests 10/18/17 0550: Anion Gap 6, Estimated GFR > 60, BUN/Creatinine Ratio 13.3, APTT 81 H, CBC w Diff NO MAN DIFF REQ, RBC 3.67 L, MCV 86.2, MCH 28.9, RDW 14.7 H, MPV 7.5, Gran % 82.8 H, Lymphocytes % 10.5 L, Monocytes % 6.1, Eosinophils % 0.4, Basophils % 0.2, Absolute Granulocytes 8.4 H, Absolute Lymphocytes 1.1 L, Absolute Monocytes 0.6, Absolute Eosinophils 0, Absolute Basophils 0, PUBS MCHC 33.5 Impression/Plan Impression/Plan Impression/Plan: Impressoin 77 year old man * COPD with an acute exacerbation improved * pna * nephrolithiasis Plan -await urology input -in meantime given dyspnea, can change steroids to 60mg po prednisone today and re-evaluate in am -f/u ID recommendations -trc/nebs -cont respiratory meds -Eliquis for a.fib DVT prophylaxis at all times
[2017-10-18 13:44] VITALS: BP 120/60
[2017-10-18 21:10] LABS: PTT 92 SEC (25-37)
[2017-10-18 22:15] VITALS: BP 114/58
--- NOTE | 2017-10-19 07:29 | PN- Urology ---
Subjective Subjective: No acute distress. Breathing appears stable Objective Vital Signs and I&Os Vital Signs Date Time Temp Pulse Resp B/P B/P Pulse O2 O2 Flow FiO2 Mean Ox Delivery Rate 10/19 0000 Nasal 2.0L Cannula 10/18 2215 97.9 74 16 114/58 97 Nasal 2.0L Cannula 10/18 1635 98 Nasal 2.0L Cannula 10/18 1344 98.4 79 20 120/60 98 Nasal 2.0L Cannula 10/18 0818 96 Room Air 10/18 799 94 Nasal 2.0L Cannula Intake & Output 10/19 0000 10/18 1600 10/18 0000 10/17 1600 Intake Total 600 641 995 2310 Output Total 700 850 500 700 550 Balance -100 -250 340 408 -550 Intake, IV 556 170 8754 Intake, Oral 840 Output, Urine 700 850 500 700 550 Abd: soft and non tender Laboratory Tests 10/19 10/18 0330 1923 Coagulation APTT (25 - 37 SEC) Cancelled 92 H WBC improved to 10.4 Continues on fluconazole Assessment/Plan Assessment/Plan Imp: 1. R distal ureteral stone with R stent in place 2. Non obstructing L renal stones 3. Concetta UTI and candidemia likely related to R ureteral stone and stent Plan: 1. Unless pulmonary disagrees, will put on add on schedule for cystoscopy, R ureteroscopy and possible laser lithotripsy and R ureteral stent exchange. If R ureteral stone is successfully removed will plan on removing R stent later in week. Can attempt procedure with IV sedation but if patient can't tolerate it then would need spinal or general anesthesia. Await pulmonary risk assessment for this procedure and anesthesia in view of his significant COPD. 2. Please turn off heparin drip at 9:00 AM and order state PT, PTT at 12: 30 3. Keep npo this AM except for po meds with a sip of water
[2017-10-19 07:35] VITALS: BP 110/60
--- NOTE | 2017-10-19 07:39 | PN- Housestaff ---
[facility] Subjective Follow-up For: Sepsis due to Community acquired pneumonia/Candidemia. Acute on chronic kidney injury Microscopic hematuria. Blood and urine culture +ve with yeast Subjective: No overnight events. Patient remained afebrile overnight. Patient seen and examined this morning. He denied any chest pain, short of breath, nausea, vomiting, general, fever, abdominal pain and dysuria. Patient is using 2 L of oxygen and maintaining saturation 97%. He is nothing by mouth and going for urologic procedure today. Review of Systems Constitutional: Reports: no symptoms. EENTM: Reports: no symptoms. Cardiovascular: Reports: no symptoms. Respiratory: Reports: no symptoms. Gastrointestinal: Reports: no symptoms. Genitourinary: Reports: no symptoms. Musculoskeletal: Reports: no symptoms. Neurological/Psychological: Reports: no symptoms. Objective Last 24 Hrs of Vital Signs/I&O Vital Signs Date Time Temp Pulse Resp B/P B/P Pulse O2 O2 Flow FiO2 Mean Ox Delivery Rate 10/19 0735 98.1 60 16 110/60 97 10/19 0000 Nasal 2.0L Cannula 10/18 2215 97.9 74 16 114/58 97 Nasal 2.0L Cannula 10/18 1635 98 Nasal 2.0L Cannula 10/18 1344 98.4 79 20 120/60 98 Nasal 2.0L Cannula Intake & Output 10/19 1600 10/19 0800 10/19 0000 Intake Total 600 600 Output Total 800 850 Balance -200 -250 Intake, IV 600 600 Output, Urine 800 850 Physical Exam General Appearance: Alert, Oriented X3, Cooperative Skin Temp/Moisture Exam: Warm/Dry HEENT: Atraumatic, PERRLA, EOMI Neck: Supple Cardiovascular: Normal S1, Normal S2 Lungs: Clear to Auscultation Abdomen: Soft, No Tenderness Neurological: Normal Speech, Strength at 5/5 X4 Ext, Normal Tone, Sensation Intact Extremities: No Edema Assessment/Plan Assessment: 71-year-old gentleman with past medical history significant for COPD on 2 L of nocturnal oxygen history of atrial fibrillation status post ablation, heart failure with preserved ejection fraction, pulmonary hypertension, mild aortic stenosis, UTIs, nephrolithiasis, hydronephrosis status post lithotripsy and stent placement, history of candidemia secondary to urologic origin, recently admitted to [facility] in July 2017 for acute respiratory distress secondary to possible PE/COPD exacerbation and sepsis of urological origin secondary to candidemia status post stent placement for right-sided UVJ calculus presented to the ER with chief complaints of worsening shortness of breath and productive cough. We will admit the patient on general medicine floor to treat the pneumonia. Sepsis secondary to community-acquired pneumonia/candidemia: -Initially there was a suspicion of mild acquired pneumonia as patient having opacity on chest x-ray. Patient received antibiotics to cover for pneumonia. Later on his urine and blood cultures came positive for and identification. Patient was previously treated for Concetta albicans with fluconazole. This time patient's symptoms probably due to Candidemia again. -We will continue fluconazole 400 mg daily. -We will follow the ID recommendations. Acute on chronic kidney injury with microscopic hematuria: -Patient's acute on chronic kidney injury has resolved as his creatinine level is 0.9. -Patient has history of recurrent ureteric stone for which stent placement was done in the past. Considering patient's complain of microscopic hematuria probably due to stone and he is going and albicans in urine maybe he needs removal placement of new Stant. -We will follow the urology recommendations. They recommended to do the procedure on Thursday possibly stent placement STENT removal but the need pulmonology clearance because the procedure will be done in general anesthesia origin spinal. -We discontinued his Eliquis yesterday and patient is on IV heparin as possibly he is going for procedure tomorrow. -Patient is nothing by mouth and going for procedure today. History of COPD: -Patient is using 2 L of oxygen at home usually at nighttime. -Admit to new pulmicort as recommended by pulmnologist. -Continue TRC nebulization as needed. -Continue prednison 40mg as recommended by Dr. Johnson. History of diabetes: -We'll hold the oral hypoglycemic medications. -Accu-Cheks -Insulin NovoLog according to sliding scale. History of Atrial fibrillation status post ablation: -We will continue Eliquis -We are holding his Eliquis and keep the patient on IV heparin for the procedure.(10/18/17) H/O HFpEF: -Last echo is showing ejection fraction more than 65% with stage II diastolic heart failure. History of hyperlipidemia: -We will continue Lipitor DVT prophylaxis: Patient is already on Eliquis CODE STATUS: Full code Problem List: 1. [id number] kidney injury 2. Sepsis 3. Candidemia Pain Ratin Pain Location: none Pain Goal: Remain pain free Pain Plan: tylenol for mild pain Tomorrow's Labs & Rationales: cbc/bep Zuleyka Velazquez MD 10/19/17 1613: Attending MD Review Statement Attending Statement Attending MD Statement: examined this patient, discuss w/resident/PA/PAYROLL ACCOUNTING MANAGER, agreed w/resident/PA/PAYROLL ACCOUNTING MANAGER, reviewed EMR data (avail) Attending Assessment/Plan: Will go to OR for stent replacement today with urology, follow pulm recommendations, continue current management
[2017-10-19 09:24] LABS: ABSOLUTE BASOPHIL COUNT 0 /CUMM (0.0-0.2); ABSOLUTE EOSINOPHIL COUNT 0.1 /CUMM (0.0-0.7); ABSOLUTE GRANULOCYTE CT 8.8 /CUMM (1.4-6.5); ABSOLUTE MONOCYTE COUNT 0.6 /CUMM (0.10-0.60); BASOPHIL % 0.2 % (0.0-2.0); EOSINOPHIL % 0.8 % (0-5); MEAN CORPUSCULAR HGB 29.2 PG (27.0-31.0); MEAN CORPUSCULAR HGB CONC 33.7 G/DL (33.0-37.0); MEAN CORPUSCULAR VOLUME 86.6 FL (80.0-94.0); MEAN PLATELET VOLUME 7.9 FL (7.4-10.4); PLATELET COUNT 210 /CUMM (130-400); RBC DISTRIBUTION WIDTH 15.1 % (11.5-14.5); RED BLOOD CELL CT 3.47 /CUMM (4.70-6.10); WHITE BLOOD CELL COUNT 10.4 /CUMM (4.8-10.8)
[2017-10-19 10:38] LABS: GRANULOCYTE % 83.9 % (42.2-75.2)
--- NOTE | 2017-10-19 11:51 | PN- Psychiatry ---
Assessment/Plan Impression: The patient is motivated to come for an outpatient psychiatry evaluation for depression and anxiety. His social services manager, Dr. Gena Johnson, feels that the patient has had a change in his mood since he quit smoking in 2016. He reports that he has difficulty with walking more than 5 steps, due to dyspnea, which Dr. Johnson does not feel is severe enough to limit his mobility to using a wheelchair. He has been amotivational for self-care at home and in the hospital. His anxiety is related to his breathing difficulty, and he has a diagnosis of COPD. He does not feel he is frankly depressed, but admits that he might be, considering his recent medical history. Suggestion: 1. Consider initiating vitamin D supplementation. Lab result this visit is 9.0 2. Refer to PCP for discussion of testosterone result this visit, low at 52.8 3. The patient has an Outpatient Psychiatry intake appointment for evaluation of depression and anxiety on 11/17/17 @ 1015 with [facility] at [address] [place] [address], [place], . The patient is in a wheel chair and will need a first floow appointment. Please reconsult if other psychiatry matters arise. Subjective Subjective: A+O Denies AH or VH, and presents no sanket delusions. Denies SI or HI. Objective Last 24 Hrs of Vital Signs/I&O Vital Signs Date Time Temp Pulse Resp B/P B/P Pulse O2 O2 Flow FiO2 Mean Ox Delivery Rate 10/19 857 94 Room Air Room Air 10/19 799 93 Room Air Room Air 10/19 0735 98.1 60 16 110/60 97 10/19 0000 Nasal 2.0L Cannula 10/18 2215 97.9 74 16 114/58 97 Nasal 2.0L Cannula 10/18 1635 98 Nasal 2.0L Cannula 10/18 1344 98.4 79 20 120/60 98 Nasal 2.0L Cannula Intake & Output 10/19 1600 10/19 0810/19 0000 Intake Total 600 600 Output Total 300 800 850 Balance -300 -200 -250 Intake, IV 600 600 Output, Urine 300 800 850 Physical Exam: Not performed. Physical Exam General Appearance: no apparent distress Respiratory: no respiratory distress, Currently not on supplemental oxygen Neurologic/Psychiatric: alert, oriented x 3, depressed affect Other Physical Findings: Uses a wheelchair, due to SOB with ambulation. Current Medications: Current Medications Sig/Camille Start time Last Medication Dose Route Stop Time Status Admin Acetaminophen 650 MG Q6P PRN 10/14 2044 AC PO Acetaminophen 1,000 MG Q6P PRN 10/14 2044 AC IV Albuterol Sulfate 3 ML EVERY 4 HRS/AWAKE 10/15 1200 AC 10/19 INH 0857 Atorvastatin Calcium 40 MG 1700 10/15 1700 AC 10/18 PO 1822 Atorvastatin Calcium 40 MG 1700 10/15 1700 DC PO Budesonide 0.5 MG BID 10/15 2200 AC 10/19 INH 0857 Fluconazole 400 MG DAILY 10/17 1000 AC 10/19 PO 0959 Heparin Sodium 25,000 UNIT Q24H 10/18 0000 DC 10/18 (Porcine) IV 2133 Sodium Chloride 500 ML Insulin Aspart 0 TIDAC/HS 10/15 0800 DC 10/18 SC 1823 Insulin Human Regular 0 Q6 10/18 2359 AC 10/19 SC 0527 Melatonin 3 MG AT BEDTIME 10/15 2200 AC 10/18 PO 2130 Oxycodone HCl 5 MG Q8P PRN 10/14 2044 AC PO Polyethylene Glycol 17 GM DAILY 10/15 1732 AC 10/18 PO 1003 Potassium Chloride 40 MEQ ONCE ONE 10/18 1345 DC 10/18 PO 10/18 1346 1545 Prednisone 60 MG DAILY 10/19 1000 AC 10/19 PO 1000 Prednisone 40 MG DAILY 10/15 1040 DC 10/18 PO 1004 Roflumilast 500 MCG DAILY 10/15 1000 AC 10/19 PO 1000 Senna 187 MG AT BEDTIME 10/15 2200 AC 10/18 PO 2130 Sodium Chloride 1,000 ML Q13H 10/14 2200 AC 10/18 IV 2312 Tiotropium [place] 1 PUF DAILY 10/15 1000 AC 10/19 INH 1003 Results Last 24 Hrs of Labs/Mics: Laboratory Tests 10/19 10/19 10/18 0759 0330 1923 Chemistry Sodium (137 - 145 mmol/L) 140 Potassium (3.5 - 5.1 mmol/L) 3.5 Chloride (98 - 107 mmol/L) 108 H Carbon Dioxide (22 - 30 mmol/L) 25 Anion Gap (5 - 16) 8 BUN (9 - 20 mg/dL) 8 L Creatinine (0.7 - 1.2 mg/dL) 0.9 Estimated GFR (>60 ml/min) > 60 BUN/Creatinine Ratio (7 - 25 %) 8.9 Coagulation APTT (25 - 37 SEC) Cancelled 92 H Hematology CBC w Diff NO MAN DIFF REQ WBC (4.8 - 10.8 /CUMM) 10.4 RBC (4.70 - 6.10 /CUMM) 3.47 L Hgb (14.0 - 18.0 G/DL) 10.1 L Hct (42 - 52 %) 30.0 L MCV (80.0 - 94.0 FL) 86.6 MCH (27.0 - 31.0 PG) 29.2 RDW (11.5 - 14.5 %) 15.1 H Plt Count (130 - 400 /CUMM) 210 MPV (7.4 - 10.4 FL) 7.9 Gran % (42.2 - 75.2 %) 83.9 H Lymphocytes % (20.5 - 51.1 %) 9.6 L Monocytes % (1.7 - 9.3 %) 5.5 Eosinophils % (0 - 5 %) 0.8 Basophils % (0.0 - 2.0 %) 0.2 Absolute Granulocytes (1.4 - 6.5 /CUMM) 8.8 H Absolute Lymphocytes (1.2 - 3.4 /CUMM) 1.0 L Absolute Monocytes (0.10 - 0.60 /CUMM) 0.6 Absolute Eosinophils (0.0 - 0.7 /CUMM) 0.1 Absolute Basophils (0.0 - 0.2 /CUMM) 0 PUBS MCHC (33.0 - 37.0 G/DL) 33.7
[2017-10-19 13:50] LABS: PT 10.6 SEC (9.4-12.5); PTT 31 SEC (25-37)
[2017-10-19 14:35] VITALS: BP 118/68
--- NOTE | 2017-10-19 14:41 | PN- Infect Dx ---
Subjective Subjective: Afebrile. He continues to complain of shortness of breath. He continues to report voiding small amounts of urine frequently. Objective Last 24 Hrs of Vital Signs/I&O Vital Signs Date Time Temp Pulse Resp B/P B/P Pulse O2 O2 Flow FiO2 Mean Ox Delivery Rate 10/19 1435 98.6 93 18 118/68 92 10/19 0858 94 Room Air Room Air 10/19 799 93 Room Air Room Air 10/19 0735 98.1 60 16 110/60 97 10/19 0000 Nasal 2.0L Cannula 10/18 2215 97.9 74 16 114/58 97 Nasal 2.0L Cannula 10/18 1635 98 Nasal 2.0L Cannula Intake & Output 10/19 1600 10/19 0000 Intake Total 600 600 Output Total 700 800 850 Balance -700 -200 -250 Intake, IV 600 600 Output, Urine 700 800 850 Physical Exam Other Physical Findings: He appears well in no acute distress Lungs are clear Heart regular rhythm with no murmur Back no CVA tenderness Results Last 24 Hours of Lab Results: Laboratory Tests 10/19 10/19 10/19 1230 0759 0330 Chemistry Sodium (137 - 145 mmol/L) 140 Potassium (3.5 - 5.1 mmol/L) 3.5 Chloride (98 - 107 mmol/L) 108 H Carbon Dioxide (22 - 30 mmol/L) 25 Anion Gap (5 - 16) 8 BUN (9 - 20 mg/dL) 8 L Creatinine (0.7 - 1.2 mg/dL) 0.9 Estimated GFR (>60 ml/min) > 60 BUN/Creatinine Ratio (7 - 25 %) 8.9 Coagulation PT (9.4 - 12.5 SEC) 10.6 INR (0.90 - 1.17) 1.01 APTT (25 - 37 SEC) 31 Cancelled Hematology CBC w Diff NO MAN DIFF REQ WBC (4.8 - 10.8 /CUMM) 10.4 RBC (4.70 - 6.10 /CUMM) 3.47 L Hgb (14.0 - 18.0 G/DL) 10.1 L Hct (42 - 52 %) 30.0 L MCV (80.0 - 94.0 FL) 86.6 MCH (27.0 - 31.0 PG) 29.2 RDW (11.5 - 14.5 %) 15.1 H Plt Count (130 - 400 /CUMM) 210 MPV (7.4 - 10.4 FL) 7.9 Gran % (42.2 - 75.2 %) 83.9 H Lymphocytes % (20.5 - 51.1 %) 9.6 L Monocytes % (1.7 - 9.3 %) 5.5 Eosinophils % (0 - 5 %) 0.8 Basophils % (0.0 - 2.0 %) 0.2 Absolute Granulocytes (1.4 - 6.5 /CUMM) 8.8 H Absolute Lymphocytes (1.2 - 3.4 /CUMM) 1.0 L Absolute Monocytes (0.10 - 0.60 /CUMM) 0.6 Absolute Eosinophils (0.0 - 0.7 /CUMM) 0.1 Absolute Basophils (0.0 - 0.2 /CUMM) 0 PUBS MCHC (33.0 - 37.0 G/DL) 33.7 10/18 1923 Coagulation APTT (25 - 37 SEC) 92 H Last 24 Hours of Arsenio Results: No new cultures Assessment/Plan Impression: Stable with temperatures and white blood cell count normal (on steroids) on Fluconazole Day 3 of treatment for candidemia of urologic origin, possibly secondary to an infected stent, with persistent, though improved, obstruction of the right ureter on the recent CT scan. He is scheduled for a right ureteroscopy, laser lithotripsy of the right ureteral stone and exchange of the right ureteral stent later today if his respiratory status permits. Suggestion: 1. Await urologic intervention later today 2. Repeat blood cultures 2 3. Repeat urine culture 4. Further management of his steroids per Pulmonary 5. Continue Fluconazole
--- NOTE | 2017-10-19 16:54 | Operative Report ---
Operative/Inv Procedure Report Surgery Date: 10/19/17 Name of Procedure: Cystoscopy, right ureteroscopy, manipulation of ureteral stone into the bladder, laser lithotripsy of stone with irrigation of fragments, exchange of right double-J ureteral stent Pre-Operative Diagnosis: Right distal ureteral calculus with recurrent candidemia and candiduria Post-Operative Diagnosis: Same Estimated Blood Loss: less than 50ml Surgeon/Burlap Spreader: Mari Anesthesia: moderate sedation Drains: 6 Moroccan 26 cm right double-J ureteral stent with long suture, 22 Moroccan three- way catheter with catheter plug Specimens: Urine culture and stone fragments Complications: None Condition: Fair Operative Indication: Right distal ureteral calculus with indwelling stent and recurrent candiduria and candidemia Operative/Procedure Note Note: The patient was taken to the operating room and identified. He was placed in supine position on the operating table in a timeout was executed appropriately with the patient awake. Intravenous sedation was given. The patient was then placed in the dorsolithotomy position and prepped and draped in usual fashion for cystoscopy. A surgical pause was executed appropriately. Fluoroscopy image was taken with a marker on the right side of the abdomen to confirm the correct side of surgery as well as a correct orientation of the fluoroscopy image. The 22 Moroccan cystoscope sheath was placed into the bladder under direct vision using the 30 lens. The anterior urethra was normal. The prostatic urethra showed trilobar prostatic hypertrophy with partial bladder outlet obstruction. Upon entering the bladder a urine specimen was taken for culture. Cystoscopy was performed. The distal end of the ureteral stent was visualized and there was on it. The bladder was mildly trabeculated. There was no evidence of bladder stone at this point. There was no evidence of bladder tumor. The guidewire was placed through the cystoscope and into the right ureter and advanced up the level of the right kidney. The cystoscope was removed leaving the guidewire in place. Cystoscope was placed back into the bladder and the distal end of the stent grasped. The stent was removed. At this point the stone could be seen approximately 5-7 mm from the ureterovesical junction. It was seen visually and fluoroscopically. Using the internal urethrotome a ureterotomy was performed at the 12 o'clock position. Using the knife the stone was then manipulated into the bladder. At this point the urethrotome was removed. Short rigid ureteroscope was advanced through the urethra into the bladder into the right distal ureter. No further stones were seen. Ritter scope was removed. Cystoscope was placed back into the bladder and using the 365 holmium laser fiber the bladder stone was fragmented into multiple fragments. Using the Ante Up evacuator the bladder stone fragments were removed. Visually and fluoroscopically no further stone fragments remained in the bladder. This point the cystoscope was back loaded onto the guidewire. Open- ended catheter was placed over the wire and the wire removed. Some contrast was injected through the open-ended catheter to outline the right renal collecting system. The guidewire was placed back through the open-ended catheter which was removed. Under visual fluoroscopic control a 26 cm 6 Moroccan right double-J ureteral stent was placed. The cystoscope was removed and a long suture was left attached the distal end of the stent. Fluoroscopy confirmed the proximal end of the stent coiled in the kidney and the distal end coiled in the bladder. At this one attempt was made to place a Bah but Bah could not be placed. Therefore the cystoscope was placed back into the bladder. A guidewire was placed through the cystoscope and the cystoscope removed. Over the guidewire a 22 Moroccan three-way Bah catheter was placed. The inflow port was capped. The procedure well and as completion was taken to recovery room in stable condition Findings: Large stone in right distal ureter debris in the bladder likely fungal in origin
[2017-10-19 18:20] VITALS: BP 132/64
--- NOTE | 2017-10-19 18:29 | RADIOLOGY REPORT ---
EXAMINATION: XR ABDOMEN , C-arm imaging CLINICAL INDICATION: Right ureteroscopy. COMPARISON: CT abdomen pelvis 10/15/2017. Abdomen 07/14/2017, 09/17/2017 TECHNIQUE: C-arm imaging. Number of images: 14 FINDINGS: Images show subsequent placement of a right-sided double-J stent in the right renal pelvis to the bladder. IMPRESSION: Successful placement of double-J stent in the right collecting system
[2017-10-19 22:37] VITALS: BP 128/68
[2017-10-20 03:47] VITALS: BP 110/50
--- NOTE | 2017-10-20 06:44 | PN- Urology ---
Subjective Subjective: No distress Objective Vital Signs and I&Os Vital Signs Date Time Temp Pulse Resp B/P B/P Pulse O2 O2 Flow FiO2 Mean Ox Delivery Rate 10/20 0347 98.9 60 20 110/50 94 Room Air 10/20 0000 Nasal 2.0L Cannula 10/197 97.6 70 20 128/68 96 Nasal 2.0L Cannula 10/19 2030 98 Nasal 2.0L Cannula 10/19 2020 Nasal 2.0L Cannula 10/19 182 96.0 58 20 132/64 90 Room Air 10/19 1435 98.6 93 18 118/68 92 10/19 0858 94 Room Air Room Air 10/19 799 93 Room Air Room Air 10/19 734 98.1 60 16 110/60 97 Intake & Output 10/20 0810/20 0000 10/19 1600 10/19 0800 10/19 0000 10/18 1600 Intake Total 840 600 600 840 Output Total 350 1100 800 850 500 Balance -350 -260 -200 -250 340 Intake, IV 600 600 Intake, Oral 840 840 Output, Urine 350 1100 800 850 500 Patient 163 lb Weight Back: No CVA tenderness Abd: soft and non tender Genitalia: nunez in place draining light pink urine Laboratory Tests 10/19 10/19 1230 0759 Chemistry Sodium (137 - 145 mmol/L) 140 Potassium (3.5 - 5.1 mmol/L) 3.5 Chloride (98 - 107 mmol/L) 108 H Carbon Dioxide (22 - 30 mmol/L) 25 Anion Gap (5 - 16) 8 BUN (9 - 20 mg/dL) 8 L Creatinine (0.7 - 1.2 mg/dL) 0.9 Estimated GFR (>60 ml/min) > 60 BUN/Creatinine Ratio (7 - 25 %) 8.9 Coagulation PT (9.4 - 12.5 SEC) 10.6 INR (0.90 - 1.17) 1.01 APTT (25 - 37 SEC) 31 Hematology CBC w Diff NO MAN DIFF REQ WBC (4.8 - 10.8 /CUMM) 10.4 RBC (4.70 - 6.10 /CUMM) 3.47 L Hgb (14.0 - 18.0 G/DL) 10.1 L Hct (42 - 52 %) 30.0 L MCV (80.0 - 94.0 FL) 86.6 MCH (27.0 - 31.0 PG) 29.2 RDW (11.5 - 14.5 %) 15.1 H Plt Count (130 - 400 /CUMM) 210 MPV (7.4 - 10.4 FL) 7.9 Gran % (42.2 - 75.2 %) 83.9 H Lymphocytes % (20.5 - 51.1 %) 9.6 L Monocytes % (1.7 - 9.3 %) 5.5 Eosinophils % (0 - 5 %) 0.8 Basophils % (0.0 - 2.0 %) 0.2 Absolute Granulocytes (1.4 - 6.5 /CUMM) 8.8 H Absolute Lymphocytes (1.2 - 3.4 /CUMM) 1.0 L Absolute Monocytes (0.10 - 0.60 /CUMM) 0.6 Absolute Eosinophils (0.0 - 0.7 /CUMM) 0.1 Absolute Basophils (0.0 - 0.2 /CUMM) 0 PUBS MCHC (33.0 - 37.0 G/DL) 33.7 Assessment/Plan Assessment/Plan Imp: 1. s/p R ureteroscopy, laser lithotripsy and removal of large R distal ureteral stone and exchanged of R ureteral stent 2. Recurrent candiduria and candidemia 3. COPD Plan: 1. Leave nunez today 2. Continue fluconazole 3. Would hold anitcoagulation for another 24 hours if safe to do so 4. If urine clear in AM tomorrow then nunez can be removed 5. Will plan to leave R ureteral stent for about 1 week and then remove. Can be done in office
--- NOTE | 2017-10-20 07:34 | PN- Housestaff ---
[place] 10/20/17 0734: Subjective Follow-up For: -Recurrent candiduria and candidemia -S/P Right ureteroscopy, laser lithotripsy and removal of large R distal ureteral stone and exchanged of R ureteral stent. -Acute on chronic kidney injury(Resolving) Subjective: No overnight events. Patient remained afebrile overnight. Seen and examined this morning. He denied any chest pain, nausea, vomiting, chills, fever, abdominal pain and dysuria. Patient is using 2 L of oxygen during nighttime and he has exertional dyspnea and that's his baseline. Patient has Bah's catheter and there is blood-tinged urine in it. If his urine clean tomorrow catheter will be removed. We will hold his anticoagulation therapy tomorrow. Review of Systems Constitutional: Reports: no symptoms. EENTM: Reports: no symptoms. Cardiovascular: Reports: no symptoms. Respiratory: Reports: short of breath. Gastrointestinal: Reports: no symptoms. Genitourinary: Reports: see HPI. Musculoskeletal: Reports: no symptoms. Neurological/Psychological: Reports: no symptoms. Objective Last 24 Hrs of Vital Signs/I&O Vital Signs Date Time Temp Pulse Resp B/P B/P Pulse O2 O2 Flow FiO2 Mean Ox Delivery Rate 10/20 0753 92 Room Air 10/20 0347 98.9 60 20 110/50 94 Room Air 10/20 0000 Nasal 2.0L Cannula 10/19 2237 97.6 70 20 128/68 96 Nasal 2.0L Cannula 10/19 2030 98 Nasal 2.0L Cannula 10/19 2021 Nasal 2.0L Cannula 10/19 1820 96.0 58 20 132/64 90 Room Air 10/19 1435 98.6 93 18 118/68 92 Intake & Output 10/20 1600 10/20 0800 10/20 0000 Intake Total 765 Output Total 350 350 Balance 415 -350 Intake, IV 525 Intake, Oral 240 Output, Urine 350 350 Physical Exam General Appearance: Alert, Oriented X3, Cooperative, No Acute Distress Skin Temp/Moisture Exam: Warm/Dry HEENT: Atraumatic, PERRLA, EOMI Neck: Supple Cardiovascular: Normal S1, Normal S2 Lungs: Decreased breath sounds b/l Abdomen: Soft, No Tenderness Neurological: Normal Speech, Strength at 5/5 X4 Ext, Normal Tone, Sensation Intact Extremities: No Edema Assessment/Plan Assessment: 71-year-old gentleman with past medical history significant for COPD on 2 L of nocturnal oxygen history of atrial fibrillation status post ablation, heart failure with preserved ejection fraction, pulmonary hypertension, mild aortic stenosis, UTIs, nephrolithiasis, hydronephrosis status post lithotripsy and stent placement, history of candidemia secondary to urologic origin, recently admitted to [facility] July 2017 for acute respiratory distress secondary to possible PE/COPD exacerbation and sepsis of urological origin secondary to candidemia status post stent placement for right-sided UVJ calculus presented to the ER with chief complaints of worsening shortness of breath and productive cough. We will admit the patient on general medicine floor to treat the pneumonia. Sepsis secondary candidemia: -Initially there was a suspicion of community acquired pneumonia as patient having opacity on chest x-ray. Patient received antibiotics to cover for pneumonia. Later on his urine and blood cultures came positive for and identification. Patient was previously treated for Concetta albicans with fluconazole. This time patient's symptoms probably due to Candidemia again. -We will continue fluconazole 400 mg daily. -We will follow the ID recommendations. -We will follow the blood cultures S/P Right ureteroscopy, laser lithotripsy and removal of large R distal ureteral stone and exchanged of R ureteral stent: -Patient has day 1 after right ureteroscope with laser lithotripsy for distal ureteric stone and exchange of right ureteric stent. -Patient has Bah's with blood-tinged urine in it. If urine is clean tomorrow we will remove the Bah's as recommended by urology. -There holding anticoagulation until tomorrow as recommended by urology. -We'll follow the urology recommendation. -We will follow the urine cultures. Acute on chronic kidney injury with microscopic hematuria: -Patient's acute on chronic kidney injury has resolved as his creatinine level is 0.9. -Patient has history of recurrent ureteric stone for which stent placement was done in the past. Considering patient's complain of microscopic hematuria probably due to stone and he is going and albicans in urine maybe he needs removal placement of new Stant. -We will follow the urology recommendations. They recommended to do the procedure on Thursday possibly stent placement STENT removal but the need pulmonology clearance because the procedure will be done in general anesthesia origin spinal. -We discontinued his Eliquis yesterday and patient is on IV heparin as possibly he is going for procedure tomorrow. -Patient is nothing by mouth and going for procedure today. History of COPD: -Patient is using 2 L of oxygen at home usually at nighttime. -Admit to new pulmicort as recommended by pulmnologist. -Continue TRC nebulization as needed. -Continue prednison 40mg as recommended by Dr. Johnson. History of diabetes: -We'll hold the oral hypoglycemic medications. -Accu-Cheks -Insulin NovoLog according to sliding scale. History of Atrial fibrillation status post ablation: -We will continue Eliquis -We are holding his Eliquis and keep the patient on IV heparin for the procedure.(10/18/17) H/O HFpEF: -Last echo is showing ejection fraction more than 65% with stage II diastolic heart failure. History of hyperlipidemia: -We will continue Lipitor DVT prophylaxis: Patient is already on Eliquis CODE STATUS: Full code Problem List: 1. [id number] kidney injury 2. Candidemia 3. Candiduria Pain Ratin Pain Location: none Pain Goal: Remain pain free Pain Plan: tylenol for pain Tomorrow's Labs & Rationales: cbc/bep Zuleyka Velazquez MD 10/20/17 1307: Attending MD Review Statement Attending Statement Attending MD Statement: examined this patient, discuss w/resident/PA/CORNER TRIMMER OPERATOR, agreed w/resident/PA/CORNER TRIMMER OPERATOR, reviewed EMR data (avail) Attending Assessment/Plan: 77M PMH HFpEF, mild aortic stenosis, moderate pulmonary hypertension, COPD on nighttime 2 L nasal cannula oxygen, DM, HLD, history of nephrolithiasis S/P ureteral stenting, A. fib S/P ablation, BPH, history of candidemia on recent prolonged Fluconazole admitted with shortness of breath, productive cough in the setting of sepsis secondary to LLL pneumonia. Comfortable. Short of breath with exertion but this is chronic and his baseline. Underwent ureteral stent exchange and lithotrypsy on large stone yesterday, Bah in place, labs stable. 1. Sepsis secondary Candidemia 2. Concetta UTI 3. Acute on chronic hypoxemic respiratory failure 4. Nephrolithiasis Plan - Continue on general medicine - Continue Flucoazole - Follow ID, pulmonary and urology recommendations - Follow blood cultures - Continue Prednisone, start taper - Continue home medications - ALPS for DVT PPx, continue to hold Eliquis due to recent procedure - Will remove Bah and restart Eliquis tomorrow, if doing well can be discharged on Fluconazole
[2017-10-20 07:57] LABS: ABSOLUTE BASOPHIL COUNT 0 /CUMM (0.0-0.2); ABSOLUTE EOSINOPHIL COUNT 0 /CUMM (0.0-0.7); ABSOLUTE GRANULOCYTE CT 8.7 /CUMM (1.4-6.5); ABSOLUTE MONOCYTE COUNT 0.5 /CUMM (0.10-0.60); BASOPHIL % 0.2 % (0.0-2.0); EOSINOPHIL % 0.2 % (0-5); HEMATOCRIT 30.7 % (42-52); MEAN CORPUSCULAR HGB CONC 33.8 G/DL (33.0-37.0); MEAN CORPUSCULAR VOLUME 85.9 FL (80.0-94.0); MEAN PLATELET VOLUME 7.8 FL (7.4-10.4); PLATELET COUNT 211 /CUMM (130-400); RBC DISTRIBUTION WIDTH 15.1 % (11.5-14.5); RED BLOOD CELL CT 3.57 /CUMM (4.70-6.10); WHITE BLOOD CELL COUNT 10.3 /CUMM (4.8-10.8)
[2017-10-20 09:03] LABS: GRANULOCYTE % 84.9 % (42.2-75.2)
--- NOTE | 2017-10-20 13:30 | Discharge Summary ---
Visit Information Visit Dates Admission Date: 10/14/17 Discharge Date: 10/21/17 Hospital Course Course Attending Physician: Zuleyka Velazquez MD Primary Care Physician: Martin Frazier MD Hospital Course: 71-year-old gentleman with past medical history significant for COPD on 2 L of nocturnal oxygen history of atrial fibrillation status post ablation, heart failure with preserved ejection fraction, pulmonary hypertension, mild aortic stenosis, UTIs, nephrolithiasis, hydronephrosis status post lithotripsy and stent placement, history of candidemia secondary to urologic origin, recently admitted to in July 2017 for acute respiratory distress secondary to possible PE/COPD exacerbation and sepsis of urological origin secondary to candidemia status post stent placement for right-sided UVJ calculus presented to the ER with chief complaints of worsening shortness of breath and productive cough. ED course: Vitals: Temperature 102.9, pulse 110, respiratory rate 20, blood pressure 136/60 , oxygen saturation 95% on room air Labs: Hemoglobin 14.3, hemoglobin 13.0, hematocrit 37.9, platelet count 29, sodium 132, potassium 4.3, BUN 28, creatinine 1.5, BUNs/creatinine ratio 18.7, glucose 208, lactic acid 2.0, AST 20, ALT 27, alkaline phosphatase 82, troponin 0.03 Sepsis secondary candidemia and candiduria: Initially patient was admitted due to sepsis secondary to community accquired Pneumonia. Blood and urine cultures were obtained in ED. Patient was treated for community-acquired pneumonia with IV ceftriaxone and azithromycin. Later on his blood culture and urine culture were positive for thais albicans. ID consult was obtained and patient was given fluconazole 800 mg for 1 day and later on he was started on 400 mg daily fluconazole. Patient remained afebrile. Later on patient was discharged on fluconazole 400 mg to complete the course for 14 days. S/P Right ureteroscopy, laser lithotripsy and removal of large R distal ureteral stone and exchanged of R ureteral stent: As patient was growing Thais albicans in urine and he had past medical history of candiduria. Patient also had past medical history of right ureteric stent placement and recurrent urine stones. Urology consult was obtained and they recommended to do a right ureteroscope to exchange the right ureteric stent in the setting of candiduria. Patient was on eliquis that was stoped to prepare him for the procedure. During right ureteroscope, laser lithotripsy was done for distal ureteric stone and right ureteric stent exchange was done. Urine culture was obtained after the procedure. Bah's was removed after first postoperative day. Patient was instructed to follow urology as an outpatient for further recommendations and treatment. Eliquis was started before he was being discharged. Acute on chronic kidney injury with microscopic hematuria: Patient presented with acute on chronic kidney injury that was probably due to dehydration. Initially IV hydration was done and later on patient was encouraged to drink fluids. Daily input and output was checked along creatinine levels. Nephrotoxic medications were avoided. Patient also had microscopic hematuria on presentation probably due to right ureteric stone. Urology consult was obtained and lithotripsy was done for ureteric stone. History of COPD: Patient had a history of COPD and he was on 2 L of oxygen during nighttime. Pulmonology consult was obtained. Patient was recommended to start on prednisone. Patient was discharged on tapering dose of prednisone and he was instructed to follow the pulmonology as outpatient. History of diabetes: His oral hypoglycemic medications were stopped during hospital stay and Accu- Cheks were done. He was given insulin NovoLog according to sliding scale. His blood glucose level remained under control during hospital stay. History of Atrial fibrillation status post ablation: During the hospital stay his Eliquis was stopped temporarily for the procedure during that time he was bridged with IV heparin that was stopped a few hours before procedure. His Eliquis was resumed before he was discharged on second postoperative day. H/O HFpEF: Last echo is showing ejection fraction more than 65% with stage II diastolic heart failure. History of hyperlipidemia: We continued Lipitor. DVT prophylaxis: Patient is already on Eliquis CODE STATUS: Full code Allergies: Coded Allergies: crab (SOFT SHELL CRAB - FACIAL SWELLING 02/10/17) Significant Procedures: Operative/Inv Procedure Report Surgery Date: 10/19/17 Name of Procedure: Cystoscopy, right ureteroscopy, manipulation of ureteral stone into the bladder, laser lithotripsy of stone with irrigation of fragments, exchange of right double-J ureteral stent Pre-Operative Diagnosis: Right distal ureteral calculus with recurrent candidemia and candiduria Post-Operative Diagnosis: Same Estimated Blood Loss: less than 50ml Surgeon/Cutter Head Sharpener: Mari Anesthesia: moderate sedation Drains: 6 Romanian 26 cm right double-J ureteral stent with long suture, 22 Romanian three- way catheter with catheter plug Specimens: Urine culture and stone fragments Complications: None Condition: Fair Operative Indication: Right distal ureteral calculus with indwelling stent and recurrent candiduria and candidemia Operative/Procedure Note Note: The patient was taken to the operating room and identified. He was placed in supine position on the operating table in a timeout was executed appropriately with the patient awake. Intravenous sedation was given. The patient was then placed in the dorsolithotomy position and prepped and draped in usual fashion for cystoscopy. A surgical pause was executed appropriately. Fluoroscopy image was taken with a marker on the right side of the abdomen to confirm the correct side of surgery as well as a correct orientation of the fluoroscopy image. The 22 Romanian cystoscope sheath was placed into the bladder under direct vision using the 30 lens. The anterior urethra was normal. The prostatic urethra showed trilobar prostatic hypertrophy with partial bladder outlet obstruction. Upon entering the bladder a urine specimen was taken for culture. Cystoscopy was performed. The distal end of the ureteral stent was visualized and there was on it. The bladder was mildly trabeculated. There was no evidence of bladder stone at this point. There was no evidence of bladder tumor. The guidewire was placed through the cystoscope and into the right ureter and advanced up the level of the right kidney. The cystoscope was removed leaving the guidewire in place. Cystoscope was placed back into the bladder and the distal end of the stent grasped. The stent was removed. At this point the stone could be seen approximately 5-7 mm from the ureterovesical junction. It was seen visually and fluoroscopically. Using the internal urethrotome a ureterotomy was performed at the 12 o'clock position. Using the knife the stone was then manipulated into the bladder. At this point the urethrotome was removed. Short rigid ureteroscope was advanced through the urethra into the bladder into the right distal ureter. No further stones were seen. Ritter scope was removed. Cystoscope was placed back into the bladder and using the 365 holmium laser fiber the bladder stone was fragmented into multiple fragments. Using the Perlita evacuator the bladder stone fragments were removed. Visually and fluoroscopically no further stone fragments remained in the bladder. This point the cystoscope was back loaded onto the guidewire. Open- ended catheter was placed over the wire and the wire removed. Some contrast was injected through the open-ended catheter to outline the right renal collecting system. The guidewire was placed back through the open-ended catheter which was removed. Under visual fluoroscopic control a 26 cm 6 Romanian right double-J ureteral stent was placed. The cystoscope was removed and a long suture was left attached the distal end of the stent. Fluoroscopy confirmed the proximal end of the stent coiled in the kidney and the distal end coiled in the bladder. At this one attempt was made to place a Bah but Bah could not be placed. Therefore the cystoscope was placed back into the bladder. A guidewire was placed through the cystoscope and the cystoscope removed. Over the guidewire a 22 Romanian three-way Bah catheter was placed. The inflow port was capped. The procedure well and as completion was taken to recovery room in stable condition Findings: Large stone in right distal ureter debris in the bladder likely fungal in origin Pertinent Lab Results: Chest x-ray on 10/14/2017: IMPRESSION: Stable hyperinflation compatible with underlying emphysema. Possible patchy airspace opacity in the left base, superimposed on opacity related to prominence of the epicardial fat. Abdominal/pelvic CT scan on 10/15/2017: IMPRESSION: 1. No significant change in densely calcified calcification at the right ureterovesical junction, now projected adjacent to the right double-J ureteral stent. Improvement in the degree of right-sided hydronephrosis is seen though there is persistent mild right hydronephrosis is seen. 2. No significant change in mid and lower pole left renal densely calcified calculi. No left sided hydroureteronephrosis. 3. Bilateral renal cysts again seen, unchanged. 4. Moderate to severe emphysematous changes in the lung bases. 5. Prominent atherosclerotic aortic calcifications. Abdominal x-ray on 10/19/2017: IMPRESSION: Successful placement of double-J stent in the right collecting system Disposition Summary Disposition Principal Diagnosis: Sepsis due to candidemia and candiduria Right ureteric stone status post laser lithotripsy and stent placement. Acute on chronic kidney injury. Additional Diagnosis: COPD Diabetes and hyperlipidemia. A. fib status post ablation on Eliquis Heart failure with preserved ejection fraction. Discharge Disposition: home or self care Discharge Instructions General Discharge Information Code Status: Full Code Patient's Diet: Regular diet Patient's Activity: Self-limited Follow-Up Instructions/Appts: Follow up with primary care physician in one week. Follow-up with your urologist in 1 week. Medications at Discharge Discharge Medications: Stop taking the following medications: Prednisone (Prednisone) 10 MG TABLET ORAL DAILY Continue taking these medications: Albuterol Sulfate (Albuterol Sulfate) 2.5 MG/3 ML (0.083 %) VIAL.NEB 1 Vial Inhale Solution TWICE DAILY Qty = 75 Comments: Last Taken: 07/16/17 Time: 12:10 PM Arformoterol Tartrate (Brovana) 15 MCG/2 ML VIAL.NEB 1 VIAL Inhale through mouth TWICE DAILY Qty = 120 Comments: Last Taken: NOT GIVEN IN HOSPITAL Time: Roflumilast (Daliresp) 500 MCG TABLET 1 Tablet ORAL DAILY Qty = 30 Comments: Last Taken: 07/16/17 Time: 10:20 AM Atorvastatin Calcium (Atorvastatin Calcium) 40 MG TABLET 1 Tablet ORAL DAILY Qty = 90 Comments: Last Taken: 07/15/17 Time: 5:00 PM Pioglitazone HCl (Pioglitazone HCl) 45 MG TABLET 1 Tablet ORAL DAILY Qty = 90 Comments: Last Taken: NOT GIVEN Time: Sitagliptin Phosphate (Januvia) 50 MG TABLET 1 Tablet ORAL DAILY Qty = 30 Comments: Last Taken: NOT GIVEN Time: Tamsulosin HCl (Flomax) 0.4 MG CAP.ER.24H 0.4 Milligram ORAL DAILY Qty = 30 Comments: Last Taken: 07/16/17 Time: 10:20 AM Linaclotide (Linzess) 290 MCG CAPSULE 1 Capsule ORAL DAILY Qty = 30 Comments: Last Taken: 07/16/17 Time: 10:20 AM Tiotropium [place] (Spiriva) 18 MCG CAP.W.DEV 1 Capsule Inhale through mouth DAILY Qty = 30 Comments: Last Taken: 07/16/17 Time: 9:50 AM Trazodone HCl (Trazodone HCl) 50 MG TABLET 2 Tablet ORAL Every night Qty = 60 Comments: Last Taken: 07/15/17 Time: 10:00 PM Herbal Drugs (Colon Herbal Cleanser) (Unknown Strength) CAPSULE Unknown Dose ORAL DAILY Comments: Last Taken: NOT GIVEN Time: Apixaban (Eliquis) 5 MG TABLET 1 Tablet ORAL TWICE DAILY Qty = 60 Comments: LAST GIVEN 10/21/17 @ 1044 Budesonide (Budesonide) 0.5 MG/2 ML AMPUL.NEB 1 Vial Inhale Solution TWICE DAILY Albuterol Sulfate (Proair Hfa) 90 MCG HFA.AER.AD 2 Puff Inhale through mouth Q4H as needed for RESP Comments: LAST GIVEN 10/21/17 @ 1124 Atorvastatin Calcium (Atorvastatin Calcium) 40 MG TABLET 1 Tablet ORAL DAILY Comments: LAST GIVEN 10/21/17 @ 1043 Start taking the following new medications: Fluconazole (Fluconazole) 200 MG TABLET 2 Tablet ORAL DAILY Qty = 18 No Refills Comments: LAST GIVEN 10/21/17 @ 1044 Prednisone (Prednisone) 10 MG TABLET 0 ORAL DAILY Days = 15 No Refills Instructions: On Take 10/22-10/24 50 MG 10/25-10/27 40 MG 10/28-10/30 30 MG 10/31-11/02 20 MG 11/03-11/05 10 MG Then Stop Comments: LAST GIVEN 10/21/17 @ 1044 Copies To: Mari LEAL,Javier Doran; aKrin LEAL,Martin Max
--- NOTE | 2017-10-20 14:17 | PN- Infect Dx ---
Subjective Subjective: Afebrile on steroids. He complains of shortness of breath with any exertion. Objective Last 24 Hrs of Vital Signs/I&O Vital Signs Date Time Temp Pulse Resp B/P B/P Pulse O2 O2 Flow FiO2 Mean Ox Delivery Rate 10/20 1143 93 Room Air 10/20 0753 92 Room Air 10/20 0347 98.9 60 20 110/50 94 Room Air 10/20 0000 Nasal 2.0L Cannula 10/19 2237 97.6 70 20 128/68 96 Nasal 2.0L Cannula 10/19 2030 98 Nasal 2.0L Cannula 10/19 2020 Nasal 2.0L Cannula 10/19 1820 96.0 58 20 132/64 90 Room Air 10/19 1435 98.6 93 18 118/68 92 Intake & Output 10/20 1600 10/20 0800 10/20 0000 Intake Total 765 Output Total 350 350 Balance 415 -350 Intake, IV 525 Intake, Oral 240 Output, Urine 350 350 Physical Exam Other Physical Findings: He appears comfortable in no acute distress Lungs decreased breath sounds bilaterally Heart regular rhythm with no murmur Back no CVA tenderness Bah catheter remains in place Results Last 24 Hours of Lab Results: Laboratory Tests 10/20 0710 Chemistry Sodium (137 - 145 mmol/L) 136 L Potassium (3.5 - 5.1 mmol/L) 3.6 Chloride (98 - 107 mmol/L) 105 Carbon Dioxide (22 - 30 mmol/L) 23 Anion Gap (5 - 16) 8 BUN (9 - 20 mg/dL) 10 Creatinine (0.7 - 1.2 mg/dL) 0.9 Estimated GFR (>60 ml/min) > 60 BUN/Creatinine Ratio (7 - 25 %) 11.1 Hematology CBC w Diff NO MAN DIFF REQ WBC (4.8 - 10.8 /CUMM) 10.3 RBC (4.70 - 6.10 /CUMM) 3.57 L Hgb (14.0 - 18.0 G/DL) 10.4 L Hct (42 - 52 %) 30.7 L MCV (80.0 - 94.0 FL) 85.9 MCH (27.0 - 31.0 PG) 29.0 RDW (11.5 - 14.5 %) 15.1 H Plt Count (130 - 400 /CUMM) 211 MPV (7.4 - 10.4 FL) 7.8 Gran % (42.2 - 75.2 %) 84.9 H Lymphocytes % (20.5 - 51.1 %) 10.2 L Monocytes % (1.7 - 9.3 %) 4.5 Eosinophils % (0 - 5 %) 0.2 Basophils % (0.0 - 2.0 %) 0.2 Absolute Granulocytes (1.4 - 6.5 /CUMM) 8.7 H Absolute Lymphocytes (1.2 - 3.4 /CUMM) 1.0 L Absolute Monocytes (0.10 - 0.60 /CUMM) 0.5 Absolute Eosinophils (0.0 - 0.7 /CUMM) 0 Absolute Basophils (0.0 - 0.2 /CUMM) 0 PUBS MCHC (33.0 - 37.0 G/DL) 33.8 Last 24 Hours of Arsenio Results: Urine culture October 19, received in the lab October 20, pending Blood cultures 2 October 20 pending Assessment/Plan Impression: Stable, with temperatures and white blood cell count remaining normal (on steroids) and Fluconazole Day 4 of treatment for candidemia of urologic origin, status post cystoscopy, right ureteroscopy, manipulation of the ureteral stone into the bladder, with laser lithotripsy of the stone, and exchange of the right double-J ureteral stent yesterday. Suggestion: 1. Pulmonary follow-up regarding his respiratory status and steroid taper 2. Continue Fluconazole
[2017-10-20 14:51] VITALS: BP 120/60
[2017-10-20 22:11] VITALS: BP 122/58
[2017-10-21 05:44] VITALS: BP 138/62
--- NOTE | 2017-10-21 05:57 | Patient Discharge Instructions ---
Discharge Instructions General Discharge Information You were seen/treated for: Sepsis due to candidemia and candiduria. Status post right lithotripsy for ureteric stone with right ureteric stent exchange. Acute on chronic kidney injury. Watch for these problems: Nausea, vomiting, chills, fever, flank pain, blood in urine, cough with sputum and altered mental status. If you experienced any of these symptoms please come to ED or call to your primary care physician. Special Instructions: Follow with your primary care physician in one week. Follow-up with your sand filler in 1 week. Follow-up with your urologist in 1 week. Diet Recommended Diet: Regular Activity Activity Self Limited: No Acute Coronary Syndrome Inclusion Criteria At DC or during hospital stay patient has or had the following: ACS DIAGNOSIS No Discharge Core Measures Meds if any: Prescribed or Continued at Discharge Meds if any: NOT Prescribed or Continued at Discharge Congestive Heart Failure Inclusion Criteria At DC or during hospital stay patient has or had the following: CHF DIAGNOSIS No Discharge Core Measures Meds if any: Prescribed or Continued at Discharge Meds if any: NOT Prescribed or Continued at Discharge Cerebrovascular accident Inclusion Criteria At DC or during hospital stay patient has or had the following: CVA/TIA Diagnosis No Discharge Core Measures Meds if any: Prescribed or Continued at Discharge Meds if any: NOT Prescribed or Continued at Discharge Venous thromboembolism Inclusion Criteria VTE Diagnosis No VTE Type NONE VTE Confirmed by (Test) NONE Discharge Core Measures - Per Current guidelines, there needs to be overlap - treatment for the first 5 days of Warfarin therapy. - If discharged on Warfarin prior to 5 days of - overlap therapy, the patient will need to be - assessed for post discharge needs including - *Post discharge parental anticoagulation - *Warfarin and/or parental anticoagulation education - *Follow up date to check INR post discharge At least 5 days overlap therapy as Inpatient No Meds if any: Prescribed or Continued at Discharge Note: Overlap Therapy is Warfarin and Anticoagulant Meds if any: NOT Prescribed or Continued at Discharge
--- NOTE | 2017-10-21 07:00 | PN- Urology ---
Subjective Subjective: No acute distress Objective Vital Signs and I&Os Vital Signs Date Time Temp Pulse Resp B/P B/P Pulse O2 O2 Flow FiO2 Mean Ox Delivery Rate 10/21 0544 98.0 60 18 138/62 98 Nasal 2.0L Cannula 10/21 0000 Nasal 2.0L Cannula 10/20 2211 97.8 72 16 122/58 94 Nasal 2.0L Cannula 10/20 1610 98 Nasal 2.0L Cannula 10/20 1451 97.7 98 20 120/60 91 Nasal Cannula 10/20 1143 93 Room Air 10/20 08 95 Nasal 2.0L Cannula 10/20 0753 92 Room Air Intake & Output 10/21 0800 10/21 0000 10/20 1600 10/20 0800 10/20 0000 10/19 1600 Intake Total 450 1200 765 840 Output Total 1000 1000 800 391 613 2236 Balance -1000 -550 400 415 -350 -260 Intake, IV 450 600 525 Intake, Oral 600 240 840 Output, Urine 1000 1000 800 631 670 3230 Patient 163 lb Weight Abd: soft and non tender Genitalia: nunez in place. Urine is clear Urine culture from OR is pending Laboratory Tests 10/20 709 Chemistry Sodium (137 - 145 mmol/L) 136 L Potassium (3.5 - 5.1 mmol/L) 3.6 Chloride (98 - 107 mmol/L) 105 Carbon Dioxide (22 - 30 mmol/L) 23 Anion Gap (5 - 16) 8 BUN (9 - 20 mg/dL) 10 Creatinine (0.7 - 1.2 mg/dL) 0.9 Estimated GFR (>60 ml/min) > 60 BUN/Creatinine Ratio (7 - 25 %) 11.1 Hematology CBC w Diff NO MAN DIFF REQ WBC (4.8 - 10.8 /CUMM) 10.3 RBC (4.70 - 6.10 /CUMM) 3.57 L Hgb (14.0 - 18.0 G/DL) 10.4 L Hct (42 - 52 %) 30.7 L MCV (80.0 - 94.0 FL) 85.9 MCH (27.0 - 31.0 PG) 29.0 RDW (11.5 - 14.5 %) 15.1 H Plt Count (130 - 400 /CUMM) 211 MPV (7.4 - 10.4 FL) 7.8 Gran % (42.2 - 75.2 %) 84.9 H Lymphocytes % (20.5 - 51.1 %) 10.2 L Monocytes % (1.7 - 9.3 %) 4.5 Eosinophils % (0 - 5 %) 0.2 Basophils % (0.0 - 2.0 %) 0.2 Absolute Granulocytes (1.4 - 6.5 /CUMM) 8.7 H Absolute Lymphocytes (1.2 - 3.4 /CUMM) 1.0 L Absolute Monocytes (0.10 - 0.60 /CUMM) 0.5 Absolute Eosinophils (0.0 - 0.7 /CUMM) 0 Absolute Basophils (0.0 - 0.2 /CUMM) 0 PUBS MCHC (33.0 - 37.0 G/DL) 33.8 Assessment/Plan Assessment/Plan Imp: 1. Recurrent candiduria and candidemia 2. s/p R ureteroscopy with removal of R ureteral stone and R ureteral stent exchange 3. BPH 4. COPD Plan: 1. OK to remove nunez today. If patient unable to void then replace nunez using a 16 fr coude 2. May restart eloquis 3. continue fluconazole 4. f/u in my office in about 10 days, while on fluconazole, for removal of R ureteral stent
--- NOTE | 2017-10-21 07:32 | PN- Housestaff ---
VinicioGlorieta 10/21/17 0732: Subjective Follow-up For: Sepsis due to candidemia and candiduria Status post right laser lithotripsy for ureteric stone and ureteric stent exchange. Acute on chronic kidney injury(resolved) Subjective: No overnight events. Patient remained afebrile overnight. Seen and examined this morning. He denied any chest pain, palpitation, nausea, vomiting, chills, fever, abdominal pain dysuria. Patient having urinary catheter and urine is clear today. We will remove the catheter today and gave him a voiding trial. If he wouldn't have any problem and voiding then we'll plan to discharge him after the input from ID for Concetta treatment plan. Patient is using 2 L of oxygen during nighttime and having exertional dyspnea that's his baseline otherwise is eating drinking okay no complaint. Blood and urine cultures are negative for now after the start of fluconazole. Review of Systems Constitutional: Reports: no symptoms. EENTM: Reports: no symptoms. Cardiovascular: Reports: no symptoms. Respiratory: Reports: short of breath. Gastrointestinal: Reports: no symptoms. Genitourinary: Reports: no symptoms. Musculoskeletal: Reports: see HPI. Neurological/Psychological: Reports: no symptoms. Objective Last 24 Hrs of Vital Signs/I&O Vital Signs Date Time Temp Pulse Resp B/P B/P Pulse O2 O2 Flow FiO2 Mean Ox Delivery Rate 10/21 0809 97 Nasal 2.0L Cannula 10/21 0544 98.0 60 18 138/62 98 Nasal 2.0L Cannula 10/21 0000 Nasal 2.0L Cannula 10/20 2211 97.8 72 16 122/58 94 Nasal 2.0L Cannula 10/20 1610 98 Nasal 2.0L Cannula 10/20 1451 97.7 98 20 120/60 91 Nasal Cannula 10/20 1143 93 Room Air Intake & Output 10/21 1600 10/21 0800 10/21 0000 Intake Total 600 450 Output Total 1000 1000 Balance -400 -550 Intake, IV 600 450 Output, Urine 1000 1000 Physical Exam General Appearance: Alert, Oriented X3, Cooperative, No Acute Distress Skin Temp/Moisture Exam: Warm/Dry Sepsis Skin Exam (color): Normal for Ethnicity HEENT: Atraumatic, PERRLA, EOMI Neck: Supple Cardiovascular: Normal S1, Normal S2 Lungs: Clear to Auscultation Abdomen: Soft, No Tenderness Neurological: Normal Speech, Strength at 5/5 X4 Ext, Normal Tone, Sensation Intact Extremities: No Edema Assessment/Plan Assessment: 71-year-old gentleman with past medical history significant for COPD on 2 L of nocturnal oxygen history of atrial fibrillation status post ablation, heart failure with preserved ejection fraction, pulmonary hypertension, mild aortic stenosis, UTIs, nephrolithiasis, hydronephrosis status post lithotripsy and stent placement, history of candidemia secondary to urologic origin, recently admitted to [facility] in July 2017 for acute respiratory distress secondary to possible PE/COPD exacerbation and sepsis of urological origin secondary to candidemia status post stent placement for right-sided UVJ calculus presented to the ER with chief complaints of worsening shortness of breath and productive cough. We will admit the patient on general medicine floor to treat the pneumonia. Sepsis secondary candidemia: -Initially there was a suspicion of community acquired pneumonia as patient having opacity on chest x-ray. Patient received antibiotics to cover for pneumonia. Later on his urine and blood cultures came positive for and identification. Patient was previously treated for Concetta albicans with fluconazole. This time patient's symptoms probably due to Candidemia again. -We will continue fluconazole 400 mg daily. -Blood and urine cultures are negative after the fluconazole treatment. We will follow it. -We'll follow the ID recommendations for antifungal medication to complete the course and plan for discharge. S/P Right ureteroscopy, laser lithotripsy and removal of large R distal ureteral stone and exchanged of R ureteral stent: -Patient has day 1 after right ureteroscope with laser lithotripsy for distal ureteric stone and exchange of right ureteric stent. -There holding anticoagulation until tomorrow as recommended by urology. -Patient had clear urine this morning and we will try to remove the Bah's today and give patient voiding trials if he won't have any trouble with urination we will plan to discharge him. -Patient will follow urology as an outpatient for further recommendations for the treatment. Acute on chronic kidney injury with microscopic hematuria: -Patient's acute on chronic kidney injury has resolved as his creatinine level is 0.9. -Patient has history of recurrent ureteric stone for which stent placement was done in the past. Considering patient's complain of microscopic hematuria probably due to stone and he is going and albicans in urine maybe he needs removal placement of new Stant. -Patient's creatinine level is at his baseline. Patient microscopic hematuria was probably due to right ureteric stone. Lithotripsy was done and stent exchange was done. History of COPD: -Patient is using 2 L of oxygen at home usually at nighttime. -Admit to new pulmicort as recommended by pulmnologist. -Continue TRC nebulization as needed. -Continue prednison 40mg as recommended by Dr. Johnson. History of diabetes: -We'll hold the oral hypoglycemic medications. -Accu-Cheks -Insulin NovoLog according to sliding scale. History of Atrial fibrillation status post ablation: -We will continue Eliquis -Eliquis has been resumed today that we were holding for urological procedure. H/O HFpEF: -Last echo is showing ejection fraction more than 65% with stage II diastolic heart failure. History of hyperlipidemia: -We will continue Lipitor DVT prophylaxis: Patient is already on Eliquis CODE STATUS: Full code Problem List: 1. Candiduria 2. [id number] kidney injury 3. Sepsis Pain Ratin Pain Location: none Pain Goal: Remain pain free Pain Plan: tylenol for mild pain Tomorrow's Labs & Rationales: none Zuleyka Velazquez MD 10/21/17 1023: Attending MD Review Statement Attending Statement Attending MD Statement: examined this patient, discuss w/resident/PA/TRIBAL COUNCIL MEMBER, agreed w/resident/PA/TRIBAL COUNCIL MEMBER, reviewed EMR data (avail) Attending Assessment/Plan: 77M PMH HFpEF, mild aortic stenosis, moderate pulmonary hypertension, COPD on nighttime 2 L nasal cannula oxygen, DM, HLD, history of nephrolithiasis S/P ureteral stenting, A. fib S/P ablation, BPH, history of candidemia on recent prolonged Fluconazole admitted with shortness of breath, productive cough in the setting of sepsis secondary to LLL pneumonia. Comfortable. Short of breath with exertion but this is chronic and his baseline. Underwent ureteral stent exchange and lithotrypsy on large stone yesterday, Bah in place, labs stable. 1. Sepsis secondary Candidemia 2. Concetta UTI 3. Acute on chronic hypoxemic respiratory failure 4. Nephrolithiasis Plan - Continue on general medicine - Continue Flucoazole - Follow ID, pulmonary and urology recommendations - Follow blood cultures - Continue Prednisone, continue taper - Continue home medications - ALPS for DVT PPx, continue to hold Eliquis due to recent procedure - Will remove Bah and restart Eliquis today, if doing well can be discharged on Fluconazole
[2017-10-21] MEDS ORDERED: PREDNISONE10 M2 PO (12:01)
[2017-10-21] MEDS ORDERED: FLUCONAZOLE200 M1 PO (12:01)
--- NOTE | 2017-10-21 14:09 | PN- Infect Dx ---
Subjective Subjective: Afebrile on steroids. His Bah was removed this morning, and he has voided a small amount, with some dysuria. He continues to report shortness of breath with any exertion. Objective Last 24 Hrs of Vital Signs/I&O Vital Signs Date Time Temp Pulse Resp B/P B/P Pulse O2 O2 Flow FiO2 Mean Ox Delivery Rate 10/21 0809 97 Nasal 2.0L Cannula 10/21 0544 98.0 60 18 138/62 98 Nasal 2.0L Cannula 10/21 0000 Nasal 2.0L Cannula 10/20 2211 97.8 72 16 122/58 94 Nasal 2.0L Cannula 10/20 1610 98 Nasal 2.0L Cannula 10/20 1451 97.7 98 20 120/60 91 Nasal Cannula Intake & Output 10/21 1600 10/21 0800 10/21 0000 Intake Total 600 450 Output Total 330 1000 1000 Balance -330 -400 -550 Intake, IV 600 450 Output, Urine 330 1000 1000 Physical Exam Other Physical Findings: He appears comfortable in no acute distress Lungs are clear Back no CVA tenderness Results Last 24 Hours of Lab Results: Laboratory Tests 10/21 0735 Chemistry Sodium (137 - 145 mmol/L) 139 Potassium (3.5 - 5.1 mmol/L) 3.8 Chloride (98 - 107 mmol/L) 107 Carbon Dioxide (22 - 30 mmol/L) 23 Anion Gap (5 - 16) 9 BUN (9 - 20 mg/dL) 10 Creatinine (0.7 - 1.2 mg/dL) 0.8 Estimated GFR (>60 ml/min) > 60 BUN/Creatinine Ratio (7 - 25 %) 12.5 Last 24 Hours of Arsenio Results: Blood cultures October 20 negative Urine culture October 20 negative Assessment/Plan Impression: Stable, with temperatures and white blood cell count remaining normal (on steroids) and Fluconazole Day 5 of treatment for candidemia of urologic origin, status post cystoscopy, right ureteroscopy, manipulation of the ureteral stone into the bladder, with laser lithotripsy of the stone, and exchange of the right double-J ureteral stent 2 days ago. Suggestion: 1. Taper steroids 2. Continue Fluconazole for 9 more days to complete a 2 week course of treatment
[2017-10-21 14:12] VITALS: BP 134/66
== END 2017-10-21 16:03 | disposition home health service (06) | DRG 853 ==
LOC: ERH 18:11 → ERHI 20:50 → 2NB 20:50 → ENRESERV 22:15 → 2NB 23:58 → ENTRNSPT 10-19 17:35 → CMPTRNSPT 10-19 18:03 → ENPENDDIS 10-21 14:15 → ENTRNSPT 10-21 15:39 → 2NB 10-21 16:03 → CMPTRNSPT 10-21 16:03
PROVIDERS: Internal Medicine; Internal Medicine Hematology & Oncology; Physician Assistant Medical; Student in an Organized Health Care Education/Training Program
PROC: 0TC68ZZ Extirpation of Matter from Right Ureter, Via Natural or Artificial Opening Endoscopic (ICD-10-PCS; principal; 2017-10-19)
PROC: 0T768DZ Dilation of Right Ureter with Intraluminal Device, Via Natural or Artificial Opening Endoscopic (ICD-10-PCS; 2017-10-19)
PROC: 0TP98DZ Removal of Intraluminal Device from Ureter, Via Natural or Artificial Opening Endoscopic (ICD-10-PCS; 2017-10-19)
DX: B37.7 Candidal sepsis (principal); J18.9 Pneumonia, unspecified organism; N17.9 Acute kidney failure, unspecified; J96.10 Chronic respiratory failure, unspecified whether with hypoxia or hypercapnia; I27.29 Other secondary pulmonary hypertension; E11.8 Type 2 diabetes mellitus with unspecified complications; I48.91 Unspecified atrial fibrillation; I50.30 Unspecified diastolic (congestive) heart failure; N13.6 Pyonephrosis; B37.89 Other sites of candidiasis; Z96.0 Presence of urogenital implants; Z99.81 Dependence on supplemental oxygen; N18.9 Chronic kidney disease, unspecified; Z79.84 Long term (current) use of oral hypoglycemic drugs; Z79.01 Long term (current) use of anticoagulants; J44.9 Chronic obstructive pulmonary disease, unspecified; I35.0 Nonrheumatic aortic (valve) stenosis; E78.5 Hyperlipidemia, unspecified; Z87.891 Personal history of nicotine dependence; K59.00 Constipation, unspecified
CPT/HCPCS: 2NSBP; 36415; 71045; 74018; 74176; 81001; 82436; 84403; 87040; 87070; 87071; 87086; 87088; 87449; 87450; 87804; 87804-59; 93005; 93010; 96365; 96374; 96375; 97116-GO; 97161-GP; C2617; J0131; J0456; J0696; J1644; J1815; J2930; J3490; J7040; J7512; J7626

== ENCOUNTER 2017-10-24 05:54 | Inpatient (IN) | payer OTHER ==
[~2017-10-24] VITALS: Ht 188 cm; Wt 77.1 kg
[~2017-10-24 05:54] MED LIST changes: +BUDESONIDE0.5 MG/21 INH/SOL; +PROAIR HFA8.5 GM INH
--- NOTE | 2017-10-24 06:00 | ED DYSPNEA/ASTHMA COMPLAINT ---
History of Present Illness General Chief Complaint: Dyspnea (COPD, CHF, Other) Stated Complaint: DIFF BREATHING Source: patient Exam Limitations: no limitations Allergies Coded Allergies: crab (SOFT SHELL CRAB - FACIAL SWELLING 02/10/17) Reconcile Medications Albuterol Sulfate 2.5 MG/3 ML (0.083 %) VIAL.NEB 1 Vial INH/SHERRY BID COPD ( Reported) Albuterol Sulfate (Proair Hfa) 90 MCG HFA.AER.AD 2 PUF INH Q4H PRN RESP ( Reported) Apixaban (Eliquis) 5 MG TABLET 1 TAB PO BID BLOOD THINNER (Reported) Arformoterol Tartrate (Brovana) 15 MCG/2 ML VIAL.NEB 1 VIAL INH BID COPD ( Reported) Atorvastatin Calcium 40 MG TABLET 1 TAB PO DAILY hyperlipidemia (Reported) Budesonide 0.5 MG/2 ML AMPUL.NEB 1 Vial INH/SHERRY BID RESP. (Reported) Fluconazole 200 MG TABLET 2 TAB PO DAILY Candidemia and candiduria Herbal Drugs (Colon Herbal Cleanser) (Unknown Strength) CAPSULE (Unknown Dose) PO DAILY PROBIOTIC (Reported) Linaclotide (Linzess) 290 MCG CAPSULE 1 CAP PO DAILY GI (Reported) Pioglitazone HCl 45 MG TABLET 1 TAB PO DAILY DM (Reported) Prednisone 10 MG TABLET 0 PO DAILY COPD On Take 10/22-10/24 50 MG 10/25-10/27 40 MG 10/28-10/30 30 MG 10/31-11/02 20 MG 11/03-11/05 10 MG Then Stop Roflumilast (Daliresp) 500 MCG TABLET 1 TAB PO DAILY COPD (Reported) Sitagliptin Phosphate (Januvia) 50 MG TABLET 1 TAB PO DAILY DM (Reported) Tamsulosin HCl (Flomax) 0.4 MG CAP.ER.24H 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 Tiotropium Wharton (Spiriva) 18 MCG CAP.W.DEV 1 CAP INH DAILY COPD (Reported) Trazodone HCl 50 MG TABLET 2 TAB PO QPM MENTAL HEALTH/SLEEP (Reported) Triage Nurses Notes Reviewed? yes Onset: Gradual Duration: day(s): Timing: recent history Severity: moderate Activities at Onset: none Prior Episodes/Possible Cause: frequent episodes Modifying Factors: Improves With: rest. Associated Symptoms: cough, wheezing HPI: 77 yo woman h/o copd, with recurrent exacerbations, presents with cough, wheezing, dyspnea for the past 2-3 days. She states, "the phlegm is really bad and I can't breathe." 911 called, the medics found her breathless, unable to complete sentences, 02 sat 89-90%, she received solumedrol 125mg iv, duo neb, albuterol, and magnesium sulfate 2gm iv in the field. She notes no fever, chills, lower extremity swelling, chest pain. Upon arrival to the ED, she shares that she is beginning to feel better. (Celeste LEAL,Richard Beltran) Vital Signs & Intake/Output Vital Signs & Intake/Output Vital Signs Date Time Temp Pulse Resp B/P B/P Pulse O2 O2 Flow FiO2 Mean Ox Delivery Rate 10/25 2142 97.9 83 19 100/58 93 Room Air 10/25 1815 95 Room Air 10/25 1600 Nasal 3.0L Cannula 10/25 1515 98.1 92 20 122/60 92 Nasal Cannula 10/25 0949 98 Nasal 2.0L Cannula 10/25 0808 98.5 63 18 114/55 98 Nasal 2.0L Cannula 10/25 0800 Nasal 3.0L Cannula 10/25 0000 Nasal 3.0L Cannula ED Intake and Output 10/25 0000 10/24 1200 Intake Total Output Total 850 Balance -850 Output, Urine 850 Patient 170 lb 170 lb Weight Weight Estimated Measurement Method (Agnes LEAL,Norma) Past History Travel History Traveled to [place] past 21 day No Medical History Any Pertinent Medical History? 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 No (Celeste LEAL,Richard Beltran) Review of Systems Review of Systems Constitutional: Reports: no symptoms. EENTM: Reports: no symptoms. Respiratory: Reports: no symptoms. Cardiovascular: Reports: no symptoms. GI: Reports: no symptoms. Genitourinary: Reports: no symptoms. Musculoskeletal: Reports: no symptoms. Skin: Reports: no symptoms. Neurological/Psychological: Reports: no symptoms. Hematologic/Endocrine: Reports: no symptoms. Immunologic/Allergic: Reports: no symptoms. All Other Systems: Reviewed and Negative (Celeste LEAL,Richard Beltran) Physical Exam Physical Exam General Appearance: well developed/nourished, mild distress Head: atraumatic, normal appearance Eyes: Bilateral: normal appearance. Ears, Nose, Throat: normal pharynx, normal ENT inspection Neck: normal inspection, supple, full range of motion Respiratory: rhonchi, wheezing, prolonged expiratory phase Cardiovascular: regular rate/rhythm, normal peripheral pulses Gastrointestinal: normal bowel sounds, soft, non-tender, no organomegaly Extremities: normal inspection, normal capillary refill, normal range of motion, no edema Neurologic/Psych: no motor/sensory deficits, awake, alert, oriented x 3 Skin: intact, normal color, warm/dry (Celeste LEAL,Richard Beltran) Physical Exam Peripheral Pulses: 2+ radial (R), 2+ radial (L) Core Measures ACS in differential dx? No CVA/TIA Diagnosis No Sepsis Present: No Sepsis Focused Exam Completed? No (Agnes LEAL,Norma) Progress Differential Diagnosis: asthma, bronchitis, CHF, COPD Diagnostic Imaging: Viewed by Me: Radiology Read. Discussed w/RAD: Radiology Read. CXR Impression: no acute abnormality, no infiltrates, normal size heart, normal mediastinum, PATIENT: SONIDO HENRIQUEZ PRESENT AGE: 77 PATIENT ACCOUNT NO: [id number] : 39 LOCATION: [facility] [place] ORDERING PHYSICIAN: Richard Alonso MD SERVICE DATE: 10/24/17 EXAM TYPE: RAD - XRY- PORTABLE CHEST XRAY EXAMINATION: XR PORTABLE CHEST CLINICAL INFORMATION: Dyspnea COMPARISON: 10/14/2017 TECHNIQUE: Portable frontal view of the chest was obtained. FINDINGS: Cardiac leads overlie the chest. The right costophrenic angle is not fully included on this study. The lungs are well expanded. No consolidation, edema, or effusion. No pneumothorax. The cardiomediastinal silhouette is unchanged, with a calcified aorta. IMPRESSION: No acute pulmonary finding. DICTATED BY: Gokul LEAL,Toro DATE/TIME DICTATED:10/24/17630 FINANCIAL RECORDING CLERK:LORA DATE/TIME TRANSCRIBED:10/24/17630 CONFIDENTIAL, DO NOT COPY WITHOUT APPROPRIATE AUTHORIZATION. <Electronically signed in Other Vendor System> SIGNED BY: Gokul LEAL,Toro 10/24/17635 Initial ED EKG: RIGHT AXIS, NO ACUTE CHANGES, NSR. Hand-Off Endorsed To: Agnes LEAL,Norma Endorsed Time: 0700 Pending: labs (Celeste LEAL,Richard Beltran) Plan of Care: Orders Procedure Date/time Status CBC WITHOUT DIFFERENTIAL 10/26 06 Active BASIC ELECTROLYTES PLUS BUN&CR 10/26 06 Active THERAPIST ORDERS 10/25 1342 Complete RT OVER-RIDE 10/25 UNK Complete Therapeutic Activities 10/25 UNK Complete PT EVAL MOD COMPLEX 30 MIN 10/25 UNK Complete Current Medications Sig/Camille Start time Last Medication Dose Stop Time Status Admin Sodium Chloride 2 SPRAY Q4P PRN 10/25 1815 AC 10/25 (Nasal) 2134 Prednisone 40 MG DAILY 10/25 1000 AC 10/25 0842 Roflumilast 500 MCG DAILY 10/25 1000 AC 10/25 (DALIRESP) 0843 Arformoterol Tartrate 15 MCG BID 10/24 2200 AC 10/25 (Brovana) 1829 Budesonide 0.5 MG BID 10/24 2200 AC 10/25 (Pulmicort) 1815 Trazodone HCl 100 MG QPM 10/24 2200 AC 10/25 (Desyrel) 2134 Albuterol Sulfate 3 ML TID 10/24 1600 AC 10/25 (Proventil) 1815 Oseltamivir Phosphate 75 MG BID 10/24 1312 AC 10/25 (Tamiflu 75MG) 10/28 1311 2134 Insulin Aspart 0 TIDAC 10/24 1200 AC 10/25 (NovoLOG) 1701 Albuterol Sulfate 2 PUF Q4H PRN 10/24 1030 AC (Ventolin) Fluconazole 200 MG DAILY 10/24 1015 AC 10/25 (Diflucan 100MG Tab) 0843 Atorvastatin Calcium 40 MG DAILY 10/24 1004 AC 10/25 (Lipitor) 0843 Tamsulosin HCl 0.4 MG DAILY 10/24 1003 AC 10/25 (Flomax) 0843 Tiotropium Wharton 1 PUF DAILY 10/24 1002 AC 10/25 (Spiriva) 0842 Apixaban 5 MG BID 10/24 1001 AC 10/25 (Eliquis) 2134 Acetaminophen 650 MG Q6P PRN 10/24 1000 AC (Tylenol) Hydrocodone Bitart/ 1 TAB Q8P PRN 10/24 1000 AC Acetaminophen (Vicodin) Laboratory Tests 10/25/17 0642: Anion Gap 8, Estimated GFR > 60, BUN/Creatinine Ratio 20.0, CBC w Diff NO MAN DIFF REQ, RBC 3.24 L, MCV 84.2, MCH 28.3, RDW 14.9 H, MPV 7.6, Gran % 85.4 H, Lymphocytes % 10.4 L, Monocytes % 4.0, Eosinophils % 0.1, Basophils % 0.1, Absolute Granulocytes 6.6 H, Absolute Lymphocytes 0.8 L, Absolute Monocytes 0.3, Absolute Eosinophils 0, Absolute Basophils 0, PUBS MCHC 33.7 (Norma Alarcon MD) Departure Departure Disposition: STILL A PATIENT Condition: Stable Clinical Impression Primary Impression: COPD exacerbation Referrals: Martin Frazier MD (PCP/Family) Departure Forms: Customer Survey General Discharge Information (Celeste LEAL,Richard Beltran) Departure Time of Disposition: 814 Admission Note Documentation of Exam: Documentation of any treatments & extenuating circumstances including Concerns Regarding Discharge (functional status, medication knowledge or non-compliance, living conditions, etc.) that warrant an admission rather than observation: Observation Note Spoke With: Zuleyka Velazquez MD Physician Advisor Notified: DIANA HENNESSY DO Place Patient In: Non-ED OBS Care Area Rationale for Observation: My rational for observation is as follows [TRC/NEBS, IV STEROIDS, ABX, OXYGEN SUPPLEMENTATION, PULMONARY CONSULTATION]. (Norma Alarcon MD) Critical Care Note Critical Care Note Critical Care Time: non-applicable (Norma Alarcon MD)
[2017-10-24 06:31] LABS: ABSOLUTE BASOPHIL COUNT 0 /CUMM (0.0-0.2); ABSOLUTE EOSINOPHIL COUNT 0 /CUMM (0.0-0.7); ABSOLUTE GRANULOCYTE CT 10.2 /CUMM (1.4-6.5); EOSINOPHIL % 0.1 % (0-5)
--- NOTE | 2017-10-24 06:36 | RADIOLOGY REPORT ---
EXAMINATION: XR PORTABLE CHEST CLINICAL INFORMATION: Dyspnea COMPARISON: 10/14/2017 TECHNIQUE: Portable frontal view of the chest was obtained. FINDINGS: Cardiac leads overlie the chest. The right costophrenic angle is not fully included on this study. The lungs are well expanded. No consolidation, edema, or effusion. No pneumothorax. The cardiomediastinal silhouette is unchanged, with a calcified aorta. IMPRESSION: No acute pulmonary finding.
[2017-10-24 06:42] LABS: ABSOLUTE LYMPH COUNT 1.5 /CUMM (1.2-3.4); ABSOLUTE MONOCYTE COUNT 0.4 /CUMM (0.10-0.60); BASOPHIL % 0 % (0.0-2.0); GRANULOCYTE % 84.2 % (42.2-75.2); MEAN CORPUSCULAR HGB 28.1 PG (27.0-31.0); MEAN CORPUSCULAR HGB CONC 32.7 G/DL (33.0-37.0); MEAN PLATELET VOLUME 7.4 FL (7.4-10.4); PLATELET COUNT 204 /CUMM (130-400); RBC DISTRIBUTION WIDTH 15.6 % (11.5-14.5); RED BLOOD CELL CT 4.36 /CUMM (4.70-6.10); WHITE BLOOD CELL COUNT 12.1 /CUMM (4.8-10.8)
[2017-10-24 06:44] LABS: HEMATOCRIT 37.5 % (42-52)
[2017-10-24 06:46] LABS: PT 10.5 SEC (9.4-12.5); PTT 30 SEC (25-37)
--- NOTE | 2017-10-24 09:03 | History & Physical ---
Joel Charles 10/24/17 0902: General Information and HPI MD Statement: I have seen and personally examined SONIDO HENRIQUEZ and documented this H&P. The patient is a 77 year old M who presented with a patient stated chief complaint of [weakness short of breath]. Source of Information: patient, old records, EMS Exam Limitations: poor historian History of Present Illness: This is 77-year-old gentleman with medical history significant for COPD on 2 L of nocturnal oxygen history of atrial fibrillation status post ablation, heart failure with preserved ejection fraction, pulmonary hypertension, mild aortic stenosis, UTIs, nephrolithiasis, hydronephrosis status post lithotripsy and stent placement, history of candidemia secondary to urologic origin, recently admitted to [facility] in July 2017 for acute respiratory distress secondary to possible PE/COPD exacerbation and sepsis of urological origin secondary to candidemia status post stent placement for right-sided UVJ calculus. Patient was discharged 2 days ago from the hospital status post Cystoscopy, right ureteroscopy, manipulation of ureteral stone into the bladder, laser lithotripsy of stone with irrigation of fragments, exchange of right double-J ureteral stent. Currently he Presented to the ER with chief complaints of worsening shortness of breath and productive cough, generalized weakness and feeling tired. According to him his shortness of breath started on Thursday and keep progressing, and due to that he started to use his nocturnal oxygen on the date time also he reports feeling weak, tired and reported decrease oral intake. Patient stated that he was contacted by Dr. Eaton infectious disease attending requesting him to come to the ED to draw blood culture as the patient was recently discharged from the hospital with a positive blood culture of yeast despite he is currently on fluconazole. He reports feeling dehydrated. Patient deny any chest pain, expiratory wheezing, facial tenderness, fever, chills, heart racing, abdominal pain, nausea, vomiting, diarrhea, change in vision or hearing, hematuria, dysuria. In the ED: Prior to his arrival patient received 125 IV Solu-Medrol, nebs treatment, albuterol, magnesium sulfate 2 g IV via EMS due to low O2 sat 89%. In the ED department patient received 1 dose of IV ceftriaxone, IV azithromycin and IV Zofran. Rapid flu swab came back positive for influenza type a. 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 spouse Services at Home: None Primary Language: Danish Functional Ability ADLs Independent: dressing. Ambulation: independent IADLs Independent: shopping, housework, finances, food prep, telephone, transportation , medication admin. Review of Systems Review of Systems Constitutional: Reports: see HPI. Cardiovascular: Reports: see HPI. Respiratory: Reports: see HPI. GI: Reports: see HPI. Genitourinary: Reports: see HPI. Exam & Diagnostic Data Last 24 Hrs of Vital Signs/I&O Vital Signs Date Time Temp Pulse Resp B/P B/P Pulse O2 O2 Flow FiO2 Mean Ox Delivery Rate 10/24 1840 96 Nasal 2.0L Cannula 10/24 1459 98.6 85 20 122/60 99 Nasal 3.0L Cannula 10/24 1438 95 Nasal 2.0L Cannula 10/24 1430 Nasal 2.0L Cannula 10/24 1400 94 Nasal 3.0L Cannula 10/24 1216 98.4 83 18 108/56 99 Nasal 3.0L Cannula 10/24 1045 98.2 85 20 148/57 10/24 0951 98.2 85 20 148/57 99 Nasal 3.0L Cannula 10/24 0634 98 Nasal 2.0L Cannula 10/24 0632 98 Nasal 2.0L Cannula 10/24 0607 100.2 111 18 119/62 100 Venti Mask 6.0L Intake & Output 10/24 1600 10/24 0800 10/24 0000 Intake Total Output Total 300 Balance -300 Output, Urine 300 Patient 170 lb 170 lb Weight Weight Estimated Measurement Method Physical Exam General Appearance Alert, Oriented X3, Cooperative, No Acute Distress HEENT PERRLA, EOMI Neck Supple Cardiovascular Normal S1, Normal S2 Lungs Clear to Auscultation, Normal Air Movement Abdomen Normal Bowel Sounds, Soft, No Tenderness Extremities No Cyanosis, No Edema Last 24 Hrs of Labs/Arsenio: Laboratory Tests 10/24/17 1132: Urine Color BLDY H, Urine Clarity CLDY H, Urine pH 6.5, Ur Specific [place] 1.020, Urine Protein 100 H, Urine Ketones 15 H, Urine Nitrite POS H, Urine Bilirubin [email or web address], Urine Urobilinogen 1.0, Ur Leukocyte Esterase TRACE H, Ur Microscopic SEDIMENT EXAMINED, Urine RBC PACKD H, Urine WBC 3-5 H, Micro UA Comment MORE INFO: H, Urine Hemoglobin LARGE H, Urine Glucose >=1000 H 10/24/17 1016: Virus Culture Pending 10/24/17 0620: Anion Gap 15, Estimated GFR > 60, BUN/Creatinine Ratio 11.0, Glucose 199 H, Calcium 8.6, Total Bilirubin 0.6, AST 20, ALT 34, Alkaline Phosphatase 94, Troponin I 0.04, Jdd-R-Cjtwwebstep Pept 2000 H, Total Protein 6.2 L, Albumin 3.3 L, Globulin 2.9, Albumin/Globulin Ratio 1.1, PT 10.5, INR 1.00, APTT 30, CBC w Diff MAN DIFF ORDERED, RBC 4.36 L, MCV 86.0, MCH 28.1, RDW 15.6 H, MPV 7.4, Gran % 84.2 H, Lymphocytes % 12.4 L, Monocytes % 3.3, Eosinophils % 0.1, Basophils % 0, Absolute Granulocytes 10.2 H, Absolute Lymphocytes 1.5, Absolute Monocytes 0.4, Absolute Eosinophils 0, Absolute Basophils 0, Platelet Estimate ADEQUATE, Normocytic RBCs VERIFIED, Normochromic RBCs VERIFIED, PUBS MCHC 32.7 L Microbiology 10/24 1132 URINE ROUT: Urine Culture - RECD 10/24 1047 NASOPHARYN: Influenza Virus A & B Rapid Smear - COMP INFLUENZA TYPE A 10/24 06 BLOOD: Blood Culture - RECD 10/24 06 BLOOD: Blood Culture - RECD Assessment/Plan Assessment: This is 77-year-old gentleman with medical history significant for COPD on 2 L of nocturnal oxygen history of atrial fibrillation status post ablation, heart failure with preserved ejection fraction, pulmonary hypertension, mild aortic stenosis, UTIs, nephrolithiasis, hydronephrosis status post lithotripsy and stent placement, 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 Problem list: -Influenza A -Dehydration/hypokalemia -Candidemia -COPD exacerbation. -Chronic hypoxic respiratory failure Plan: -Admit patient to general medicine floor -Start Tamiflu 75 mg twice a day -20 mEq potassium and normal saline at 75 mL per hour -Continue prednisone 50 mg daily -TRC nebs as needed -Follow-up blood culture continue fluconazole -Infectious disease consultation -Continue home medication -Diet -Pain pathway -DVT prophylaxis Eliquis -Full code As Ranked By This Provider Problem List: 1. Influenza A Core Measures/Misc (06/28) Acute Coronary Syndrome ACS Diagnosis: No Congestive Heart Failure Congestive Heart Failure Diagnosis No Cerebrovascular Accident CVA/TIA Diagnosis: No VTE (View Protocol) VTE Risk Factors Age>40 No Mechanical VTE Prophylaxis d/t N/A MechProphylax Ordered No VTE Pharm Prophylaxis d/t NA PharmProphylax ordered Sepsis (View protocol) Sepsis Present: Yes Zuleyka Velazquez MD 10/24/17 1601: General Information and HPI Allergies/Medications Home Med list Albuterol Sulfate 2.5 MG/3 ML (0.083 %) VIAL.NEB 1 Vial INH/SHERRY BID COPD ( Reported) Albuterol Sulfate (Proair Hfa) 90 MCG HFA.AER.AD 2 PUF INH Q4H PRN RESP ( Reported) Apixaban (Eliquis) 5 MG TABLET 1 TAB PO BID BLOOD THINNER (Reported) Arformoterol Tartrate (Brovana) 15 MCG/2 ML VIAL.NEB 1 VIAL INH BID COPD ( Reported) Atorvastatin Calcium 40 MG TABLET 1 TAB PO DAILY hyperlipidemia (Reported) Budesonide 0.5 MG/2 ML AMPUL.NEB 1 Vial INH/SHERRY BID RESP. (Reported) Fluconazole 200 MG TABLET 2 TAB PO DAILY Candidemia and candiduria Herbal Drugs (Colon Herbal Cleanser) (Unknown Strength) CAPSULE (Unknown Dose) PO DAILY PROBIOTIC (Reported) Linaclotide (Linzess) 290 MCG CAPSULE 1 CAP PO DAILY GI (Reported) Oseltamivir Phosphate (Tamiflu) 75 MG CAPSULE 1 TAB PO BID Influenza Pioglitazone HCl 45 MG TABLET 1 TAB PO DAILY DM (Reported) Prednisone 10 MG TABLET 0 PO DAILY COPD On Take 10/22-10/24 50 MG 10/25-10/27 40 MG 10/28-10/30 30 MG 10/31-11/02 20 MG 11/03-11/05 10 MG Then Stop Roflumilast (Daliresp) 500 MCG TABLET 1 TAB PO DAILY COPD (Reported) Sitagliptin Phosphate (Januvia) 50 MG TABLET 1 TAB PO DAILY DM (Reported) Tamsulosin HCl (Flomax) 0.4 MG CAP.ER.24H 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 Tiotropium [place] (Spiriva) 18 MCG CAP.W.DEV 1 CAP INH DAILY COPD (Reported) Trazodone HCl 50 MG TABLET 2 TAB PO QPM MENTAL HEALTH/SLEEP (Reported) Attending MD Review Statement Attending Statement Attending MD Statement: examined this patient, discuss w/resident/PA/DRAFTSPERSON, agreed w/resident/PA/DRAFTSPERSON, reviewed EMR data (avail) Attending Assessment/Plan: 77M PMH HFpEF, mild aortic stenosis, moderate pulmonary hypertension, COPD on nighttime 2 L nasal cannula oxygen, DM, HLD, history of nephrolithiasis S/P ureteral stenting, A. fib S/P ablation, BPH, history of candidemia, recently admitted for candidemia sepsis and discharge home on Fluconazole, returns with 1 day of lethargy, weakness, diffuse myalgia, and worsening dyspnea, found to be Influenza A positive. Patient is otherwise comfortable, no other complaints, vitals stable, labs unremarkable. 1. Influenza A 2. COPD Exacerbation 3. Chronic hypoxemic respiratory failure 4. Nephrolithiasis 5. Candidemia Plan - Observation in general medicine - Start Tamiflu - Start Prednisone 40mg x 5 days - Continue Flucoazole - Follow blood cultures - Continue home medications - Continue Eliquis
[2017-10-24 14:59] VITALS: BP 122/60
[2017-10-24 22:21] VITALS: BP 128/60
[2017-10-25 08:08] VITALS: BP 114/55
[2017-10-25 08:22] LABS: ABSOLUTE BASOPHIL COUNT 0 /CUMM (0.0-0.2); ABSOLUTE EOSINOPHIL COUNT 0 /CUMM (0.0-0.7); ABSOLUTE GRANULOCYTE CT 6.6 /CUMM (1.4-6.5); ABSOLUTE LYMPH COUNT 0.8 /CUMM (1.2-3.4); ABSOLUTE MONOCYTE COUNT 0.3 /CUMM (0.10-0.60); BASOPHIL % 0.1 % (0.0-2.0); EOSINOPHIL % 0.1 % (0-5); GRANULOCYTE % 85.4 % (42.2-75.2); MEAN CORPUSCULAR HGB 28.3 PG (27.0-31.0); MEAN CORPUSCULAR HGB CONC 33.7 G/DL (33.0-37.0); MEAN CORPUSCULAR VOLUME 84.2 FL (80.0-94.0); MEAN PLATELET VOLUME 7.6 FL (7.4-10.4); PLATELET COUNT 131 /CUMM (130-400); RBC DISTRIBUTION WIDTH 14.9 % (11.5-14.5); WHITE BLOOD CELL COUNT 7.7 /CUMM (4.8-10.8)
[2017-10-25 09:33] LABS: HEMATOCRIT 27.3 % (42-52); RED BLOOD CELL CT 3.24 /CUMM (4.70-6.10)
--- NOTE | 2017-10-25 09:54 | PN- Housestaff ---
See Addendum Subjective Follow-up For: -Influenza A -Dehydration/hypokalemia -Candidemia -COPD exacerbation. -Chronic hypoxic respiratory failure Complaints: no complaints Subjective: Patient seen and examined today. Patient alert, awake, oriented. He is on 2 L nasal cannula oxygen oxygen saturation more than 98%. Afebrile. Blood pressure within acceptable limits. Patient is still reporting feeling weak and tired and having low appetite. Review of Systems Constitutional: Reports: weakness. Denies: chills, fever. Cardiovascular: Denies: chest pain, palpitations. Respiratory: Reports: cough, sputum production. Denies: short of breath, wheezing. Gastrointestinal: Denies: abdominal pain, diarrhea, nausea, vomiting. Genitourinary: Denies: pain. Objective Last 24 Hrs of Vital Signs/I&O Vital Signs Date Time Temp Pulse Resp B/P B/P Pulse O2 O2 Flow FiO2 Mean Ox Delivery Rate 10/25 0949 98 Nasal 2.0L Cannula 10/25 0808 98.5 63 18 114/55 98 Nasal 2.0L Cannula 10/25 0000 Nasal 3.0L Cannula 10/24 2221 98.6 86 20 128/60 96 Nasal 3.0L Cannula 10/24 1840 96 Nasal 2.0L Cannula 10/24 1600 Nasal 3.0L Cannula 10/24 1459 98.6 85 20 122/60 99 Nasal 3.0L Cannula 10/24 1438 95 Nasal 2.0L Cannula 10/24 1430 Nasal 2.0L Cannula 10/24 1400 94 Nasal 3.0L Cannula Intake & Output 10/25 1600 10/25 0800 10/25 0000 Intake Total 400 Output Total 300 550 Balance -300 400 -550 Intake, IV 400 Output, Urine 300 550 Physical Exam General Appearance: Alert, Oriented X3, Cooperative, No Acute Distress HEENT: PERRLA, EOMI Neck: Supple Cardiovascular: Normal S1, Normal S2 Lungs: Normal Air Movement, decrease air entry bibasilar, no wheezing appreciated Abdomen: Normal Bowel Sounds, Soft, No Tenderness Extremities: No Cyanosis, No Edema Current Medications: Current Medications Sig/Camille Start time Last Medication Dose Route Stop Time Status Admin Acetaminophen 650 MG Q6P PRN 10/24 1000 AC PO Albuterol Sulfate 3 ML TID 10/24 1600 AC 10/25 INH 0946 Albuterol Sulfate 2 PUF Q4H PRN 10/24 1030 AC INH Apixaban 5 MG BID 10/24 1001 AC 10/25 PO 0843 Arformoterol Tartrate 15 MCG BID 10/24 2200 AC 10/25 INH 0947 Atorvastatin Calcium 40 MG DAILY 10/24 1004 AC 10/25 PO 0843 Budesonide 0.5 MG BID 10/24 2200 AC 10/25 INH 0947 Fluconazole 200 MG DAILY 10/24 1015 AC 10/25 PO 0843 Hydrocodone Bitart/ 1 TAB Q8P PRN 10/24 1000 AC Acetaminophen PO Insulin Aspart 4 UNITS ONCE ONE 10/24 2345 DC 10/25 SC 10/24 2346 0036 Insulin Aspart 0 TIDAC 10/24 1200 AC 10/25 SC 1230 Oseltamivir Phosphate 75 MG BID 10/24 1312 AC 10/25 PO 10/28 1311 0843 Potassium Chloride 20 [id number] 10/24 1000 DC 10/25 Sodium Chloride 1,000 ML IV 0039 Prednisone 50 MG DAILY 10/25 1000 DC PO Prednisone 40 MG DAILY 10/25 1000 AC 10/25 PO 0842 Roflumilast 500 MCG DAILY 10/25 1000 AC 10/25 PO 0843 Tamsulosin HCl 0.4 MG DAILY 10/24 1003 AC 10/25 PO 0843 Tiotropium [place] 1 PUF DAILY 10/24 1002 AC 10/25 INH 0842 Trazodone HCl 100 MG QPM 10/24 2200 AC 10/24 PO 2302 Last 24 Hrs of Lab/Arsenio Results Last 24 Hrs of Labs/Mics: Laboratory Tests 10/25/17 0642: Anion Gap 8, Estimated GFR > 60, BUN/Creatinine Ratio 20.0, CBC w Diff NO MAN DIFF REQ, RBC 3.24 L, MCV 84.2, MCH 28.3, RDW 14.9 H, MPV 7.6, Gran % 85.4 H, Lymphocytes % 10.4 L, Monocytes % 4.0, Eosinophils % 0.1, Basophils % 0.1, Absolute Granulocytes 6.6 H, Absolute Lymphocytes 0.8 L, Absolute Monocytes 0.3, Absolute Eosinophils 0, Absolute Basophils 0, PUBS MCHC 33.7 Assessment/Plan Assessment: This is 77-year-old gentleman with medical history significant for COPD on 2 L of nocturnal oxygen history of atrial fibrillation status post ablation, heart failure with preserved ejection fraction, pulmonary hypertension, mild aortic stenosis, UTIs, nephrolithiasis, hydronephrosis status post lithotripsy and stent placement, 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 Patient to grow gram-negative fluids and gram-positive cocci in his urine culture less than 10,000 colonies. Waiting final results. Problem list: -Influenza A -Dehydration/hypokalemia -Candidemia -COPD exacerbation?? -Chronic hypoxic respiratory failure Plan: -Continue Tamiflu 75 mg twice a day -DC IV fluid, encourage oral intake -Hypokalemia improved, continue monitoring -Continue prednisone 40 mg daily -TRC nebs as needed -Follow-up final blood culture results continue fluconazole -Infectious disease consultation -Continue home medication -Continue Accu-Chek, insulin sliding scale. -DVT prophylaxis Eliquis -Full code Problem List: 1. Candiduria Pain Ratin Pain Location: 0 Pain Goal: Remain pain free Pain Plan: same Tomorrow's Labs & Rationales: cbc bep
[2017-10-25 15:15] VITALS: BP 122/60
[2017-10-25 21:42] VITALS: BP 100/58
[2017-10-26 06:32] VITALS: BP 124/64
--- NOTE | 2017-10-26 07:22 | PN- Housestaff ---
[facility] Subjective Follow-up For: Influena A infection Candidemia COPD exacerbation Subjective: No overnight events. Patient remained afebrile overnight. Patient is on 3 sets of oxygen and maintaining saturation 94%. Patient denied any chest pain, nausea , vomiting, chills, fever, abdominal pain and dysuria. Patient having exertional dyspnea and that's his baseline. Patient came in with shortness of breath probably due to COPD exacerbation precipitated by influenza infection. Patient was admited as he needs to go to [facility] and also needs ID consult considering candidemia even after he is on fluconazole. Review of Systems Constitutional: Reports: no symptoms. EENTM: Reports: no symptoms. Cardiovascular: Reports: no symptoms. Respiratory: Reports: short of breath. Gastrointestinal: Reports: no symptoms. Genitourinary: Reports: no symptoms. Musculoskeletal: Reports: no symptoms. Neurological/Psychological: Reports: no symptoms. Objective Last 24 Hrs of Vital Signs/I&O Vital Signs Date Time Temp Pulse Resp B/P B/P Pulse O2 O2 Flow FiO2 Mean Ox Delivery Rate 10/26 0632 97.9 80 20 124/64 94 10/26 0000 Nasal 3.0L Cannula 10/25 2142 97.9 83 19 100/58 93 Room Air 10/25 1815 95 Room Air 10/25 1600 Nasal 3.0L Cannula 10/25 1515 98.1 92 20 122/60 92 Nasal Cannula 10/25 0949 98 Nasal 2.0L Cannula Intake & Output 10/26 1600 10/26 0800 10/26 0000 Intake Total 210 400 Output Total 1600 500 Balance -1390 -100 Intake, IV 10 Intake, Oral 200 400 Output, Urine 1600 500 Physical Exam General Appearance: Alert, Oriented X3, Cooperative, No Acute Distress Skin Temp/Moisture Exam: Warm/Dry HEENT: Atraumatic, PERRLA, EOMI Neck: Supple Cardiovascular: Normal S1, Normal S2 Lungs: Clear to Auscultation Abdomen: Soft, No Tenderness Neurological: Normal Speech, Strength at 5/5 X4 Ext, Normal Tone, Sensation Intact Extremities: No Edema Assessment/Plan Assessment: This is 77-year-old gentleman with medical history significant for COPD on 2 L of nocturnal oxygen history of atrial fibrillation status post ablation, heart failure with preserved ejection fraction, pulmonary hypertension, mild aortic stenosis, UTIs, nephrolithiasis, hydronephrosis status post lithotripsy and stent placement, 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 Patient to grow gram-negative fluids and gram-positive cocci in his urine culture less than 10,000 colonies. Waiting final results. COPD exacerbation precipitated by Influenza ifction: -Continue Tamiflu 75 mg twice a day. -Continue prednisone 40 mg daily -TRC nebs as needed. -Supplemental O2 to keep saturation >90%. Candidemia: -patient's blood culture is still positive with yeast. -We will continue fluconazole. -Id consult to discuss if we need to change the antifungal medication. History of diabetes: -We'll hold the oral hypoglycemic medications. -Accu-Cheks -Insulin NovoLog according to sliding scale. History of Atrial fibrillation status post ablation: -We will continue Eliquis H/O HFpEF: -Last echo is showing ejection fraction more than 65% with stage II diastolic heart failure. History of hyperlipidemia: -We will continue Lipitor DVT prophylaxis: Patient is already on Eliquis CODE STATUS: Full code Problem List: 1. COPD exacerbation 2. Influenza A Pain Ratin Pain Location: none Pain Goal: Remain pain free Pain Plan: tylenol for mild pain Tomorrow's Labs & Rationales: none Zuleyka Velazquez MD 10/26/17 1239: Attending MD Review Statement Attending Statement Attending MD Statement: examined this patient, discuss w/resident/PA/DOUGH MAKER, agreed w/resident/PA/DOUGH MAKER, reviewed EMR data (avail) Attending Assessment/Plan: 77M PMH HFpEF, mild aortic stenosis, moderate pulmonary hypertension, COPD on nighttime 2 L nasal cannula oxygen, DM, HLD, history of nephrolithiasis S/P ureteral stenting, A. fib S/P ablation, BPH, history of candidemia, recently admitted for candidemia sepsis and discharge home on Fluconazole, returns with 1 day of lethargy, weakness, diffuse myalgia, and worsening dyspnea, found to be Influenza A positive. Patient reports dyspnea and fatigue with minimal exertion. He is asymptomatic at rest. Blood cultures still growing [place]. 1. Influenza A 2. COPD Exacerbation 3. Chronic hypoxemic respiratory failure 4. Nephrolithiasis 5. Candidemia Plan - Admission to general medicine due to persistent candidemia and poor clinical and respiratory status - ID consult for persistent candidemia - Continue Tamiflu - Continue Prednisone 40mg x 5 days - Continue Fluconazole - Follow blood cultures - Continue home medications - Continue Eliquis - PT eval
[2017-10-26 08:37] LABS: ABSOLUTE BASOPHIL COUNT 0 /CUMM (0.0-0.2); ABSOLUTE EOSINOPHIL COUNT 0 /CUMM (0.0-0.7); ABSOLUTE GRANULOCYTE CT 6.1 /CUMM (1.4-6.5); ABSOLUTE LYMPH COUNT 1.3 /CUMM (1.2-3.4); ABSOLUTE MONOCYTE COUNT 0.3 /CUMM (0.10-0.60); BASOPHIL % 0.1 % (0.0-2.0); EOSINOPHIL % 0.5 % (0-5); HEMATOCRIT 28.9 % (42-52); MEAN CORPUSCULAR HGB 28.2 PG (27.0-31.0); MEAN CORPUSCULAR HGB CONC 33.1 G/DL (33.0-37.0); MEAN CORPUSCULAR VOLUME 85.2 FL (80.0-94.0); MEAN PLATELET VOLUME 7.6 FL (7.4-10.4); PLATELET COUNT 133 /CUMM (130-400); RBC DISTRIBUTION WIDTH 14.5 % (11.5-14.5); RED BLOOD CELL CT 3.39 /CUMM (4.70-6.10); WHITE BLOOD CELL COUNT 7.7 /CUMM (4.8-10.8)
[2017-10-26] MEDS ORDERED: TAMIFLU75 M1 PO (10:43)
--- NOTE | 2017-10-26 10:49 | Patient Discharge Instructions ---
Discharge Instructions General Discharge Information You were seen/treated for: COPD exacerbation precipitated by influenza infection. 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 If you experience any of these symptoms please come to ED or call to pcp. Special Instructions: Follow up with your PCP in one week. Follow up with mri manager in onbe week. Follow up with cardiothoracic surgery as soon as possible. Diet Recommended Diet: Diabetic Activity Activity Self Limited: Yes Acute Coronary Syndrome Inclusion Criteria At DC or during hospital stay patient has or had the following: ACS DIAGNOSIS No Discharge Core Measures Meds if any: Prescribed or Continued at Discharge Meds if any: NOT Prescribed or Continued at Discharge Congestive Heart Failure Inclusion Criteria At DC or during hospital stay patient has or had the following: CHF DIAGNOSIS No Discharge Core Measures Meds if any: Prescribed or Continued at Discharge Meds if any: NOT Prescribed or Continued at Discharge Cerebrovascular accident Inclusion Criteria At DC or during hospital stay patient has or had the following: CVA/TIA Diagnosis No Discharge Core Measures Meds if any: Prescribed or Continued at Discharge Meds if any: NOT Prescribed or Continued at Discharge Venous thromboembolism Inclusion Criteria VTE Diagnosis No VTE Type NONE VTE Confirmed by (Test) NONE Discharge Core Measures - Per Current guidelines, there needs to be overlap - treatment for the first 5 days of Warfarin therapy. - If discharged on Warfarin prior to 5 days of - overlap therapy, the patient will need to be - assessed for post discharge needs including - *Post discharge parental anticoagulation - *Warfarin and/or parental anticoagulation education - *Follow up date to check INR post discharge At least 5 days overlap therapy as Inpatient No Meds if any: Prescribed or Continued at Discharge Note: Overlap Therapy is Warfarin and Anticoagulant Meds if any: NOT Prescribed or Continued at Discharge
[2017-10-26 15:14] VITALS: BP 126/68
--- NOTE | 2017-10-26 18:20 | Cons- Infect Disease ---
General Information and HPI Consulting Request Date of Consult: 10/26/17 Requested By: Zuleyka Velazquez MD Reason for Consult: Recurrent candidemia Source of Information: patient, primary team Exam Limitations: no limitations History of Present Illness: 77-year-old gentleman with medical history significant for COPD on 2 L of nocturnal oxygen history of atrial fibrillation status post ablation, heart failure with preserved ejection fraction, pulmonary hypertension, mild aortic stenosis, UTIs, nephrolithiasis, hydronephrosis status post lithotripsy and stent placement, history of candidemia secondary to urologic origin, recently admitted to [facility] in July 2017 for acute respiratory distress secondary to possible PE/COPD exacerbation and sepsis of urological origin secondary to candidemia status post stent placement for right-sided UVJ calculus. Patient was discharged 2 days ago from the hospital status post Cystoscopy, right ureteroscopy, manipulation of ureteral stone into the bladder, laser lithotripsy of stone with irrigation of fragments, exchange of right double-J ureteral stent. He presented to the ED on 10/24 with worsening shortness of breath and productive cough, generalized weakness and feeling tired. Patient stated that he was contacted by Dr. Medina, infectious disease attending requesting him to come to the ED to draw blood culture as the patient was recently discharged from the hospital with a positive blood culture of yeast despite he is currently on fluconazole. He reports feeling dehydrated. Patient deny any chest pain, expiratory wheezing, facial tenderness, fever, chills, heart racing, abdominal pain, nausea, vomiting, diarrhea, change in vision or hearing, hematuria, dysuria. Allergies/Medications Allergies: Coded Allergies: crab (SOFT SHELL CRAB - FACIAL SWELLING 02/10/17) Home Med List: Albuterol Sulfate 2.5 MG/3 ML (0.083 %) VIAL.NEB 1 Vial INH/SHERRY BID COPD ( Reported) Albuterol Sulfate (Proair Hfa) 90 MCG HFA.AER.AD 2 PUF INH Q4H PRN RESP ( Reported) Apixaban (Eliquis) 5 MG TABLET 1 TAB PO BID BLOOD THINNER (Reported) Arformoterol Tartrate (Brovana) 15 MCG/2 ML VIAL.NEB 1 VIAL INH BID COPD ( Reported) Atorvastatin Calcium 40 MG TABLET 1 TAB PO DAILY hyperlipidemia (Reported) Budesonide 0.5 MG/2 ML AMPUL.NEB 1 Vial INH/SHERRY BID RESP. (Reported) Fluconazole 200 MG TABLET 2 TAB PO DAILY Candidemia and candiduria Herbal Drugs (Colon Herbal Cleanser) (Unknown Strength) CAPSULE (Unknown Dose) PO DAILY PROBIOTIC (Reported) Linaclotide (Linzess) 290 MCG CAPSULE 1 CAP PO DAILY GI (Reported) Oseltamivir Phosphate (Tamiflu) 75 MG CAPSULE 1 TAB PO BID Influenza Pioglitazone HCl 45 MG TABLET 1 TAB PO DAILY DM (Reported) Prednisone 10 MG TABLET 0 PO DAILY COPD On Take 10/22-10/24 50 MG 10/25-10/27 40 MG 10/28-10/30 30 MG 10/31-11/02 20 MG 11/03-11/05 10 MG Then Stop Roflumilast (Daliresp) 500 MCG TABLET 1 TAB PO DAILY COPD (Reported) Sitagliptin Phosphate (Januvia) 50 MG TABLET 1 TAB PO DAILY DM (Reported) Tamsulosin HCl (Flomax) 0.4 MG CAP.ER.24H 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 Tiotropium [place] (Spiriva) 18 MCG CAP.W.DEV 1 CAP INH DAILY COPD (Reported) Trazodone HCl 50 MG TABLET 2 TAB PO QPM MENTAL HEALTH/SLEEP (Reported) Current Medications: Current Medications Sig/Camille Start time Last Medication Dose Route Stop Time Status Admin Acetaminophen 650 MG Q6P PRN 10/24 1000 AC PO Albuterol Sulfate 3 ML TID 10/24 1600 AC 10/26 INH 1428 Albuterol Sulfate 2 PUF Q4H PRN 10/24 1030 AC INH Apixaban 5 MG BID 10/24 1001 AC 10/26 PO 1005 Arformoterol Tartrate 15 MCG BID 10/24 2200 AC 10/26 INH 1020 Atorvastatin Calcium 40 MG DAILY 10/24 1004 AC 10/26 PO 1005 Budesonide 0.5 MG BID 10/24 2200 AC 10/26 INH 1021 Fluconazole 400 MG DAILY 10/27 1000 AC PO Fluconazole 200 MG DAILY 10/24 1015 DC 10/26 PO 1003 Hydrocodone Bitart/ 1 TAB Q8P PRN 10/24 1000 AC Acetaminophen PO Insulin Aspart 4 UNITS ONCE ONE 10/25 2130 DC 10/25 SC 10/25 213 2134 Insulin Aspart 0 TIDAC 10/24 1200 AC 10/26 SC 1734 Oseltamivir Phosphate 75 MG BID 10/24 1312 AC 10/26 PO 10/28 1311 1006 Prednisone 40 MG DAILY 10/25 1000 AC 10/26 PO 1004 Roflumilast 500 MCG DAILY 10/25 1000 AC 10/26 PO 1006 Sodium Chloride 2 SPRAY Q4P PRN 10/25 1815 AC 10/25 LOS 2134 Tamsulosin HCl 0.4 MG DAILY 10/24 1003 AC 10/26 PO 1005 Tiotropium [place] 1 PUF DAILY 10/24 1002 AC 10/26 INH 1012 Trazodone HCl 100 MG QPM 10/24 2200 AC 10/25 PO 2134 Past History Travel History Traveled to [place] past 21 day No Medical History Blood Transfusion Hx: No Neurological: NONE EENT: allergies Cardiovascular: AFIB Respiratory: COPD Gastrointestinal: constipation Hepatic: NONE Renal: nephrolithiasis Musculoskeletal: falls Psychiatric: NONE Endocrine: diabetes Blood Disorders: NONE Cancer(s): basal cell carcinoma 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 spouse Services at Home: None Primary Language: Puerto Rican Smoking Status: Former Smoker Functional Ability ADLs Independent: dressing. Ambulation: independent IADLs Independent: shopping, housework, finances, food prep, telephone, transportation , medication admin. Review of Systems Comments 12 points reviewed as noted, otherwise negative Exam & Diagnostic Data Last 24 Hrs of Vital Signs/I&O Vital Signs Date Time Temp Pulse Resp B/P B/P Pulse O2 O2 Flow FiO2 Mean Ox Delivery Rate 10/26 1514 98.9 92 20 126/68 93 Nasal Cannula 10/26 1020 94 Room Air 10/26 1005 80 124/64 10/26 0632 97.9 80 20 124/64 94 10/26 0000 Nasal 3.0L Cannula 10/25 2142 97.9 83 19 100/58 93 Room Air Intake & Output 10/26 1600 10/26 0800 10/26 0000 Intake Total 600 210 400 Output Total 500 1600 500 Balance 100 -1390 -100 Intake, IV 10 Intake, Oral 600 200 400 Number 0 Bowel Movements Output, Urine 500 1600 500 Physical Exam Other Physical Findings: General Appearance No Acute Distress HEENT PERRLA, EOMI Neck Supple Cardiovascular Normal S1, Normal S2, no murmur Lungs B/L rhonchi, Normal Air Movement Abdomen Normal Bowel Sounds, Soft, No Tenderness Extremities No Cyanosis, No Edema Neuro Alert, Oriented X3, Cooperative Skin pale Last 24 Hours of Lab Results: Laboratory Tests 10/26 0650 Chemistry Sodium (137 - 145 mmol/L) 137 Potassium (3.5 - 5.1 mmol/L) 3.6 Chloride (98 - 107 mmol/L) 102 Carbon Dioxide (22 - 30 mmol/L) 27 Anion Gap (5 - 16) 8 BUN (9 - 20 mg/dL) 16 Creatinine (0.7 - 1.2 mg/dL) 0.9 Estimated GFR (>60 ml/min) > 60 BUN/Creatinine Ratio (7 - 25 %) 17.8 Hematology CBC w Diff NO MAN DIFF REQ WBC (4.8 - 10.8 /CUMM) 7.7 RBC (4.70 - 6.10 /CUMM) 3.39 L Hgb (14.0 - 18.0 G/DL) 9.6 L Hct (42 - 52 %) 28.9 L MCV (80.0 - 94.0 FL) 85.2 MCH (27.0 - 31.0 PG) 28.2 RDW (11.5 - 14.5 %) 14.5 Plt Count (130 - 400 /CUMM) 133 MPV (7.4 - 10.4 FL) 7.6 Gran % (42.2 - 75.2 %) 79.0 H Lymphocytes % (20.5 - 51.1 %) 16.4 L Monocytes % (1.7 - 9.3 %) 4.0 Eosinophils % (0 - 5 %) 0.5 Basophils % (0.0 - 2.0 %) 0.1 Absolute Granulocytes (1.4 - 6.5 /CUMM) 6.1 Absolute Lymphocytes (1.2 - 3.4 /CUMM) 1.3 Absolute Monocytes (0.10 - 0.60 /CUMM) 0.3 Absolute Eosinophils (0.0 - 0.7 /CUMM) 0 Absolute Basophils (0.0 - 0.2 /CUMM) 0 PUBS MCHC (33.0 - 37.0 G/DL) 33.1 Last 24 Hours of Arsenio Results: atient : SONIDO HENRIQUEZ Acct: [id number] DR: Zuleyka Velazquez MD Birthdate: [birth year] Age/Sex: 77/M Unit: [id number] Loc: 2NB [phone] Status : ADM IN SPEC #: [id number] JOSI: 10/24/17 STATUS: RES RECD: 10/24/[address]: Celeste LEAL, Richard Beltran SOURCE: BLOOD ENTR: 10/24/[address]: Karin LEAL,Martin Max SPDESC: 2ND/VENOUS ORDERED: BLOOD CULTURE Procedure Result > BLOOD CULTURE REPORT Preliminary 10/26/17 GRAM STAIN SUGGESTIVE OF: YEAST Called to/Readback by TAMR by [facility] 10/26/1716 SPEC #: [id number] JOSI: 10/24/17 STATUS: COMP RECD: 10/24/[address]: Melvin LEAL,Joel SOURCE: URINE ROUT ENTR: 10/24/[address]: Marcus LEAL,Zuleyka SPDESC: BAILEE Frazier MD,Martin Max ORDERED: URINE CULTURE Procedure Result > URINE CULTURE Final 10/26/17 Approx. 15,000 colonies per ml OF: ENTEROBACTER AEROGENES Approx. 10,000 colonies per ml OF: ENTEROCOCCUS E.AEROGENE Enteroc RX AB RX AB ------ -- ------ -- AMPICILLIN R S CEFAZOLIN R AMOX/CLAV AUGM R AMP/SULB-UNASYN R CEFOXITIN R CEFTAZIDIME R CEFTRIAXONE I CIPROFLOXACIN S GENTAMICIN S NITROFURANTOIN S S TRIMETH/SULFA S VANCOMYCIN S 1. ENTEROBACTER AEROGENES RX AB ------ -- AMPICILLIN R CEFAZOLIN R AMOXICILLIN/CLAVULINIC ACID R AMPICILLIN/SULBACTAM R CEFOXITIN R CEFTAZIDIME R CEFTRIAXONE I CIPROFLOXACIN S GENTAMICIN S NITROFURANTOIN S TRIMETHOPRIM/SULFAMETHOXAZOLE S 2. ENTEROCOCCUS RX AB ------ -- AMPICILLIN S NITROFURANTOIN S VANCOMYCIN S Note: Infectious Diseases Society of [place] Guidelines state that asymptomatic bacteriuria is not associated with any increase in morbidity or mortality in most patients and therefore treatment is usually not indicated unless patients are less than five years old, or about to undergo urological procedures. Diagnostic Data Recent Imaging Findings: SERVICE DATE: 10/24/17 EXAM TYPE: RAD - XRY-PORTABLE CHEST XRAY EXAMINATION: XR PORTABLE CHEST CLINICAL INFORMATION: Dyspnea COMPARISON: 10/14/2017 TECHNIQUE: Portable frontal view of the chest was obtained. FINDINGS: Cardiac leads overlie the chest. The right costophrenic angle is not fully included on this study. The lungs are well expanded. No consolidation, edema, or effusion. No pneumothorax. The cardiomediastinal silhouette is unchanged, with a calcified aorta. IMPRESSION: No acute pulmonary finding. DICTATED BY: Toro Hodgson MD DATE/TIME DICTATED:10/24/17630 SPECIAL POLICE:LORA DATE/TIME TRANSCRIBED:10/24/17630 CONFIDENTIAL, DO NOT COPY WITHOUT APPROPRIATE AUTHORIZATION. <Electronically signed in Other Vendor System> SIGNED BY: Toro Hodgson MD 10/24 Assessment/Plan Assessment/Plan Impression: 77-year-old gentleman with medical history significant for COPD on 2 L of nocturnal oxygen history of atrial fibrillation status post ablation, heart failure with preserved ejection fraction, pulmonary hypertension, mild aortic stenosis, UTIs, nephrolithiasis, hydronephrosis status post lithotripsy and stent placement, history of recurrent candidemia (05/07/17, 07/10/17, 10/14/17, ) secondary to presumed urologic origin readmitted 10/24 with influenza A. Persistent candidemia could be due to R to fluconazole vs persistent infection ( urologic origin vs deep endovasc infection) Suggestion: 1. Trend CBC, BMP, LFT's. ESR, CRP in am. 2. JANET recommended. 3. Urology eval (if feasibale removal of the stent). Repeat UA/UC. 4. As micafungin not available per pharmacy, high dose fluconazole 800 mg iv x1 today; followed by 400 mg iv daily. Consult Acknowledgment - Thank you for your consult request.
[2017-10-26 23:42] VITALS: BP 133/65
[2017-10-27 07:12] VITALS: BP 107/75
--- NOTE | 2017-10-27 07:30 | Cons- Urology ---
General Information and HPI Consulting Request Date of Consult: 10/27/17 Requested By: Zuleyka Velazquez MD Reason for Consult: Persistent candiduria and candidemia Source of Information: patient, old records Exam Limitations: no limitations History of Present Illness: Pt known to me. He has had recurrent candiduria and candidemia and was found to have a large R distal ureteral stone with obstruction. A R ureteral stent was placed about 6 months ago. Due to his recurrent candiduria and candidemia last week he underwent R ureteroscopy and laser litho of the R ureteral stone and stent exchange. He was to be seen in the office tomorrow for stent removal but is now admitted with influenza and again recent blood cultures positive for thais. He is voiding adequately with pink urine. Allergies/Medications Allergies: Coded Allergies: crab (SOFT SHELL CRAB - FACIAL SWELLING 02/10/17) Home Med List: Albuterol Sulfate 2.5 MG/3 ML (0.083 %) VIAL.NEB 1 Vial INH/SHERRY BID COPD ( Reported) Albuterol Sulfate (Proair Hfa) 90 MCG HFA.AER.AD 2 PUF INH Q4H PRN RESP ( Reported) Apixaban (Eliquis) 5 MG TABLET 1 TAB PO BID BLOOD THINNER (Reported) Arformoterol Tartrate (Brovana) 15 MCG/2 ML VIAL.NEB 1 VIAL INH BID COPD ( Reported) Atorvastatin Calcium 40 MG TABLET 1 TAB PO DAILY hyperlipidemia (Reported) Budesonide 0.5 MG/2 ML AMPUL.NEB 1 Vial INH/SHERRY BID RESP. (Reported) Fluconazole 200 MG TABLET 2 TAB PO DAILY Candidemia and candiduria Herbal Drugs (Colon Herbal Cleanser) (Unknown Strength) CAPSULE (Unknown Dose) PO DAILY PROBIOTIC (Reported) Linaclotide (Linzess) 290 MCG CAPSULE 1 CAP PO DAILY GI (Reported) Oseltamivir Phosphate (Tamiflu) 75 MG CAPSULE 1 TAB PO BID Influenza Pioglitazone HCl 45 MG TABLET 1 TAB PO DAILY DM (Reported) Prednisone 10 MG TABLET 0 PO DAILY COPD On Take 10/22-10/24 50 MG 10/25-10/27 40 MG 10/28-10/30 30 MG 10/31-11/02 20 MG 11/03-11/05 10 MG Then Stop Roflumilast (Daliresp) 500 MCG TABLET 1 TAB PO DAILY COPD (Reported) Sitagliptin Phosphate (Januvia) 50 MG TABLET 1 TAB PO DAILY DM (Reported) Tamsulosin HCl (Flomax) 0.4 MG CAP.ER.24H 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 Tiotropium [place] (Spiriva) 18 MCG CAP.W.DEV 1 CAP INH DAILY COPD (Reported) Trazodone HCl 50 MG TABLET 2 TAB PO QPM MENTAL HEALTH/SLEEP (Reported) Past History Medical History Blood Transfusion Hx: No Neurological: NONE EENT: allergies Cardiovascular: AFIB Respiratory: COPD Gastrointestinal: constipation Hepatic: NONE Renal: nephrolithiasis Musculoskeletal: falls Psychiatric: NONE Endocrine: diabetes Blood Disorders: NONE 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 Home Who Do You Live With? spouse Services at Home: None Primary Language: Burundian Smoking Status: Former Smoker Functional Ability ADLs Independent: dressing. Ambulation: independent IADLs Independent: shopping, housework, finances, food prep, telephone, transportation , medication admin. Exam & Diagnostic Data Vital Signs and I&O Vital Signs Date Time Temp Pulse Resp B/P B/P Pulse O2 O2 Flow FiO2 Mean Ox Delivery Rate 10/27 0712 98.4 74 20 107/75 98 Nasal 2.0L Cannula 10/26 2342 97.5 75 18 133/65 98 Nasal 2.0L Cannula 10/26 1959 94 Room Air 10/26 1514 98.9 92 20 126/68 93 Nasal Cannula 10/26 1020 94 Room Air 10/26 1005 80 124/64 Intake & Output 10/27 0800 10/27 0000 10/26 1600 10/26 0800 10/26 0000 10/25 1600 Intake Total 120 720 600 210 400 755 Output Total 900 149 990 0404 500 770 Balance -780 170 100 -1390 -100 -15 Intake, IV 10 75 Intake, Oral 120 720 600 200 400 680 Number 0 0 0 Bowel Movements Output, Urine 900 997 736 1704 500 770 No acute distress Abd: soft and non tender Genitalia: normal Laboratory Tests 10/27 0645 Chemistry Sodium Pending Potassium Pending Chloride Pending Carbon Dioxide Pending Anion Gap Pending BUN Pending Creatinine Pending BUN/Creatinine Ratio Pending Total Bilirubin Pending Direct Bilirubin Pending AST Pending ALT Pending Alkaline Phosphatase Pending C-React Prot High Sens Pending Total Protein Pending Albumin Pending Hematology CBC w Diff Pending WBC Pending RBC Pending Hgb Pending Hct Pending MCV Pending MCH Pending RDW Pending Plt Count Pending MPV Pending PUBS MCHC Pending ESR Westergren Pending Assessment/Plan Assessment/Plan Imp: 1. Recurrent candiduria and candidemia 2. s/p R ureteroscopy, laser litho and removal of R ureteral stone last week with R ureteral stent still in place 3. Influenza Plan: 1. R ureteral stent removed at bedside this AM 2. ? need to get sensitivities to the thais 3. Antifungals per ID Consult Acknowledgment - Thank you for your consult request.
--- NOTE | 2017-10-27 07:37 | PN- Housestaff ---
[facility] 10/27/17 0736: Subjective Follow-up For: Influena A infection Candidemia COPD exacerbation Subjective: No overnight events. Patient remained afebrile overnight. Patient is seen and examined this morning. He denied any chest pain, short of breath, nausea, vomiting, chills, fever, abdominal pain and dysuria. Review of Systems Constitutional: Reports: no symptoms. EENTM: Reports: no symptoms. Cardiovascular: Reports: no symptoms. Respiratory: Reports: no symptoms. Gastrointestinal: Reports: no symptoms. Genitourinary: Reports: no symptoms. Musculoskeletal: Reports: no symptoms. Neurological/Psychological: Reports: no symptoms. Objective Last 24 Hrs of Vital Signs/I&O Vital Signs Date Time Temp Pulse Resp B/P B/P Pulse O2 O2 Flow FiO2 Mean Ox Delivery Rate 10/27 1056 132/80 10/27 0852 98 Nasal 2.0L Cannula 10/27 0800 95 Room Air 10/27 0712 98.4 74 20 107/75 98 Nasal 2.0L Cannula 10/26 2342 97.5 75 18 133/65 98 Nasal 2.0L Cannula 10/26 1959 94 Room Air 10/26 1514 98.9 92 20 126/68 93 Nasal Cannula Intake & Output 10/27 1600 10/27 0800 10/27 0000 Intake Total 120 720 Output Total 1200 550 Balance -1080 170 Intake, Oral 120 720 Number 0 Bowel Movements Output, Urine 1200 550 Physical Exam General Appearance: Alert, Oriented X3, Cooperative, No Acute Distress Skin Temp/Moisture Exam: Warm/Dry Sepsis Skin Exam (color): Normal for Ethnicity HEENT: Atraumatic, PERRLA, EOMI Neck: Supple Cardiovascular: Normal S1, Normal S2 Lungs: Clear to Auscultation Abdomen: Soft, No Tenderness Neurological: Normal Speech, Strength at 5/5 X4 Ext, Normal Tone, Sensation Intact Extremities: No Edema Assessment/Plan Assessment: This is 77-year-old gentleman with medical history significant for COPD on 2 L of nocturnal oxygen history of atrial fibrillation status post ablation, heart failure with preserved ejection fraction, pulmonary hypertension, mild aortic stenosis, UTIs, nephrolithiasis, hydronephrosis status post lithotripsy and stent placement, 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 Patient to grow gram-negative fluids and gram-positive cocci in his urine culture less than 10,000 colonies. Waiting final results. COPD exacerbation precipitated by Influenza ifction: -Continue Tamiflu 75 mg twice a day. -Continue prednisone 40 mg daily -TRC nebs as needed. -Supplemental O2 to keep saturation >90%. Candidemia: -patient's blood culture is still positive with yeast. -Caspofungin will be started today. JANET to rule out endocarditis tomorrow. -we will follow the blood cultures. -ureteric stant was removed this morning on bed side. History of diabetes: -We'll hold the oral hypoglycemic medications. -Accu-Cheks -Insulin NovoLog according to sliding scale. History of Atrial fibrillation status post ablation: -We will continue Eliquis H/O HFpEF: -Last echo is showing ejection fraction more than 65% with stage II diastolic heart failure. History of hyperlipidemia: -We will continue Lipitor DVT prophylaxis: Patient is already on Eliquis CODE STATUS: Full code Problem List: 1. Influenza A 2. Candidemia 3. 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 fib S/P ablation, BPH, history of candidemia, recently admitted for candidemia sepsis and discharge home on Fluconazole, returns with 1 day of lethargy, weakness, diffuse myalgia, and worsening dyspnea, found to be Influenza A positive. Patient reports dyspnea and fatigue with minimal exertion. He is asymptomatic at rest. Blood cultures still growing [place]. 1. Influenza A 2. COPD Exacerbation 3. Chronic hypoxemic respiratory failure 4. Nephrolithiasis 5. Candidemia Plan - Continue on general medicine - ID consult for persistent candidemia - Continue Tamiflu - Continue Prednisone 40mg x 5 days - Continue Fluconazole IV - Follow blood cultures - Continue home medications - Continue Eliquis - PT eval - PT eval
[2017-10-27 07:50] LABS: ABSOLUTE BASOPHIL COUNT 0 /CUMM (0.0-0.2); ABSOLUTE EOSINOPHIL COUNT 0 /CUMM (0.0-0.7); ABSOLUTE LYMPH COUNT 1.4 /CUMM (1.2-3.4); ABSOLUTE MONOCYTE COUNT 0.4 /CUMM (0.10-0.60); BASOPHIL % 0.2 % (0.0-2.0); EOSINOPHIL % 0.4 % (0-5); GRANULOCYTE % 79.2 % (42.2-75.2); HEMATOCRIT 32.7 % (42-52); MEAN CORPUSCULAR HGB 28.8 PG (27.0-31.0); MEAN CORPUSCULAR HGB CONC 33.9 G/DL (33.0-37.0); MEAN PLATELET VOLUME 7.4 FL (7.4-10.4); PLATELET COUNT 150 /CUMM (130-400); RBC DISTRIBUTION WIDTH 14.9 % (11.5-14.5); RED BLOOD CELL CT 3.85 /CUMM (4.70-6.10); WHITE BLOOD CELL COUNT 8.8 /CUMM (4.8-10.8)
--- NOTE | 2017-10-27 09:29 | Discharge Summary ---
Visit Information Visit Dates Admission Date: 10/26/17 Discharge Date: 11/05/2017 Hospital Course Course Attending Physician: Zuleyka Velazquez MD Primary Care Physician: Martin Frazier MD Consulting Request: 1 Consulting Specialty: Cardiology Consulting Request: 2 Consulting Specialty: Infectious Disease Hospital Course: This is 77-year-old gentleman with medical history significant for COPD on 2 L of nocturnal oxygen history of atrial fibrillation status post ablation, heart failure with preserved ejection fraction, pulmonary hypertension, mild aortic stenosis, UTIs, nephrolithiasis, hydronephrosis status post lithotripsy and stent placement, 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 Problem list: -Aortic valve vegetation-fungal/Candidemia -Influenza A -Dehydration/hypokalemia -COPD exacerbation. -Chronic hypoxic respiratory failure Hospital course: Patient was admitted to general medicine floor, started on Tamiflu for his post influenza A, also the patient was recently discharged from the hospital on fluconazole 400 mg, his most recent blood culture that was drawn when prior to his previous discharge 10/24/2017 weeks ago still growing yeast. After consultation with the ID team patient was started on IV fluconazole, on the second day the antifungal changed to IV capsofungin with loading dose of 70mg and after that 50 mg daily. On the same day we redraw another set of blood cultures. And his urologist remove his ureteric stent at bedside. The 2017 blood cultures set came back positive for yeast. Also, the blood cultures from the 10/30/2017 came back positive with yeast. The sensitivity came back sensitive to fluconazole and Capsofungin. 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 TTE was done and his paint tester recommended JANET for further evaluation. The first JANET according to his paint tester was with some technical difficulty. Another JANET was done that showed aortic valve vegetation. During his hospital stay the patient remained afebrile, within normal WBC count. On the Day of Transfer We Increase His Dose to the Maximum 150 Mg IV As Recommended by ID Team. Patient received a total dose of 10 days of Capsofungin so far. After consulting the cardiothoracic, infectious disease and his vegetable buncher they recommend the patient to be transferred for higher facility care as he will need surgical intervention to remove the fungal valve vegetation. Due to his underlying COPD, patient was started on by mouth prednisone with taper along with TRC and nabs. Also we address his hypokalemia and hypomagnesemia with electrolyte replacement. Imaging: The JANET 11/05/2017 We will fax with the final official report. ECHOCARDIOGRAM CONCLUSIONS Normal size left ventricle. Mild concentric left ventricular hypertrophy. No obvious regional wall motion abnormalities. Normal left ventricular ejection fraction visually estimated at > 65%. Abnormal relaxation filling pattern of the left ventricle for age (stage 1 diastolic dysfunction). Mildly increased resting left ventricular outflow tract velocity (1.4 m/s). Normal right ventricular size and function. Normal right atrial size. Mild left atrial dilatation. Trace mitral regurgitation. Mild aortic stenosis. Mild aortic regurgitation. Trace tricuspid regurgitation. Unable to estimate the right ventricular systolic pressure. No definite valvular vegetations observed, but a technically difficult study. Consider transesophageal echocardiography (JANET) if clinically indicated. Allergies: Coded Allergies: No Known Allergies (10/31/17) Pertinent Lab Results: Laboratory Tests 11/05/17 0400: Anion Gap 7, Estimated GFR > 60, BUN/Creatinine Ratio 20.0, CBC w Diff NO MAN DIFF REQ, RBC 3.57 L, MCV 85.0, MCH 28.2, MCHC 33.2, RDW 15.8 H, MPV 6.8 L, Gran % 78.0 H, Lymphocytes % 14.5 L, Monocytes % 6.1, Eosinophils % 0.9, Basophils % 0.5, Absolute Granulocytes 5.8, Absolute Lymphocytes 1.1 L, Absolute Monocytes 0.5, Absolute Eosinophils 0.1, Absolute Basophils 0 11/04/17 0740: Anion Gap 7, Estimated GFR > 60, BUN/Creatinine Ratio 19.0, Magnesium 1.8 11/03/17 1918: Anion Gap 8, Estimated GFR > 60, BUN/Creatinine Ratio 24.0, Magnesium 1.8 11/03/17 0645: Anion Gap 8, Estimated GFR > 60, BUN/Creatinine Ratio 18.6, Magnesium 1.5 L, Total Bilirubin 0.3, Direct Bilirubin 0.2, AST 17, ALT 35, Alkaline Phosphatase 50, Total Protein 4.0 L, Albumin 1.9 L Microbiology 11/04 1051 BLOOD: Blood Culture - RES 11/04 0740 BLOOD: Blood Culture - RES Disposition Summary Disposition Principal Diagnosis: -Aortic valve vegetation/Candidemia -Influenza A Additional Diagnosis: -Dehydration/hypokalemia -COPD exacerbation. -Chronic hypoxic respiratory failure Discharge Disposition: other general hospital Discharge Instructions General Discharge Information Code Status: Full Code Patient's Diet: Diabetic diet Patient's Activity: As torleated Follow-Up Instructions/Appts: Follow up with your PCP in one week. Follow up with vegetable buncher in onbe week. Follow up with cardiothoracic surgery as soon as possible. Medications at Discharge Discharge Medications: Stop taking the following medications: Fluconazole (Fluconazole) 200 MG TABLET ORAL DAILY Qty = 18 Prednisone (Prednisone) 10 MG TABLET ORAL DAILY Days = 15 Continue taking these medications: Albuterol Sulfate (Albuterol Sulfate) 2.5 MG/3 ML (0.083 %) VIAL.NEB 1 Vial Inhale Solution TWICE DAILY Qty = 75 Comments: Last Taken: 07/16/17 Time: 12:10 PM Arformoterol Tartrate (Brovana) 15 MCG/2 ML VIAL.NEB 1 VIAL Inhale through mouth TWICE DAILY Qty = 120 Comments: Last Taken: NOT GIVEN IN HOSPITAL Time: Roflumilast (Daliresp) 500 MCG TABLET 1 Tablet ORAL DAILY Qty = 30 Comments: Last Taken: 07/16/17 Time: 10:20 AM Pioglitazone HCl (Pioglitazone HCl) 45 MG TABLET 1 Tablet ORAL DAILY Qty = 90 Comments: Last Taken: NOT GIVEN Time: Sitagliptin Phosphate (Januvia) 50 MG TABLET 1 Tablet ORAL DAILY Qty = 30 Comments: Last Taken: NOT GIVEN Time: Tamsulosin HCl (Flomax) 0.4 MG CAP.ER.24H 0.4 Milligram ORAL DAILY Qty = 30 Comments: Last Taken: 07/16/17 Time: 10:20 AM Linaclotide (Linzess) 290 MCG CAPSULE 1 Capsule ORAL DAILY Qty = 30 Comments: Last Taken: 07/16/17 Time: 10:20 AM Tiotropium [place] (Spiriva) 18 MCG CAP.W.DEV 1 Capsule Inhale through mouth DAILY Qty = 30 Comments: Last Taken: 07/16/17 Time: 9:50 AM Trazodone HCl (Trazodone HCl) 50 MG TABLET 2 Tablet ORAL Every night Qty = 60 Comments: Last Taken: 07/15/17 Time: 10:00 PM Herbal Drugs (Colon Herbal Cleanser) (Unknown Strength) CAPSULE Unknown Dose ORAL DAILY Comments: Last Taken: NOT GIVEN Time: Apixaban (Eliquis) 5 MG TABLET 1 Tablet ORAL TWICE DAILY Qty = 60 Comments: LAST GIVEN 10/21/17 @ 1044 Budesonide (Budesonide) 0.5 MG/2 ML AMPUL.NEB 1 Vial Inhale Solution TWICE DAILY Albuterol Sulfate (Proair Hfa) 90 MCG HFA.AER.AD 2 Puff Inhale through mouth Q4H as needed for RESP Comments: LAST GIVEN 10/21/17 @ 1124 Atorvastatin Calcium (Atorvastatin Calcium) 40 MG TABLET 1 Tablet ORAL DAILY Comments: LAST GIVEN 10/21/17 @ 1043 Start taking the following new medications: Caspofungin Acetate (Cancidas) 50 MG VIAL 150 Milligram INTRAVEN DAILY Qty = 30 No Refills Instructions: 150 MG caspofungin daily iv Potassium Chloride (Potassium Chloride) 10 MEQ CAPSULE.ER 1 Capsule ORAL DAILY Qty = 30 No Refills Magnesium Oxide (Magnesium) 400 MG CAPSULE 1 Capsule ORAL DAILY Qty = 30 No Refills Copies To: Femi LEAL,Gama Max; Carol LEAL,Angelito Bell; Karin LEAL,Martin Max
--- NOTE | 2017-10-27 11:47 | ECHOCARDIOGRAM REPORT ---
SONIDO HENRIQUEZ Age: 77 : 1940 Gender: M Exam Date: 10/27/2017 09:22 Exam Location: [address] [place] [address] Ht (in): 68 Wt (lb): 170 BSA: 1.94 BP: 107 / 75 Ordering Physician: Thomas Mooney MD Referring Physician: Thomas Mooney MD Technologist: Armen Bailon [facility] Room Number: 206-1 Indications: INFECTIVE ENDOCARDITIS Rhythm: Sinus Technical Quality: Technically difficult study FINDINGS Left Ventricle Normal size left ventricle. Mild concentric left ventricular hypertrophy. No obvious regional wall motion abnormalities. Normal left ventricular ejection fraction visually estimated at >65%. Abnormal relaxation filling pattern of the left ventricle for age (stage 1 diastolic dysfunction). Mildly increased resting left ventricular outflow tract velocity (1.4 m/s). Right Ventricle Normal right ventricular size and function. Right Atrium Normal right atrial size. Left Atrium Mild left atrial dilatation. Mitral Valve Mitral valve mildly thickened. No evidence of vegetation on the mitral valve. Trace mitral regurgitation. Aortic Valve Focal thickening of the aortic valve cusps. No definite evidence of vegetation on the aortic valve. Mild aortic stenosis. Mild aortic regurgitation. Tricuspid Valve Structurally normal tricuspid valve. No evidence of tricuspid valve vegetation. Trace tricuspid regurgitation. Unable to estimate the right ventricular systolic pressure. Pulmonic Valve Pulmonic valve not well visualized. No definite evidence of vegetation on the pulmonic valve. No pulmonic regurgitation. Pericardium No pericardial effusion. Great Vessels Normal size aortic root. CONCLUSIONS Normal size left ventricle. Mild concentric left ventricular hypertrophy. No obvious regional wall motion abnormalities. Normal left ventricular ejection fraction visually estimated at > 65%. Abnormal relaxation filling pattern of the left ventricle for age (stage 1 diastolic dysfunction). Mildly increased resting left ventricular outflow tract velocity (1.4 m/s). Normal right ventricular size and function. Normal right atrial size. Mild left atrial dilatation. Trace mitral regurgitation. Mild aortic stenosis. Mild aortic regurgitation. Trace tricuspid regurgitation. Unable to estimate the right ventricular systolic pressure. No definite valvular vegetations observed, but a technically difficult study. Consider transesophageal echocardiography (JANET) if clinically indicated. Gama Kahn M.D. (Electronically Signed) Final Date: 27 October 2017 11:46 MEASUREMENTS (Male / Female) Normal Values 2D ECHO LV Diastolic Diameter PLAX 3.8 cm 4.2 - 5.9 / 3.9 - 5.3 cm LV Systolic Diameter PLAX 2.3 cm 2.1 - 4.0 cm LV Fractional Shortening PLAX 39.5 % 25 - 46 % LV Ejection Fraction 2D Teich 70.8 % IVS Diastolic Thickness 1.2 cm LVPW Diastolic Thickness 1.2 cm LV Relative Wall Thickness 0.6 RV Internal Dim ED PLAX 2.8 cm 1.9 - 3.8 cm LVOT Diameter 2.0 cm Aortic Root Diameter 3.0 cm DOPPLER AV Peak Velocity 228.0 cm/s AV Peak Gradient 20.8 mmHg AV Mean Velocity 158.0 cm/s AV Mean Gradient 11.0 mmHg AV Velocity Time Integral 44.3 cm AI Deceleration Ber[place] 252.5 cm/s AI Peak Velocity 396.5 cm/s AI Pressure Half Time 497.0 ms AI Peak Gradient 62.9 mmHg LVOT Peak Velocity 139.0 cm/s LVOT Peak Gradient 7.7 mmHg LVOT Mean Velocity 93.3 cm/s LVOT Mean Gradient 4.0 mmHg LVOT Velocity Time Integral 26.9 cm LVOT Stroke Volume 84.5 cm AV Area Cont Eq vti 1.9 cm AV Area Cont Eq pk 1.9 cm MV Peak Velocity 80.0 cm/s MV Peak Gradient 2.6 mmHg MV Mean Velocity 53.9 cm/s MV Mean Gradient 1.0 mmHg Mitral E Point Velocity 57.3 cm/s Mitral A Point Velocity 70.1 cm/s Mitral E to A Ratio 0.8 MV PHT Velocity 70.6 cm/s MV Deceleration Berrien 256.0 cm/s MV Pressure Half Time 82.7 ms MV Area PHT 2.7 cm MV Deceleration Time 363.0 ms PV Peak Velocity 164.0 cm/s PV Peak Gradient 10.8 mmHg PV Mean Velocity 111.0 cm/s PV Mean Gradient 6.0 mmHg PV Velocity Time Integral 27.2 cm LV E' Septal Velocity 7.2 cm/s Mitral E to LV E' Septal Ratio 7.9
--- NOTE | 2017-10-27 13:56 | PN- Infect Dx ---
Subjective Subjective: Afebrile on steroids. He feels improved, though he continues to note shortness of breath with exertion and chronic left knee pain. Objective Last 24 Hrs of Vital Signs/I&O Vital Signs Date Time Temp Pulse Resp B/P B/P Pulse O2 O2 Flow FiO2 Mean Ox Delivery Rate 10/27 1056 132/80 10/27 0852 98 Nasal 2.0L Cannula 10/27 0800 95 Room Air 10/27 0712 98.4 74 20 107/75 98 Nasal 2.0L Cannula 10/26 2342 97.5 75 18 133/65 98 Nasal 2.0L Cannula 10/26 1959 94 Room Air 10/26 1514 98.9 92 20 126/68 93 Nasal Cannula Intake & Output 10/27 1600 10/27 0800 10/27 0000 Intake Total 120 720 Output Total 1200 550 Balance -1080 170 Intake, Oral 120 720 Number 0 Bowel Movements Output, Urine 1200 550 Physical Exam Other Physical Findings: He appears comfortable in no acute distress HEENT negative Lungs scattered rhonchi Heart regular rhythm with no murmur Back no CVA tenderness Extremities no joint inflammation Results Last 24 Hours of Lab Results: Laboratory Tests 10/27 0645 Chemistry Sodium (137 - 145 mmol/L) 137 Potassium (3.5 - 5.1 mmol/L) 3.8 Chloride (98 - 107 mmol/L) 100 Carbon Dioxide (22 - 30 mmol/L) 29 Anion Gap (5 - 16) 8 BUN (9 - 20 mg/dL) 17 Creatinine (0.7 - 1.2 mg/dL) 0.9 Estimated GFR (>60 ml/min) > 60 BUN/Creatinine Ratio (7 - 25 %) 18.9 Total Bilirubin (0.2 - 1.3 mg/dL) 0.3 Direct Bilirubin (< 0.4 mg/dL) 0.2 AST (17 - 59 U/L) 17 ALT (21 - 72 U/L) 31 Alkaline Phosphatase (< 127 U/L) 75 C-React Prot High Sens (1.0 - 3.0 mg/L) 3.2 H Total Protein (6.3 - 8.2 g/dL) 5.3 L Albumin (3.5 - 5.0 g/dL) 2.7 L Hematology CBC w Diff NO MAN DIFF REQ WBC (4.8 - 10.8 /CUMM) 8.8 RBC (4.70 - 6.10 /CUMM) 3.85 L Hgb (14.0 - 18.0 G/DL) 11.1 L Hct (42 - 52 %) 32.7 L MCV (80.0 - 94.0 FL) 85.0 MCH (27.0 - 31.0 PG) 28.8 RDW (11.5 - 14.5 %) 14.9 H Plt Count (130 - 400 /CUMM) 150 MPV (7.4 - 10.4 FL) 7.4 Gran % (42.2 - 75.2 %) 79.2 H Lymphocytes % (20.5 - 51.1 %) 15.9 L Monocytes % (1.7 - 9.3 %) 4.3 Eosinophils % (0 - 5 %) 0.4 Basophils % (0.0 - 2.0 %) 0.2 Absolute Granulocytes (1.4 - 6.5 /CUMM) 7.0 H Absolute Lymphocytes (1.2 - 3.4 /CUMM) 1.4 Absolute Monocytes (0.10 - 0.60 /CUMM) 0.4 Absolute Eosinophils (0.0 - 0.7 /CUMM) 0 Absolute Basophils (0.0 - 0.2 /CUMM) 0 PUBS MCHC (33.0 - 37.0 G/DL) 33.9 ESR Westergren (0 - 10 MM) 16 H Last 24 Hours of Arsenio Results: Blood cultures 2 October 24 positive for yeast Urine culture October 24 approximately 15,000 colonies of Enterobacter aerogenes sensitive to Ciprofloxacin, Gentamicin, Nitrofurantoin and Bactrim and approximately 10,000 colonies of Enterococcus sensitive to Ampicillin Recent Imaging Studies: Echocardiogram October 27, felt to be a technically difficult study, was negative for any definite valvular vegetations Assessment/Plan Impression: Stable, with temperatures and white blood cell count remaining normal (on steroids) on Fluconazole for persistent candidemia after 8 days of treatment, now Day 11 of treatment for what was presumed to be a Concetta pyelonephritis, status post cystoscopy, right ureteroscopy, with laser lithotripsy of the stone and exchange of the right ureteral stent 8 days ago, with removal of the stent earlier today. Though the urinary tract may still be the source of his infection, perhaps related to the stent, must consider other possible sources, including the heart valves, with his transthoracic Echocardiogram, felt to be a poor study, negative. Of note a recent CT of the abdomen and pelvis was negative for any evidence for lesions in the liver, spleen or kidneys to suggest systemic candidiasis. He does report visual changes over the past 6 months, and ophthalmologic evaluation may be indicated to rule out ophthalmic candidiasis. He remains on Tamiflu Day 3 of treatment for Influenza, which likely explains some of his symptoms prior to admission. The positive urine culture for Enterococcus and Enterobacter is of unclear significance with low colony counts. Suggestion: 1. Ophthalmologic evaluation to rule out Concetta ophthalmitis 2. Would pursue JANET 3. Discontinue Fluconazole 4. Begin Caspofungin 70 mg IV 1 today, followed by 50 g IV every 24 hours 5. Continue Tamiflu
[2017-10-27 14:23] VITALS: BP 112/44
[2017-10-27 21:53] VITALS: BP 108/62
[2017-10-28 05:52] VITALS: BP 110/68
--- NOTE | 2017-10-28 07:46 | PN- Housestaff ---
[place] 10[place]28[place]17 0745: Subjective Follow-up For: Influena A infection Candidemia COPD exacerbation Hypokalemia Subjective: No overnight events. Patient remained afebrile. Seen and examined this morning. He denied any chest pain, short of breath, nausea, vomiting, chills, fever, abdominal pain dysuria. He is nothing by mouth and going for cause as to changes echocardiogram but his potassium level is 2.7 today so there is a possibility that the anesthesiologist is not current give him anesthesia with the level of potassium. We will hold his morning dose of Eliquis for JANET tomorrow as I talked to Dr. Kahn and asked him about the anticoagulation. Review of Systems Constitutional: Reports: no symptoms. EENTM: Reports: no symptoms. Cardiovascular: Reports: no symptoms. Respiratory: Reports: no symptoms. Gastrointestinal: Reports: no symptoms. Genitourinary: Reports: no symptoms. Musculoskeletal: Reports: no symptoms. Neurological/Psychological: Reports: no symptoms. Objective Last 24 Hrs of Vital Signs/I&O Vital Signs Date Time Temp Pulse Resp B/P B/P Pulse O2 O2 Flow FiO2 Mean Ox Delivery Rate 10/28 0925 95 Room Air Room Air 10/28 0905 95 Room Air Room Air 10/28 0747 20 95 Room Air 10/28 0552 97.5 65 22 110/68 95 Nasal 2.0L Cannula 10/28 0000 Nasal 2.0L Cannula 10/27 2153 97.5 78 19 108/62 96 Room Air 10/27 1941 96 Nasal 2.0L Cannula 10/27 1600 Room Air Room Air 10/27 1423 97.7 99 20 112/44 98 Room Air 10/27 1056 132/80 Intake & Output 10/28 1600 10/28 0800 10/28 0000 Intake Total 690 480 Output Total 650 600 Balance 40 -120 Intake, IV 450 Intake, Oral 240 480 Output, Urine 650 600 Physical Exam General Appearance: Alert, Oriented X3, Cooperative, No Acute Distress Skin Temp/Moisture Exam: Warm/Dry HEENT: Atraumatic, PERRLA, EOMI Neck: Supple Cardiovascular: Normal S1, Normal S2 Lungs: Clear to Auscultation Abdomen: Soft, No Tenderness Neurological: Normal Speech, Strength at 5/5 X4 Ext, Normal Tone, Sensation Intact Extremities: No Edema Assessment/Plan Assessment: This is 77-year-old gentleman with medical history significant for COPD on 2 L of nocturnal oxygen history of atrial fibrillation status post ablation, heart failure with preserved ejection fraction, pulmonary hypertension, mild aortic stenosis, UTIs, nephrolithiasis, hydronephrosis status post lithotripsy and stent placement, 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 Patient to grow gram-negative fluids and gram-positive cocci in his urine culture less than 10,000 colonies. Waiting final results. COPD exacerbation precipitated by Influenza ifction: -Continue Tamiflu 75 mg twice a day.we will stop his tamiflu today as he will complete five days of treatment. -Continue prednisone 40 mg daily -TRC nebs as needed. -Supplemental O2 to keep saturation >90%. Candidemia: -patient's blood culture is still positive with yeast. -Caspofungin will be started today. JANET to rule out endocarditis tomorrow. -we will follow the blood cultures. -ureteric stant was removed this morning on bed side. -will go for JANET tomorrow as today his potassium level is 2.7 Hypokalemia: -patient having low potassium today 2.7 and magnesium 1.5 -we will replete it. History of diabetes: -We'll hold the oral hypoglycemic medications. -Accu-Cheks -Insulin NovoLog according to sliding scale. History of Atrial fibrillation status post ablation: -We will continue Eliquis H/O HFpEF: -Last echo is showing ejection fraction more than 65% with stage II diastolic heart failure. History of hyperlipidemia: -We will continue Lipitor DVT prophylaxis: Patient is already on Eliquis CODE STATUS: Full code Problem List: 1. COPD exacerbation 2. Influenza A 3. Candidemia 4. Hypokalemia Pain Ratin Pain Location: none Pain Goal: Remain pain free Pain Plan: tylenol for mild pain Tomorrow's Labs & Rationales: cbc/bep Zuleyka Velazquez MD 10/28/17 1207: Attending MD Review Statement Attending Statement Attending MD Statement: examined this patient, discuss w/resident/PA/PIPE FITTER SOFT COPPER, agreed w/resident/PA/PIPE FITTER SOFT COPPER, reviewed EMR data (avail) Attending Assessment/Plan: 77M PMH HFpEF, mild aortic stenosis, moderate pulmonary hypertension, COPD on nighttime 2 L nasal cannula oxygen, DM, HLD, history of nephrolithiasis S/P ureteral stenting, A. fib S/P ablation, BPH, history of candidemia, recently admitted for candidemia sepsis and discharge home on Fluconazole, returns with 1 day of lethargy, weakness, diffuse myalgia, and worsening dyspnea, found to be Influenza A positive. Patient reports dyspnea and fatigue with minimal exertion. He is asymptomatic at rest. Blood cultures still growing Concetta. 1. Influenza A 2. COPD Exacerbation 3. Chronic hypoxemic respiratory failure 4. Nephrolithiasis 5. Candidemia Plan - Continue on general medicine - Unable to perform JANET today due to hypokalemia, will replete and keep NPO overnight for JANET tomorrow - Follow ID recommendations - Complete Tamiflu course - Continue Prednisone 40mg x 5 days - Continue Caspofungin - Follow blood cultures - Continue home medications - Continue Eliquis - PT eval
[2017-10-28 14:05] VITALS: BP 126/64
--- NOTE | 2017-10-28 14:05 | PN- Infect Dx ---
Subjective Subjective: Afebrile on steroids. He feels fairly well with no new complaints. He continues to report hematuria with urinary frequency but denies dysuria. Objective Last 24 Hrs of Vital Signs/I&O Vital Signs Date Time Temp Pulse Resp B/P B/P Pulse O2 O2 Flow FiO2 Mean Ox Delivery Rate 10/28 0925 95 Room Air Room Air 10/28 0905 95 Room Air Room Air 10/28 0800 95 Room Air 10/28 0747 20 95 Room Air 10/28 0552 97.5 65 22 110/68 95 Nasal 2.0L Cannula 10/28 0000 Nasal 2.0L Cannula 10/27 2153 97.5 78 19 108/62 96 Room Air 10/27 1941 96 Nasal 2.0L Cannula 10/27 1600 Room Air Room Air 10/27 1423 97.7 99 20 112/44 98 Room Air Intake & Output 10/28 1600 10/28 0800 10/28 0000 Intake Total 690 480 Output Total 650 600 Balance 40 -120 Intake, IV 450 Intake, Oral 240 480 Output, Urine 650 600 Physical Exam Other Physical Findings: He appears comfortable in no acute distress Lungs scattered rhonchi bilaterally Heart regular rhythm with no murmur Back no CVA tenderness Results Last 24 Hours of Lab Results: Laboratory Tests 10/28 0635 Chemistry Sodium (137 - 145 mmol/L) 142 Potassium (3.5 - 5.1 mmol/L) 2.7 *L Chloride (98 - 107 mmol/L) 110 H Carbon Dioxide (22 - 30 mmol/L) 24 Anion Gap (5 - 16) 8 BUN (9 - 20 mg/dL) 16 Creatinine (0.7 - 1.2 mg/dL) 0.7 Estimated GFR (>60 ml/min) > 60 BUN/Creatinine Ratio (7 - 25 %) 22.9 Magnesium (1.6 - 2.3 mg/dL) 1.5 L Last 24 Hours of Arsenio Results: Blood cultures October 27 negative so far Assessment/Plan Impression: Stable, with temperatures and white blood cell count remaining normal (on steroids) now on Caspofungin for persistent candidemia after 8 days of Fluconazole for what was felt to be a Concetta pyelonephritis, with secondary candidemia, status post cystoscopy, right ureteroscopy, with laser lithotripsy of the stone and exchange of the right ureteral stent 9 days ago, with removal of the stent yesterday. He was hypokalemic (and hypomagnesemic) this morning, which may be a side effect of the Caspofungin. Though the urinary tract may still be the source of his infection, perhaps related to the stent, must consider other sources, including the heart valves, and he is scheduled for a JNAET in the a.m. (after a technically poor transthoracic echocardiogram was negative). Of note a recent CT of the abdomen and pelvis was negative for any evidence for lesions in the liver, spleen or kidneys to suggest systemic candidiasis. Ophthalmology evaluation was requested but apparently deferred until he is an outpatient. He remains on Tamiflu Day 5 of treatment for Influenza, which likely explains some of his symptoms prior to admission. Suggestion: 1. Ophthalmologic evaluation to rule out Concetta ophthalmitis as soon as feasible 2. Await JANET 3. Monitor potassium and magnesium closely on Caspofungin 4. Discontinue Tamiflu after this evening's dose 5. Continue Caspofungin 50 g IV every 24 hours
[2017-10-28 20:44] VITALS: BP 110/70
[2017-10-29 05:05] LABS: ABSOLUTE BASOPHIL COUNT 0 /CUMM (0.0-0.2); ABSOLUTE EOSINOPHIL COUNT 0 /CUMM (0.0-0.7); ABSOLUTE GRANULOCYTE CT 6.2 /CUMM (1.4-6.5); ABSOLUTE LYMPH COUNT 1.5 /CUMM (1.2-3.4); ABSOLUTE MONOCYTE COUNT 0.4 /CUMM (0.10-0.60); BASOPHIL % 0.3 % (0.0-2.0); EOSINOPHIL % 0.3 % (0-5); GRANULOCYTE % 76.5 % (42.2-75.2); MEAN CORPUSCULAR HGB 28.6 PG (27.0-31.0); MEAN CORPUSCULAR HGB CONC 33.5 G/DL (33.0-37.0); MEAN CORPUSCULAR VOLUME 85.5 FL (80.0-94.0); PLATELET COUNT 149 /CUMM (130-400); RBC DISTRIBUTION WIDTH 14.7 % (11.5-14.5); RED BLOOD CELL CT 3.51 /CUMM (4.70-6.10); WHITE BLOOD CELL COUNT 8.1 /CUMM (4.8-10.8)
[2017-10-29 05:33] VITALS: BP 130/72
--- NOTE | 2017-10-29 07:25 | PN- Housestaff ---
[facility] 0724: Subjective Follow-up For: Influena A infection Candidemia COPD exacerbation (resolved) Hypokalemia (resolved) Subjective: No overnight events. Patient remained afebrile overnight. Seen and examined this morning. Patient denied any chest pain, short of breath, nausea, vomiting, chills, fever and dysuria. Patient is using 2 units of oxygen during nighttime. He is nothing by mouth and going for JANET. Potassium was 3.7 this morning that was repleted. His fasting blood sugar was 124. Review of Systems Constitutional: Reports: no symptoms. EENTM: Reports: no symptoms. Cardiovascular: Reports: no symptoms. Respiratory: Reports: no symptoms. Gastrointestinal: Reports: no symptoms. Genitourinary: Reports: no symptoms. Musculoskeletal: Reports: no symptoms. Neurological/Psychological: Reports: no symptoms. Objective Last 24 Hrs of Vital Signs/I&O Vital Signs Date Time Temp Pulse Resp B/P B/P Pulse O2 O2 Flow FiO2 Mean Ox Delivery Rate 10/29 0533 97.7 76 22 130/72 96 Room Air 10/29 0000 Nasal 3.0L Cannula 10/28 2044 97.2 93 20 110/70 99 Nasal 2.0L Cannula 10/28 1935 94 Room Air 10/28 1600 Room Air 10/28 1405 97.8 94 20 126/64 93 Room Air 10/28 0925 95 Room Air Room Air 10/28 0905 95 Room Air Room Air Intake & Output 10/29 1600 10/29 0800 10/29 0000 Intake Total 600 Output Total 1150 300 Balance -550 -300 Intake, IV 600 Output, Urine 1150 300 Physical Exam General Appearance: Alert, Oriented X3, Cooperative, No Acute Distress Skin Temp/Moisture Exam: Warm/Dry Sepsis Skin Exam (color): Normal for Ethnicity HEENT: Atraumatic, PERRLA, EOMI Neck: Supple Cardiovascular: Normal S1, Normal S2 Lungs: Clear to Auscultation Abdomen: Soft, No Tenderness Neurological: Normal Speech, Normal Tone, Sensation Intact Extremities: No Edema Assessment/Plan Assessment: This is 77-year-old gentleman with medical history significant for COPD on 2 L of nocturnal oxygen history of atrial fibrillation status post ablation, heart failure with preserved ejection fraction, pulmonary hypertension, mild aortic stenosis, UTIs, nephrolithiasis, hydronephrosis status post lithotripsy and stent placement, 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 Patient to grow gram-negative fluids and gram-positive cocci in his urine culture less than 10,000 colonies. Waiting final results. COPD exacerbation precipitated by Influenza ifction: -Continue prednisone 40 mg daily -TRC nebs as needed. -Supplemental O2 to keep saturation >90%. -Tamiflu was stopped yesterday as he completed 5 days course. Candidemia: -patient's blood culture is still positive with yeast. -Caspofungin will be started today. JANET to rule out endocarditis today. -we will follow the blood cultures. -ureteric stant was removed this morning on bed side. Hypokalemia:(resolved) -patient having low potassium today 3.7 and magnesium 2. -we have repleted it. History of diabetes: -We'll hold the oral hypoglycemic medications. -Accu-Cheks -Insulin NovoLog according to sliding scale. History of Atrial fibrillation status post ablation: -We will continue Eliquis H/O HFpEF: -Last echo is showing ejection fraction more than 65% with stage II diastolic heart failure. History of hyperlipidemia: -We will continue Lipitor DVT prophylaxis: Patient is already on Eliquis CODE STATUS: Full code Problem List: 1. COPD exacerbation 2. Candidemia 3. Influenza A 4. Hypokalemia Pain Ratin Pain Location: none Pain Goal: Remain pain free Pain Plan: tylenol for mild pain Tomorrow's Labs & Rationales: cbc/bep Gabriel Pavon MD 10/29/17 8234: Attending MD Review Statement Attending Statement Attending MD Statement: examined this patient, discuss w/resident/PA/ROLL OPERATOR, agreed w/resident/PA/ROLL OPERATOR, reviewed EMR data (avail), discussed with nursing, discussed with case mgmt, amended to note Attending Assessment/Plan: The patient was seen and discussed with house staff. Doing better with influenza. Awaiting JANET. The patient was frustrated regarding rescheduling of test and anticipates tomorrow morning. Continue anti-fungal treatment as per ID. Tamiflu completed 5 day course.
--- NOTE | 2017-10-29 07:40 | PN- Urology ---
Subjective Subjective: No acute distress Objective Vital Signs and I&Os Vital Signs Date Time Temp Pulse Resp B/P B/P Pulse O2 O2 Flow FiO2 Mean Ox Delivery Rate 10/29 0533 97.7 76 22 130/72 96 Room Air 10/29 0000 Nasal 3.0L Cannula 10/28 2044 97.2 93 20 110/70 99 Nasal 2.0L Cannula 10/28 1935 94 Room Air 10/28 1600 Room Air 10/28 1405 97.8 94 20 126/64 93 Room Air 10/28 0925 95 Room Air Room Air 10/28 0905 95 Room Air Room Air 10/28 0800 95 Room Air 10/28 0747 20 95 Room Air Intake & Output 10/29 0800 10/29 0000 10/28 1600 10/28 0800 10/28 0000 10/27 1600 Intake Total 600 1200 106 775 6794 Output Total 1150 300 700 650 600 700 Balance -550 -300 500 40 -120 600 Intake, IV 600 300 450 400 Intake, Oral 900 240 480 900 Number 0 1 Bowel Movements Output, Urine 1150 300 700 650 600 700 Voiding spontaneously. Urine appears to be clearing. Now on caspofungin Assessment/Plan Assessment/Plan Imp: 1. Hx of urinary stones. Now s/p R ureteroscopy, laser litho and exchange of R ureteral stent and subsequent removal of stent on 10/28/17\ 2. candiduria and candidemia 3. Hematuria, improving. Likely due to stent removal and thais UTI Plan: 1. Antifungals per ID 2. No further urologic intervention
[2017-10-29 14:21] VITALS: BP 120/68
--- NOTE | 2017-10-29 16:29 | Discharge Summary ---
Visit Information Visit Dates Admission Date: 10/26/17 Hospital Course Course Attending Physician: Zuleyka Velazquez MD Primary Care Physician: Martin Frazier MD Hospital Course: 77M PMH HFpEF, mild aortic stenosis, moderate pulmonary hypertension, COPD on nighttime 2 L nasal cannula oxygen, DM, HLD, history of nephrolithiasis S/P ureteral stenting, A. fib S/P ablation, BPH, history of candidemia, recently admitted for candidemia sepsis and discharge home on Fluconazole, returns with 1 day of lethargy, weakness, diffuse myalgia, and worsening dyspnea, found to be Influenza A positive. ED course: Vitals: Temperature 98.2, pulse 85, respiratory rate 20, blood pressure 148/57, oxygen saturation 99% on 3 L of oxygen. Labs: WBC count 5.1, hemoglobin 12.3, hematocrit 37.5, platelet count 204, sodium 142, potassium 3.1, BUN 11, creatinine 1.0, glucose 199, BUNs/creatinine ratio 11.0, proBNP 2000, albumin 3.3, albumin/globulin ratio 1.1 Patient's influenza test was positive with influenza A and B. COPD exacerbation precipitated by Influenza ifction: Patient has a history of COPD on 2 L home oxygen as patient having chronic hypoxic respiratory failure. He presented with COPD exacerbation. Patient was given supplemental oxygen to maintain saturation above 90%. Patient's influenza test was positive. COPD was exacerbated with influenza infection. Patient was started on Tamiflu 75 mg twice a day for 5 days. Patient was also started on prednisone and that was tapered. Candidemia: -patient's blood culture is still positive with yeast. -Caspofungin will be started today. -we will follow the blood cultures. -ureteric stant was removed. -Patient is nothing by mouth and going for JANET today to rule out infective endocarditis. Hypokalemia:(resolved) -patient having low potassium today 4.1 and magnesium 2. -we have repleted it. S/P removal of right ureteric stent: -Right ureteric stent was removed on bedside on 10/27/17. -Patient will follow the urologist as outpatient for further recommendations. History of diabetes: -We'll hold the oral hypoglycemic medications. -Accu-Cheks -Insulin NovoLog according to sliding scale. History of Atrial fibrillation status post ablation: -We will continue Eliquis H/O HFpEF: -Last echo is showing ejection fraction more than 65% with stage I diastolic heart failure. History of hyperlipidemia: -We will continue Lipitor DVT prophylaxis: Patient is already on Eliquis CODE STATUS: Full code Allergies: Coded Allergies: No Known Allergies (10/31/17) Discharge Instructions Medications at Discharge Discharge Medications: Stop taking the following medications: Fluconazole (Fluconazole) 200 MG TABLET ORAL DAILY Qty = 18 Prednisone (Prednisone) 10 MG TABLET ORAL DAILY Days = 15 Continue taking these medications: Albuterol Sulfate (Albuterol Sulfate) 2.5 MG/3 ML (0.083 %) VIAL.NEB 1 Vial Inhale Solution TWICE DAILY Qty = 75 Comments: NOT GIVEN IN HOSPITAL Arformoterol Tartrate (Brovana) 15 MCG/2 ML VIAL.NEB 1 VIAL Inhale through mouth TWICE DAILY Qty = 120 Comments: Last Taken: NOT GIVEN IN HOSPITAL Time: Roflumilast (Daliresp) 500 MCG TABLET 1 Tablet ORAL DAILY Qty = 30 Comments: Last Taken: 11/05/17 Time: 13:05 Pioglitazone HCl (Pioglitazone HCl) 45 MG TABLET 1 Tablet ORAL DAILY Qty = 90 Comments: Last Taken: NOT GIVEN Time: Sitagliptin Phosphate (Januvia) 50 MG TABLET 1 Tablet ORAL DAILY Qty = 30 Comments: Last Taken: NOT GIVEN Time: Tamsulosin HCl (Flomax) 0.4 MG CAP.ER.24H 0.4 Milligram ORAL DAILY Qty = 30 Comments: NOT GIVEN IN HOSPITAL Linaclotide (Linzess) 290 MCG CAPSULE 1 Capsule ORAL DAILY Qty = 30 Comments: NOT GIVEN IN HOSPITAL Tiotropium [place] (Spiriva) 18 MCG CAP.W.DEV 1 Capsule Inhale through mouth DAILY Qty = 30 Comments: NOT GIVEN IN HOSPITAL Trazodone HCl (Trazodone HCl) 50 MG TABLET 2 Tablet ORAL Every night Qty = 60 Comments: NOT GIVEN IN HOSPITAL Herbal Drugs (Colon Herbal Cleanser) (Unknown Strength) CAPSULE Unknown Dose ORAL DAILY Comments: Last Taken: NOT GIVEN Time: Apixaban (Eliquis) 5 MG TABLET 1 Tablet ORAL TWICE DAILY Qty = 60 Comments: LAST GIVEN 10/21/17 @ 1044 Budesonide (Budesonide) 0.5 MG/2 ML AMPUL.NEB 1 Vial Inhale Solution TWICE DAILY Albuterol Sulfate (Proair Hfa) 90 MCG HFA.AER.AD 2 Puff Inhale through mouth Q4H as needed for RESP Comments: NOT GIVEN IN HOSPITAL Atorvastatin Calcium (Atorvastatin Calcium) 40 MG TABLET 1 Tablet ORAL DAILY Comments: NOT GIVEN IN HOSPITAL Start taking the following new medications: Caspofungin Acetate (Cancidas) 50 MG VIAL 150 Milligram INTRAVEN DAILY Qty = 30 No Refills Instructions: 150 MG caspofungin daily iv Potassium Chloride (Potassium Chloride) 10 MEQ CAPSULE.ER 1 Capsule ORAL DAILY Qty = 30 No Refills Magnesium Oxide (Magnesium) 400 MG CAPSULE 1 Capsule ORAL DAILY Qty = 30 No Refills
[2017-10-29 22:00] VITALS: BP 132/67
[2017-10-30 04:34] LABS: ABSOLUTE BASOPHIL COUNT 0 /CUMM (0.0-0.2); ABSOLUTE EOSINOPHIL COUNT 0 /CUMM (0.0-0.7); ABSOLUTE LYMPH COUNT 1.5 /CUMM (1.2-3.4); ABSOLUTE MONOCYTE COUNT 0.4 /CUMM (0.10-0.60); BASOPHIL % 0.3 % (0.0-2.0); EOSINOPHIL % 0.2 % (0-5); GRANULOCYTE % 78.7 % (42.2-75.2); HEMATOCRIT 29.4 % (42-52); MEAN CORPUSCULAR HGB 28.5 PG (27.0-31.0); MEAN CORPUSCULAR HGB CONC 33.4 G/DL (33.0-37.0); MEAN CORPUSCULAR VOLUME 85.2 FL (80.0-94.0); PLATELET COUNT 153 /CUMM (130-400); RBC DISTRIBUTION WIDTH 14.8 % (11.5-14.5); RED BLOOD CELL CT 3.45 /CUMM (4.70-6.10); WHITE BLOOD CELL COUNT 8.9 /CUMM (4.8-10.8)
[2017-10-30 07:11] VITALS: BP 135/72
--- NOTE | 2017-10-30 07:16 | PN- Housestaff ---
See Addendum Subjective Follow-up For: Influena A infection Candidemia COPD exacerbation (resolved) Hypokalemia (resolved) Subjective: No overnight events. Patient remained afebrile overnight. Seen and examined this morning. He denied any chest pain, short of breath, nausea, vomiting, chills, fever, abdominal pain dysuria. He is using 2 L of oxygen during nighttime maintaining saturation 96%. Patient is nothing by mouth and he will go today for JANET. Review of Systems Constitutional: Reports: no symptoms. EENTM: Reports: no symptoms. Cardiovascular: Reports: no symptoms. Respiratory: Reports: no symptoms. Gastrointestinal: Reports: no symptoms. Genitourinary: Reports: no symptoms. Musculoskeletal: Reports: no symptoms. Neurological/Psychological: Reports: no symptoms. Objective Last 24 Hrs of Vital Signs/I&O Vital Signs Date Time Temp Pulse Resp B/P B/P Pulse O2 O2 Flow FiO2 Mean Ox Delivery Rate 10/30 0711 97.4 78 20 135/72 95 Room Air 10/30 0000 Room Air 10/29 2200 97.7 66 18 132/67 96 Room Air 10/29 1900 94 Room Air 10/29 1600 Room Air 10/29 1421 97.6 108 18 120/68 92 10/29 1021 94 Room Air Room Air Intake & Output 10/30 1600 10/30 0800 10/30 0000 Intake Total 120 120 Output Total 1300 Balance -1180 120 Intake, Oral 120 120 Output, Urine 1300 Physical Exam General Appearance: Alert, Oriented X3, Cooperative, No Acute Distress Skin Temp/Moisture Exam: Warm/Dry HEENT: Atraumatic, PERRLA, EOMI Neck: Supple Cardiovascular: Normal S1, Normal S2 Lungs: Clear to Auscultation Abdomen: Soft, No Tenderness Neurological: Normal Speech, Normal Tone Extremities: No Edema Assessment/Plan Assessment: This is 77-year-old gentleman with medical history significant for COPD on 2 L of nocturnal oxygen history of atrial fibrillation status post ablation, heart failure with preserved ejection fraction, pulmonary hypertension, mild aortic stenosis, UTIs, nephrolithiasis, hydronephrosis status post lithotripsy and stent placement, 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 Patient to grow gram-negative fluids and gram-positive cocci in his urine culture less than 10,000 colonies. Waiting final results. COPD exacerbation precipitated by Influenza ifction:(Resolved) -Continue prednisone 40 mg daily -TRC nebs as needed. -Supplemental O2 to keep saturation >90%. -Tamiflu was stopped yesterday as he completed 5 days course. Candidemia: -patient's blood culture is still positive with yeast. -Caspofungin will be started today. -we will follow the blood cultures. -ureteric stant was removed. -Patient is nothing by mouth and going for JANET today to rule out infective endocarditis. Hypokalemia:(resolved) -patient having low potassium today 4.1 and magnesium 2. -we have repleted it. S/P removal of right ureteric stent: -Right ureteric stent was removed on bedside on 10/27/17. -Patient will follow the urologist as outpatient for further recommendations. History of diabetes: -We'll hold the oral hypoglycemic medications. -Accu-Cheks -Insulin NovoLog according to sliding scale. History of Atrial fibrillation status post ablation: -We will continue Eliquis H/O HFpEF: -Last echo on 10/27/17 showed ejection fraction more than 65% with stage I diastolic heart failure. History of hyperlipidemia: -We will continue Lipitor DVT prophylaxis: Patient is already on Eliquis CODE STATUS: Full code Problem List: 1. Influenza A 2. Candidemia 3. COPD exacerbation Pain Ratin Pain Location: NONE Pain Goal: Remain pain free Pain Plan: TYLENOL FOR MILD PAIN Tomorrow's Labs & Rationales: BEP
[2017-10-30 14:00] VITALS: BP 124/66
--- NOTE | 2017-10-30 14:42 | PN- Infect Dx ---
Subjective Subjective: Afebrile on steroids. He feels well with no complaints. His hematuria has resolved and he has no dysuria. Objective Last 24 Hrs of Vital Signs/I&O Vital Signs Date Time Temp Pulse Resp B/P B/P Pulse O2 O2 Flow FiO2 Mean Ox Delivery Rate 10/30 0930 96 Room Air 10/30 0922 80 148/78 10/30 0800 94 Room Air 10/30 0711 97.4 78 20 135/72 95 Room Air 10/30 0000 Room Air 10/29 2200 97.7 66 18 132/67 96 Room Air 10/29 1900 94 Room Air 10/29 1600 Room Air Intake & Output 10/30 1600 10/30 0800 10/30 0000 Intake Total 120 120 Output Total 1300 Balance -1180 120 Intake, Oral 120 120 Output, Urine 1300 Physical Exam Other Physical Findings: He appears well in no acute distress Lungs scattered rhonchi bilaterally Heart regular rhythm with no murmur Abdomen is soft, nontender with positive bowel sounds Back no CVA tenderness Extremities no cyanosis, clubbing or edema Results Last 24 Hours of Lab Results: Laboratory Tests 10/30 10/29 0400 1550 Chemistry Sodium (137 - 145 mmol/L) 139 135 L Potassium (3.5 - 5.1 mmol/L) 4.1 4.9 Chloride (98 - 107 mmol/L) 107 102 Carbon Dioxide (22 - 30 mmol/L) 25 23 Anion Gap (5 - 16) 7 10 BUN (9 - 20 mg/dL) 20 21 H Creatinine (0.7 - 1.2 mg/dL) 0.9 1.0 Estimated GFR (>60 ml/min) > 60 > 60 BUN/Creatinine Ratio (7 - 25 %) 22.2 21.0 Magnesium (1.6 - 2.3 mg/dL) 1.8 Hematology CBC w Diff NO MAN DIFF REQ WBC (4.8 - 10.8 /CUMM) 8.9 RBC (4.70 - 6.10 /CUMM) 3.45 L Hgb (14.0 - 18.0 G/DL) 9.8 L Hct (42 - 52 %) 29.4 L MCV (80.0 - 94.0 FL) 85.2 MCH (27.0 - 31.0 PG) 28.5 RDW (11.5 - 14.5 %) 14.8 H Plt Count (130 - 400 /CUMM) 153 MPV (7.4 - 10.4 FL) 7.0 L Gran % (42.2 - 75.2 %) 78.7 H Lymphocytes % (20.5 - 51.1 %) 16.8 L Monocytes % (1.7 - 9.3 %) 4.0 Eosinophils % (0 - 5 %) 0.2 Basophils % (0.0 - 2.0 %) 0.3 Absolute Granulocytes (1.4 - 6.5 /CUMM) 7.0 H Absolute Lymphocytes (1.2 - 3.4 /CUMM) 1.5 Absolute Monocytes (0.10 - 0.60 /CUMM) 0.4 Absolute Eosinophils (0.0 - 0.7 /CUMM) 0 Absolute Basophils (0.0 - 0.2 /CUMM) 0 PUBS MCHC (33.0 - 37.0 G/DL) 33.4 Last 24 Hours of Arsenio Results: Blood cultures October 27 one bottle positive for yeast Blood cultures October 24 identified as Concetta albicans, with sensitivities pending Assessment/Plan Impression: Stable, with temperatures and white blood cell count remaining normal (on steroids), now Day 4 of Caspofungin, begun because of persistent candidemia after 8 days of Fluconazole for Concetta pyelonephritis/sepsis, status post cystoscopy, right ureteroscopy, with laser lithotripsy of the stone and exchange of the right ureteral stent 11 days ago, with removal of the stent 3 days ago. Unfortunately blood cultures from 3 days ago are again positive, and he underwent a JANET earlier today to rule out endocarditis, with the results pending. Of note a recent CT of the abdomen and pelvis was negative for any evidence for lesions in the liver, spleen or kidneys to suggest systemic candidiasis. Ophthalmology evaluation was requested but apparently deferred until he is an outpatient. He has completed a 5 day course of Tamiflu for Influenza, and his isolation can be discontinued in the a.m. Suggestion: 1. Repeat blood cultures 2 2. Follow-up results of the JANET 3. Ophthalmologic evaluation to rule out Concetta ophthalmitis as soon as feasible 4. Will consider a repeat CT of the abdomen and pelvis with IV contrast if his blood cultures remain positive 5. Discontinue Droplet precautions in the a.m. 6. Await sensitivities on the Concetta albicans isolate (sent out to [facility]) 7. Continue Caspofungin 50 g IV every 24 hours
--- NOTE | 2017-10-30 18:01 | PN- Cardiology ---
Subjective Subjective: Discussed the indication for transesophageal echocardiography (JANET) with the patient emphasizing the potential risks, benefits, and alternatives to the procedure. An informed consent was obtained. After he received total intravenous anesthesia (TIVA) the JANET probe was passed into the esophagus with some mild difficulty, but visualization of the cardiac structures proved extremely difficult despite multiple attempts. There was also difficulty in advancing the JANET probe passed approximately 35 cm. Erring on the side of caution, we opted to abort the procedure since the image quality was not sufficient to exclude valvular endocarditis. Objective Vital Signs and I&Os Vital Signs Date Time Temp Pulse Resp B/P B/P Pulse O2 O2 Flow FiO2 Mean Ox Delivery Rate 10/30 1400 98.1 90 20 124/66 93 Room Air 10/30 0930 96 Room Air 10/30 0922 80 148/78 10/30 0800 94 Room Air 10/30 0711 97.4 78 20 135/72 95 Room Air 10/30 0000 Room Air 10/29 2200 97.7 66 18 132/67 96 Room Air 10/29 1900 94 Room Air Intake & Output 10/30 1600 10/30 0800 10/30 0000 10/29 1600 10/29 0800 10/29 0000 Intake Total 600 999 806 5474 600 Output Total 400 2392 302 2369 300 Balance 200 -1180 120 450 -550 -300 Intake, IV 600 150 600 Intake, Oral 120 120 900 Number 1 0 Bowel Movements Output, Urine 400 6559 816 2118 300 Physical Exam: Chronically ill-appearing elderly male in no acute distress with oxygen mask in place. Neck: No JVD, no bruits. Lungs: Decreased breath sounds bilaterally. Heart: S1, S2 with grade 2/6 systolic murmur. Abdomen: Soft, nontender, positive bowel sounds. Extremities: No edema. Current Medications: Current Medications Sig/Camille Start time Last Medication Dose Route Stop Time Status Admin Acetaminophen 650 MG Q6P PRN 10/24 1000 AC PO Albuterol Sulfate 3 ML TID 10/24 1600 AC 10/30 INH 1334 Albuterol Sulfate 2 PUF Q4H PRN 10/24 1030 AC INH Apixaban 5 MG BID 10/24 1001 AC 10/29 PO 205 Arformoterol Tartrate 15 MCG BID 10/24 2200 AC 10/30 INH 0931 Atorvastatin Calcium 40 MG DAILY 10/24 1004 AC 10/30 PO 0922 Budesonide 0.5 MG BID 10/24 2200 AC 10/30 INH 0932 Caspofungin 50 MG 1600 10/28 1600 AC 10/29 Sodium Chloride 250 ML IV 1638 Dextrose/Sodium 1,000 ML Q13H 10/29 2300 DC 10/30 Chloride IV 10/30 1159 0026 Hydrocodone Bitart/ 1 TAB Q8P PRN 10/24 1000 AC Acetaminophen PO Insulin Aspart 0 TIDAC 10/30 1700 AC 10/30 SC 1736 Insulin Aspart 0 TIDAC 10/29 1200 DC 10/29 SC 10/29 2300 1645 Insulin Human Regular 1 UNITS .STK-MED ONE 10/30 0621 DC IV 10/30 0622 Insulin Human Regular 1 UNITS .STK-MED ONE 10/30 0033 DC IV 10/30 0034 Insulin Human Regular 0 Q6 10/29 2359 DC 10/30 SC 0628 Lidocaine 0 .STK-MED ONE 10/30 1133 DC TOP Prednisone 30 MG DAILY 10/31 1000 AC PO Prednisone 40 MG DAILY 10/25 1000 DC 10/30 PO 0922 Roflumilast 500 MCG DAILY 10/25 1000 AC 10/30 PO 0921 Sodium Chloride 2 SPRAY Q4P PRN 10/25 1815 AC 10/25 LOS 2134 Tamsulosin HCl 0.4 MG DAILY 10/24 1003 AC 10/30 PO 0922 Tiotropium [place] 1 PUF DAILY 10/24 1002 AC 10/30 INH 0922 Trazodone HCl 100 MG QPM 10/24 2200 AC 10/29 PO 2055 Results Last 48 Hrs of Labs/Mics: Laboratory Tests 10/30/17 0400: Anion Gap 7, Estimated GFR > 60, BUN/Creatinine Ratio 22.2, CBC w Diff NO MAN DIFF REQ, RBC 3.45 L, MCV 85.2, MCH 28.5, RDW 14.8 H, MPV 7.0 L, Gran % 78.7 H, Lymphocytes % 16.8 L, Monocytes % 4.0, Eosinophils % 0.2, Basophils % 0.3, Absolute Granulocytes 7.0 H, Absolute Lymphocytes 1.5, Absolute Monocytes 0.4, Absolute Eosinophils 0, Absolute Basophils 0, PUBS MCHC 33.4 10/29/17 1550: Anion Gap 10, Estimated GFR > 60, BUN/Creatinine Ratio 21.0, Magnesium 1.8 10/29/17 0445: Anion Gap 8, Estimated GFR > 60, BUN/Creatinine Ratio 21.1, Magnesium 2.0, CBC w Diff NO MAN DIFF REQ, RBC 3.51 L, MCV 85.5, MCH 28.6, RDW 14.7 H, MPV 7.0 L, Gran % 76.5 H, Lymphocytes % 18.2 L, Monocytes % 4.7, Eosinophils % 0.3, Basophils % 0.3, Absolute Granulocytes 6.2, Absolute Lymphocytes 1.5, Absolute Monocytes 0.4, Absolute Eosinophils 0, Absolute Basophils 0, PUBS MCHC 33.5 Assessment/Plan Assessment/Plan Elderly male for whom JANET was recommended to exclude infective endocarditis. After informed consent was obtained the patient underwent TIVA administered by anesthesia and JANET attempted with very poor visualization of the cardiac structures and some difficulty passing the JANET probe. Based on the above, the JANET procedure was aborted. Reasonable to assess for any esophageal pathology. Continue telemetry? Not applicable (On 2 No.)
[2017-10-30 21:40] VITALS: BP 90/66
[2017-10-31 01:39] VITALS: BP 108/72
--- NOTE | 2017-10-31 06:35 | PN- Housestaff ---
See Addendum Subjective Follow-up For: Influena A infection Candidemia COPD exacerbation (resolved) Hypokalemia (resolved) Subjective: Patient remained afebrile overnight. Patient had 90/60 blood pressure last night. Although he was asymptomatic but he was given 500 mL normal saline bolus and his blood pressure later on was 108/72. Seen and examined this morning on bedside. Patient denied any chest pain, short of breath, nausea, vomiting, abdominal pain and dysuria. Patient reported having intermittent cough with sputum and last night he was bringing some mucus with blood streaks but this morning he didn't complain about mucus with blood streaks. JANET was done yesterday that was aborted and couldn't complete due to difficulty. Ophthalmology consult was placed as a call to Dr. Patel's office to rule out fungal ophthalmitis. Review of Systems Constitutional: Reports: no symptoms. EENTM: Reports: no symptoms. Cardiovascular: Reports: no symptoms. Respiratory: Reports: see HPI. Gastrointestinal: Reports: no symptoms. Genitourinary: Reports: no symptoms. Neurological/Psychological: Reports: no symptoms. Objective Last 24 Hrs of Vital Signs/I&O Vital Signs Date Time Temp Pulse Resp B/P B/P Pulse O2 O2 Flow FiO2 Mean Ox Delivery Rate 10/31 0701 97.2 78 20 122/64 94 10/31 0139 97.6 76 18 108/72 95 10/31 0000 92 Room Air 10/30 2140 98.0 86 20 90/66 92 Nasal 2.0L Cannula 10/30 1849 95 Room Air Room Air 10/30 1400 98.1 90 20 124/66 93 Room Air 10/30 0930 96 Room Air 10/30 0922 80 148/78 10/30 0800 94 Room Air 10/30 0711 97.4 78 20 135/72 95 Room Air Intake & Output 10/31 0800 10/31 0000 10/30 1600 Intake Total 650 1070 600 Output Total 600 400 Balance 650 470 200 Intake, IV 500 270 600 Intake, Oral 150 800 Number 0 1 Bowel Movements Output, Urine 600 400 Physical Exam General Appearance: Alert, Oriented X3, Cooperative Skin Temp/Moisture Exam: Warm/Dry Sepsis Skin Exam (color): Normal for Ethnicity HEENT: Atraumatic, PERRLA, EOMI Neck: Supple Cardiovascular: Normal S1, Normal S2 Lungs: Clear to Auscultation Abdomen: Soft, No Tenderness Neurological: Normal Speech, Strength at 5/5 X4 Ext, Normal Tone, Sensation Intact Extremities: No Edema Assessment/Plan Assessment: This is 77-year-old gentleman with medical history significant for COPD on 2 L of nocturnal oxygen history of atrial fibrillation status post ablation, heart failure with preserved ejection fraction, pulmonary hypertension, mild aortic stenosis, UTIs, nephrolithiasis, hydronephrosis status post lithotripsy and stent placement, 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 Patient to grow gram-negative fluids and gram-positive cocci in his urine culture less than 10,000 colonies. Waiting final results. COPD exacerbation precipitated by Influenza ifction:(Resolved) -TRC nebs as needed. -Supplemental O2 to keep saturation >90%. -Tamiflu was stopped yesterday as he completed 5 days course. -We will taper the prednisone. Candidemia: -patient's blood culture is still positive with yeast. -We will continue Caspofungin 50mg. -ureteric stant was removed. -JANET was done yesterday that was difficult study and aborted. -Blood cultures were pending after the start of on the we will follow the results. -We will follow the ophthalmology recommendations as consult were placed to rule out fungal ophthalmitis. Hypokalemia:(resolved) -patient having low potassium today 4.1 and magnesium 2. -we have repleted it. S/P removal of right ureteric stent: -Right ureteric stent was removed on bedside on 10/27/17. -Patient will follow the urologist as outpatient for further recommendations. History of diabetes: -We'll hold the oral hypoglycemic medications. -Accu-Cheks -Insulin NovoLog according to sliding scale. History of Atrial fibrillation status post ablation: -We will continue Eliquis H/O HFpEF: -Last echo on 10/27/17 showed ejection fraction more than 65% with stage I diastolic heart failure. History of hyperlipidemia: -We will continue Lipitor DVT prophylaxis: Patient is already on Eliquis CODE STATUS: Full code Problem List: 1. Hypokalemia 2. Influenza A 3. Candidemia Pain Ratin Pain Location: NONE Pain Goal: Remain pain free Pain Plan: TYLENOL FOR MILD PAIN Tomorrow's Labs & Rationales: CBC/BEP
[2017-10-31 07:01] VITALS: BP 122/64
[2017-10-31 08:24] LABS: ABSOLUTE BASOPHIL COUNT 0 /CUMM (0.0-0.2); ABSOLUTE EOSINOPHIL COUNT 0.1 /CUMM (0.0-0.7); ABSOLUTE GRANULOCYTE CT 7.3 /CUMM (1.4-6.5); ABSOLUTE LYMPH COUNT 1.5 /CUMM (1.2-3.4); ABSOLUTE MONOCYTE COUNT 0.3 /CUMM (0.10-0.60); BASOPHIL % 0.4 % (0.0-2.0); EOSINOPHIL % 0.7 % (0-5); HEMATOCRIT 29.4 % (42-52); MEAN CORPUSCULAR HGB 28.4 PG (27.0-31.0); MEAN CORPUSCULAR HGB CONC 33.3 G/DL (33.0-37.0); MEAN CORPUSCULAR VOLUME 85.2 FL (80.0-94.0); MEAN PLATELET VOLUME 7.4 FL (7.4-10.4); PLATELET COUNT 142 /CUMM (130-400); RBC DISTRIBUTION WIDTH 14.8 % (11.5-14.5); RED BLOOD CELL CT 3.45 /CUMM (4.70-6.10); WHITE BLOOD CELL COUNT 9.2 /CUMM (4.8-10.8)
[2017-10-31 08:51] VITALS: BP 112/60
--- NOTE | 2017-10-31 11:24 | Event Note ---
Event Note Event Note: Situation spoke with regarding Ophthal examination Brief Patient is a 77 YO M with persistent fungemia, currently on caspofungin day 4. We requested ophtahl evaluation to rule out candidal opthalmitis. I had a chance to speak with about this patient. He prefers to see this patient outpatient. Reportedly - The equipment available in the hospital is not very helpful to evaluate and in case If opthalmitis present it is not going to change the management of the patient. I did a gross eye exam on his request and informed it is normal. In case if there is any possibility of spread to eyes the first sign would be floaters as it spreads to back of the eye (floaters). Other possible symptoms include inflammation with erythema rarely. Plan Although azole therapy is preferred for eye involvement, he is currently agreeable with current management with IV caspofungin as he doesnt think it involves the eye. No inpatient opthal work up at this time. Closely monitor for any signs like floaters. follow up as outpatient with .
[2017-10-31 15:29] VITALS: BP 124/60
[2017-10-31 23:27] VITALS: BP 140/64
[2017-11-01 06:59] VITALS: BP 142/78
[2017-11-01 08:19] LABS: ABSOLUTE BASOPHIL COUNT 0 /CUMM (0.0-0.2); ABSOLUTE EOSINOPHIL COUNT 0.1 /CUMM (0.0-0.7); ABSOLUTE GRANULOCYTE CT 6.4 /CUMM (1.4-6.5); ABSOLUTE LYMPH COUNT 1.4 /CUMM (1.2-3.4); ABSOLUTE MONOCYTE COUNT 0.4 /CUMM (0.10-0.60); BASOPHIL % 0.3 % (0.0-2.0); EOSINOPHIL % 1.4 % (0-5); GRANULOCYTE % 77.2 % (42.2-75.2); HEMATOCRIT 29.4 % (42-52); MEAN CORPUSCULAR HGB 28.5 PG (27.0-31.0); MEAN CORPUSCULAR HGB CONC 33.5 G/DL (33.0-37.0); MEAN PLATELET VOLUME 7.4 FL (7.4-10.4); PLATELET COUNT 147 /CUMM (130-400); RBC DISTRIBUTION WIDTH 15.1 % (11.5-14.5); RED BLOOD CELL CT 3.46 /CUMM (4.70-6.10); WHITE BLOOD CELL COUNT 8.3 /CUMM (4.8-10.8)
--- NOTE | 2017-11-01 08:46 | PN- Housestaff ---
Tika LEAL,Gillian 11/01/17 0846: Subjective Follow-up For: Influena A infection Candidemia COPD exacerbation (resolved) Hypokalemia (resolved) Subjective: Patient is seen and examined at bedside, Afebrile, with stable endorses cough and shortness of breath especially when moving around, yellowish sputum, denies fever, chills, nausea, vomiting, diarrhea or constipation , ophthalmology was consulted yesterday, he recommended that the patient should follow with him outpatient because the instruments he needs are not available. Gross eye exam was performed by the medical team yesterday which didn't reveal gross abnormality Review of Systems Constitutional: Denies: no symptoms. Cardiovascular: Denies: no symptoms. Respiratory: Reports: cough, short of breath, sputum production. Gastrointestinal: Denies: no symptoms. Genitourinary: Denies: no symptoms. Musculoskeletal: Denies: no symptoms. Skin: Denies: no symptoms. Objective Last 24 Hrs of Vital Signs/I&O Vital Signs Date Time Temp Pulse Resp B/P B/P Pulse O2 O2 Flow FiO2 Mean Ox Delivery Rate 11/01 0906 90 124/58 11/01 0808 95 Room Air Room Air 11/01 0659 97.9 72 20 142/78 96 11/01 0000 95 Nasal 2.0L Cannula 10/31 2327 97.9 82 20 140/64 94 Room Air 10/31 1639 93 Room Air 10/31 1529 98.2 85 20 124/60 95 Room Air 10/31 0946 96 Room Air Intake & Output 11/01 1600 11/01 0800 11/01 0000 Intake Total 600 1070 Output Total 600 Balance 600 470 Intake, IV 270 Intake, Oral 600 800 Number 0 Bowel Movements Output, Urine 600 Patient 170 lb Weight Physical Exam General Appearance: Alert, Oriented X3, Cooperative, No Acute Distress HEENT: Atraumatic, PERRLA, EOMI, Mucous Membr. 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 Patient to grow gram-negative fluids and gram-positive cocci in his urine culture less than 10,000 colonies. Waiting final results. COPD exacerbation precipitated by Influenza ifction:(Resolved) -TRC nebs as needed. -Supplemental O2 to keep saturation >90%. - taper the prednisone. Candidemia: -patient's blood culture is still positive with yeast. -We will continue Caspofungin 50mg. -ureteric stant was removed. -JANET was done yesterday that was difficult study and aborted. -Blood cultures were pending after the start of on the we will follow the results. -We will follow the ophthalmology recommendations as consult were placed to rule out fungal ophthalmitis. Hypokalemia:(resolved) - potassium today 3.6 and magnesium 1.8 Potassium repleted -we have repleted it. S/P removal of right ureteric stent: -Right ureteric stent was removed on bedside on 10/27/17. -Patient will follow the urologist as outpatient for further recommendations. History of diabetes: -We'll hold the oral hypoglycemic medications. Fingerstick glucose in the range of 200 -Accu-Cheks -Insulin NovoLog according to sliding scale. History of Atrial fibrillation status post ablation: -We will continue Eliquis H/O HFpEF: -Last echo on 10/27/17 showed ejection fraction more than 65% with stage I diastolic heart failure. History of hyperlipidemia: -We will continue Lipitor DVT prophylaxis: Patient is already on Eliquis CODE STATUS: Full code Problem List: 1. Influenza A 2. Hypokalemia 3. Candidemia Pain Ratin Pain Location: N/A Pain Goal: Remain pain free Pain Plan: PATHWAY Tomorrow's Labs & Rationales: CBC BEP DVT/Prophylaxis: mechanical, pharmacological Carlos Sommers MD 11/01/17 1613: Attending Review Statement Attending Statement Attending MD Statement: examined this patient, discuss w/resident/PA/DIRECT SERVICE PROFESSIONAL, agreed w/resident/PA/DIRECT SERVICE PROFESSIONAL, reviewed EMR data (avail) Attending Assessment/Plan: The patient was seen and discussed with house staff, family, nursing and case management. The patient did undergo JANET 2 days ago, however the the procedure was aborted as the patient did not tolerate it well and the probe could not be passed beyond a certain limit. 2/4 persistently positive blood cultures for candidemia in spite of therapy. Recent blood cultures have been negative for the past 2 days. Plan to continue with Antifungals (IV Caspofungin) untill we get the final cultures and sensitivity. Urinary stent removed earlier this week. Will continue current anti-fungal therapy. Appreciate ID input. Patient will benefit from a repeat JANET, if there is evidence of endocarditis - needs valve replacement. Course of Tamiflu has been completed - discontinue droplet precautions. Initiated ophthalmology consult, ophthalmology recommend seen the patient as an outpatient, patient does not have symptoms of endophthalmitis (eye pain, eye redness or discharge) the house staff discussed with .
--- NOTE | 2017-11-01 11:35 | PN- Infect Dx ---
Subjective Subjective: Afebrile on steroids. He offers no complaints. Unfortunately the JANET was unable to be completed because of difficulty in passing the JANET probe into the esophagus and difficult visualization of the cardiac structures Objective Last 24 Hrs of Vital Signs/I&O Vital Signs Date Time Temp Pulse Resp B/P B/P Pulse O2 O2 Flow FiO2 Mean Ox Delivery Rate 11/01 0906 90 124/58 11/01 0808 95 Room Air Room Air 11/01 0659 97.9 72 20 142/78 96 11/01 0000 95 Nasal 2.0L Cannula 10/31 2327 97.9 82 20 140/64 94 Room Air 10/31 1639 93 Room Air 10/31 1529 98.2 85 20 124/60 95 Room Air Intake & Output 11/01 1600 11/01 0800 11/01 0000 Intake Total 600 1070 Output Total 600 Balance 600 470 Intake, IV 270 Intake, Oral 600 800 Number 0 Bowel Movements Output, Urine 600 Patient 170 lb Weight Physical Exam Other Physical Findings: He appears comfortable in no acute distress Lungs decreased breath sounds bilaterally Heart regular rhythm with no murmur Abdomen is soft, nontender with positive bowel sounds Back no CVA tenderness Results Last 24 Hours of Lab Results: Laboratory Tests 11/01 0700 Chemistry Sodium (137 - 145 mmol/L) 138 Potassium (3.5 - 5.1 mmol/L) 3.6 Chloride (98 - 107 mmol/L) 107 Carbon Dioxide (22 - 30 mmol/L) 24 Anion Gap (5 - 16) 8 BUN (9 - 20 mg/dL) 16 Creatinine (0.7 - 1.2 mg/dL) 0.8 Estimated GFR (>60 ml/min) > 60 BUN/Creatinine Ratio (7 - 25 %) 20.0 Magnesium (1.6 - 2.3 mg/dL) 1.8 Hematology CBC w Diff NO MAN DIFF REQ WBC (4.8 - 10.8 /CUMM) 8.3 RBC (4.70 - 6.10 /CUMM) 3.46 L Hgb (14.0 - 18.0 G/DL) 9.9 L Hct (42 - 52 %) 29.4 L MCV (80.0 - 94.0 FL) 85.0 MCH (27.0 - 31.0 PG) 28.5 RDW (11.5 - 14.5 %) 15.1 H Plt Count (130 - 400 /CUMM) 147 MPV (7.4 - 10.4 FL) 7.4 Gran % (42.2 - 75.2 %) 77.2 H Lymphocytes % (20.5 - 51.1 %) 16.6 L Monocytes % (1.7 - 9.3 %) 4.5 Eosinophils % (0 - 5 %) 1.4 Basophils % (0.0 - 2.0 %) 0.3 Absolute Granulocytes (1.4 - 6.5 /CUMM) 6.4 Absolute Lymphocytes (1.2 - 3.4 /CUMM) 1.4 Absolute Monocytes (0.10 - 0.60 /CUMM) 0.4 Absolute Eosinophils (0.0 - 0.7 /CUMM) 0.1 Absolute Basophils (0.0 - 0.2 /CUMM) 0 PUBS MCHC (33.0 - 37.0 G/DL) 33.5 Last 24 Hours of Arsenio Results: Blood cultures 4 October 30 negative Blood cultures from October 20 identified as Concetta albicans, sensitive to Fluconazole (ARSENIO 0.5) and Caspofungin (ARSENIO 0.015) Assessment/Plan Impression: Stable, with temperatures and white blood cell count remaining normal (on steroids), now Day 6 of Caspofungin, begun because of persistent candidemia after 8 days of Fluconazole for Concetta pyelonephritis/sepsis, with his blood cultures from 2 days ago so far remaining negative. 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 Endocarditis must be considered and feel that a JANET will need to be reattempted as, if he has endocarditis, the treatment is typically valve replacement or, if this is not feasible, indefinite suppression with antifungal therapy. Of note a recent CT of the abdomen and pelvis was negative for any evidence for lesions in the liver, spleen or kidneys to suggest systemic candidiasis. Ophthalmology evaluation was requested but apparently deferred until he is an outpatient. His urinary complaints have improved, though he continues to void in small amounts, now 13 days status post cystoscopy, right ureteroscopy, with laser lithotripsy of the stone and exchange of the right ureteral stent. He has completed his course of treatment for Influenza and his isolation can be discontinued. Suggestion: 1. Would repeat attempt at JANET 2. Discontinue Droplet precautions 3. Will consider a repeat CT of the abdomen and pelvis with IV contrast if his blood cultures remain positive 4. Continue Caspofungin 50 g IV every 24 hours
[2017-11-01 15:16] VITALS: BP 122/68
[2017-11-01 21:59] VITALS: BP 120/48
[2017-11-02 06:31] VITALS: BP 118/56
--- NOTE | 2017-11-02 07:15 | PN- Housestaff ---
See Addendum Subjective Follow-up For: Influena A infection Candidemia COPD exacerbation (resolved) Hypokalemia (resolved) Subjective: No overnight events. Patient remained afebrile overnight. Seen and examined this morning. He denied any chest pain, short of breath, palpitations, nausea, vomiting, chills, fever, abdominal pain dysuria. His blood cultures after starting on the are still showing no growth for now. Has lost transesophageal echocardiogram was aborted due to difficulty, and we will repleted again to find if there is endocarditis related to fungal infection. Review of Systems Constitutional: Reports: no symptoms. EENTM: Reports: no symptoms. Cardiovascular: Reports: no symptoms. Respiratory: Reports: no symptoms. Gastrointestinal: Reports: no symptoms. Genitourinary: Reports: no symptoms. Musculoskeletal: Reports: no symptoms. Neurological/Psychological: Reports: no symptoms. Objective Last 24 Hrs of Vital Signs/I&O Vital Signs Date Time Temp Pulse Resp B/P B/P Pulse O2 O2 Flow FiO2 Mean Ox Delivery Rate 11/02 0631 98.0 86 18 118/56 94 11/02 0000 Room Air 11/01 2159 97.5 78 20 120/48 94 Room Air 11/01 1600 94 Nasal 2.0L Cannula 11/01 1516 97.7 84 20 122/68 99 Nasal Cannula 11/01 0906 90 124/58 Intake & Output 11/02 1600 11/02 0800 11/02 0000 Intake Total 240 1270 Output Total 600 Balance 240 670 Intake, IV 270 Intake, Oral 240 1000 Number 0 Bowel Movements Output, Urine 600 Physical Exam General Appearance: Alert, Oriented X3, Cooperative, No Acute Distress Skin Temp/Moisture Exam: Warm/Dry Sepsis Skin Exam (color): Normal for Ethnicity HEENT: Atraumatic, PERRLA, EOMI Neck: Supple Cardiovascular: Normal S1, Normal S2 Lungs: Clear to Auscultation Abdomen: Soft, No Tenderness Neurological: Normal Speech, Strength at 5/5 X4 Ext, Normal Tone, Sensation Intact Extremities: No Edema Assessment/Plan Assessment: This is 77-year-old gentleman with medical history significant for COPD on 2 L of nocturnal oxygen history of atrial fibrillation status post ablation, heart failure with preserved ejection fraction, pulmonary hypertension, mild aortic stenosis, UTIs, nephrolithiasis, hydronephrosis status post lithotripsy and stent placement, 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 Patient to grow gram-negative fluids and gram-positive cocci in his urine culture less than 10,000 colonies. Waiting final results. COPD exacerbation precipitated by Influenza ifction:(Resolved) -TRC nebs as needed. -Supplemental O2 to keep saturation >90%. - taper the prednisone. Candidemia: -patient's blood culture is still positive with yeast. -We will continue Caspofungin 50mg. -ureteric stant was removed. -JANET was done that was difficult study and aborted. We will repeat the JANET to rule out fungal endocarditis. -Blood cultures were pending after the start of on the we will follow the results. -We will follow the ophthalmology recommendations as consult were placed to rule out fungal ophthalmitis. Hypokalemia:(resolved) - potassium today 3.6 and magnesium 1.8 Potassium repleted -we have repleted it. S/P removal of right ureteric stent: -Right ureteric stent was removed on bedside on 10/27/17. -Patient will follow the urologist as outpatient for further recommendations. History of diabetes: -We'll hold the oral hypoglycemic medications. Fingerstick glucose in the range of 200 -Accu-Cheks -Insulin NovoLog according to sliding scale. History of Atrial fibrillation status post ablation: -We will continue Eliquis H/O HFpEF: -Last echo on 10/27/17 showed ejection fraction more than 65% with stage I diastolic heart failure. History of hyperlipidemia: -We will continue Lipitor DVT prophylaxis: Patient is already on Eliquis CODE STATUS: Full code Problem List: 1. Candidemia 2. Influenza A 3. Hypokalemia Pain Ratin Pain Location: none Pain Goal: Remain pain free Pain Plan: tylenol for mild pain Tomorrow's Labs & Rationales: cbc/bep
[2017-11-02 10:52] LABS: ABSOLUTE BASOPHIL COUNT 0 /CUMM (0.0-0.2); ABSOLUTE EOSINOPHIL COUNT 0.2 /CUMM (0.0-0.7); ABSOLUTE GRANULOCYTE CT 6.6 /CUMM (1.4-6.5); ABSOLUTE LYMPH COUNT 1.3 /CUMM (1.2-3.4); ABSOLUTE MONOCYTE COUNT 0.5 /CUMM (0.10-0.60); BASOPHIL % 0.4 % (0.0-2.0); GRANULOCYTE % 76.5 % (42.2-75.2); HEMATOCRIT 34.1 % (42-52); MEAN CORPUSCULAR HGB 28.7 PG (27.0-31.0); MEAN CORPUSCULAR HGB CONC 33.5 G/DL (33.0-37.0); MEAN CORPUSCULAR VOLUME 85.5 FL (80.0-94.0); MEAN PLATELET VOLUME 7.6 FL (7.4-10.4); PLATELET COUNT 158 /CUMM (130-400); RBC DISTRIBUTION WIDTH 15.4 % (11.5-14.5); RED BLOOD CELL CT 3.98 /CUMM (4.70-6.10); WHITE BLOOD CELL COUNT 8.6 /CUMM (4.8-10.8)
--- NOTE | 2017-11-02 14:10 | PN- Infect Dx ---
Subjective Subjective: Afebrile on steroids without complaints Objective Last 24 Hrs of Vital Signs/I&O Vital Signs Date Time Temp Pulse Resp B/P B/P Pulse O2 O2 Flow FiO2 Mean Ox Delivery Rate 11/02 1055 132/80 11/02 0917 96 Room Air 11/02 0854 94 Room Air 11/02 0631 98.0 86 18 118/56 94 11/02 0000 Room Air 11/01 2159 97.5 78 20 120/48 94 Room Air 11/01 1600 94 Nasal 2.0L Cannula 11/01 1516 97.7 84 20 122/68 99 Nasal Cannula Intake & Output 11/02 1600 11/02 0800 11/02 0000 Intake Total 240 1270 Output Total 600 Balance 240 670 Intake, IV 270 Intake, Oral 240 1000 Number 0 Bowel Movements Output, Urine 600 Physical Exam Other Physical Findings: He appears comfortable in no acute distress Lungs decreased breath sounds with scattered rhonchi Heart regular with no murmur Results Last 24 Hours of Lab Results: Laboratory Tests 11/02 0815 Chemistry Sodium (137 - 145 mmol/L) 138 Potassium (3.5 - 5.1 mmol/L) 3.5 Chloride (98 - 107 mmol/L) 103 Carbon Dioxide (22 - 30 mmol/L) 25 Anion Gap (5 - 16) 10 BUN (9 - 20 mg/dL) 15 Creatinine (0.7 - 1.2 mg/dL) 0.9 Estimated GFR (>60 ml/min) > 60 BUN/Creatinine Ratio (7 - 25 %) 16.7 Magnesium (1.6 - 2.3 mg/dL) 1.7 Hematology CBC w Diff NO MAN DIFF REQ WBC (4.8 - 10.8 /CUMM) 8.6 RBC (4.70 - 6.10 /CUMM) 3.98 L Hgb (14.0 - 18.0 G/DL) 11.4 L Hct (42 - 52 %) 34.1 L MCV (80.0 - 94.0 FL) 85.5 MCH (27.0 - 31.0 PG) 28.7 RDW (11.5 - 14.5 %) 15.4 H Plt Count (130 - 400 /CUMM) 158 MPV (7.4 - 10.4 FL) 7.6 Gran % (42.2 - 75.2 %) 76.5 H Lymphocytes % (20.5 - 51.1 %) 15.3 L Monocytes % (1.7 - 9.3 %) 5.8 Eosinophils % (0 - 5 %) 2.0 Basophils % (0.0 - 2.0 %) 0.4 Absolute Granulocytes (1.4 - 6.5 /CUMM) 6.6 H Absolute Lymphocytes (1.2 - 3.4 /CUMM) 1.3 Absolute Monocytes (0.10 - 0.60 /CUMM) 0.5 Absolute Eosinophils (0.0 - 0.7 /CUMM) 0.2 Absolute Basophils (0.0 - 0.2 /CUMM) 0 PUBS MCHC (33.0 - 37.0 G/DL) 33.5 Last 24 Hours of Arsenio Results: Blood cultures October 30 negative so far Assessment/Plan Impression: Stable, with temperatures and white blood cell count remaining normal (on steroids), now Day 7 of Caspofungin, begun because of persistent candidemia after 8 days of Fluconazole for Concetta pyelonephritis/sepsis, with his blood cultures from 3 days ago remaining negative. 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 Endocarditis must be considered and feel that an attempt at a JANET needs to be repeated as, if he has endocarditis, the treatment is typically valve replacement or, if this is not feasible, indefinite suppression with antifungal therapy. Of note a recent CT of the abdomen and pelvis was negative for any evidence for lesions in the liver, spleen or kidneys to suggest systemic candidiasis. Ophthalmology evaluation was requested but apparently deferred until he is an outpatient. His urinary complaints have improved, though he continues to void in small amounts, now 2 weeks status post cystoscopy, right ureteroscopy, with laser lithotripsy of the stone and exchange of the right ureteral stent, with removal of the stent 6 days ago. Suggestion: 1. Would repeat attempt at JANET (have discussed with Dr. Kahn) 2. Will consider a repeat CT of the abdomen and pelvis with IV contrast if his blood cultures remain positive 3. Continue Caspofungin 50 g IV every 24 hours
[2017-11-02 14:43] VITALS: BP 110/56
[2017-11-02 21:31] VITALS: BP 120/60
[2017-11-03 05:23] VITALS: BP 130/68
--- NOTE | 2017-11-03 07:14 | PN- Housestaff ---
[place]inicioCleveland 11/03/17 0714: Subjective Follow-up For: Influena A infection (resolved) Candidemia COPD exacerbation (resolved) Hypokalemia (resolved) Subjective: No overnight events. Patient remained afebrile overnight. Seen and examined this morning. He denied any chest pain, short of breath, palpitation, chills, fever, abdominal pain and dysuria. Patient reported chronic intermittent dry cough. His blood cultures after starting caspofungin are still showing no growth. We're waiting for the final blood culture report. Patient needs transesophageal echocardiogram to rule out infective endocarditis. Dr. Kahn will speak to Dr. Holbrook regarding during procedure on 11/04/2017. We are waiting for the decision regarding echo. Today her fasting blood sugar level is 183. Review of Systems Constitutional: Reports: no symptoms. EENTM: Reports: no symptoms. Cardiovascular: Reports: no symptoms. Respiratory: Reports: cough. Gastrointestinal: Reports: no symptoms. Genitourinary: Reports: no symptoms. Neurological/Psychological: Reports: no symptoms. Objective Last 24 Hrs of Vital Signs/I&O Vital Signs Date Time Temp Pulse Resp B/P B/P Pulse O2 O2 Flow FiO2 Mean Ox Delivery Rate 11/03 0523 97.5 78 22 130/68 96 Room Air 11/02 2131 96.6 75 18 120/60 94 Room Air 11/02 1900 95 Room Air 11/02 1600 Room Air 11/02 1443 97.7 105 20 110/56 96 Nasal Cannula 11/02 1055 132/80 11/02 0917 96 Room Air 11/02 0854 94 Room Air Intake & Output 11/03 0800 11/03 0000 11/02 1600 Intake Total 910 Output Total Balance 910 Intake, IV 10 Intake, Oral 900 Number 0 Bowel Movements Output, Urine Physical Exam General Appearance: Alert, Oriented X3, Cooperative, No Acute Distress Skin Temp/Moisture Exam: Warm/Dry Sepsis Skin Exam (color): Normal for Ethnicity HEENT: Atraumatic, PERRLA, EOMI Neck: Supple Cardiovascular: Normal S1, Normal S2 Lungs: Clear to Auscultation, Decreased breath sounds on right side compare to left. Abdomen: Soft, No Tenderness Neurological: Normal Speech, Strength at 5/5 X4 Ext, Normal Tone, Sensation Intact Extremities: No Edema Assessment/Plan Assessment: This is 77-year-old gentleman with medical history significant for COPD on 2 L of nocturnal oxygen history of atrial fibrillation status post ablation, heart failure with preserved ejection fraction, pulmonary hypertension, mild aortic stenosis, UTIs, nephrolithiasis, hydronephrosis status post lithotripsy and stent placement, 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 Patient to grow gram-negative fluids and gram-positive cocci in his urine culture less than 10,000 colonies. Waiting final results. COPD exacerbation precipitated by Influenza ifction:(Resolved) -TRC nebs as needed. -Supplemental O2 to keep saturation >90%. - taper the prednisone. Candidemia: -patient's blood culture is still positive with yeast. -We will continue Caspofungin 50mg. -ureteric stant was removed. -JANET was done that was difficult study and aborted. We will repeat the JANET to rule out fungal endocarditis. -Blood cultures were pending after starting caspofungin, we will follow the results. -Patient will follow ophthalmology as outpatient. Hypokalemia:(resolved) - potassium today 3.6 and magnesium 1.8 Potassium repleted -we have repleted it. S/P removal of right ureteric stent: -Right ureteric stent was removed on bedside on 10/27/17. -Patient will follow the urologist as outpatient for further recommendations. History of diabetes: -We'll hold the oral hypoglycemic medications. -Accu-Cheks -Insulin NovoLog according to sliding scale. History of Atrial fibrillation status post ablation: -We will continue Eliquis H/O HFpEF: -Last echo on 10/27/17 showed ejection fraction more than 65% with stage I diastolic heart failure. History of hyperlipidemia: -We will continue Lipitor DVT prophylaxis: Patient is already on Eliquis CODE STATUS: Full code Problem List: 1. Influenza A 2. Candidemia 3. COPD exacerbation Pain Ratin Pain Location: none Pain Goal: Remain pain free Pain Plan: tylenol for mild pain Tomorrow's Labs & Rationales: cbc/bep Zuleyka Velazquez MD 11/03/17 1544: Attending MD Review Statement Attending Statement Attending MD Statement: examined this patient, discuss w/resident/PA/PAIN MANAGEMENT PHYSICIAN, agreed w/resident/PA/PAIN MANAGEMENT PHYSICIAN, reviewed EMR data (avail) Attending Assessment/Plan: 77M PMH HFpEF, mild aortic stenosis, moderate pulmonary hypertension, COPD on nighttime 2 L nasal cannula oxygen, DM, HLD, history of nephrolithiasis S/P ureteral stenting, A. fib S/P ablation, BPH, history of candidemia, recently admitted for candidemia sepsis and discharge home on Fluconazole, returns with 1 day of lethargy, weakness, diffuse myalgia, and worsening dyspnea, found to be Influenza A positive. Patient reports dyspnea and fatigue with minimal exertion. He is asymptomatic at rest. Blood cultures from 10/30 still negative. 1. Influenza A 2. COPD Exacerbation 3. Chronic hypoxemic respiratory failure 4. Nephrolithiasis 5. Candidemia Plan - Continue on general medicine - Will discuss with ID if JANET is still required given negative blood cultures, and if so will obtain barium swallow to evaluate esophagus prior to JANET tomorrow morning - Follow ID recommendations - Completed Tamiflu course - Continued Prednisone 40mg x 5 days - Continue Caspofungin - Follow blood cultures - Continue home medications - Continue Eliquis - PT eval
[2017-11-03 14:51] VITALS: BP 122/71
[2017-11-03 22:29] VITALS: BP 128/58
--- NOTE | 2017-11-03 22:41 | Event Note ---
Event Note Event Note: BCx 2 bootles growing yeast pt on capsofungin repeat blood cultures x2 drawn
[2017-11-04 07:09] VITALS: BP 118/56
--- NOTE | 2017-11-04 07:22 | PN- Housestaff ---
See Addendum Subjective Follow-up For: Candidemia Influena A infection (resolved) COPD exacerbation (resolved) Hypokalemia (resolved) Subjective: No overnight events. Patient remained afebrile overnight. Seen and examined this morning. Patient denied any chest pain, lightheadedness, nausea, vomiting , abdominal pain, palpitation and dysuria. Patient reported short of breath that's her baseline and he got the breathing treatment. Patient was nothing by mouth and he went for esophagogram but patient couldn't lay flat and patient refused esophagogram. Patient blood culture is back and still growing yeast in it. Review of Systems Constitutional: Reports: no symptoms. EENTM: Reports: no symptoms. Cardiovascular: Reports: no symptoms. Respiratory: Reports: short of breath. Gastrointestinal: Reports: no symptoms. Genitourinary: Reports: no symptoms. Musculoskeletal: Reports: no symptoms. Neurological/Psychological: Reports: no symptoms. Objective Last 24 Hrs of Vital Signs/I&O Vital Signs Date Time Temp Pulse Resp B/P B/P Pulse O2 O2 Flow FiO2 Mean Ox Delivery Rate 11/04 1039 98 120/80 11/04 0948 92 Room Air 11/04 0831 100 20 120/70 95 Room Air 11/04 0800 95 Room Air 11/04 0740 122 118/60 11/04 0709 98.0 124 20 118/56 91 11/04 0000 Room Air 11/03 2229 98.6 94 19 128/58 92 Room Air 11/03 1600 94 Nasal 2.0L Cannula 11/03 1451 98.7 98 20 122/71 92 Room Air Intake & Output 11/04 1600 11/04 0800 11/04 0000 Intake Total 500 1270 Output Total 900 Balance 500 370 Intake, IV 500 270 Intake, Oral 1000 Number 0 Bowel Movements Output, Urine 900 Physical Exam General Appearance: Alert, Oriented X3, Cooperative Skin Temp/Moisture Exam: Warm/Dry Sepsis Skin Exam (color): Normal for Ethnicity HEENT: Atraumatic, PERRLA, EOMI Neck: Supple Cardiovascular: Normal S1, Normal S2 Lungs: decreased breath sounds on right side compare to left Abdomen: Soft, No Tenderness Neurological: Normal Speech, Strength at 5/5 X4 Ext, Normal Tone, Sensation Intact Extremities: No Edema Assessment/Plan Assessment: This is 77-year-old gentleman with medical history significant for COPD on 2 L of nocturnal oxygen history of atrial fibrillation status post ablation, heart failure with preserved ejection fraction, pulmonary hypertension, mild aortic stenosis, UTIs, nephrolithiasis, hydronephrosis status post lithotripsy and stent placement, 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 Patient to grow gram-negative fluids and gram-positive cocci in his urine culture less than 10,000 colonies. Waiting final results. COPD exacerbation precipitated by Influenza ifction:(Resolved) -TRC nebs as needed. -Supplemental O2 to keep saturation >90%. - taper the prednisone. Candidemia: -patient's blood culture is still positive with yeast. -We will continue Caspofungin 50mg. -ureteric stant was removed. -JANET was done that was difficult study and aborted. We will repeat the JANET to rule out fungal endocarditis. -Patient will follow ophthalmology as outpatient. -Patient blood culture is back and growing yeast in it. Hypokalemia:(resolved) - potassium today 3.6 and magnesium 1.8 Potassium repleted -we have repleted it. S/P removal of right ureteric stent: -Right ureteric stent was removed on bedside on 10/27/17. -Patient will follow the urologist as outpatient for further recommendations. History of diabetes: -We'll hold the oral hypoglycemic medications. -Accu-Cheks -Insulin NovoLog according to sliding scale. History of Atrial fibrillation status post ablation: -We will continue Eliquis H/O HFpEF: -Last echo on 10/27/17 showed ejection fraction more than 65% with stage I diastolic heart failure. History of hyperlipidemia: -We will continue Lipitor DVT prophylaxis: Patient is already on Eliquis CODE STATUS: Full code Problem List: 1. Candidemia Pain Ratin Pain Location: none Pain Goal: Remain pain free Pain Plan: tylenol for mild pain Tomorrow's Labs & Rationales: cbc/bep
[2017-11-04 07:40] VITALS: BP 118/60
[2017-11-04 08:31] VITALS: BP 120/70
--- NOTE | 2017-11-04 10:35 | RADIOLOGY REPORT ---
EXAMINATION: XR PORTABLE CHEST CLINICAL INFORMATION: Shortness of breath decreased breath sounds on the right. Presumptive diagnosis pulmonary edema or pleural effusion. COMPARISON: Portable frontal view of the chest dated 10/24/2017. TECHNIQUE: Portable frontal view of the chest was obtained. FINDINGS: The lungs are hyperinflated however are clear bilaterally, note the lateral aspect of the right costophrenic angle is not completely included in the study. There is no evidence of pleural effusion. Central pulmonary vasculature is within normal limits. The cardiac silhouette is not enlarged. IMPRESSION: No acute cardiopulmonary findings, no significant interval change compared to the prior study.
--- NOTE | 2017-11-04 13:08 | PN- Infect Dx ---
Subjective Subjective: Afebrile without complaints. He was apparently unable to complete the swallowing study. Objective Last 24 Hrs of Vital Signs/I&O Vital Signs Date Time Temp Pulse Resp B/P B/P Pulse O2 O2 Flow FiO2 Mean Ox Delivery Rate 11/04 1039 98 120/80 11/04 0948 92 Room Air 11/04 0831 100 20 120/70 95 Room Air 11/04 0800 95 Room Air 11/04 0740 122 118/60 11/04 0709 98.0 124 20 118/56 91 11/04 0000 Room Air 11/03 2229 98.6 94 19 128/58 92 Room Air 11/03 1600 94 Nasal 2.0L Cannula 11/03 1451 98.7 98 20 122/71 92 Room Air Intake & Output 11/04 1600 11/04 0800 11/04 0000 Intake Total 500 1270 Output Total 900 Balance 500 370 Intake, IV 500 270 Intake, Oral 1000 Number 0 Bowel Movements Output, Urine 900 Physical Exam Other Physical Findings: He appears comfortable in no acute distress Lungs decreased breath sounds bilaterally Heart regular rhythm with no murmur Abdomen is soft, nontender with positive bowel sounds Back no CVA tenderness Extremities no cyanosis, clubbing or edema Results Last 24 Hours of Lab Results: Laboratory Tests 11/04 11/03 0740 1918 Chemistry Sodium (137 - 145 mmol/L) 137 135 L Potassium (3.5 - 5.1 mmol/L) 3.9 5.0 Chloride (98 - 107 mmol/L) 104 101 Carbon Dioxide (22 - 30 mmol/L) 26 26 Anion Gap (5 - 16) 7 8 BUN (9 - 20 mg/dL) 19 24 H Creatinine (0.7 - 1.2 mg/dL) 1.0 1.0 Estimated GFR (>60 ml/min) > 60 > 60 BUN/Creatinine Ratio (7 - 25 %) 19.0 24.0 Magnesium (1.6 - 2.3 mg/dL) 1.8 1.8 Last 24 Hours of Arsenio Results: Blood cultures 2 October 30 positive for yeast Recent Imaging Studies: Chest x-ray November 04 negative Assessment/Plan Impression: Clinically stable, with temperatures and white blood cell count remaining normal (on tapering steroids), now Day 9 of Caspofungin, begun because of persistent candidemia after 8 days of Fluconazole for Concetta pyelonephritis/sepsis, with his blood cultures from 5 days ago again positive. He is scheduled for a JANET to rule out endocarditis, but this has been deferred until tomorrow because of the recommendation by Cardiology for him to have a swallowing evaluation, which he was unable to comply with. His initial CT of the abdomen and pelvis was negative for any lesions in the liver, spleen or kidneys to suggest systemic candidiasis, but, if his JANET is negative, this should be repeated. Ophthalmology evaluation was requested but apparently deferred until he is an outpatient. 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 His urinary complaints have improved, though he continues to void in small amounts, now 16 days status post cystoscopy, right ureteroscopy , with laser lithotripsy of the stone and exchange of the right ureteral stent, with removal of the stent 8 days ago. Suggestion: 1. Repeat blood cultures 2 (done) 2. Await JANET, scheduled for the a.m. 3. Repeat CT of the abdomen and pelvis with IV contrast if his JANET is negative 4. Continue Caspofungin 50 g IV every 24 hours pending above
[2017-11-04 15:44] VITALS: BP 114/60
[2017-11-04 22:30] VITALS: BP 110/60
[2017-11-05 04:06] LABS: ABSOLUTE BASOPHIL COUNT 0 /CUMM (0.0-0.2); ABSOLUTE EOSINOPHIL COUNT 0.1 /CUMM (0.0-0.7); ABSOLUTE GRANULOCYTE CT 5.8 /CUMM (1.4-6.5); ABSOLUTE LYMPH COUNT 1.1 /CUMM (1.2-3.4); ABSOLUTE MONOCYTE COUNT 0.5 /CUMM (0.10-0.60); BASOPHIL % 0.5 % (0.0-2.0); EOSINOPHIL % 0.9 % (0-5); HEMATOCRIT 30.3 % (42-52); MEAN CORPUSCULAR HGB 28.2 PG (27.0-31.0); MEAN CORPUSCULAR HGB CONC 33.2 G/DL (33.0-37.0); MEAN PLATELET VOLUME 6.8 FL (7.4-10.4); PLATELET COUNT 143 /CUMM (130-400); RBC DISTRIBUTION WIDTH 15.8 % (11.5-14.5); RED BLOOD CELL CT 3.57 /CUMM (4.70-6.10); WHITE BLOOD CELL COUNT 7.5 /CUMM (4.8-10.8)
[2017-11-05 06:46] VITALS: BP 112/56
--- NOTE | 2017-11-05 07:25 | PN- Housestaff ---
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 Patient remained afebrile. Seen and examined this morning. Patient is nothing by mouth and going for JANET today. Patient denied any chest pain, short of breath, nausea, vomiting, chills, fever, abdominal pain dysuria. He is using 2 L of oxygen at nighttime and maintaining saturation 91%. Review of Systems Constitutional: Reports: no symptoms. EENTM: Reports: no symptoms. Cardiovascular: Reports: no symptoms. Respiratory: Reports: no symptoms. Gastrointestinal: Reports: no symptoms. Genitourinary: Reports: no symptoms. Neurological/Psychological: Reports: no symptoms. Objective Last 24 Hrs of Vital Signs/I&O Vital Signs Date Time Temp Pulse Resp B/P B/P Pulse O2 O2 Flow FiO2 Mean Ox Delivery Rate 11/05 0824 94 Room Air 11/05 0646 98.0 88 18 112/56 91 11/05 0000 91 Nasal 2.0L Cannula 11/04 2230 98.3 93 18 110/60 93 Room Air 11/04 1930 96 Room Air 11/04 1600 94 Nasal 2.0L Cannula 11/04 1544 98.7 95 20 114/60 92 Room Air 11/04 1039 98 120/80 11/04 0948 92 Room Air Intake & Output 11/05 1600 11/05 0800 11/05 0000 Intake Total 420 1470 Output Total Balance 420 1470 Intake, IV 420 270 Intake, Oral 0 1200 Number 0 0 Bowel Movements Physical Exam General Appearance: Alert, Oriented X3, Cooperative, No Acute Distress Skin: No Rashes Skin Temp/Moisture Exam: Warm/Dry HEENT: Atraumatic, PERRLA, EOMI Neck: Supple Cardiovascular: Normal S1, Normal S2 Lungs: Decreased breath sounds on right side compare to left Abdomen: Soft, No Tenderness Neurological: Normal Speech, Strength at 5/5 X4 Ext, Normal Tone, Sensation Intact Extremities: No Edema Assessment/Plan Assessment: This is 77-year-old gentleman with medical history significant for COPD on 2 L of nocturnal oxygen history of atrial fibrillation status post ablation, heart failure with preserved ejection fraction, pulmonary hypertension, mild aortic stenosis, UTIs, nephrolithiasis, hydronephrosis status post lithotripsy and stent placement, 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 Patient to grow gram-negative fluids and gram-positive cocci in his urine culture less than 10,000 colonies. Waiting final results. COPD exacerbation precipitated by Influenza ifction:(Resolved) -TRC nebs as needed. -Supplemental O2 to keep saturation >90% at nighttime. -Completed his his prednisone taper yesterday. 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 -ureteric stant was removed. -JANET was done that was difficult study and aborted. We will repeat the JANET to rule out fungal endocarditis. -Patient will follow ophthalmology as outpatient. -Patient blood culture is back and growing yeast in it. -JANET has been done today and its positive for endocarditis with calcification. -cardiothoracic input. Hypokalemia:(resolved) - potassium today 3.6 and magnesium 1.8 -Potassium repleted. -we have repleted it. S/P removal of right ureteric stent: -Right ureteric stent was removed on bedside on 10/27/17. -Patient will follow the urologist as outpatient for further recommendations. History of diabetes: -We'll hold the oral hypoglycemic medications. -Accu-Cheks -Insulin NovoLog according to sliding scale. History of Atrial fibrillation status post ablation: -We will continue Eliquis H/O HFpEF: -Last echo on 10/27/17 showed ejection fraction more than 65% with stage I diastolic heart failure. History of hyperlipidemia: -We will continue Lipitor DVT prophylaxis: Patient is already on Eliquis CODE STATUS: Full code Problem List: 1. Candidemia Pain Ratin Pain Location: none Pain Goal: Remain pain free Pain Plan: tylenol for mild pain Tomorrow's Labs & Rationales: cbc/bep Zuleyka Velazquez MD 11/05/17 1228: Attending MD Review Statement Attending Statement Attending MD Statement: examined this patient, discuss w/resident/PA/EQUIPMENT SERVICES ASSOCIATE, agreed w/resident/PA/EQUIPMENT SERVICES ASSOCIATE, reviewed EMR data (avail) Attending Assessment/Plan: 77M PMH HFpEF, mild aortic stenosis, moderate pulmonary hypertension, COPD on nighttime 2 L nasal cannula oxygen, DM, HLD, history of nephrolithiasis S/P ureteral stenting, A. fib S/P ablation, BPH, history of candidemia, recently admitted for candidemia sepsis and discharge home on Fluconazole, returns with 1 day of lethargy, weakness, diffuse myalgia, and worsening dyspnea, found to be Influenza A positive. Patient reports dyspnea and fatigue with minimal exertion. He is asymptomatic at rest. Blood cultures from 10/30 now positive for yeast. JANET shows valvular vegetation. 1. Influenza A 2. COPD Exacerbation 3. Chronic hypoxemic respiratory failure 4. Nephrolithiasis 5. Candidemia 6. Concetta endocarditis Plan - Continue on general medicine - Cardiothoracic surgery consult - Follow ID recommendations - Completed Tamiflu course - Continue Caspofungin - Follow blood cultures - Continue home medications - Continue Eliquis - PT eval
[2017-11-05 09:08] VITALS: BP 118/60
[2017-11-05 12:33] VITALS: BP 126/78
--- NOTE | 2017-11-05 12:43 | PN- Infect Dx ---
Subjective Subjective: Afebrile without complaints Objective Last 24 Hrs of Vital Signs/I&O Vital Signs Date Time Temp Pulse Resp B/P B/P Pulse O2 O2 Flow FiO2 Mean Ox Delivery Rate 11/05 1233 98.4 80 20 126/78 95 Room Air 11/05 0908 98.0 88 20 118/60 95 Room Air 11/05 0824 94 Room Air 11/05 0800 95 Room Air 11/05 0646 98.0 88 18 112/56 91 11/05 0000 91 Nasal 2.0L Cannula 11/04 2230 98.3 93 18 110/60 93 Room Air 11/04 1930 96 Room Air 11/04 1600 94 Nasal 2.0L Cannula 11/04 1544 98.7 95 20 114/60 92 Room Air Intake & Output 11/05 1600 11/05 0800 11/05 0000 Intake Total 420 1470 Output Total Balance 420 1470 Intake, IV 420 270 Intake, Oral 0 1200 Number 0 0 Bowel Movements Physical Exam Other Physical Findings: He appears comfortable in no acute distress Lungs scattered rhonchi bilaterally Heart regular rhythm with no murmur Extremities no cyanosis, clubbing or edema Results Last 24 Hours of Lab Results: Laboratory Tests 11/05 0400 Chemistry Sodium (137 - 145 mmol/L) 134 L Potassium (3.5 - 5.1 mmol/L) 4.3 Chloride (98 - 107 mmol/L) 103 Carbon Dioxide (22 - 30 mmol/L) 24 Anion Gap (5 - 16) 7 BUN (9 - 20 mg/dL) 20 Creatinine (0.7 - 1.2 mg/dL) 1.0 Estimated GFR (>60 ml/min) > 60 BUN/Creatinine Ratio (7 - 25 %) 20.0 Hematology CBC w Diff NO MAN DIFF REQ WBC (4.8 - 10.8 /CUMM) 7.5 RBC (4.70 - 6.10 /CUMM) 3.57 L Hgb (14.0 - 18.0 G/DL) 10.1 L Hct (42 - 52 %) 30.3 L MCV (80.0 - 94.0 FL) 85.0 MCH (27.0 - 31.0 PG) 28.2 MCHC (33.0 - 37.0 G/DL) 33.2 RDW (11.5 - 14.5 %) 15.8 H Plt Count (130 - 400 /CUMM) 143 MPV (7.4 - 10.4 FL) 6.8 L Gran % (42.2 - 75.2 %) 78.0 H Lymphocytes % (20.5 - 51.1 %) 14.5 L Monocytes % (1.7 - 9.3 %) 6.1 Eosinophils % (0 - 5 %) 0.9 Basophils % (0.0 - 2.0 %) 0.5 Absolute Granulocytes (1.4 - 6.5 /CUMM) 5.8 Absolute Lymphocytes (1.2 - 3.4 /CUMM) 1.1 L Absolute Monocytes (0.10 - 0.60 /CUMM) 0.5 Absolute Eosinophils (0.0 - 0.7 /CUMM) 0.1 Absolute Basophils (0.0 - 0.2 /CUMM) 0 Last 24 Hours of Arsenio Results: Blood cultures November 04 negative so far Recent Imaging Studies: JANET, performed earlier today, reveals an aortic valve vegetation Assessment/Plan Impression: Clinically stable, with temperatures and white blood cell count remaining normal (on tapering steroids), on Caspofungin Day 10 of treatment for persistent candidemia after 8 days of Fluconazole for Concetta pyelonephritis/sepsis, with his blood cultures from 6 days ago again positive with his blood cultures from yesterday so far negative. 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 The treatment for this is usually valve replacement as medical therapy is felt to be curative and, so far, has not cleared his blood cultures. Given his poor respiratory status he is clearly a high risk for surgery, but he should have cardiothoracic surgery evaluation. 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 His urinary complaints have improved now 17 days status post cystoscopy, right ureteroscopy, with laser lithotripsy of the stone and exchange of the right ureteral stent, with removal of the stent 9 days ago. Suggestion: 1. Cardiothoracic surgery evaluation 2. Increase Caspofungin to 150 g IV every 24 hours
[2017-11-05] MEDS ORDERED: [UNRECOGNIZED DRUG - OTHER] IV (14:31)
[2017-11-05] MEDS ORDERED: MAGNESIUM400 M1 PO (14:31)
[2017-11-05] MEDS ORDERED: POTASSIUM CHLO10 ME3 PO (14:31)
--- NOTE | 2017-11-05 15:36 | ECHOCARDIOGRAM REPORT ---
SONIDO HENRIQUEZ Age: 77 : Gender: M Exam Date: 11/05/2017 10:02 Exam Location: [address] [place] [address] Ht (in): 74 Wt (lb): 169 BSA: 1.99 BP: 100 / 80 Ordering Physician: Thomas Mooney MD Referring Physician: Thomas Mooney MD Technologist: Armen Bailon [facility] Room Number: 206-1 Indications: INFECTIVE ENDOCARDITIS Rhythm: Sinus Technical Quality: Good Medications Lidocaine [place]. Propofol administered by Anesthesiology. Ease of Transducer Insertion No Difficulty Complications None. Technical Difficulty FINDINGS Left Ventricle Normal size left ventricle. No obvious regional wall motion abnormalities. Left ventricular wall thickness increased. Normal left ventricular ejection fraction estimated at 55-60%. Right Ventricle Normal right ventricular size and function. Right Atrium Normal right atrial size. Left Atrium Mild left atrial dilatation. LA Appendage Normal left atrial appendage. IA Septum Normal interatrial septum. Mitral Valve Mitral valve thickened. Mild mitral regurgitation. Aortic Valve Trileaflet aortic valve. Diffuse thickening (sclerosis) of the aortic valve cusps without reduced excursion. No aortic stenosis. Trace aortic regurgitation. Consistent with vegetation on the right coronary cusp of the aortic valve. Large vegetation on the aortic valve. Tricuspid Valve Tricuspid valve not well visualized, grossly normal. Trace to mild tricuspid regurgitation. Pulmonic Valve Pulmonic valve not well visualized, grossly normal. Trace to mild pulmonic regurgitation. Pericardium No pericardial effusion. Great Vessels Normal size aortic root and proximal ascending aorta. Plaque seen in the ascending aorta. Grade II plaque seen in the aortic arch. Grade II plaque seen in the descending aorta. CONCLUSIONS 1. Moderate aortic sclerosis is present. The valve is trileaflet. Minimal aortic insufficiency is present. There is a relatively large echo density present which predominantly involves the right coronary leaflet. In view of the patient's history, this is most consistent with a vegetative lesion. the possibility of other lesions, such as valvular myxoma or papillary fibroblastoma are possible, though much less likely. There appeared to be 2 components. A large component, at the base of the right coronary leaflet in the left ventricular outflow tract measures 1.0 x 1.9 cm in its maximum dimension. A second component, at the tip of the right coronary cusp, on the aortic root aspect, measures 0.8 x 1.1 cm in its maximum dimension and is more mobile. 2. There appears to be a significant amount of periaortic fat present. the possibility of a paravalvular abscess cannot be excluded by this Study. 3. Mitral leaflet thickening is present with mild mitral insufficiency and mild left atrial enlargement. 4. The pulmonary venous anatomy is normal bilaterally with normal Doppler profiles. 5. The left atrial appendage is normal with no evidence of thrombus. 6. The left ventricular chamber size and systolic function appear normal. 7. There is no evidence of atrial level shunt 8. There are no other valvular vegetative lesions detected. 9. Minimal to mild tricuspid and pulmonic insufficiency are present. 10. Atheromatous plaque is noted in the descending thoracic aorta. Grade 1 to grade 2 plaque is noted in the distal aortic arch and descending thoracic aorta. Dayo Holbrook M.D. (Electronically Signed) Final Date: 05 November 2017 15:36 MEASUREMENTS (Male / Female) Normal Values
== END 2017-11-05 18:39 | disposition short-term general hospital (02) | DRG 289 ==
LOC: ERH 05:54 → 2NB 08:14 → ERHI 08:14 → EDBEDREQ 11:44 → ENRESERV 12:42 → ENTRNSPT 13:11 → EDTRNSPT 13:36 → EDTRNSPTSTS 13:36 → 2NB 13:48 → CMPTRNSPT 14:00 → 2NB 10-26 14:32
PROVIDERS: Internal Medicine Hematology & Oncology; Pediatrics; Student in an Organized Health Care Education/Training Program
PROC: 0TP9XDZ Removal of Intraluminal Device from Ureter, External Approach (ICD-10-PCS; 2017-10-27)
PROC: B24BZZ4 Ultrasonography of Heart with Aorta, Transesophageal (ICD-10-PCS; principal; 2017-11-05)
DX: B37.6 Candidal endocarditis (principal); J96.11 Chronic respiratory failure with hypoxia; R78.81 Bacteremia; E86.0 Dehydration; I48.91 Unspecified atrial fibrillation; I50.32 Chronic diastolic (congestive) heart failure; I27.29 Other secondary pulmonary hypertension; Z99.81 Dependence on supplemental oxygen; J44.1 Chronic obstructive pulmonary disease with (acute) exacerbation; J10.1 Influenza due to other identified influenza virus with other respiratory manifestations; B37.89 Other sites of candidiasis; Z79.01 Long term (current) use of anticoagulants; E87.6 Hypokalemia; Z79.84 Long term (current) use of oral hypoglycemic drugs; K59.00 Constipation, unspecified; E11.9 Type 2 diabetes mellitus without complications; Z87.891 Personal history of nicotine dependence; I35.0 Nonrheumatic aortic (valve) stenosis; B37.49 Other urogenital candidiasis; Z87.442 Personal history of urinary calculi
CPT/HCPCS: 2NBP; 36415; 71045; 81001; 82436; 87040; 87071; 87086; 87147; 87804; 87804-59; 93005; 93010; 93306; 93325; 96374; 96375; 97116-GO; 97162-GP; 97530-GO; J0637; J0696; J1450; J1815; J2405; J3490; J7040; J7042; J7512; J7605; J7626